=== PATIENT | male | born 1945 | race Caucasian/White ===

== ENCOUNTER 2017-05-15 06:53 | Observation (INO) ==
[2017-05-15] MEDS ORDERED: methylPREDNISolone 125 MG/2 ML VIAL IVP ONE (07:05)
[2017-05-15] MEDS ORDERED: Ipratropium/Albuterol Neb 3 ML IH ONE (07:05)
--- NOTE | 2017-05-15 07:45 | Emergency Department Note ---
Disposition Clinical Impression: Acute exacerbation of chronic obstructive airways disease Disposition: Admitted As Inpatient Condition: Fair Referrals: Ulices Mcgovern Jr, MD [Primary Care Provider] - Forms: ED Satisfaction Letter General Adult HPI - General Chief complaint: ED Shortness of Breath/Dyspnea Stated complaint: SOB Time Seen by Provider: 05/15/17 06:59 Source: patient Limitations: no limitations - History of Present Illness Pain Scale: 0 - Related Data Home Medications Medication Instructions Recorded Confirmed Albuterol Sulfate [Ventolin Hfa] 2 puff IH Q4H PRN 10/15/16 05/12/17 Amiodarone [Cordarone] 200 mg PO DAILY 10/15/16 05/12/17 Aspirin 81 mg PO DAILY 10/15/16 05/12/17 Budesonide/Formoterol 160/4.5 2 puff IH BIDR 10/15/16 05/12/17 [Symbicort 160/4.5] Furosemide [Lasix] 20 mg PO DAILY 10/15/16 05/12/17 Ipratropium/Albuterol Neb [Duoneb] 3 ml IH TID 10/15/16 05/12/17 Isosorbide MONOnitrate (24 HR) 30 mg PO DAILY 10/15/16 05/12/17 [Imdur] Levothyroxine [Synthroid] 75 mcg PO DAILY 10/15/16 05/12/17 Lisinopril [Zestril] 40 mg PO DAILY 10/15/16 05/12/17 Metoprolol [Lopressor] 100 mg PO BID 10/15/16 05/12/17 Paroxetine HCl [Paxil] 40 mg PO DAILY 10/15/16 05/12/17 Pravastatin Sodium [Pravachol] 20 mg PO DAILY 10/15/16 05/12/17 Topiramate [Topamax] 50 mg PO HS 10/15/16 05/12/17 Docusate [Colace] 100 mg PO BID 05/12/17 05/12/17 Quetiapine Fumarate [SEROquel] 25 mg PO HS 05/12/17 05/12/17 clonazePAM [Klonopin] 1 mg PO BID 05/12/17 05/12/17 Allergies Allergy/AdvReac Type Severity Reaction Status Date / Time levofloxacin [From Levaquin] AdvReac Hives Verified 08/06/15 11:02 Past Medical History - Past Medical History Medical history: Reports: aortic aneurysm, cancer, COPD, coronary artery disease , GERD, hyperlipidemia, hypertension, myocardial infarction, thyroid disease, other Surgical history: Reports: cancer surgery, coronary bypass (CABG), vasectomy Psychiatric history: Reports: depression - Social History Smoking Status: Current every day smoker Smokeless Tobacco Status: No Alcohol use: Reports: none Drug use: Reports: none Physical Exam - General Limitations: no limitations General appearance: alert, in no apparent distress Course Vital Signs Temperature 97.8 F 05/15/17 07:01 Pulse Rate 83 05/15/17 07:01 Respiratory Rate 24 05/15/17 07:01 Blood Pressure 124/83 05/15/17 07:01 O2 Sat by Pulse Oximetry 97 05/15/17 07:01 Temperature 97.8 F 05/15/17 07:01 Pulse Rate 80 05/15/17 09:03 Respiratory Rate 20 05/15/17 09:03 Blood Pressure 97/61 05/15/17 09:03 O2 Sat by Pulse Oximetry 97 05/15/17 09:03 Oxygen Delivery Oxygen Delivery Nasal Cannula Medical Decision Making - Lab Data Result diagrams: 05/15/17 07:39 05/15/17 07:39 Lab Results 05/15/17 05/15/17 05/15/17 Range/Units 07:39 07:39 07:39 WBC 13.3 H (4.3-11.1) K/mcL RBC 4.16 L (4.19-5.50) M/mcL Hgb 11.0 L (12.9-16.9) g/dL Hct 35.6 L (37.5-50.1) % MCV 85.6 (83.0-100.0) fL MCH 26.4 L (28.0-33.3) pg MCHC 30.9 L (31.6-35.5) g/dL RDW 14.3 (11.5-14.5) % Plt Count 263 (140-400) K/mcL MPV 9.2 L (9.4-12.4) fL Immature Gran % 0.6 (0-4) % Seg Neutrophils % 89.5 % Lymphocytes % 3.5 % Monocytes % 5.3 % Eosinophils % 0.8 % Basophils % 0.3 % Neutrophils # 11.9 H (1.6-8.9) K/mcL Lymphocytes # 0.5 L (0.6-4.6) K/mcL Monocytes # 0.7 (0.0-1.3) K/mcL Eosinophils # 0.1 (0.0-0.6) K/mcL Basophils # 0.0 (0.0-0.2) K/mcL Immature Plt Fraction 2.5 (1.1-6.1) % ABG pH (7.32-7.45) pH Units ABG pCO2 (35-45) mmHg ABG pO2 (85-104) mmHg ABG HCO3 (21-27) mEQ/L ABG Total CO2 (20-26) mEq/L ABG O2 Saturation (95-98) % ABG Base Excess (-2.0 to 3.0) mEq/L Sodium 137 (136-145) mEq/L Potassium 3.7 (3.5-4.5) mEq/L Chloride 95 L (98-109) mEq/L Carbon Dioxide 34 H (19-29) mEq/L BUN 12 (8-26) mg/dL Creatinine 1.21 (0.72-1.25) mg/dL Est GFR ( Amer) > 60 (> 60) Est GFR (Non-Af Amer) 59 L (> 60) BUN/Creatinine Ratio 10 (6-26) Glucose 87 (70-99) mg/dL Calculated Osmolality 283 (280-300) Lactic Acid 1.1 (0.5-2.2) mmol/L Calcium 9.4 (8.6-10.8) mg/dL Troponin I (0-0.03) ng/mL 05/15/17 05/15/17 Range/Units 07:39 08:56 WBC (4.3-11.1) K/mcL RBC (4.19-5.50) M/mcL Hgb (12.9-16.9) g/dL Hct (37.5-50.1) % MCV (83.0-100.0) fL MCH (28.0-33.3) pg MCHC (31.6-35.5) g/dL RDW (11.5-14.5) % Plt Count (140-400) K/mcL MPV (9.4-12.4) fL Immature Gran % (0-4) % Seg Neutrophils % % Lymphocytes % % Monocytes % % Eosinophils % % Basophils % % Neutrophils # (1.6-8.9) K/mcL Lymphocytes # (0.6-4.6) K/mcL Monocytes # (0.0-1.3) K/mcL Eosinophils # (0.0-0.6) K/mcL Basophils # (0.0-0.2) K/mcL Immature Plt Fraction (1.1-6.1) % ABG pH 7.37 (7.32-7.45) pH Units ABG pCO2 57 H (35-45) mmHg ABG pO2 191 H (85-104) mmHg ABG HCO3 33.0 H (21-27) mEQ/L ABG Total CO2 34.7 H (20-26) mEq/L ABG O2 Saturation 100 H (95-98) % ABG Base Excess 6.4 H (-2.0 to 3.0) mEq/L Sodium (136-145) mEq/L Potassium (3.5-4.5) mEq/L Chloride (98-109) mEq/L Carbon Dioxide (19-29) mEq/L BUN (8-26) mg/dL Creatinine (0.72-1.25) mg/dL Est GFR ( Amer) (> 60) Est GFR (Non-Af Amer) (> 60) BUN/Creatinine Ratio (6-26) Glucose (70-99) mg/dL Calculated Osmolality (280-300) Lactic Acid (0.5-2.2) mmol/L Calcium (8.6-10.8) mg/dL Troponin I 0.02 (0-0.03) ng/mL Attestation Statement - Attestation Attestation: I examined this patient and my medical decision-making was reviewed with the Resident Physician. I agree with the documented findings, disposition and treatment plan as described except to the extent set forth below. [id number] time provided in conjunction with the resident physician Dr. Nguyen Patient presents dyspneic. He recently underwent a bronchoscopy. He is tachypneic and visibly dyspneic on exam. Care of patient plan of management discussed with the resident physician Dr. Nguyen. Chest x-ray image reviewed by me. 09:14: Recent bronchoscopic cultures and sensitivities reviewed by me with resident physician. Appropriate antibiotic therapy initiated
[2017-05-15 07:48] LABS: Basophils % 0.3 %; Eosinophils # 0.1 K/mcL (0.0-0.6); Eosinophils % 0.8 %; Hematocrit 35.6 % (37.5-50.1); Immature Granulocytes % 0.6 % (0-4); Immature Platelets 2.5 % (1.1-6.1); Lymphocytes # 0.5 K/mcL (0.6-4.6); Lymphocytes % 3.5 %; Mean Corpuscular HGB Conc 30.9 g/dL (31.6-35.5); Mean Corpuscular Hemoglobin 26.4 pg (28.0-33.3); Mean Corpuscular Volume 85.6 fL (83.0-100.0); Mean Platelet Volume 9.2 fL (9.4-12.4); Monocytes # 0.7 K/mcL (0.0-1.3); Monocytes % 5.3 %; Neutrophils # 11.9 K/mcL (1.6-8.9); Platelet Count 263 K/mcL (140-400); Red Blood Count 4.16 M/mcL (4.19-5.50); Red Cell Distribution Width 14.3 % (11.5-14.5); Segmented Neutrophils % 89.5 %
--- NOTE | 2017-05-15 08:00 | Emergency Department Note ---
Disposition Clinical Impression: Acute exacerbation of chronic obstructive airways disease Community acquired pneumonia Qualifiers: Laterality: right Lung location: lower lobe of lung Qualified Code(s): J18.1 - Lobar pneumonia, unspecified organism Disposition: Admitted As Inpatient Condition: Fair Referrals: Ulices Mcgovern Jr, MD [Primary Care Provider] - Forms: ED Satisfaction Letter Time of Disposition: 09:41 General Adult HPI - General Chief complaint: ED Shortness of Breath/Dyspnea Stated complaint: SOB Time Seen by Provider: 05/15/17 06:59 Source: patient Limitations: no limitations Nursing Notes Reviewed: Yes Vital Signs Reviewed: Yes - History of Present Illness HPI Narrative: Male patient complaining of a four-day history of increasing shortness of breath. States it got significantly worse after he had a bronchoscopy. Also complaining of generalized weakness and subjective fevers. Denies any pain. Pain Scale: 0 - Related Data Home Medications Medication Instructions Recorded Confirmed Albuterol Sulfate [Ventolin Hfa] 2 puff IH Q4H PRN 10/15/16 05/12/17 Amiodarone [Cordarone] 200 mg PO DAILY 10/15/16 05/12/17 Aspirin 81 mg PO DAILY 10/15/16 05/12/17 Budesonide/Formoterol 160/4.5 2 puff IH BIDR 10/15/16 05/12/17 [Symbicort 160/4.5] Furosemide [Lasix] 20 mg PO DAILY 10/15/16 05/12/17 Ipratropium/Albuterol Neb [Duoneb] 3 ml IH TID 10/15/16 05/12/17 Isosorbide MONOnitrate (24 HR) 30 mg PO DAILY 10/15/16 05/12/17 [Imdur] Levothyroxine [Synthroid] 75 mcg PO DAILY 10/15/16 05/12/17 Lisinopril [Zestril] 40 mg PO DAILY 10/15/16 05/12/17 Metoprolol [Lopressor] 100 mg PO BID 10/15/16 05/12/17 Paroxetine HCl [Paxil] 40 mg PO DAILY 10/15/16 05/12/17 Pravastatin Sodium [Pravachol] 20 mg PO DAILY 10/15/16 05/12/17 Topiramate [Topamax] 50 mg PO HS 10/15/16 05/12/17 Docusate [Colace] 100 mg PO BID 05/12/17 05/12/17 Quetiapine Fumarate [SEROquel] 25 mg PO HS 05/12/17 05/12/17 clonazePAM [Klonopin] 1 mg PO BID 05/12/17 05/12/17 Allergies Allergy/AdvReac Type Severity Reaction Status Date / Time No Known Allergies Allergy Verified 05/15/17 09:36 All systems ED: reviewed and negative except as stated. Constitutional: Reports: fever (Subjective), weakness (Increased over the past 4 days.) ENT ED: Denies: throat pain, congestion Cardiovascular: Denies: chest pain, palpitations, syncope Respiratory: Reports: dyspnea, wheezes, sputum production. Denies: cough, hemoptysis Gastrointestinal: Denies: abdominal pain, nausea, vomiting, diarrhea, hematemesis, melena, hematochezia Genitourinary: Denies: urgency, dysuria, frequency Musculoskeletal: Denies: back pain, neck pain Integumentary: Denies: rash, abrasion, lesions Neurological: Reports: weakness. Denies: headache Past Medical History - Past Medical History Attestation: Yes The following information was validated with the patient. Source: patient Medical history: Reports: aortic aneurysm, cancer, COPD, coronary artery disease , GERD, hyperlipidemia, hypertension, myocardial infarction, thyroid disease, other Surgical history: Reports: cancer surgery, coronary bypass (CABG), vasectomy Psychiatric history: Reports: depression - Social History Smoking Status: Current every day smoker Smokeless Tobacco Status: No Alcohol use: Reports: none Drug use: Reports: none Physical Exam - General Limitations: no limitations General appearance: alert, in distress - Head Head exam: atraumatic, normocephalic, normal inspection - Eye Eye exam: Present: normal appearance, PERRL, EOMI - ENT ENT exam: normal exam, normal oropharynx, mucous membranes moist - Neck Neck exam: Present: normal inspection, full ROM, trachea midline - Chest Chest inspection: Present: normal inspection, symmetric chest wall rise. Absent : tenderness - Respiratory Respiratory exam: Present: respiratory distress, wheezes, accessory muscle use, prolonged expiratory phase, other (Rhonchi throughout) - Cardiovascular Cardiovascular exam: Present: regular rate, normal heart sounds - Abdominal Exam Abdominal exam: Present: soft, Non-Tender, normal bowel sounds - Extremities Exam Extremities exam: Present: normal inspection, full ROM, normal capillary refill. Absent: tenderness, pedal edema - Back Exam Back exam: Present: normal inspection, full ROM. Absent: tenderness - Neurological Exam Neurological exam: Present: alert, oriented X3 - Psychiatric Psychiatric exam: Present: anxious - Skin Skin exam: Present: warm, dry, intact, normal color. Absent: rash, cyanosis Course Course Narrative: Male patient presenting to the emergency department With dyspnea. He states he had a bronco on Wednesday and has been getting worse ever since. He is moderately dyspneic on my arrival to the room. He has subcostal retractions. He states that he needs some oxygen. After he was placed on oxygen his O2 saturation was in the 80s. We increased his oxygen up to 4 L was brought into the low 90s. He has rhonchorous throughout. He also has some diffuse wheezing. He has a prolonged expiratory phase. We will get a triple DuoNeb and give patient steroids at this time. He states he has had subjective fevers at home. There are no signs of edema to his extremities. His heart sounds are normal. We will get a chest x-ray and basic lab workup. We will be admitting the patient to the hospital for his respiratory distress. - Reevaluation(s) Reevaluation #1: Patient's respiratory distress has improved. However he does seem slightly dyspneic still. He is requiring oxygen while here to maintain oxygen saturation in the low 90s. He has had some bronchial scrapings from Wednesday. They did test positive for Pseudomonas as well as gram-negative rods. We will place patient on Levaquin as the Pseudomonas is sensitive to that. We will admit patient to the hospital. He is agreeable to this. - Consultations Consultation #1: Dr. Gould accepted patient's stable condition. Time: 09:39 Vital Signs Temperature 97.8 F 05/15/17 07:01 Pulse Rate 83 05/15/17 07:01 Respiratory Rate 24 05/15/17 07:01 Blood Pressure 124/83 05/15/17 07:01 O2 Sat by Pulse Oximetry 97 05/15/17 07:01 Temperature 97.8 F 05/15/17 07:01 Pulse Rate 83 05/15/17 07:01 Respiratory Rate 24 05/15/17 07:01 Blood Pressure 124/83 08/26/17 07:01 O2 Sat by Pulse Oximetry 96 05/15/17 08:07 Oxygen Delivery Oxygen Delivery Nasal Cannula Medical Decision Making - Medical Records Medical records reviewed: Yes I reviewed the patient's medical records. - Lab Data Lab results reviewed: Yes I reviewed the patient's lab results. Result diagrams: 05/15/17 07:39 05/15/17 07:39 Lab Results 05/15/17 05/15/17 05/15/17 Range/Units 07:39 07:39 07:39 WBC 13.3 H (4.3-11.1) K/mcL RBC 4.16 L (4.19-5.50) M/mcL Hgb 11.0 L (12.9-16.9) g/dL Hct 35.6 L (37.5-50.1) % MCV 85.6 (83.0-100.0) fL MCH 26.4 L (28.0-33.3) pg MCHC 30.9 L (31.6-35.5) g/dL RDW 14.3 (11.5-14.5) % Plt Count 263 (140-400) K/mcL MPV 9.2 L (9.4-12.4) fL Immature Gran % 0.6 (0-4) % Seg Neutrophils % 89.5 % Lymphocytes % 3.5 % Monocytes % 5.3 % Eosinophils % 0.8 % Basophils % 0.3 % Neutrophils # 11.9 H (1.6-8.9) K/mcL Lymphocytes # 0.5 L (0.6-4.6) K/mcL Monocytes # 0.7 (0.0-1.3) K/mcL Eosinophils # 0.1 (0.0-0.6) K/mcL Basophils # 0.0 (0.0-0.2) K/mcL Immature Plt Fraction 2.5 (1.1-6.1) % Sodium 137 (136-145) mEq/L Potassium 3.7 (3.5-4.5) mEq/L Chloride 95 L (98-109) mEq/L Carbon Dioxide 34 H (19-29) mEq/L BUN 12 (8-26) mg/dL Creatinine 1.21 (0.72-1.25) mg/dL Est GFR ( Amer) > 60 (> 60) Est GFR (Non-Af Amer) 59 L (> 60) BUN/Creatinine Ratio 10 (6-26) Glucose 87 (70-99) mg/dL Calculated Osmolality 283 (280-300) Lactic Acid 1.1 (0.5-2.2) mmol/L Calcium 9.4 (8.6-10.8) mg/dL Troponin I (0-0.03) ng/mL 05/15/17 Range/Units 07:39 WBC (4.3-11.1) K/mcL RBC (4.19-5.50) M/mcL Hgb (12.9-16.9) g/dL Hct (37.5-50.1) % MCV (83.0-100.0) fL MCH (28.0-33.3) pg MCHC (31.6-35.5) g/dL RDW (11.5-14.5) % Plt Count (140-400) K/mcL MPV (9.4-12.4) fL Immature Gran % (0-4) % Seg Neutrophils % % Lymphocytes % % Monocytes % % Eosinophils % % Basophils % % Neutrophils # (1.6-8.9) K/mcL Lymphocytes # (0.6-4.6) K/mcL Monocytes # (0.0-1.3) K/mcL Eosinophils # (0.0-0.6) K/mcL Basophils # (0.0-0.2) K/mcL Immature Plt Fraction (1.1-6.1) % Sodium (136-145) mEq/L Potassium (3.5-4.5) mEq/L Chloride (98-109) mEq/L Carbon Dioxide (19-29) mEq/L BUN (8-26) mg/dL Creatinine (0.72-1.25) mg/dL Est GFR ( Amer) (> 60) Est GFR (Non-Af Amer) (> 60) BUN/Creatinine Ratio (6-26) Glucose (70-99) mg/dL Calculated Osmolality (280-300) Lactic Acid (0.5-2.2) mmol/L Calcium (8.6-10.8) mg/dL Troponin I 0.02 (0-0.03) ng/mL - Radiology Data Radiology results reviewed: Yes I reviewed the patient's radiology results. Chest X-Ray 05/15/17 07:05 IMPRESSION: Right basilar airspace disease likely increased from 05/06/2017. D/ / 05/15/2017 08:02:57 Kevin Grace MD / valentin Interpreting Provider: Kevin Grace MD - EKG Data EKG #1 EKG attestation: Yes I reviewed and interpreted this EKG. EKG results narrative: Normal sinus rhythm at a rate 82. [place] intervals 105. QRS duration is 111. QT is 410. QTC is 448. No signs of acute ischemia. No significant change from previous EKG dated 08/24/2014.
[2017-05-15 08:02] LABS: BUN/Creatinine Ratio 10 (6-26); Blood Urea Nitrogen 12 mg/dL (8-26); Calcium 9.4 mg/dL (8.6-10.8); Carbon Dioxide 34 mEq/L (19-29); Chloride 95 mEq/L (98-109); Glucose 87 mg/dL (70-99); Osmolality,Calculated 283 (280-300); Potassium 3.7 mEq/L (3.5-4.5); Sodium 137 mEq/L (136-145); eGFR For African Americans > 60 (> 60); eGFR For Non-African Americans 59 (> 60)
[2017-05-15 08:57] LABS: ABG Base Excess 6.4 mEq/L (-2.0 to 3.0); ABG Oxygen Saturation 100 % (95-98); ABG PCO2 57 mmHg (35-45); ABG PH 7.37 pH Units (7.32-7.45); ABG PO2 191 mmHg (85-104); ABG TCO2 34.7 mEq/L (20-26)
[2017-05-15] MEDS ORDERED: Levofloxacin 500 MG/100 ML 500 MG/100 ML BAG IVPB ONE (09:13)
[2017-05-15] MEDS ORDERED: Ondansetron 4 MG/2 ML VIAL IVP PRN (10:23)
[2017-05-15] MEDS ORDERED: Naloxone 0.4 MG/ML INJ IVP PRN (10:23)
[2017-05-15] MEDS ORDERED: Nicotine 14 MG PATCH.TD24 TD PRN (10:29)
--- NOTE | 2017-05-15 10:47 | Internal Med History&Physical ---
Date of Encounter: 05/15/17 Time of Encounter: 09:50 Assessment and Plan (1) Acute exacerbation of chronic obstructive airways disease Current visit: Yes Status: Acute Likely secondary to underlying pneumonia will continue IV steroids and bronchodilator support O2 supplementation monitor O2 saturation, goal O2 sat: 88-92% consider pulmonary evaluation if patient's symptoms persist despite therapy will closely monitor respiratory status (2) Right upper lobe pneumonia Current visit: Yes Status: Acute s/p Bronchoscopy on 05/12/17 for evaluation of RUL lesion and recurrent PNA Respiratory culture positive for Psuedomonas sensitive to Levaquin Will continue Levaquin 750mg IV qdaily f/u blood cultures Qualifiers: Pneumonia type: due to unspecified organism Qualified Code(s): J18.1 - Lobar pneumonia, unspecified organism (3) HTN (hypertension) Current visit: Yes Status: Acute Noted to be hypotensive initially but repeat BP within acceptable range continue home medications will continue to closely monitor Qualifiers: Hypertension type: essential hypertension Qualified Code(s): I10 - Essential (primary) hypertension (4) HLD (hyperlipidemia) Current visit: Yes Status: Acute continue home medication Qualifiers: Hyperlipidemia type: unspecified Qualified Code(s): E78.5 - Hyperlipidemia , unspecified (5) CAD (coronary artery disease) Current visit: Yes Status: Acute No signs of angina present at this time continue home medications (ASA, BB, Statin) Qualifiers: Coronary Disease-Associated Artery/Lesion type: unspecified vessel or lesion type [place] vs. transplanted heart: unspecified whether [place] or transplanted heart Associated angina: angina presence unspecified Qualified Code(s): I25.10 - Atherosclerotic heart disease of [place] coronary artery without angina pectoris (6) Ischemic cardiomyopathy Current visit: Yes Status: Acute s/p AICD continue home dose of Amiodarone (7) DVT prophylaxis Current visit: Yes Status: Acute Heparin SQ (8) Tobacco abuse Current visit: Yes Status: Acute Smoking cessation counseling provided Patient trying to quit Nicotine replacement therapy provided Internal Medicine - H&P: HPI Chief complaint: shortness of breath Admitted From: Home Plans for Post Hospital Care: Home History of present illness: Mr. Jaimes is a 72 year old male with PMH of COPD on LTOT, CAD, Ischemic cardiomyopathy s/p AICD, HTN, HLD presents to the ER for management of worsening shortness of breath. Patient reports of recently having a bronchoscopy on 05/12/17 for evaluation of RUL lesion and recurrent RUL PNA by Dr. Bustos and states since his bronchoscopy he has been feeling weak and his respiratory status has been worsening. Reports of productive cough and persistent dyspnea. Upon arrival to the ER, he was noted to be in acute respiratory distress requiring Duoneb nebullizer treatment. He responded appropriately to therapy. His BAL cultures are positive for pseudomonas for which he was started on Levaquin as per the culture sensitivity report. He is currently saturating well on nasal cannula and reports of feeling better since his arrival to the hospital. Denies any headache, chest pain, abd pain, n/v, fever, or chills. Reports of generalized weakness for the last few days. Social History: Every day smoker (cut down to / ppd) Code status: Full code During my evaluation, patient was weak but able to communicate and provide history. His sister was present at bedside. Past Med Surg Social Fam HX - Past Medical History Medical history: aortic aneurysm, cancer, COPD, coronary artery disease, GERD, hyperlipidemia, hypertension, myocardial infarction, thyroid disease, other Psychiatric history: depression - Past Surgical History Surgical History: cancer surgery, coronary bypass (CABG), vasectomy - Social History Smoking Status: Current every day smoker Smokeless Tobacco Status: No Alcohol use: none Drug use: none Internal Medicine - H&P: Meds Albuterol Sulfate [Ventolin Hfa] 2 puff IH Q4H PRN 10/15/16 [History] Amiodarone [Cordarone] 200 mg PO DAILY 10/15/16 [History] Aspirin 81 mg PO DAILY 10/15/16 [History] Budesonide/Formoterol 160/4.5 [Symbicort 160/4.5] 2 puff IH BIDR 10/15/16 [ History] Furosemide [Lasix] 20 mg PO DAILY 10/15/16 [History] Ipratropium/Albuterol Neb [Duoneb] 3 ml IH TID 10/15/16 [History] Isosorbide MONOnitrate (24 HR) [Imdur] 30 mg PO DAILY 10/15/16 [History] Levothyroxine [Synthroid] 75 mcg PO DAILY 10/15/16 [History] Lisinopril [Zestril] 40 mg PO DAILY 10/15/16 [History] Metoprolol [Lopressor] 100 mg PO DAILY 10/15/16 [History] Paroxetine HCl [Paxil] 40 mg PO DAILY 10/15/16 [History] Pravastatin Sodium [Pravachol] 20 mg PO DAILY 10/15/16 [History] Topiramate [Topamax] 50 mg PO HS 10/15/16 [History] Docusate [Colace] 100 mg PO BID 05/12/17 [History] Quetiapine Fumarate [SEROquel] 25 mg PO HS 05/12/17 [History] clonazePAM [Klonopin] 1 mg PO BID 05/12/17 [History] 3 Allergy/AdvReac Type Severity Reaction Status Date / Time No Known Allergies Allergy Verified 05/15/17 09:36 All Systems PM: A 10-system review of systems was performed and is negative for pertinent findings except as documented above in the HPI. - Constitutional Constitutional: as per HPI - Constitutional Vitals: Temp Pulse Resp BP Pulse Ox 97.8 F 61 20 134/90 98 05/15/17 07:01 05/15/17 10:07 05/15/17 10:22 05/15/17 10:22 05/15/17 10:07 General appearance: Present: cooperative, A&O X 3 (frail), no acute distress, underweight, answers questions appropriately - Head Head exam: Present: atraumatic, normocephalic - Eye Eye exam: Present: conjuntiva pink, sclera anicteric - Respiratory Respiratory exam: Present: wheezes (diffuse wheezing bilaterally). Absent: accessory muscle use, chest wall tenderness, respiratory distress - Cardiovascular Cardiovascular exam: Present: RRR, +S1, +S2. Absent: diastolic murmur, gallop, rubs, systolic murmur - GI/Abdominal GI/Abdominal exam: Present: normal bowel sounds, soft, no peritoneal signs. Absent: distended, tenderness - Extremities Exam Extremities exam: Present: warm, radial pulses palpable and symmetrical. Absent : calf tenderness, cyanotic, pedal edema - Skin Additional comments: diffuse echymosis/scabs on bilateral upper extremities Internal Med - H&P Results - Labs CBC & Chem 7: 05/15/17 07:39 05/15/17 07:39
[2017-05-15] MEDS ORDERED: LEVOFLOXACIN 250 MG/50 ML IVPB ONE (11:00)
[2017-05-15] MEDS: Aspirin 81 MG TAB.CHEW PO SCH (11:05)
[2017-05-15] MEDS: *HR* Amiodarone 200 MG TABLET PO SCH (11:05)
[2017-05-15] MEDS: Ipratropium/Albuterol Neb 3 ML IH SCH ×4 (11:27→23:24)
[2017-05-15] MEDS: *HR* Heparin 5,000 UNIT/ML VIAL SQ SCH (17:48)
[2017-05-15] MEDS: Topiramate 25 MG TABLET PO SCH (20:43)
[2017-05-15] MEDS: clonazePAM 1 MG TABLET PO SCH (20:43)
[2017-05-15] MEDS: MethylPREDNISolone 40 MG/ML VIAL IVP SCH (23:34)
[2017-05-16 02:45] LABS: Hematocrit 28.8 % (37.5-50.1); Immature Granulocytes % 0.5 % (0-4); Lymphocytes # 0.2 K/mcL (0.6-4.6); Lymphocytes % 1.8 %; Mean Corpuscular HGB Conc 31.9 g/dL (31.6-35.5); Mean Corpuscular Hemoglobin 27.1 pg (28.0-33.3); Mean Corpuscular Volume 84.7 fL (83.0-100.0); Mean Platelet Volume 9.6 fL (9.4-12.4); Monocytes # 0.2 K/mcL (0.0-1.3); Monocytes % 1.6 %; Platelet Count 204 K/mcL (140-400); Red Cell Distribution Width 14.3 % (11.5-14.5); Segmented Neutrophils % 96.1 %
[2017-05-16 02:53] LABS: Hemoglobin 9.2 g/dL (12.9-16.9)
[2017-05-16 02:57] LABS: BUN/Creatinine Ratio 10 (6-26); Blood Urea Nitrogen 14 mg/dL (8-26); Calcium 9.1 mg/dL (8.6-10.8); Carbon Dioxide 33 mEq/L (19-29); Chloride 95 mEq/L (98-109); Glucose 215 mg/dL (70-99); Magnesium 1.6 mg/dL (1.6-2.6); Osmolality,Calculated 291 (280-300); Phosphorous 2.8 mg/dL (2.3-4.7); Potassium 3.4 mEq/L (3.5-4.5); Sodium 137 mEq/L (136-145); eGFR For African Americans > 60 (> 60); eGFR For Non-African Americans 52 (> 60)
[2017-05-16] MEDS: Ipratropium/Albuterol Neb 3 ML IH SCH ×6 (04:06→23:56)
[2017-05-16] MEDS: *HR* Heparin 5,000 UNIT/ML VIAL SQ SCH ×2 (06:09→16:51)
[2017-05-16] MEDS: *HR* Amiodarone 200 MG TABLET PO SCH (08:00)
[2017-05-16] MEDS: MethylPREDNISolone 40 MG/ML VIAL IVP SCH ×3 (08:00→23:43)
[2017-05-16] MEDS: Furosemide 20 MG TABLET PO SCH (08:00)
[2017-05-16] MEDS: clonazePAM 1 MG TABLET PO SCH ×2 (08:00→20:15)
[2017-05-16] MEDS: Lisinopril 20 MG TABLET PO SCH (08:00)
[2017-05-16] MEDS: Aspirin 81 MG TAB.CHEW PO SCH (08:00)
[2017-05-16] MEDS: Metoprolol 100 MG TABLET PO SCH (08:00)
[2017-05-16] MEDS: Isosorbide MONOnitrate (24 HR) 30 MG TAB.ER.24H PO SCH (08:00)
--- NOTE | 2017-05-16 10:46 | Internal Med Progress Note ---
Date of Encounter: 05/16/17 Time of Encounter: 08:30 - Assessment and plan (1) Pneumonia Current Visit: Yes Status: Acute Assessment and plan: Imaging consistent with right lower lobe pneumonia. No recent admissions, suspect urinary of unknown bacterial etiology. Treating with levofloxacin. Blood cultures this visit are negative 2. I have reviewed his BAL from . Per cytopathology report, Gram stain negative for fungal organisms, negative for malignant cells and indicative of acute inflammation. Prior respiratory culture positive for Pseudomonas sensitive to levofloxacin. On examination, patient is asleep but awakens easily to voice and is alert and oriented 3. He appears exhausted. He states his breathing is slightly better. Coarse rhonchi noted throughout with poor to fair aeration present. Continue submental oxygenation and BiPAP as needed. While no malignant cells were found on the BAL, patient is cachectic and appears failure to thrive. Nutrition is on board and have started nutritional supplementation. We will continue to address topic of plan of care and CODE STATUS during this admission. Will obtain chest CT. ITS Impressions Chest X-Ray 05/15/17 07:05 IMPRESSION: Right basilar airspace disease likely increased from 05/06/2017. D/ / 05/15/2017 08:02:57 Kevin Grace MD / valentin Interpreting Provider: Kevin Grace MD Qualifiers: Pneumonia type: due to unspecified organism Laterality: right Lung location: unspecified part of lung Qualified Code(s): J18.9 - Pneumonia, unspecified organism (2) Acute exacerbation of chronic obstructive airways disease Current Visit: Yes Status: Acute Assessment and plan: Patient stating he feels slightly better than yesterday. Continue bronchodilators, supplemental oxygen, levofloxacin, methylprednisolone. We will add mucolytics. On examination, patient is not in acute respiratory distress however his aeration is fair to poor. He is currently on 4 L per nasal cannula continuously. Also on oxygen at home. BiPAP as needed. (3) Acute and chronic respiratory failure Current Visit: Yes Status: Acute Assessment and plan: Currently on 4 L per nasal cannula as needed as well as BiPAP. On oxygen at home as well. Qualifiers: Respiratory failure complication: unspecified whether with hypoxia or hypercapnia Qualified Code(s): J96.20 - Acute and chronic respiratory failure , unspecified whether with hypoxia or hypercapnia (4) Anemia Current Visit: Yes Status: Acute Assessment and plan: No. Hemoglobin 9.2. Unclear etiology at this time. Patient denies hemoptysis , melena or hematochezia. We will check iron, B12, folate and trend. This could be contributing to his shortness of breath as well. Qualifiers: Anemia type: unspecified type Qualified Code(s): D64.9 - Anemia, unspecified (5) Ischemic cardiomyopathy Current Visit: Yes Status: Chronic Assessment and plan: I do not see a recent echocardiogram and the patient's file. He had a stress test back in 2014 revealed an ejection fraction of 44%. While I suspect his respiratory distress and failure to thrive are consistent with pulmonic etiology , cannot entirely rule out cardiac etiology as a contributing factor-we will obtain echocardiogram (6) HTN (hypertension) Current Visit: Yes Status: Chronic Assessment and plan: Was hypotensive earlier but currently normotensive. We will continue to monitor closely and adjust medications as indicated. Qualifiers: Hypertension type: essential hypertension Qualified Code(s): I10 - Essential (primary) hypertension (7) HLD (hyperlipidemia) Current Visit: Yes Status: Chronic Assessment and plan: Lipid panel unremarkable earlier this year. On a statin. Qualifiers: Hyperlipidemia type: unspecified Qualified Code(s): E78.5 - Hyperlipidemia , unspecified (8) CAD (coronary artery disease) Current Visit: Yes Status: Chronic Qualifiers: Coronary Disease-Associated Artery/Lesion type: bypass graft [place] vs. transplanted heart: [place] heart Associated angina: angina presence unspecified Qualified Code(s): I25.810 - Atherosclerosis of coronary artery bypass graft(s) without angina pectoris (9) Tobacco abuse Current Visit: Yes Status: Chronic Assessment and plan: He is trying to quit. He has currently weaned himself down to one half pack per day. Continue nicotine replacement therapy. Continue counseling. (10) Body mass index (BMI) of 19 or less in adult Current Visit: Yes Status: Chronic Assessment and plan: Nutrition is on board. Continue Ensure twice a day and Magic cup daily (11) DVT prophylaxis Current Visit: Yes Status: Acute Assessment and plan: Subcutaneous heparin - Subjective Interval history: Patient seen and examined. On examination, patient lying supine in bed with the head of his bed elevated. He is asleep. He awakens easily to voice and denies pain. He states his breathing is better but he states that he is really tired and would like to rest. - Constitutional Vitals: Temp Pulse Resp BP Pulse Ox 97.5 F L 78 14 159/75 98 05/16/17 07:50 05/16/17 07:50 05/16/17 07:50 05/16/17 07:50 05/16/17 07:50 General appearance: Present: cachectic, cooperative, A&O X 3 (frail), no acute distress, underweight, answers questions appropriately - Head Head exam: Present: atraumatic, normocephalic - Eye Eye exam: Present: PERRL, conjuntiva pink, sclera anicteric Pupils: Present: PERRL - Neck Neck exam general surgery: Present: supple, trachea midline. Absent: lymphadenopathy - Respiratory Respiratory exam: Present: decreased breath sounds. Absent: accessory muscle use, rales, respiratory distress, rhonchi, wheezes - Cardiovascular Cardiovascular exam: Present: RRR, +S1, +S2. Absent: diastolic murmur, gallop, rubs, systolic murmur - GI/Abdominal GI/Abdominal exam: Present: normal bowel sounds, soft, no peritoneal signs. Absent: distended, tenderness - Extremities Exam Extremities exam: Present: warm, radial pulses palpable and symmetrical. Absent : calf tenderness, cyanotic, pedal edema - Neurological Exam Neurological exam: Present: alert (sleepy but oriented x3), CN II-XII intact, oriented X3, no focal deficits, strengths equal and symetr throughout. Absent: pronater drift, facial droop, speech deficit - Skin Skin exam: Present: dry, intact, pallor, warm Internal Medicine: Result - Labs CBC & Chem 7: 05/16/17 02:26 05/16/17 02:26 Labs: Short CBC 05/16/17 Range/Units 02:26 WBC 11.4 H (4.3-11.1) K/mcL Hgb 9.2 L D (12.9-16.9) g/dL Hct 28.8 L (37.5-50.1) % Plt Count 204 (140-400) K/mcL Neutrophils # 11.0 H (1.6-8.9) K/mcL BMP 05/16/17 02:26 Sodium 137 Potassium 3.4 L Chloride 95 L Carbon Dioxide 33 H BUN 14 Creatinine 1.34 H Glucose 215 H Calcium 9.1 - ABG Interpretation ABG results: ABG ABG pH 7.37 pH Units (7.32-7.45) 05/15/17 08:56 ABG pCO2 57 mmHg (35-45) H 05/15/17 08:56 ABG pO2 191 mmHg (85-104) H 05/15/17 08:56 ABG O2 Saturation 100 % (95-98) H 05/15/17 08:56 Consult Discharge Plan - Plan Referrals: Ulices Mcgovern Jr, MD [Primary Care Provider] -
[2017-05-16] MEDS ORDERED: Acetaminophen 325 MG TABLET PO PRN (11:00)
[2017-05-16] MEDS ORDERED: *HR* HYDROcodone/Acet 5/325 mg TABLET PO PRN (11:00)
[2017-05-16] MEDS ORDERED: *HR* Morphine 2 MG/ML SYRINGE IVP PRN (11:00)
[2017-05-16] MEDS: Topiramate 25 MG TABLET PO SCH (20:15)
[2017-05-17] MEDS: Ipratropium/Albuterol Neb 3 ML IH SCH ×6 (03:55→23:53)
[2017-05-17 04:22] LABS: Basophils % 0.1 %; Hematocrit 29.3 % (37.5-50.1); Lymphocytes # 0.3 K/mcL (0.6-4.6); Lymphocytes % 1.7 %; Mean Corpuscular HGB Conc 30.7 g/dL (31.6-35.5); Mean Corpuscular Hemoglobin 26.4 pg (28.0-33.3); Mean Corpuscular Volume 85.9 fL (83.0-100.0); Mean Platelet Volume 9.3 fL (9.4-12.4); Monocytes # 0.2 K/mcL (0.0-1.3); Monocytes % 1.2 %; Neutrophils # 14.8 K/mcL (1.6-8.9); Platelet Count 252 K/mcL (140-400); Red Blood Count 3.41 M/mcL (4.19-5.50)
[2017-05-17 04:36] LABS: % Iron Saturation 7 % (20-55); BUN/Creatinine Ratio 20 (6-26); Blood Urea Nitrogen 20 mg/dL (8-26); Calcium 9.3 mg/dL (8.6-10.8); Carbon Dioxide 37 mEq/L (19-29); Chloride 97 mEq/L (98-109); Glucose 171 mg/dL (70-99); Iron 13 mcg/dL (65-175); Osmolality,Calculated 295 (280-300); Sodium 139 mEq/L (136-145); Transferrin 129 mg/dL (174-364); eGFR For African Americans > 60 (> 60); eGFR For Non-African Americans > 60 (> 60)
[2017-05-17 04:58] LABS: Ferritin 153 ng/ml (22-275)
[2017-05-17 05:33] LABS: Thyroid Stimulating Hormone 0.111 mcIU/mL (0.350-4.840)
[2017-05-17] MEDS: *HR* Heparin 5,000 UNIT/ML VIAL SQ SCH ×2 (05:45→17:06)
[2017-05-17 05:54] LABS: Folate 7.1 ng/mL (7.0-31.4)
[2017-05-17] MEDS ORDERED: Ferumoxytol 510 MG in 0.9 % Sodium Chloride 100 ML IVPB ONE (08:23)
[2017-05-17] MEDS: MethylPREDNISolone 40 MG/ML VIAL IVP SCH ×3 (09:05→23:58)
[2017-05-17] MEDS: Furosemide 20 MG TABLET PO SCH (09:06)
[2017-05-17] MEDS: Metoprolol 100 MG TABLET PO SCH (09:06)
[2017-05-17] MEDS: clonazePAM 1 MG TABLET PO SCH ×2 (09:06→21:35)
[2017-05-17] MEDS: *HR* Amiodarone 200 MG TABLET PO SCH (09:06)
[2017-05-17] MEDS: Lisinopril 20 MG TABLET PO SCH (09:06)
[2017-05-17] MEDS: Aspirin 81 MG TAB.CHEW PO SCH (09:07)
[2017-05-17] MEDS: Levofloxacin 750 MG/150 ML 750 MG/150 ML BAG IVPB SCH (09:07)
[2017-05-17] MEDS: Isosorbide MONOnitrate (24 HR) 30 MG TAB.ER.24H PO SCH (09:07)
[2017-05-17 09:43] LABS: Triiodothyronine (T3) Total 0.33 ng/mL (0.58-1.59)
[2017-05-17] MEDS ORDERED: Cosyntropin 250 MCG/2 ML VIAL IVP ONE (15:26)
--- NOTE | 2017-05-17 15:30 | Internal Med Progress Note ---
Date of Encounter: 05/17/17 Time of Encounter: 09:30 - Assessment and plan (1) Pneumonia Current Visit: Yes Status: Acute Assessment and plan: Imaging consistent with right lower lobe pneumonia. No recent admissions, suspect community acquired of unknown bacterial etiology. Treating with levofloxacin. Blood cultures this visit are negative 2. I have reviewed his BAL from 05/12/17. Per cytopathology report, Gram stain negative for fungal organisms, negative for malignant cells and indicative of acute inflammation. Prior respiratory culture positive for Pseudomonas sensitive to levofloxacin- repeat respiratory culture pending. On examination, patient is alert and oriented 3 and states he is feeling much better today but he is not quite back to his baseline. Coarse rhonchi noted throughout with fair aeration present. Continue supplemental oxygenation and BiPAP as needed. While no malignant cells were found on the BAL, patient is cachectic and appears failure to thrive. Of note, performing ACTH stim test for concern for possible central hypothyroidism Nutrition is on board and have started nutritional supplementation. We will continue to address topic of plan of care and CODE STATUS during this admission. Chest CT unremarkable for acute changes or processes. ITS Impressions Chest X-Ray 05/15/17 07:05 IMPRESSION: Right basilar airspace disease likely increased from 05/06/2017. D/ / 05/15/2017 08:02:57 Kevin Grace MD / valentin Interpreting Provider: Kevin Grace MD Chest CT 05/16/17 17:23 IMPRESSION: No substantial change in appearance of the lungs. Prominent emphysema. Partial consolidation in the right lower lobe, prominent opacification within the right upper lobe with cavitation near the apex and associated volume loss, and tree-in-bud nodules peripherally in the left lower lobe. D/ / Alta Valera MD / Alta Valera MD Interpreting Provider: Alta Valera MD (2) Acute exacerbation of chronic obstructive airways disease Current Visit: Yes Status: Acute Assessment and plan: Patient stating he continues to improve daily. Continue bronchodilators, supplemental oxygen, levofloxacin, methylprednisolone, mucolytics. On examination, patient is not in acute respiratory distress and his aeration is fair. He is currently on 4 L per nasal cannula continuously. At home, he is on 3-4 liters continuously and BiPAP at night (3) Acute and chronic respiratory failure Current Visit: Yes Status: Acute Assessment and plan: Currently on 4 L per nasal cannula as needed as well as BiPAP. On oxygen at home as well. (4) Hypothyroidism Current Visit: Yes Status: Chronic Assessment and plan: Patient appears to have primary hypothyroidism as he is on Synthroid at home. Reviewing his thyroid studies, his TSH is low, free T4 normal, total T3 low. Could be primary hypothyroidism but could also could be central hypothyroidism. We will perform ACTH stim test. Patient stating he feels jittery all the time and is losing weight despite eating a lot. (5) Anemia Current Visit: Yes Status: Acute Assessment and plan: New. Hemoglobin 9.0 but has remained stable. Unclear etiology at this time. Patient denies hemoptysis, melena or hematochezia. B12, folate normal. Iron levels are low, we will give a dose of Feraheme. TSH low T3 low-ACTH stim test in progress. (6) Ischemic cardiomyopathy Current Visit: Yes Status: Chronic Assessment and plan: Echocardiogram revealing ejection fraction of 40% with mild diastolic dysfunction and mild pulmonary hypertension. No acute changes; he had a stress test back in 2014 that revealed an ejection fraction of 44%. On dosing of furosemide was continued. Chronic combined heart failure. Echocardiogram Date of Study: 05/16/2017 Indications: Ischemic cardiomyopathy Impressions: LVEF 40%. Normal LV chamber size. Segmental left ventricular systolic dysfunction. Atypical septal motion consistent with post-operative status. Mild left ventricular diastolic dysfunction. Right ventricle was not well visualized. Grossly, it appears mildly dilated with normal function. Borderline mild pulmonary hypertension. Estimated RVSP is 35 mmHg. A device lead was visualized in the right atrium and right ventricle. (7) HTN (hypertension) Current Visit: Yes Status: Chronic Assessment and plan: Was hypotensive earlier in the admission but remains normotensive. We will continue to monitor closely and adjust medications as indicated. Qualifiers: Hypertension type: essential hypertension Qualified Code(s): I10 - Essential (primary) hypertension (8) HLD (hyperlipidemia) Current Visit: Yes Status: Chronic Assessment and plan: Lipid panel unremarkable earlier this year. On a statin. (9) CAD (coronary artery disease) Current Visit: Yes Status: Chronic Qualifiers: Coronary Disease-Associated Artery/Lesion type: bypass graft [place] vs. transplanted heart: [place] heart Associated angina: angina presence unspecified Qualified Code(s): I25.810 - Atherosclerosis of coronary artery bypass graft(s) without angina pectoris (10) Tobacco abuse Current Visit: Yes Status: Chronic Assessment and plan: He is trying to quit. He has currently weaned himself down to one half pack per day. Continue nicotine replacement therapy. Continue counseling. (11) Body mass index (BMI) of 19 or less in adult Current Visit: Yes Status: Chronic Assessment and plan: Nutrition is on board. Continue Ensure twice a day and Magic cup daily (12) Protein-calorie malnutrition, severe Current Visit: Yes Status: Acute Assessment and plan: Nutrition is on board. Continue Ensure twice a day and Magic cup daily (13) DVT prophylaxis Current Visit: Yes Status: Acute Assessment and plan: Subcutaneous heparin - Subjective Interval history: Patient seen and examined. On examination, patient sitting upright in bed and he had just finished his breakfast. Patient stating he feels better today but continues to be more short of breath than usual. He states that he feels shaky. He states his cough is now productive. He is endorsing a normal appetite. - Constitutional Vitals: Temp Pulse Resp BP Pulse Ox 97.6 F 89 15 121/71 98 05/17/17 11:48 05/17/17 11:48 05/17/17 11:48 05/17/17 11:48 05/17/17 11:48 General appearance: Present: cachectic, cooperative, A&O X 3 (frail), pleasant, no acute distress, underweight, answers questions appropriately - Head Head exam: Present: atraumatic, normocephalic - Eye Eye exam: Present: PERRL, conjuntiva pink, sclera anicteric Pupils: Present: PERRL - Neck Neck exam general surgery: Present: supple, trachea midline. Absent: lymphadenopathy - Respiratory Respiratory exam: Present: decreased breath sounds. Absent: accessory muscle use, rales, respiratory distress, rhonchi, wheezes - Cardiovascular Cardiovascular exam: Present: RRR, +S1, +S2. Absent: diastolic murmur, gallop, rubs, systolic murmur - GI/Abdominal GI/Abdominal exam: Present: normal bowel sounds, soft, no peritoneal signs. Absent: distended, tenderness - Extremities Exam Extremities exam: Present: warm, radial pulses palpable and symmetrical. Absent : calf tenderness, cyanotic, pedal edema - Neurological Exam Neurological exam: Present: alert, CN II-XII intact, oriented X3, no focal deficits, strengths equal and symetr throughout. Absent: pronater drift, facial droop, speech deficit - Skin Skin exam: Present: dry, intact, pallor, warm Internal Medicine: Result - Labs CBC & Chem 7: 05/17/17 04:14 05/17/17 04:14 Labs: Short CBC 05/17/17 Range/Units 04:14 WBC 15.4 H (4.3-11.1) K/mcL Hgb 9.0 L (12.9-16.9) g/dL Hct 29.3 L (37.5-50.1) % Plt Count 252 (140-400) K/mcL Neutrophils # 14.8 H (1.6-8.9) K/mcL BMP 05/17/17 04:14 Sodium 139 Potassium 4.0 Chloride 97 L Carbon Dioxide 37 H BUN 20 Creatinine 1.00 Glucose 171 H Calcium 9.3 - ABG Interpretation ABG results: ABG ABG pH 7.37 pH Units (7.32-7.45) 05/15/17 08:56 ABG pCO2 57 mmHg (35-45) H 05/15/17 08:56 ABG pO2 191 mmHg (85-104) H 05/15/17 08:56 ABG O2 Saturation 100 % (95-98) H 05/15/17 08:56 - Impressions Impressions Chest CT 05/16/17 17:23 IMPRESSION: No substantial change in appearance of the lungs. Prominent emphysema. Partial consolidation in the right lower lobe, prominent opacification within the right upper lobe with cavitation near the apex and associated volume loss, and tree-in-bud nodules peripherally in the left lower lobe. D/ / Alta Valera MD / Alta Valera MD Interpreting Provider: Alta Valera MD Consult Discharge Plan - Plan Referrals: Ulices Mcgovern Jr, MD [Primary Care Provider] -
--- NOTE | 2017-05-17 17:28 | Electrocardiograph Report ---
[place] [id number] Test Date: 2017-05-15 Pat Name: Justen Jaimes Department: [id number] Room: 3B23 Gender: M Sample Dye Mixer: : [id number] Requested By: Karishma Nguyen Order Number: [id number] Reading MD: Daisy Tillman Measurements Intervals [place] Rate: 82 P: 265 UT: 105 QRS: 71 QRSD: 111 T: 58 QT: 410 QTc: 448 Interpretive Statements SINUS RHYTHM INTRAVENTRICULAR CONDUCTION DELAY MINIMAL VOLTAGE CRITERIA FOR LVH, CONSIDER NORMAL VARIANT ABNORMAL RHYTHM ECG Electronically Signed On 05-17-2017 17:27:08 EDT by Daisy Tillman
[2017-05-17] MEDS: Topiramate 25 MG TABLET PO SCH (21:35)
[2017-05-18] MEDS: Ipratropium/Albuterol Neb 3 ML IH SCH ×6 (03:27→23:35)
[2017-05-18] MEDS: *HR* Heparin 5,000 UNIT/ML VIAL SQ SCH ×2 (06:14→16:42)
[2017-05-18 06:21] LABS: Basophils % 0.1 %; Hematocrit 30.3 % (37.5-50.1); Hemoglobin 9.6 g/dL (12.9-16.9); Immature Granulocytes % 1.1 % (0-4); Lymphocytes # 0.3 K/mcL (0.6-4.6); Lymphocytes % 2.4 %; Mean Corpuscular HGB Conc 31.7 g/dL (31.6-35.5); Mean Corpuscular Hemoglobin 27.5 pg (28.0-33.3); Mean Corpuscular Volume 86.8 fL (83.0-100.0); Mean Platelet Volume 9.4 fL (9.4-12.4); Monocytes # 0.1 K/mcL (0.0-1.3); Monocytes % 1.2 %; Neutrophils # 9.9 K/mcL (1.6-8.9); Platelet Count 216 K/mcL (140-400); Red Blood Count 3.49 M/mcL (4.19-5.50); Segmented Neutrophils % 95.2 %
[2017-05-18 06:40] LABS: BUN/Creatinine Ratio 25 (6-26); Blood Urea Nitrogen 26 mg/dL (8-26); Calcium 9.3 mg/dL (8.6-10.8); Carbon Dioxide 38 mEq/L (19-29); Chloride 98 mEq/L (98-109); Glucose 145 mg/dL (70-99); Osmolality,Calculated 297 (280-300); Potassium 4.2 mEq/L (3.5-4.5); Sodium 140 mEq/L (136-145); eGFR For African Americans > 60 (> 60); eGFR For Non-African Americans > 60 (> 60)
[2017-05-18] MEDS: Aspirin 81 MG TAB.CHEW PO SCH (08:37)
[2017-05-18] MEDS: Lisinopril 20 MG TABLET PO SCH (08:37)
[2017-05-18] MEDS: MethylPREDNISolone 40 MG/ML VIAL IVP SCH ×3 (08:37→23:57)
[2017-05-18] MEDS: Metoprolol 100 MG TABLET PO SCH (08:37)
[2017-05-18] MEDS: *HR* Amiodarone 200 MG TABLET PO SCH (08:37)
[2017-05-18] MEDS: clonazePAM 1 MG TABLET PO SCH ×2 (08:37→21:21)
[2017-05-18] MEDS: Isosorbide MONOnitrate (24 HR) 30 MG TAB.ER.24H PO SCH (08:37)
[2017-05-18] MEDS: Furosemide 20 MG TABLET PO SCH (08:37)
--- NOTE | 2017-05-18 12:18 | Internal Med Progress Note ---
Date of Encounter: 05/18/17 Time of Encounter: 08:40 - Assessment and plan (1) Acute exacerbation of chronic obstructive airways disease Current Visit: Yes Status: Acute Assessment and plan: Patient stating he feels better today is back to baseline. Continue bronchodilators, supplemental oxygen, levofloxacin, methylprednisolone, mucolytics. On examination, patient is not in acute respiratory distress and his aeration is fair. He is currently on 4 L per nasal cannula continuously. At home, he is on 3-4 liters continuously and BiPAP at night. Patient with coarse rhonchi and expiratory wheezing heard in all posterior lung hammonds. (2) Right upper lobe pneumonia Current Visit: Yes Status: Acute Assessment and plan: Pt was being treated for pneumonia prior to admission, will continue Levaquin. Plan as above Qualifiers: Pneumonia type: due to unspecified organism Qualified Code(s): J18.1 - Lobar pneumonia, unspecified organism (3) HTN (hypertension) Current Visit: Yes Status: Chronic Assessment and plan: Well-controlled in inpatient setting. We will continue to monitor closely and adjust medications as indicated. Qualifiers: Hypertension type: essential hypertension Qualified Code(s): I10 - Essential (primary) hypertension (4) HLD (hyperlipidemia) Current Visit: Yes Status: Chronic Assessment and plan: Lipid panel unremarkable earlier this year. Continue statin. Qualifiers: Hyperlipidemia type: unspecified Qualified Code(s): E78.5 - Hyperlipidemia , unspecified (5) CAD (coronary artery disease) Current Visit: Yes Status: Chronic Assessment and plan: Patient denies chest pain. Continue aspirin, Imdur, beta benja, statin. Continue telemetry. Qualifiers: Coronary Disease-Associated Artery/Lesion type: bypass graft [place] vs. transplanted heart: [place] heart Associated angina: angina presence unspecified Qualified Code(s): I25.810 - Atherosclerosis of coronary artery bypass graft(s) without angina pectoris (6) DVT prophylaxis Current Visit: Yes Status: Acute Assessment and plan: Subcutaneous heparin (7) Tobacco abuse Current Visit: Yes Status: Chronic Assessment and plan: We will continue to provide smoking cessation education prior to discharge. - Time Spent With Patient less than 15 minutes - Subjective Interval history: Patient was seen and assessed at 8:40 AM. Patient states that he is returned back to his baseline. He wears 3 L oxygen at home, he is on 3 L here and continue sats greater than 92%. Patient reportedly had a bronchoscopy last week he began having soreness the next day was sore for 3 days and presented to the emergency department here on day 4. He reports right back pain after the scope and states it is significantly better today. He has reported a productive cough which is getting better. - Constitutional Vitals: Temp Pulse Resp BP Pulse Ox 97.9 F 60 16 144/80 99 05/18/17 11:54 05/18/17 11:54 05/18/17 11:54 05/18/17 11:54 05/18/17 11:54 General appearance: Present: cachectic, cooperative, A&O X 3 (frail), pleasant, no acute distress, underweight, answers questions appropriately - Head Head exam: Present: normal inspection - Eye Eye exam: Present: normal appearance, conjuntiva pink - ENT ENT exam: Present: mucous membranes moist, normal exam, normal external ear exam - Neck Neck exam general surgery: Present: normal inspection. Absent: lymphadenopathy , tenderness - Respiratory Respiratory exam: Present: rhonchi, wheezes. Absent: accessory muscle use, chest wall tenderness, decreased breath sounds, CTAB, rales, respiratory distress Additional comments: Moist productive cough noted. Rhonchi clear slightly with cough. - Cardiovascular Cardiovascular exam: Present: RRR, +S1, +S2. Absent: diastolic murmur, systolic murmur - GI/Abdominal GI/Abdominal exam: Present: normal bowel sounds, soft. Absent: distended, hepatomegaly, tenderness - Extremities Exam Extremities exam: Present: normal capillary refill, warm, radial pulses palpable and symmetrical. Absent: pedal edema, tenderness - Back Exam Back exam: Present: normal inspection. Absent: rash noted, tenderness - Neurological Exam Neurological exam: Present: alert, oriented X3, no focal deficits. Absent: facial droop, speech deficit Internal Medicine: Result - Labs CBC & Chem 7: 05/18/17 05:56 05/18/17 05:56 Labs: Short CBC 05/18/17 Range/Units 05:56 WBC 10.4 (4.3-11.1) K/mcL Hgb 9.6 L (12.9-16.9) g/dL Hct 30.3 L (37.5-50.1) % Plt Count 216 (140-400) K/mcL Neutrophils # 9.9 H (1.6-8.9) K/mcL BMP 05/18/17 05:56 Sodium 140 Potassium 4.2 Chloride 98 Carbon Dioxide 38 H BUN 26 Creatinine 1.05 Glucose 145 H Calcium 9.3 - ABG Interpretation ABG results: ABG ABG pH 7.37 pH Units (7.32-7.45) 05/15/17 08:56 ABG pCO2 57 mmHg (35-45) H 05/15/17 08:56 ABG pO2 191 mmHg (85-104) H 05/15/17 08:56 ABG O2 Saturation 100 % (95-98) H 05/15/17 08:56 Consult Discharge Plan - Plan Referrals: Ulices Mcgovern Jr, MD [Primary Care Provider] -
[2017-05-18] MEDS: Topiramate 25 MG TABLET PO SCH (21:21)
[2017-05-19] MEDS: Ipratropium/Albuterol Neb 3 ML IH SCH ×3 (03:38→11:08)
[2017-05-19 05:19] LABS: Basophils % 0.1 %; Hematocrit 31.9 % (37.5-50.1); Hemoglobin 9.8 g/dL (12.9-16.9); Lymphocytes # 0.3 K/mcL (0.6-4.6); Lymphocytes % 2.5 %; Mean Corpuscular HGB Conc 30.7 g/dL (31.6-35.5); Mean Corpuscular Hemoglobin 26.7 pg (28.0-33.3); Mean Corpuscular Volume 86.9 fL (83.0-100.0); Mean Platelet Volume 9.4 fL (9.4-12.4); Monocytes # 0.2 K/mcL (0.0-1.3); Monocytes % 1.5 %; Neutrophils # 9.4 K/mcL (1.6-8.9); Platelet Count 251 K/mcL (140-400); Red Blood Count 3.67 M/mcL (4.19-5.50); Segmented Neutrophils % 94.9 %
[2017-05-19 05:34] LABS: BUN/Creatinine Ratio 30 (6-26); Blood Urea Nitrogen 29 mg/dL (8-26); Calcium 9.1 mg/dL (8.6-10.8); Carbon Dioxide 39 mEq/L (19-29); Chloride 100 mEq/L (98-109); Glucose 171 mg/dL (70-99); Osmolality,Calculated 302 (280-300); Potassium 3.9 mEq/L (3.5-4.5); Sodium 141 mEq/L (136-145); eGFR For African Americans > 60 (> 60); eGFR For Non-African Americans > 60 (> 60)
[2017-05-19] MEDS: *HR* Heparin 5,000 UNIT/ML VIAL SQ SCH (06:26)
[2017-05-19] MEDS: MethylPREDNISolone 40 MG/ML VIAL IVP SCH (07:54)
[2017-05-19] MEDS: Aspirin 81 MG TAB.CHEW PO SCH (09:12)
[2017-05-19] MEDS: Lisinopril 20 MG TABLET PO SCH (09:12)
[2017-05-19] MEDS: Isosorbide MONOnitrate (24 HR) 30 MG TAB.ER.24H PO SCH (09:12)
[2017-05-19] MEDS: *HR* Amiodarone 200 MG TABLET PO SCH (09:12)
[2017-05-19] MEDS: Furosemide 20 MG TABLET PO SCH (09:12)
[2017-05-19] MEDS: Metoprolol 100 MG TABLET PO SCH (09:12)
[2017-05-19] MEDS: clonazePAM 1 MG TABLET PO SCH (09:12)
[2017-05-19] MEDS: Levofloxacin 750 MG/150 ML 750 MG/150 ML BAG IVPB SCH (09:13)
[2017-05-19 11:26] VITALS: BP 146/78
--- NOTE | 2017-05-19 13:10 | Discharge Summary ---
Date of Encounter: 05/19/17 Time of Encounter: 09:50 - Discharge Diagnosis (1) Acute exacerbation of chronic obstructive airways disease Priority: Primary Status: Acute Comments: Pt with significant improvement today. is at baseline for 02 use. Lungs with coarse ronchi, but improved aeration since yesterday. Pt will go home with home health and will continue Levaquin and steroids. Pt already has 02 at home. (2) Right upper lobe pneumonia Priority: Secondary Status: Acute Comments: Plan as above. Continue antibiotic. Qualifiers: Pneumonia type: due to unspecified organism Qualified Code(s): J18.1 - Lobar pneumonia, unspecified organism (3) HTN (hypertension) Priority: Secondary Status: Chronic Comments: Chronic. Continue home medications. Qualifiers: Hypertension type: essential hypertension Qualified Code(s): I10 - Essential (primary) hypertension (4) HLD (hyperlipidemia) Priority: Secondary Status: Chronic Comments: Chronic. Continue home medications. Qualifiers: Hyperlipidemia type: unspecified Qualified Code(s): E78.5 - Hyperlipidemia , unspecified (5) CAD (coronary artery disease) Priority: Secondary Status: Chronic Comments: Denies chest pain. Continue ASA, Imdur, BB, and statin. Qualifiers: Coronary Disease-Associated Artery/Lesion type: bypass graft [place] vs. transplanted heart: [place] heart Associated angina: angina presence unspecified Qualified Code(s): I25.810 - Atherosclerosis of coronary artery bypass graft(s) without angina pectoris (6) DVT prophylaxis Priority: Secondary Status: Acute Comments: Heparin SQ (7) Tobacco abuse Priority: Secondary Status: Chronic Comments: Pt declines smoking cessation tools. States that he "just won't buy anymore." - Discharge Medications Prescriptions: Ferrous Sulfate 325 mg PO DAILY #30 tablet.dr MartFENesin ER [Mucinex] 600 mg PO BID #20 tab Levofloxacin [Levaquin] 750 mg PO DAILY #7 tablet predniSONE [PredniSONE] 10 mg PO DAILY #27 tablet Home Medications: Albuterol Sulfate [Ventolin Hfa] 2 puff IH Q4H PRN 10/15/16 [History] Amiodarone [Cordarone] 200 mg PO DAILY 10/15/16 [History] Aspirin 81 mg PO DAILY 10/15/16 [History] Budesonide/Formoterol 160/4.5 [Symbicort 160/4.5] 2 puff IH BIDR 10/15/16 [ History] Furosemide [Lasix] 20 mg PO DAILY 10/15/16 [History] Ipratropium/Albuterol Neb [Duoneb] 3 ml IH TID 10/15/16 [History] Isosorbide MONOnitrate (24 HR) [Imdur] 30 mg PO DAILY 10/15/16 [History] Levothyroxine [Synthroid] 75 mcg PO DAILY 10/15/16 [History] Lisinopril [Zestril] 40 mg PO DAILY 10/15/16 [History] Metoprolol [Lopressor] 100 mg PO DAILY 10/15/16 [History] Paroxetine HCl [Paxil] 40 mg PO DAILY 10/15/16 [History] Pravastatin Sodium [Pravachol] 20 mg PO DAILY 10/15/16 [History] Topiramate [Topamax] 50 mg PO HS 10/15/16 [History] Quetiapine Fumarate [Seroquel] 25 mg PO HS 05/12/17 [History] clonazePAM [Klonopin] 1 mg PO BID 05/12/17 [History] Docusate [Colace] 100 mg PO BID #30 cap 05/19/17 [Rx] Ferrous Sulfate 325 mg PO DAILY #30 tablet. 05/19/17 [Rx] GuaiFENesin ER [Mucinex] 600 mg PO BID #20 tab 05/19/17 [Rx] Levofloxacin [Levaquin] 750 mg PO DAILY #7 tablet 05/19/17 [Rx] predniSONE [PredniSONE] 10 mg PO DAILY #27 tablet 05/19/17 [Rx] Allergies/Adverse Reactions: 3 Allergy/AdvReac Type Severity Reaction Status Date / Time No Known Allergies Allergy Verified 05/15/17 09:36 Procedures/tests Complete & Pending: Procedures Performed prior 72 hours Category Date Time Status CT chest wo con [CT] Routine Cat Scan 05/16/17 17:23 Completed Date of admission: 05/15/17 09:44 Primary care physician: Ulices Mcgovern Jr, MD Consults: 05/15/17 10:59 Consult to Nutrition [CONS] Routine Comment: Consulting Provider: NUTRITION Reason for Dietary Consult: PO Supplementation 05/18/17 15:08 Consult to Occupational Therapy [CONS] Routine Comment: Evaluate, develop and implement POC Reason for Consult: Discharge recomendations Consult to Physical Therapy [CONS] Routine Comment: Evaluate, develop and implement POC Reason for Consult: Discharge recomendations. Discharging clinician: Kay Laura Anticipated date of discharge: 05/19/17 - Patient Status Disposition: Home Health Service Condition: Fair Functional capacity at discharge: independent ambulation Overall status at discharge: patient is progressing back to baseline - Discharge Instructions Follow Up With: Ulices Mcgovern Jr, MD [Primary Care Provider] - 05/25/17 11:00 am Additional Instructions: Please follow up with Dr. Mcgovern on 05/25 as scheduled. I have called in 5 prescriptions for you to [facility], take as directed. I have added Iron supplement for anemia and colace for constipation, in addition to the antibiotic, steroid, and cough medicine. Return to the ER as needed for any new or worsening symptoms, or if you have any other problems or concerns. Take your other medications as directed and resume your normal activities as tolerated. - Diet and Activity Activity: increase activity as tolerated, wear oxygen at all times Diet: advance to your usual diet Hospital course: Mr. Jaimes is a 72 year old male with a past medical history of COPD, community- acquired pneumonia, hypertension, hyperlipidemia, coronary artery disease, ischemic cardiomyopathy, tobacco abuse, cachexia, acute chronic respiratory failure, anemia, protein calorie malnutrition, and hypothyroidism. He presented to the emergency department on 05/15 with the chief complaint of difficulty breathing, soreness, and back pain since having a bronchoscopy on May 12 for evaluation of right upper lobe lesion and recurrent right upper lobe pneumonia. This process performed by Dr. Bustos here at this hospital. He states that since the testes been feeling weak and he had increasing shortness of breath, productive cough. Patient was in acute respiratory distress in the emergency department requiring duo nebs. Initial cultures were positive for Pseudomonas, he was started on Levaquin as was appropriate per the culture sensitivity report. He will continue this at home. His chest x-ray on admission showed right basilar airspace disease that was increased from prior study. Chest CT showed no substantial change in the appearance of the lungs, probably emphysema, partial consolidation right lower lobe, prominent opacification within the right upper lobe with cavitation near the apex. There are also tree in bud nodules periphery in the left lower lobe. He is significantly better today and is up in the chair stating that he feels better. She still has coarse rhonchi in posterior lung hammonds, however, there is noted improvement in aeration. Patient does wear home oxygen around the clock, 3 L. He is wearing that here in maintaining his sats above 92%. He was evaluated by physical therapy and it was recommended that he continue skilled PT services in the home. He will be sent home with [facility], he is agreeable to this. Patient's TSH was mildly decreased, he will need to be reevaluated after he is no longer ill. Patient with chronic ischemic cardiomyopathy. Patient had an echocardiogram on arrival with no acute changes. LVEF is 40% with LV systolic dysfunction, some mild LV DD, prior echocardiogram in 2014 revealed ejection fraction 44%. He will continue his dosing of Lasix at home are his chronic combined heart failure. Patient will continue other home medications, he will be sent home with Levaquin , Mucinex, steroids. Patient noted a difference and an increase in his appetite since he has been on the steroids, his sister states that she would like to speak with primary care about an appetite stimulant at the next appointment. Patient has chronic anemia, hemoglobin is 9.8 today steadily rising. Patient's iron studies show a significantly low iron level at 13 and 7 % saturation. Will start patient on ferrous sulfate with Colace for discharge. Vitals are stable and within normal limits, patient is appropriate for discharge. Time spent discussing smoking cessation with patient: 3 to 10 minutes - Time Spent with Patient Total time spent providing and/or coordinating discharge services: Less than 30 minutes - Constitutional Vitals: Temp Pulse Resp BP Pulse Ox 97.6 F 61 17 146/78 100 05/19/17 11:25 05/19/17 11:25 05/19/17 11:25 05/19/17 11:25 05/19/17 11:25 General appearance: Present: cachectic, cooperative, A&O X 3 (frail), pleasant, no acute distress, underweight, answers questions appropriately - Head Head exam: Present: atraumatic, normal inspection, normocephalic - Eye Eye exam: Present: normal appearance, conjuntiva pink, sclera anicteric - Neck Neck exam general surgery: Present: supple, trachea midline. Absent: lymphadenopathy, tenderness - Respiratory Respiratory exam: Present: decreased breath sounds, CTAB, rhonchi. Absent: accessory muscle use, chest wall tenderness, rales, respiratory distress, wheezes, tachypnea - Cardiovascular Cardiovascular exam: Present: RRR, +S1, +S2. Absent: diastolic murmur, gallop, rubs, systolic murmur - GI/Abdominal GI/Abdominal exam: Present: normal bowel sounds, soft. Absent: distended, hepatomegaly, tenderness - Extremities Exam Extremities exam: Present: warm, radial pulses palpable and symmetrical. Absent : calf tenderness, cyanotic, pedal edema - Neurological Exam Neurological exam: Present: alert, oriented X3, no focal deficits, pronater drift. Absent: facial droop, speech deficit - Skin Skin exam: Present: dry, intact, normal color, warm. Absent: rash
--- NOTE | 2017-05-19 13:37 | Physician Discharge Referral ---
<Kay Laura - Last Filed: 05/19/17 13:35> Home Health/Hosp Referral Info Transfer to: Home Health Provider in Charge Post Discharge: PCP - Diagnosis (1) Acute exacerbation of chronic obstructive airways disease Priority: Primary Status: Acute (2) Right upper lobe pneumonia Priority: Secondary Status: Acute (3) HTN (hypertension) Priority: Secondary Status: Chronic (4) HLD (hyperlipidemia) Priority: Secondary Status: Chronic (5) CAD (coronary artery disease) Priority: Secondary Status: Chronic (6) DVT prophylaxis Priority: Secondary Status: Acute (7) Tobacco abuse Priority: Secondary Status: Chronic - Respiratory Orders Oxygen / L per min (3 liters) Smoking Cessation: Smoking cessation has been advised. For more information, call the [place] Tobacco Quit Line at 4-289-VMQK-NOW. - Diet/Nutrition Diet/Nutrition Orders: Regular - Activity Activity Orders: Up ad yohannes - Services Needed Following services are medically necessary services: Nursing, Home Health Aide, Physical Therapy, Occupational Therapy - Transfer Medications Prescriptions: Ferrous Sulfate 325 mg PO DAILY #30 tablet.dr MartFENesin ER [Mucinex] 600 mg PO BID #20 tab Levofloxacin [Levaquin] 750 mg PO DAILY #7 tablet predniSONE [PredniSONE] 10 mg PO DAILY #27 tablet Home Medications: Albuterol Sulfate [Ventolin Hfa] 2 puff IH Q4H PRN 10/15/16 [History] Amiodarone [Cordarone] 200 mg PO DAILY 10/15/16 [History] Aspirin 81 mg PO DAILY 10/15/16 [History] Budesonide/Formoterol 160/4.5 [Symbicort 160/4.5] 2 puff IH BIDR 10/15/16 [ History] Furosemide [Lasix] 20 mg PO DAILY 10/15/16 [History] Ipratropium/Albuterol Neb [Duoneb] 3 ml IH TID 10/15/16 [History] Isosorbide MONOnitrate (24 HR) [Imdur] 30 mg PO DAILY 10/15/16 [History] Levothyroxine [Synthroid] 75 mcg PO DAILY 10/15/16 [History] Lisinopril [Zestril] 40 mg PO DAILY 10/15/16 [History] Metoprolol [Lopressor] 100 mg PO DAILY 10/15/16 [History] Paroxetine HCl [Paxil] 40 mg PO DAILY 10/15/16 [History] Pravastatin Sodium [Pravachol] 20 mg PO DAILY 10/15/16 [History] Topiramate [Topamax] 50 mg PO HS 10/15/16 [History] Quetiapine Fumarate [Seroquel] 25 mg PO HS 05/12/17 [History] clonazePAM [Klonopin] 1 mg PO BID 05/12/17 [History] Docusate [Colace] 100 mg PO BID #30 cap 05/19/17 [Rx] Ferrous Sulfate 325 mg PO DAILY #30 tablet. 05/19/17 [Rx] GuaiFENesin ER [Mucinex] 600 mg PO BID #20 tab 05/19/17 [Rx] Levofloxacin [Levaquin] 750 mg PO DAILY #7 tablet 05/19/17 [Rx] predniSONE [PredniSONE] 10 mg PO DAILY #27 tablet 05/19/17 [Rx] Allergies/Adverse Reactions: 3 Allergy/AdvReac Type Severity Reaction Status Date / Time No Known Allergies Allergy Verified 05/15/17 09:36 Certification: Further, I certify that my clinical findings support that this patient is homebound (i.e. absences from home require considerable and taxing effort and are for medical reasons or buddhist services or infrequently or short duration when for other reasons) because: Homebound Reason: Patient requires assistance of a person or device to safely leave home, Leaving home requires considerable and taxing effort due to condition, Severity of cardiac or pulmonary status limits activity tolerance Attestation: My signature below is to certify that this patient is under my care and that I, or nurse practitioner, or a physician's promotions assistant sales marketing working with me, has a face-to -face encounter with this patient. <El Lawton - Last Filed: 05/20/17 12:23> - Respiratory Orders Smoking Cessation: Smoking cessation has been advised. For more information, call the [place] Tobacco Quit Line at 5-945-ZLUN-NOW. Certification: Further, I certify that my clinical findings support that this patient is homebound (i.e. absences from home require considerable and taxing effort and are for medical reasons or buddhist services or infrequently or short duration when for other reasons) because: Attestation: My signature below is to certify that this patient is under my care and that I, or nurse practitioner, or a physician's promotions assistant sales marketing working with me, has a face-to -face encounter with this patient.
--- NOTE | 2017-05-20 08:24 | Event Note ---
Date of Encounter: 05/20/17 Time of Encounter: 08:21 Received sputum culture results from admitting hospitalist today. Positive for Achromacter Xylosoxidans. Pt was sent home on Levaquin, to which it is not suseptible. I spoke with pt's medical transcription radiology, Dr. Bustos, by phone, who suggested that I speak with [facility] since pt was to see them after bronchoscopy. I spoke with ID, Ilda Brandt CNP who will investigate and consult with Dr. Bustos regarding treatment.
== END 2017-05-19 15:38 | disposition home health service (06) ==
LOC: 3BNU 06:53 → EMEROO 06:53 → 3BNU 10:22
PROVIDERS: ADMIT Internal Medicine; ATTEND Nurse Practitioner Family

== ENCOUNTER 2017-06-02 15:55 | Inpatient (IN) ==
[2017-06-02] MEDS ORDERED: 0.9 % Sodium Chloride 1,000 ML IVC ONE (16:26)
[2017-06-02 17:06] LABS: Bilirubin,Urine Negative (Negative); Blood,Urine Negative (Negative); Clarity,Urine Clear (Clear); Color,Urine Yellow (Yellow); Glucose,Urine (UA) Normal (Normal); Ketones,Urine Negative (Negative); Leukocyte Esterase,Urine Negative (Negative); Nitrite,Urine Negative (Negative); PH,Urine 6.5 pH Units (5.0-8.0); Protein,Urine Negative (Neg-Trace); Urobilinogen,Urine Normal (Normal)
[2017-06-02 17:35] LABS: Basophils % 0.1 %; Eosinophils # 0.1 K/mcL (0.0-0.6); Eosinophils % 0.7 %; Hematocrit 32.3 % (37.5-50.1); Hemoglobin 10.1 g/dL (12.9-16.9); Immature Granulocytes % 1.2 % (0-4); Immature Platelets 3.2 % (1.1-6.1); Lymphocytes # 0.5 K/mcL (0.6-4.6); Lymphocytes % 4.3 %; Mean Corpuscular HGB Conc 31.3 g/dL (31.6-35.5); Mean Corpuscular Hemoglobin 26.8 pg (28.0-33.3); Mean Corpuscular Volume 85.7 fL (83.0-100.0); Mean Platelet Volume 10.1 fL (9.4-12.4); Monocytes # 0.5 K/mcL (0.0-1.3); Monocytes % 4.1 %; Neutrophils # 10.9 K/mcL (1.6-8.9); Platelet Count 124 K/mcL (140-400); Red Blood Count 3.77 M/mcL (4.19-5.50); Red Cell Distribution Width 17.8 % (11.5-14.5); Segmented Neutrophils % 89.6 %
--- NOTE | 2017-06-02 17:46 | Emergency Department Note ---
Disposition Clinical Impression: Acute exacerbation of chronic obstructive airways disease, Pneumonia, Weakness , Hypokalemia, Hypomagnesemia, Thrombocytopenia Disposition: Admitted As Inpatient Condition: Fair Time of Disposition: 19:49 General Adult HPI - General Chief complaint: ED Weakness Stated complaint: weak Time Seen by Provider: 06/02/17 16:20 Source: patient Mode of arrival: wheelchair Limitations: physical limitation Nursing Notes Reviewed: Yes Vital Signs Reviewed: Yes - History of Present Illness HPI Narrative: Patient presents to the ED via wheelchair with the chief complaint of weakness. 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 States that over the last week since his discharge from the hospital, he has become increasingly weak to the point today where he was unable to get out of bed on his own, which is unusual for him. There are no focal weaknesses, but he does feel very tired. Patient is denying any pain currently denying any chest pain or shortness of breath. Denies any headache or changes in his vision. He states he feels very rundown and tired. No known fever. Pain Scale: 2 - Related Data Home Medications Medication Instructions Recorded Confirmed Albuterol Sulfate [Ventolin Hfa] 2 puff IH Q4H PRN 10/15/16 06/02/17 Amiodarone [Cordarone] 200 mg PO DAILY 10/15/16 06/02/17 Aspirin 81 mg PO DAILY 10/15/16 06/02/17 Furosemide [Lasix] 20 mg PO DAILY 10/15/16 06/02/17 Ipratropium/Albuterol Neb [Duoneb] 3 ml IH TID 10/15/16 06/02/17 Isosorbide MONOnitrate (24 HR) 30 mg PO DAILY 10/15/16 06/02/17 [Imdur] Levothyroxine [Synthroid] 75 mcg PO DAILY 10/15/16 06/02/17 Lisinopril [Zestril] 40 mg PO DAILY 10/15/16 06/02/17 Metoprolol [Lopressor] 100 mg PO DAILY 10/15/16 06/02/17 Paroxetine HCl [Paxil] 40 mg PO DAILY 10/15/16 06/02/17 Pravastatin Sodium [Pravachol] 20 mg PO DAILY 10/15/16 06/02/17 Topiramate [Topamax] 50 mg PO HS 10/15/16 06/02/17 Quetiapine Fumarate [Seroquel] 25 mg PO HS 05/12/17 06/02/17 clonazePAM [Klonopin] 1 mg PO BID 05/12/17 06/02/17 Oxybutynin [Ditropan] 5 mg PO BID 06/02/17 06/02/17 Umeclidinium Brm/Vilanterol Tr 1 each IH DAILY 06/02/17 06/02/17 [Anoro Ellipta 62.5-25 Mcg INH] Previous Rx's Medication Instructions Recorded Docusate [Colace] 100 mg PO BID #30 cap 05/19/17 Ferrous Sulfate 325 mg PO DAILY #30 tablet. 05/19/17 Levofloxacin [Levaquin] 750 mg PO DAILY #7 tablet 05/19/17 Allergies Allergy/AdvReac Type Severity Reaction Status Date / Time No Known Allergies Allergy Verified 05/15/17 09:36 All systems ED: reviewed and negative except as stated. Constitutional: Reports: weakness. Denies: fever Cardiovascular: Denies: chest pain Gastrointestinal: Denies: abdominal pain Musculoskeletal: Denies: back pain Neurological: Reports: as per HPI, weakness Past Medical History - Past Medical History Attestation: Yes The following information was validated with the patient. Source: patient Medical history: Reports: aortic aneurysm, cancer, COPD, coronary artery disease , GERD, hyperlipidemia, hypertension, myocardial infarction, thyroid disease, other Surgical history: Reports: cancer surgery, coronary bypass (CABG), vasectomy Psychiatric history: Reports: depression - Social History Smoking Status: Current every day smoker Smokeless Tobacco Status: No Alcohol use: Reports: none Drug use: Reports: none Physical Exam - General Limitations: physical limitation General appearance: alert, in no apparent distress, other (Appears ill, chronically) - Head Head exam: atraumatic, normocephalic, normal inspection - Eye Eye exam: Present: normal appearance, PERRL, EOMI - ENT ENT exam: mucous membranes dry - Respiratory Respiratory exam: Present: other (Course rhonchi bilaterally, otherwise fairly normal with good aeration). Absent: normal lung sounds bilaterally, respiratory distress - Cardiovascular Cardiovascular exam: Present: regular rate, normal rhythm, normal heart sounds - Abdominal Exam Abdominal exam: Present: soft, Non-Tender. Absent: tenderness, distention, guarding, rebound, rigidity - Extremities Exam Extremities exam: Present: normal inspection, full ROM, normal capillary refill. Absent: tenderness, pedal edema - Neurological Exam Neurological exam: Present: alert, oriented X3 - Psychiatric Psychiatric exam: Present: normal affect, normal mood - Skin Skin exam: Present: warm, dry, intact, normal color, other (Peripheral pulses are normal and symmetric) Course Course Narrative: Patient presenting with generalized weakness. Has a history of pneumonia and is on Levaquin. Patient appears ill but is in no acute distress. Has a history of thoracic aortic aneurysm, but is denying any pain. Bilateral blood pressures were equal. Likely pulmonary in etiology. Went to see primary care physician Luisito recommended admission for IV antibiotics. Sepsis work up initiated. Vital Signs Temperature 98.2 F 06/02/17 16:02 Pulse Rate 65 06/02/17 16:02 Respiratory Rate 22 06/02/17 16:02 Blood Pressure 81/44 06/02/17 16:02 O2 Sat by Pulse Oximetry 0 06/02/17 16:02 Temperature 97.5 F L 06/02/17 20:54 Pulse Rate 60 06/02/17 21:17 Respiratory Rate 20 06/02/17 20:54 Blood Pressure 95/56 06/02/17 21:17 O2 Sat by Pulse Oximetry 100 06/02/17 20:54 Oxygen Delivery Oxygen Delivery Nasal Cannula Medical Decision Making - Medical Records Medical records reviewed: Yes I reviewed the patient's medical records. - Lab Data Lab results reviewed: Yes I reviewed the patient's lab results. Result diagrams: 06/02/17 17:25 06/02/17 17:25 Lab Results 06/02/17 06/02/17 06/02/17 Range/Units 16:56 17:25 17:25 WBC 12.2 H (4.3-11.1) K/mcL RBC 3.77 L (4.19-5.50) M/mcL Hgb 10.1 L (12.9-16.9) g/dL Hct 32.3 L (37.5-50.1) % MCV 85.7 (83.0-100.0) fL MCH 26.8 L (28.0-33.3) pg MCHC 31.3 L (31.6-35.5) g/dL RDW 17.8 H (11.5-14.5) % Plt Count 124 L (140-400) K/mcL MPV 10.1 (9.4-12.4) fL Immature Gran % 1.2 (0-4) % Seg Neutrophils % 89.6 % Lymphocytes % 4.3 % Monocytes % 4.1 % Eosinophils % 0.7 % Basophils % 0.1 % Neutrophils # 10.9 H (1.6-8.9) K/mcL Lymphocytes # 0.5 L (0.6-4.6) K/mcL Monocytes # 0.5 (0.0-1.3) K/mcL Eosinophils # 0.1 (0.0-0.6) K/mcL Basophils # 0.0 (0.0-0.2) K/mcL Immature Plt Fraction 3.2 (1.1-6.1) % PT 13.9 H (9.4-12.1) Seconds INR 1.3 APTT 35.6 (26.0-36.0) Seconds Sodium (136-145) mEq/L Potassium (3.5-4.5) mEq/L Chloride (98-109) mEq/L Carbon Dioxide (19-29) mEq/L BUN (8-26) mg/dL Creatinine (0.72-1.25) mg/dL Est GFR ( Amer) (> 60) Est GFR (Non-Af Amer) (> 60) BUN/Creatinine Ratio (6-26) Glucose (70-99) mg/dL Calculated Osmolality (280-300) Lactic Acid (0.5-2.2) mmol/L Calcium (8.6-10.8) mg/dL Phosphorus (2.3-4.7) mg/dL Magnesium (1.6-2.6) mg/dL Total Bilirubin (0.2-1.2) mg/dL Direct Bilirubin (0.0-0.5) mg/dL Indirect Bilirubin (0.0-1.2) mg/dL AST (5-34) Units/L ALT (0-55) Units/L Alkaline Phosphatase (38-126) Units/L Troponin I (0-0.03) ng/mL B-Natriuretic Peptide (0-100) pg/mL Serum Total Protein (6.0-8.3) g/dL Albumin (3.5-5.0) g/dL Globulin (2.4-3.5) g/dL Albumin/Globulin Ratio (1.1-2.2) Urine Color Yellow (Yellow) Urine Clarity Clear (Clear) Urine pH 6.5 (5.0-8.0) pH Units Ur Specific [place] 1.020 (1.010-1.025) Urine Protein Negative (Neg-Trace) mg/dL Urine Glucose (UA) Normal (Normal) mg/dL Urine Ketones Negative (Negative) mg/dL Urine Blood Negative (Negative) Urine Nitrite Negative (Negative) Urine Bilirubin Negative (Negative) Urine Urobilinogen Normal (Normal) mg/dL Ur Leukocyte Esterase Negative (Negative) Ur Culture Indicated? NO (NO) 06/02/17 06/02/17 06/02/17 Range/Units 17:25 17:25 17:25 WBC (4.3-11.1) K/mcL RBC (4.19-5.50) M/mcL Hgb (12.9-16.9) g/dL Hct (37.5-50.1) % MCV (83.0-100.0) fL MCH (28.0-33.3) pg MCHC (31.6-35.5) g/dL RDW (11.5-14.5) % Plt Count (140-400) K/mcL MPV (9.4-12.4) fL Immature Gran % (0-4) % Seg Neutrophils % % Lymphocytes % % Monocytes % % Eosinophils % % Basophils % % Neutrophils # (1.6-8.9) K/mcL Lymphocytes # (0.6-4.6) K/mcL Monocytes # (0.0-1.3) K/mcL Eosinophils # (0.0-0.6) K/mcL Basophils # (0.0-0.2) K/mcL Immature Plt Fraction (1.1-6.1) % PT (9.4-12.1) Seconds INR APTT (26.0-36.0) Seconds Sodium 133 L (136-145) mEq/L Potassium 3.1 L (3.5-4.5) mEq/L Chloride 95 L (98-109) mEq/L Carbon Dioxide 30 H (19-29) mEq/L BUN 24 (8-26) mg/dL Creatinine 1.44 H (0.72-1.25) mg/dL Est GFR ( Amer) 58 L (> 60) Est GFR (Non-Af Amer) 48 L (> 60) BUN/Creatinine Ratio 17 (6-26) Glucose 96 (70-99) mg/dL Calculated Osmolality 280 (280-300) Lactic Acid 1.2 (0.5-2.2) mmol/L Calcium 9.0 (8.6-10.8) mg/dL Phosphorus 3.2 (2.3-4.7) mg/dL Magnesium 1.5 L (1.6-2.6) mg/dL Total Bilirubin 0.5 (0.2-1.2) mg/dL Direct Bilirubin 0.3 (0.0-0.5) mg/dL Indirect Bilirubin 0.2 (0.0-1.2) mg/dL AST 14 (5-34) Units/L ALT 14 (0-55) Units/L Alkaline Phosphatase 85 (38-126) Units/L Troponin I 0.03 (0-0.03) ng/mL B-Natriuretic Peptide (0-100) pg/mL Serum Total Protein 5.8 L (6.0-8.3) g/dL Albumin 2.0 L (3.5-5.0) g/dL Globulin 3.8 H (2.4-3.5) g/dL Albumin/Globulin Ratio 0.5 L (1.1-2.2) Urine Color (Yellow) Urine Clarity (Clear) Urine pH (5.0-8.0) pH Units Ur Specific [place] (1.010-1.025) Urine Protein (Neg-Trace) mg/dL Urine Glucose (UA) (Normal) mg/dL Urine Ketones (Negative) mg/dL Urine Blood (Negative) Urine Nitrite (Negative) Urine Bilirubin (Negative) Urine Urobilinogen (Normal) mg/dL Ur Leukocyte Esterase (Negative) Ur Culture Indicated? (NO) 06/02/17 Range/Units 17:25 WBC (4.3-11.1) K/mcL RBC (4.19-5.50) M/mcL Hgb (12.9-16.9) g/dL Hct (37.5-50.1) % MCV (83.0-100.0) fL MCH (28.0-33.3) pg MCHC (31.6-35.5) g/dL RDW (11.5-14.5) % Plt Count (140-400) K/mcL MPV (9.4-12.4) fL Immature Gran % (0-4) % Seg Neutrophils % % Lymphocytes % % Monocytes % % Eosinophils % % Basophils % % Neutrophils # (1.6-8.9) K/mcL Lymphocytes # (0.6-4.6) K/mcL Monocytes # (0.0-1.3) K/mcL Eosinophils # (0.0-0.6) K/mcL Basophils # (0.0-0.2) K/mcL Immature Plt Fraction (1.1-6.1) % PT (9.4-12.1) Seconds INR APTT (26.0-36.0) Seconds Sodium (136-145) mEq/L Potassium (3.5-4.5) mEq/L Chloride (98-109) mEq/L Carbon Dioxide (19-29) mEq/L BUN (8-26) mg/dL Creatinine (0.72-1.25) mg/dL Est GFR ( Amer) (> 60) Est GFR (Non-Af Amer) (> 60) BUN/Creatinine Ratio (6-26) Glucose (70-99) mg/dL Calculated Osmolality (280-300) Lactic Acid (0.5-2.2) mmol/L Calcium (8.6-10.8) mg/dL Phosphorus (2.3-4.7) mg/dL Magnesium (1.6-2.6) mg/dL Total Bilirubin (0.2-1.2) mg/dL Direct Bilirubin (0.0-0.5) mg/dL Indirect Bilirubin (0.0-1.2) mg/dL AST (5-34) Units/L ALT (0-55) Units/L Alkaline Phosphatase (38-126) Units/L Troponin I (0-0.03) ng/mL B-Natriuretic Peptide 284 H (0-100) pg/mL Serum Total Protein (6.0-8.3) g/dL Albumin (3.5-5.0) g/dL Globulin (2.4-3.5) g/dL Albumin/Globulin Ratio (1.1-2.2) Urine Color (Yellow) Urine Clarity (Clear) Urine pH (5.0-8.0) pH Units Ur Specific [place] (1.010-1.025) Urine Protein (Neg-Trace) mg/dL Urine Glucose (UA) (Normal) mg/dL Urine Ketones (Negative) mg/dL Urine Blood (Negative) Urine Nitrite (Negative) Urine Bilirubin (Negative) Urine Urobilinogen (Normal) mg/dL Ur Leukocyte Esterase (Negative) Ur Culture Indicated? (NO) - Radiology Data Radiology results reviewed: Yes I reviewed the patient's radiology results. Chest X-Ray 06/02/17 16:27 IMPRESSION: Stable exam from CT chest 05/16/2017 with stable opacity with internal lucencies to right upper lung zone and to a lesser extent the medial aspects of the right mid to lower lung zones along with some reticulonodular opacities to the left mid to lower lung lung zones. Findings may be on the basis of chronic scarring and traction bronchiectasis although it would be difficult to exclude superimposed acute infectious or inflammatory process. Other etiologies not excluded. Reference to the prior chest CT can be made for additional information. No new acute cardiopulmonary process noted. D/ / 06/02/2017 17:06:09 Mynor Carrasco MD / jessica Interpreting Provider: Mynor Carrasco MD - EKG Data EKG #1 EKG attestation: Yes I reviewed and interpreted this EKG. EKG results narrative: Sinus rhythm, rate 64, MO interval 171, QRS 110, QTC 447, normal axis, LVH, no acute ischemic changes Attestation Statement - Attestation Attestation: I, Justen Reddy, examined this patient and my medical decision-making was reviewed with the PHOTO[employer]KER/PA/Advanced Practice Nurse/Resident Physician. I agree with the documented findings, disposition and treatment plan as described except to the extent set forth below. 72-year-old male presents to emergency Department with concerns of increasing weakness. Patient states he was recently admitted to the hospital and treated for pneumonia. Patient is currently taking Levaquin as outpatient. He states that he has dyspnea with exertion. He has increasing weakness and fatigue. Denies recent trauma. Denies hematemesis, hematochezia, melena. Patient's laboratory findings showed mildly elevated leukocytosis. His anemia is largely unchanged from his previous labs. He is however thrombocytopenic on laboratory testing today. Chest x-ray shows likely chronic scarring but is difficult to exclude acute infiltrate. Patient started on antibiotics emergency Department he will be admitted to hospital for further care and evaluation of his weakness and possible recurrent pneumonia.
[2017-06-02 17:48] LABS: INR 1.3; Prothrombin Time 13.9 Seconds (9.4-12.1)
[2017-06-02 17:51] LABS: Activated Partial Thrombo Time 35.6 Seconds (26.0-36.0)
[2017-06-02 17:54] LABS: Albumin/Globulin Ratio 0.5 (1.1-2.2); Bilirubin,Direct 0.3 mg/dL (0.0-0.5); Bilirubin,Indirect 0.2 mg/dL (0.0-1.2); Bilirubin,Total 0.5 mg/dL (0.2-1.2); Globulin 3.8 g/dL (2.4-3.5); Magnesium 1.5 mg/dL (1.6-2.6); Phosphorous 3.2 mg/dL (2.3-4.7); Potassium 3.1 mEq/L (3.5-4.5); Total Protein 5.8 g/dL (6.0-8.3)
[2017-06-02] MEDS: 0.9 % Sodium Chloride 1,000 ML IVC SCH (18:26)
[2017-06-02] MEDS ORDERED: Piperacillin/Tazobactam 4.5 GM in D5% in Water (Mini-Bag+) 100 ML IVPB ONE (19:19)
[2017-06-02] MEDS ORDERED: Vancomycin 1,000 MG in D5% in Water 250 ML IVPB ONE (19:19)
[2017-06-02] MEDS ORDERED: Vancomycin (wt based) 1,000 MG VIAL IVPB SCH (23:45)
[2017-06-02] MEDS ORDERED: Naloxone 0.4 MG/ML INJ IVP PRN (23:50)
[2017-06-02] MEDS ORDERED: Ondansetron 4 MG/2 ML VIAL IVP PRN (23:50)
[2017-06-02] MEDS ORDERED: Acetaminophen 325 MG TABLET PO PRN (23:50)
--- NOTE | 2017-06-02 23:50 | Internal Med History&Physical ---
<Rizwan Emery - Last Filed: 06/03/17 04:38> Date of Encounter: 06/03/17 Time of Encounter: 23:15 Assessment and Plan (1) Severe sepsis Current visit: Yes Status: Acute Patient found to be septic with elevated white blood cell count and tachypnea. Previous diagnosis of pneumonia that was not adequately treated as Achromobacter was resistant to antibiotic patient was on. Acid-fast bacilli stain positive from bronchoscopy performed on 05/12/17. Patient has known history of Mycobacterium avium that was previously treated with clarithromycin, rifampin, ethambutol for 1 year. With cavitary lesion seen on chest CT during last admission, concern for tuberculosis but could represent prior MAC complex. Previous bronchoscopy also isolated pansensitive Pseudomonas. So far blood pressures been stable with 1 L bolus saline. Likely organ dysfunction seen with acute kidney injury. Will obtain additional respiratory cultures and acid-fast bacilli stain and sputum We will obtain blood cultures Patient received 1 L bolus saline and will continue patient on 75 mL an hour normal saline Airborne precautions due to concern of tuberculosis Will start vancomycin due to concern of recent hospitalization We will start Zosyn as both Pseudomonas and the resistant Achromobacter are sensitive to this Continue home breathing treatments Will consult pulmonology due to concerns of possible tuberculosis vs MAC and continued/worsening pneumonia Or obtain lactic acid Hold patient potentially nephrotoxic medications including lisinopril. We will continue to monitor renal function with daily CBC Avoid further nephrotoxic agents (2) Acid-fast bacteria present Current visit: Yes Status: Acute Plan as above (3) Pneumonia Current visit: Yes Status: Acute Plan as above Qualifiers: Pneumonia type: due to Pseudomonas Laterality: unspecified laterality Lung location: unspecified part of lung Qualified Code(s): J15.1 - Pneumonia due to Pseudomonas (4) Acute kidney injury Current visit: Yes Status: Acute Plan as above (5) Anemia Current visit: No Status: Acute atient has chronic anemia with hemoglobin of 10.1 representing a high point for him. He is on iron supplementation currently he is not obviously bleeding. Continue iron supplementation Continue to trend CBC with daily labs Qualifiers: Anemia type: unspecified type Qualified Code(s): D64.9 - Anemia, unspecified (6) Weakness Current visit: Yes Status: Acute ikely due to current, continued infections Plan as above (7) DVT prophylaxis Current visit: No Status: Acute Mechanical prophylaxis with intermittent compression devices (8) Tobacco abuse Current visit: No Status: Chronic (9) Body mass index (BMI) of 19 or less in adult Current visit: No Status: Chronic Internal Medicine - H&P: HPI Chief complaint: Progressive weakness and cough Admitted From: Home Plans for Post Hospital Care: Home History of present illness: Mr. Jaimes is a 72 year old male with prior medical history of COPD, CAD, colorectal cancer (successfully treated), hyperlipidemia, hypertension, hypothyroidism, and Mycobacterium avium (previously treated with clarithromycin , rifampin, and ethambutol for 1 year). presented to [facility] because of continued worsening of his cough and continued worsening weakness. He had been seen [facility] about 3 weeks ago history for pneumonia at that time. 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 In the intervening time, culture and sensitivity resulted from bronchoscopy performed on 05/02/17 showed pansensitive Pseudomonas, resistant strain of Achromobacter, and positive AFB stain x2. Since being discharged from hospital, patient reports she has had no improvement in his cough is had continued, progressive weakness. The weakness is not new, but has certainly progressed in the last couple weeks. He states that he has had a chronic cough for several years but acutely worsened in the past 5-6 months and states that the productive of yellowish/green mucus. He reports years he has been having night sweats and an unintentional 50 pound weight loss in 5-6 years. When asked about potential exposures to tuberculosis , patient reports that he had a couple cousins with tuberculosis 50 years ago, but cannot think of any recent exposures, denies travel, denies spending time in a correctional facility by [facility]. Reports that he has chronic shortness of breath because of his COPD. He denies having any chest pain or pain exacerbated by breathing, but does report having alternating diarrhea and constipation. Past Med Surg Social Fam HX - Past Medical History Medical history: aortic aneurysm, cancer, COPD, coronary artery disease, GERD, hyperlipidemia, hypertension, myocardial infarction, thyroid disease, other Psychiatric history: depression - Past Surgical History Surgical History: cancer surgery, coronary bypass (CABG), vasectomy - Social History Smoking Status: Current every day smoker Smokeless Tobacco Status: No Alcohol use: none Drug use: none Internal Medicine - H&P: Meds Albuterol Sulfate [Ventolin Hfa] 2 puff IH Q4H PRN 10/15/16 [History] Amiodarone [Cordarone] 200 mg PO DAILY 10/15/16 [History] Aspirin 81 mg PO DAILY 10/15/16 [History] Furosemide [Lasix] 20 mg PO DAILY 10/15/16 [History] Ipratropium/Albuterol Neb [Duoneb] 3 ml IH TID 10/15/16 [History] Isosorbide MONOnitrate (24 HR) [Imdur] 30 mg PO DAILY 10/15/16 [History] Levothyroxine [Synthroid] 75 mcg PO DAILY 10/15/16 [History] Lisinopril [Zestril] 40 mg PO DAILY 10/15/16 [History] Metoprolol [Lopressor] 100 mg PO DAILY 10/15/16 [History] Paroxetine HCl [Paxil] 40 mg PO DAILY 10/15/16 [History] Pravastatin Sodium [Pravachol] 20 mg PO DAILY 10/15/16 [History] Topiramate [Topamax] 50 mg PO HS 10/15/16 [History] Quetiapine Fumarate [Seroquel] 25 mg PO HS 05/12/17 [History] clonazePAM [Klonopin] 1 mg PO BID 05/12/17 [History] Docusate [Colace] 100 mg PO BID #30 cap 05/19/17 [Rx] Ferrous Sulfate 325 mg PO DAILY #30 tablet. 05/19/17 [Rx] Levofloxacin [Levaquin] 750 mg PO DAILY #7 tablet 05/19/17 [Rx] Oxybutynin [Ditropan] 5 mg PO BID 06/02/17 [History] Umeclidinium Brm/Vilanterol Tr [Anoro Ellipta 62.5-25 Mcg INH] 1 each IH DAILY 06/02/17 [History] 3 Allergy/AdvReac Type Severity Reaction Status Date / Time No Known Allergies Allergy Verified 05/15/17 09:36 Review of systems: Gen: Denies fever, reports chills, reports weight loss, reports weakness and fatigue CV: Denies chest pain, denies exertional chest pain or dyspnea, denies palpitations Resp: Reports shortness of breath, denies pleuritic pain, reports coughing productive of greenish sputum, reports wheeze, denies hemoptysis GI: Denies nausea, denies vomiting, denies abdominal pain, reports alternating constipation and diarrhea, denies hematochezia, denies melena MSK: denies arthralgia, denies muscle weakness Neuro: Denies headache, denies confusion, denies focal weakness, denies numbness , denies tingling, denies vision changes Skin: Denies bruising, denies rash : Denies flank pain, denies dysuria, denies hematuria - Constitutional Vitals: Temp Pulse Resp BP Pulse Ox 97.5 F L 60 20 95/56 100 06/02/17 20:54 06/02/17 21:17 06/02/17 20:54 06/02/17 21:17 06/02/17 20:54 Exam: General: Cooperative, pleasant, minor distress, frequent coughing, alert and oriented 3, answers questions appropriately, cachectic, pale HEENT: Normocephalic, atraumatic, neck supple, trachea midline, Conjunctiva pink , sclera anicteric, EOMI, PERRL, oral mucosa moist, no orophargeal erythema or exudates Respiratory: No accessory muscle usage, rhonchi and coarse rales auscultated R>L Cardiovascular: Regular rate and rhythm, S1 and S2 present, no murmurs/rubs/ gallops/clicks appreciated GI/abdominal: Nondistended, nontender, soft, normal bowel sounds, no peritoneal signs Extremities: No calf tenderness, noncyanotic, no pedal edema appreciated, warm, lower extremity pulses palpable and symmetrical Neurological: Alert and oriented 3, no facial droop, no focal deficits Skin: Dry, intact, normal color Internal Med - H&P Results - Labs CBC & Chem 7: 06/03/17 00:34 06/03/17 00:34 <Tone Walker - Last Filed: 06/03/17 05:00> Date of Encounter: 06/03/17 Time of Encounter: 03:15 Past Med Surg Social Fam HX - Past Medical History Source: patient, old records reviewed - Constitutional Constitutional: night sweats, weight loss, no chills, no fever(s) - EENT Nose, mouth and throat: no nasal congestion, no sinus pressure - Cardiovascular Cardiovascular ROS IM: dyspnea, no chest pain - Respiratory Respiratory: cough, dyspnea, excessive phlegm production, no hemoptysis - Constitutional Vitals: Temp Pulse Resp BP Pulse Ox 97.7 F 68 20 118/65 100 06/03/17 00:33 06/03/17 00:33 06/03/17 00:33 06/03/17 00:33 06/03/17 00:33 General appearance: Present: cachectic, mild distress, A&O X 3, loss of weight - Head Head exam: Present: atraumatic - Eye Eye exam: Present: EOMI, PERRL. Absent: scleral icterus Pupils: Present: normal accommodation - Neck Neck exam general surgery: Present: full ROM, supple. Absent: tenderness - Respiratory Respiratory exam: Present: accessory muscle use, respiratory distress (mild), rhonchi, wheezes. Absent: chest wall tenderness - Cardiovascular Cardiovascular exam: Present: RRR, +S1, +S2. Absent: systolic murmur - GI/Abdominal GI/Abdominal exam: Present: normal bowel sounds, soft. Absent: hepatomegaly, splenomegaly, tenderness - Extremities Exam Extremities exam: Present: full ROM. Absent: calf tenderness, pedal edema Additional comments: atrophy - Back Exam Back exam: Present: normal inspection. Absent: CVA tenderness (L), CVA tenderness (R) - Psychiatric Psychiatric exam: Present: flat affect - Skin Skin exam: Present: dry, warm. Absent: petechiae Additional comments: ecchymoses Internal Med - H&P Results - Labs CBC & Chem 7: 06/03/17 00:34 06/03/17 00:34 Labs: Short CBC 06/03/17 Range/Units 00:34 WBC 10.4 (4.3-11.1) K/mcL Hgb 9.2 L (12.9-16.9) g/dL Hct 29.4 L (37.5-50.1) % Plt Count 104 L (140-400) K/mcL Neutrophils # 9.3 H (1.6-8.9) K/mcL BMP 06/03/17 00:34 Sodium 134 L Potassium 3.5 Chloride 97 L Carbon Dioxide 31 H BUN 19 Creatinine 1.28 H Glucose 136 H Calcium 8.4 L - Diagnostic Studies Chest x-ray Status: image reviewed by me (RUL cavitary type lesion) - Attending Attestation I discussed the patient [place], PMH, ROS, lab data, and exam findings with Dr. Emery. I then saw and examined patient independently as well. Pt confirms to me an unintentional weight loss of 40-50#, appetite loss, night sweats, and worsening productive sputum. He denies and fevers or chills. He has a history of MAC treated for about one year. He had bronchoscopy a few weeks ago. AFB smear was negative, but he has had two + cultures for acid fast bacilli. Given his symptoms and the above findings, I am quite concerned that he has TB. He is in a negative airflow room and in droplet precautions. We will consult pulmonary and ID for guidance. Regarding his bacterial pathogens in his sputum , we will keep him on Zosyn (Pseudomonas) and Vancomycin (HCAP) coverage. Additionally, I added JOSEE aerosols for his Pseudonmonas and GNR coverage. Other than my comments above and noted exam findings, I agree with Dr. Emery's assessment and plan.
[2017-06-03 00:45] LABS: Basophils % 0.1 %; Eosinophils # 0.1 K/mcL (0.0-0.6); Eosinophils % 0.8 %; Hematocrit 29.4 % (37.5-50.1); Hemoglobin 9.2 g/dL (12.9-16.9); Immature Granulocytes % 0.5 % (0-4); Lymphocytes # 0.5 K/mcL (0.6-4.6); Lymphocytes % 4.6 %; Mean Corpuscular HGB Conc 31.3 g/dL (31.6-35.5); Mean Corpuscular Hemoglobin 27.5 pg (28.0-33.3); Mean Corpuscular Volume 87.8 fL (83.0-100.0); Mean Platelet Volume 10.4 fL (9.4-12.4); Monocytes # 0.5 K/mcL (0.0-1.3); Monocytes % 4.4 %; Neutrophils # 9.3 K/mcL (1.6-8.9); Platelet Count 104 K/mcL (140-400); Red Blood Count 3.35 M/mcL (4.19-5.50); Red Cell Distribution Width 17.8 % (11.5-14.5); Segmented Neutrophils % 89.6 %
[2017-06-03 03:32] LABS: BUN/Creatinine Ratio 15 (6-26); Blood Urea Nitrogen 19 mg/dL (8-26); Calcium 8.4 mg/dL (8.6-10.8); Carbon Dioxide 31 mEq/L (19-29); Chloride 97 mEq/L (98-109); Glucose 136 mg/dL (70-99); Magnesium 1.8 mg/dL (1.6-2.6); Osmolality,Calculated 282 (280-300); Phosphorous 3.1 mg/dL (2.3-4.7); Potassium 3.5 mEq/L (3.5-4.5); Sodium 134 mEq/L (136-145); eGFR For African Americans > 60 (> 60); eGFR For Non-African Americans 55 (> 60)
[2017-06-03] MEDS: Ipratropium/Albuterol Neb 3 ML IH SCH ×5 (04:01→23:20)
[2017-06-03] MEDS: Piperacillin/Tazobactam 3.375 GM in D5% in Water (Mini-Bag+) 100 ML IVPB SCH ×3 (04:25→20:35)
[2017-06-03] MEDS: 0.9 % Sodium Chloride 1,000 ML IVC SCH (05:01)
[2017-06-03] MEDS: *HR* Heparin 5,000 UNIT/ML VIAL SQ SCH ×2 (06:41→18:32)
[2017-06-03] MEDS ORDERED: Pantoprazole 40 MG VIAL IVP SCH (09:00)
[2017-06-03] MEDS: Nicotine 21 MG PATCH.TD24 TD SCH (09:39)
[2017-06-03] MEDS: Furosemide 20 MG TABLET PO SCH (09:39)
[2017-06-03] MEDS: clonazePAM 1 MG TABLET PO SCH ×2 (09:39→20:35)
[2017-06-03] MEDS: Aspirin 81 MG TAB.CHEW PO SCH (09:39)
[2017-06-03] MEDS: Isosorbide MONOnitrate (24 HR) 30 MG TAB.ER.24H PO SCH (09:39)
[2017-06-03] MEDS: *HR* Amiodarone 200 MG TABLET PO SCH (09:39)
[2017-06-03] MEDS: (Anoro Ellipta 62.5-2) IH SCH (10:06)
[2017-06-03] MEDS: Tobramycin for INHALATION 300 MG/5 ML AMPUL IH SCH ×2 (10:06→23:21)
[2017-06-03] MEDS ORDERED: Oxymetazoline Nasal SPRAY BOTTLE NS PRN (13:20)
[2017-06-03] MEDS: Fluticasone Propionate Nasal 50 MCG/SPRAY BOTTLE NS SCH (14:21)
[2017-06-03] MEDS: Vancomycin 1,250 MG in D5% in Water 250 ML IVPB SCH (14:21)
--- NOTE | 2017-06-03 16:55 | Pulmonology Consult Note ---
Date of Encounter: 06/03/17 Time of Encounter: 07:40 History of Present Illness Consult date: 06/03/17 Requesting physician: Tone Walker Reason for consult: COPD, pneumonia Chief complaint: Cough and progressive weakness History of present illness: This is a pleasant 72-year-old male with multiple medical problems who is known to me from outpatient clinic and was recently seen in the clinic with some improvement on antibiotics, and he had bronchoscopy which showed AFB smear positive and final is still pending. Patient was treated for Mycobacterium avium in the past which I suspect is having that again. Patient has productive cough, denies hemoptysis, generalized weakness, patient also has night sweats but denies any fever or chills. He has no history of TB in the past. Patient has weight loss and to continue to smoke tobacco. Patient stated he is using his inhalers. Patient denies any sick contact or recent travel. He was recently hospitalized and he was discharged home. Past Med Surg Social Fam HX - Past Medical History Medical history: aortic aneurysm, cancer, COPD, coronary artery disease, GERD, hyperlipidemia, hypertension, myocardial infarction, thyroid disease, other Psychiatric history: depression - Past Surgical History Surgical History: cancer surgery, coronary bypass (CABG), vasectomy - Social History Smoking Status: Current every day smoker Smokeless Tobacco Status: No Alcohol use: none Drug use: none Medications and Allergies Albuterol Sulfate [Ventolin Hfa] 2 puff IH Q4H PRN 10/15/16 [History] Amiodarone [Cordarone] 200 mg PO DAILY 10/15/16 [History] Aspirin 81 mg PO DAILY 10/15/16 [History] Furosemide [Lasix] 20 mg PO DAILY 10/15/16 [History] Ipratropium/Albuterol Neb [Duoneb] 3 ml IH TID 10/15/16 [History] Isosorbide MONOnitrate (24 HR) [Imdur] 30 mg PO DAILY 10/15/16 [History] Levothyroxine [Synthroid] 75 mcg PO DAILY 10/15/16 [History] Lisinopril [Zestril] 40 mg PO DAILY 10/15/16 [History] Metoprolol [Lopressor] 100 mg PO DAILY 10/15/16 [History] Paroxetine HCl [Paxil] 40 mg PO DAILY 10/15/16 [History] Pravastatin Sodium [Pravachol] 20 mg PO DAILY 10/15/16 [History] Topiramate [Topamax] 50 mg PO HS 10/15/16 [History] Quetiapine Fumarate [Seroquel] 25 mg PO HS 05/12/17 [History] clonazePAM [Klonopin] 1 mg PO BID 05/12/17 [History] Docusate [Colace] 100 mg PO BID #30 cap 05/19/17 [Rx] Ferrous Sulfate 325 mg PO DAILY #30 tablet.dr 05/19/17 [Rx] Levofloxacin [Levaquin] 750 mg PO DAILY #7 tablet 05/19/17 [Rx] Oxybutynin [Ditropan] 5 mg PO BID 06/02/17 [History] Umeclidinium Brm/Vilanterol Tr [Anoro Ellipta 62.5-25 Mcg INH] 1 each IH DAILY 06/02/17 [History] 3 Allergy/AdvReac Type Severity Reaction Status Date / Time No Known Allergies Allergy Verified 05/15/17 09:36 All Systems: A 10-system review of systems was performed and is negative for pertinent findings except as documented above in the HPI. Physical Examination Vital Signs: Vital Signs, Last 4 Hours Pulse Resp BP Pulse Ox 06/03/17 16:17 19 100 06/03/17 16:08 19 100 06/03/17 16:00 65 19 122/75 100 General appearance: lethargic, appears uncomfortable Eyes: nonicteric ENT: oropharynx dry Mallampati (class): 1 Neck: supple, no lymphadenopathy Effort: normal Inspection: hyperextended Auscultation: bilateral: diminished breath sounds, rhonchi Percussion: bilateral: not dull Cardiovascular: regular rate and rhythm Gastrointestinal: normoactive bowel sounds, non-distended Extremities: no cyanosis, no edema normal mental status, non-focal exam depressed Results - Laboratory Findings CBC and BMP: 06/03/17 00:34 06/03/17 00:34 PT/INR, D-dimer PT 13.9 Seconds (9.4-12.1) H 06/02/17 17:25 Abnormal lab findings: Abnormal lab results RBC 3.35 M/mcL (4.19-5.50) L 06/03/17 00:34 Hgb 9.2 g/dL (12.9-16.9) L 06/03/17 00:34 Hct 29.4 % (37.5-50.1) L 06/03/17 00:34 MCH 27.5 pg (28.0-33.3) L 06/03/17 00:34 MCHC 31.3 g/dL (31.6-35.5) L 06/03/17 00:34 RDW 17.8 % (11.5-14.5) H 06/03/17 00:34 Plt Count 104 K/mcL (140-400) L 06/03/17 00:34 Neutrophils # 9.3 K/mcL (1.6-8.9) H 06/03/17 00:34 Lymphocytes # 0.5 K/mcL (0.6-4.6) L 06/03/17 00:34 PT 13.9 Seconds (9.4-12.1) H 06/02/17 17:25 Sodium 134 mEq/L (136-145) L 06/03/17 00:34 Chloride 97 mEq/L (98-109) L 06/03/17 00:34 Carbon Dioxide 31 mEq/L (19-29) H 06/03/17 00:34 Creatinine 1.28 mg/dL (0.72-1.25) H 06/03/17 00:34 Est GFR (Non-Af Amer) 55 (> 60) L 06/03/17 00:34 Glucose 136 mg/dL (70-99) H 06/03/17 00:34 Calcium 8.4 mg/dL (8.6-10.8) L 06/03/17 00:34 B-Natriuretic Peptide 284 pg/mL (0-100) H 06/02/17 17:25 Serum Total Protein 5.8 g/dL (6.0-8.3) L 06/02/17 17:25 Albumin 2.0 g/dL (3.5-5.0) L 06/02/17 17:25 Globulin 3.8 g/dL (2.4-3.5) H 06/02/17 17:25 Albumin/Globulin Ratio 0.5 (1.1-2.2) L 06/02/17 17:25 - Microbiology Findings Microbiology Findings: Microbiology, Last 48 Hours 06/03/17 06:03 Influenza Types A,B Antigen (DK) - Final Nasopharyngeal - Diagnostic Findings CT scan - chest: report reviewed, image reviewed - Clinical Findings Intake & Output: Intake & Output 06/03/17 06/03/17 06/03/17 07:59 15:59 23:59 Intake Total 0 / 1240 340 / 340 Balance 0 / 1240 340 / 340 Consult Discharge Plan - Plan Referrals: Ulices Mcgovern Jr, MD [Primary Care Provider] - - Attending Attestation Assessment and plan: Mr. Jaimes is very pleasant gentleman who is being sick for a long time and he has a large cavitary lesion which is getting course and he was treated with broad-spectrum antibiotics. Patient was recently bronchoscopy which showed positive AFB smear which I suspect it is Mycobacterium avium and he will need to be treated again. Patient continued to smoke tobacco and he was counseled multiple times to quit smoking. He is requesting nicotine patch. He will need infectious disease consultation and treatment and follow-up as outpatient. He has severe protein calorie malnutrition and he will need patient support. He has generalized weakness for which physical therapy was recommended. Thank you very much for consultation and continue bronchodilators for his COPD.
--- NOTE | 2017-06-03 16:57 | Internal Med Progress Note ---
Date of Encounter: 06/03/17 Time of Encounter: 10:00 - Assessment and plan (1) Right upper lobe pneumonia Current Visit: No Status: Acute Assessment and plan: Patient has a hx of previous MAC infection. Recent sputum culture shows Achromobacter positive, sensitive to zosyn. AFB positive but final result pending. - We will continue empirically treat patient with Vanco and Zosyn. - Nebulizer scheduled and when necessary for wheezing. - Oxygen supportive treatment. - Consult pulmonology and ID - Patient is not meet criteria of sepsis at this point. Sepsis resolved. Patient is at high risk because he is on vancomycin need close monitoring Qualifiers: Pneumonia type: due to Pseudomonas Qualified Code(s): J15.1 - Pneumonia due to Pseudomonas (2) HTN (hypertension) Current Visit: No Status: Chronic Assessment and plan: Continue home medications Qualifiers: Hypertension type: essential hypertension Qualified Code(s): I10 - Essential (primary) hypertension (3) CAD (coronary artery disease) Current Visit: No Status: Chronic Assessment and plan: Stable. No chest pain. Continue home medications Qualifiers: Coronary Disease-Associated Artery/Lesion type: bypass graft [place] vs. transplanted heart: [place] heart Associated angina: angina presence unspecified Qualified Code(s): I25.810 - Atherosclerosis of coronary artery bypass graft(s) without angina pectoris (4) DVT prophylaxis Current Visit: No Status: Acute Assessment and plan: Heparin subcutaneously (5) Tobacco abuse Current Visit: No Status: Chronic Assessment and plan: Smoking cessation education. Continue nicotine patch (6) Acute and chronic respiratory failure Current Visit: No Status: Acute Assessment and plan: Continue supportive treatment. Closely monitor patient Qualifiers: Respiratory failure complication: hypoxia Qualified Code(s): J96.21 - Acute and chronic respiratory failure with hypoxia (7) Hypothyroidism Current Visit: No Status: Chronic Assessment and plan: Continue home medications Qualifiers: Hypothyroidism type: acquired Qualified Code(s): E03.9 - Hypothyroidism, unspecified (8) Acid-fast bacteria present Current Visit: Yes Status: Acute Assessment and plan: Waiting for final result. Probably recurrent MAC infection. Pulmonology and ID consult. - Subjective Interval history: Patient is a 72-year-old male with a history of COPD, CAD, colorectal cancer, history of Mycobacterium avium lung infection present to ER for cough and weakness since 3 weeks ago and the worsening recently. Patient was seen and examined. Still has a cough and wheezing. In mild respiratory distress. Need oxygen. Vitals are stable. Will continue antibiotic treatment and oxygen supportive treatment. Pulmonology and ID consult. - Constitutional Vitals: Temp Pulse Resp BP Pulse Ox 98.1 F 65 19 122/75 100 06/03/17 07:00 06/03/17 16:00 06/03/17 16:17 06/03/17 16:00 06/03/17 16:17 General appearance: Present: cachectic, mild distress, A&O X 3, loss of weight - Head Head exam: Present: atraumatic, normocephalic - Eye Eye exam: Present: PERRL, conjuntiva pink, sclera anicteric Pupils: Present: PERRL - Neck Neck exam general surgery: Present: supple, trachea midline. Absent: lymphadenopathy - Respiratory Respiratory exam: Present: CTAB, wheezes (Diffuse wheezes bilaterally). Absent : accessory muscle use, rales, rhonchi - Cardiovascular Cardiovascular exam: Present: RRR, +S1, +S2. Absent: diastolic murmur, gallop, rubs, systolic murmur - GI/Abdominal GI/Abdominal exam: Present: normal bowel sounds, soft, no peritoneal signs. Absent: distended, tenderness - Extremities Exam Extremities exam: Present: warm, radial pulses palpable and symmetrical. Absent : calf tenderness, cyanotic, pedal edema - Neurological Exam Neurological exam: Present: CN II-XII intact, oriented X3, no focal deficits. Absent: pronater drift, facial droop, speech deficit - Skin Skin exam: Present: dry, intact Internal Medicine: Result - Labs CBC & Chem 7: 06/03/17 00:34 06/03/17 00:34 - ABG Interpretation ABG results: PT/INR, D-dimer PT 13.9 Seconds (9.4-12.1) H 06/02/17 17:25 Consult Discharge Plan - Plan Referrals: Ulices Mcgovern Jr, MD [Primary Care Provider] -
[2017-06-03] MEDS ORDERED: Topiramate 25 MG TABLET PO SCH (21:00)
[2017-06-04] MEDS: Ipratropium/Albuterol Neb 3 ML IH SCH ×3 (04:12→16:08)
[2017-06-04] MEDS: Piperacillin/Tazobactam 3.375 GM in D5% in Water (Mini-Bag+) 100 ML IVPB SCH ×2 (05:26→13:21)
[2017-06-04] MEDS: *HR* Heparin 5,000 UNIT/ML VIAL SQ SCH ×2 (05:28→19:18)
[2017-06-04 06:08] LABS: Lymphocytes % 8.5 %; Mean Corpuscular Volume 87.6 fL (83.0-100.0); Red Cell Distribution Width 17.7 % (11.5-14.5); Segmented Neutrophils % 83.7 %
[2017-06-04 06:10] LABS: Basophils % 0.2 %; Eosinophils # 0.1 K/mcL (0.0-0.6); Eosinophils % 1.6 %; Hematocrit 30.4 % (37.5-50.1); Hemoglobin 9.5 g/dL (12.9-16.9); Immature Granulocytes % 0.2 % (0-4); Immature Platelets 2.7 % (1.1-6.1); Lymphocytes # 0.4 K/mcL (0.6-4.6); Mean Corpuscular HGB Conc 31.3 g/dL (31.6-35.5); Mean Corpuscular Hemoglobin 27.4 pg (28.0-33.3); Mean Platelet Volume 10.7 fL (9.4-12.4); Monocytes # 0.3 K/mcL (0.0-1.3); Monocytes % 5.8 %; Red Blood Count 3.47 M/mcL (4.19-5.50)
[2017-06-04 06:14] LABS: Neutrophils # 3.8 K/mcL (1.6-8.9); Platelet Count 87 K/mcL (140-400)
[2017-06-04 06:28] LABS: BUN/Creatinine Ratio 11 (6-26); Blood Urea Nitrogen 11 mg/dL (8-26); Calcium 8.3 mg/dL (8.6-10.8); Carbon Dioxide 30 mEq/L (19-29); Chloride 101 mEq/L (98-109); Glucose 105 mg/dL (70-99); Osmolality,Calculated 284 (280-300); Potassium 3.6 mEq/L (3.5-4.5); Sodium 137 mEq/L (136-145); eGFR For African Americans > 60 (> 60); eGFR For Non-African Americans > 60 (> 60)
[2017-06-04 07:24] LABS: Platelet Estimate Slight Decrease (Normal)
[2017-06-04] MEDS ORDERED: Tuberculin Skin Test (PPD) 5 TUB/0.1 ML VIAL ID ONE (08:52)
--- NOTE | 2017-06-04 09:02 | Infectious Disease Consult ---
Date of Encounter: 06/03/17 Time of Encounter: 14:00 Assessment and Plan (1) Severe sepsis Status: Acute Assessment and plan: The patient had two SIRS criteria plus WASHINGTON on admission. Lactic acid was normal. Likely secondary to PNA. Improved. WBC has normalized and W[place] has resolved. He continues to have some intermittent tachypnea. Blood cultures drawn 06/02/17 are NGTD x 2 sets. (2) Right upper lobe pneumonia Status: Acute Assessment and plan: Causative organism PSEA and Achromobacter xylosoxidans. Status post bronchoscopy 05/12/17 that showed copious mucopurulent, thick secretions throughout the tracheobronchial tree that were partially obstructing the airway. Mucous plus were also noted throughout. Treated previously with Levaquin. Repeat CXR in the ER shows persistent opacity with persistent lucencies to the right upper lung. AFB noted on BAL cultures. Final ID is pending. Sputum culture pending. AFB x 1 have been collected and are pending. Pulmonology consulted and following. Await their recommendations. Continue Zosyn 3.375 grams IV Q8H. Continue Vancomycin IV. Pharmacy to dose. Goal trough approximately 15. Continue supportive care with O2, nebulizers, etc. Duration of treatment depends on the clinical picture. Monitor renal function and for drug toxicity and dose-adjust antibiotics. Qualifiers: Pneumonia type: due to Pseudomonas Qualified Code(s): J15.1 - Pneumonia due to Pseudomonas (3) Acid-fast bacteria present Status: Acute Assessment and plan: Status post bronchoscopy 05/12/17. AFB culture is positive. Final ID is pending. 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 Carrasco. The patient has had negative AFB smear/cultures 08/2015 and 02/2017. Etiology unclear: recurrence of MAC vs. TB vs. other. Patient reports night sweats, weight loss, and severe weakness. He denies hemoptysis and states his breathing seems to be at baseline. He does report he had some cousins that were treated for TB when he was younger, but denies any other known TB exposure. He had a negative Quantiferon in 2012. Likelihood that this is TB is low, but will need to rule out given the cavitary lesion noted on his last CT scan. Pulmonology consulted and following. Place PPD. Can read at 48 hours. Check Quantiferon. Continue Airborne Isolation per policy. If PPD negative at 48 hours, okay to discontinue. If this is a recurrence of MAC, I am not sure that the patient will be able to tolerate the medication regimen given his current state as the patient had a very difficult time tolerating it before. (4) Acute kidney injury Status: Acute Assessment and plan: Likely multifactorial: sepsis + poor PO intake Resolved. Continue to trend. Dose-adjust antibiotics. Avoid nephrotoxins as able. (5) Thrombocytopenia Status: Acute Assessment and plan: Etiology unclear. Continues to worsen. No acute bleeding noted on exam. Further workup and management per the primary team. (6) Ischemic cardiomyopathy Status: Chronic (7) Body mass index (BMI) of 19 or less in adult Status: Chronic Assessment and plan: Likely secondary to protein-calorie malnutrition. Recommend gum cook consult. Infectious Disease HPI - Data of Consult Patient: known to practice within the last 3 years Consult date: 06/03/17 Requesting Physician: Tegan Mathis MD Primary Care Provider: Ulices Mcgovern Jr, MD - Consult Narrative Reason for consult: AFB in the Sputum History of present illness: Mr. Jaimes is a 72 year old male CC: Tegan Mathis MD Past Med Surg Social Fam HX - Past Medical History Attestation: Yes The following information was validated with the patient. Source: patient, old records reviewed, nursing notes reviewed Medical history: aortic aneurysm, cancer, COPD, coronary artery disease, GERD, hyperlipidemia, hypertension, myocardial infarction, thyroid disease, other (MAC ) Psychiatric history: depression - Past Surgical History Surgical History: cancer surgery, coronary bypass (CABG), vasectomy - Social History Smoking Status: Current every day smoker Packs per day: 0.5 Smokeless Tobacco Status: No Alcohol use: none Drug use: none Occupational status: retired Current living situation: Home, With Family Activity Level: Independent ambulation Recent Out of Country Travel Within the Last 8 Weeks: No Exposure or Possible Exposure to Illness During Travel: No Infectious Disease-CN:Meds Albuterol Sulfate [Ventolin Hfa] 2 puff IH Q4H PRN 10/15/16 [History] Amiodarone [Cordarone] 200 mg PO DAILY 10/15/16 [History] Aspirin 81 mg PO DAILY 10/15/16 [History] Furosemide [Lasix] 20 mg PO DAILY 10/15/16 [History] Ipratropium/Albuterol Neb [Duoneb] 3 ml IH TID 10/15/16 [History] Isosorbide MONOnitrate (24 HR) [Imdur] 30 mg PO DAILY 10/15/16 [History] Levothyroxine [Synthroid] 75 mcg PO DAILY 10/15/16 [History] Lisinopril [Zestril] 40 mg PO DAILY 10/15/16 [History] Metoprolol [Lopressor] 100 mg PO DAILY 10/15/16 [History] Paroxetine HCl [Paxil] 40 mg PO DAILY 10/15/16 [History] Pravastatin Sodium [Pravachol] 20 mg PO DAILY 10/15/16 [History] Topiramate [Topamax] 50 mg PO HS 10/15/16 [History] Quetiapine Fumarate [Seroquel] 25 mg PO HS 05/12/17 [History] clonazePAM [Klonopin] 1 mg PO BID 05/12/17 [History] Docusate [Colace] 100 mg PO BID #30 cap 05/19/17 [Rx] Ferrous Sulfate 325 mg PO DAILY #30 tablet. 05/19/17 [Rx] Levofloxacin [Levaquin] 750 mg PO DAILY #7 tablet 05/19/17 [Rx] Oxybutynin [Ditropan] 5 mg PO BID 06/02/17 [History] Umeclidinium Brm/Vilanterol Tr [Anoro Ellipta 62.5-25 Mcg INH] 1 each IH DAILY 06/02/17 [History] 3 Allergy/AdvReac Type Severity Reaction Status Date / Time No Known Allergies Allergy Verified 05/15/17 09:36 All systems: reviewed and no additional remarkable complaints except as stated Exam - Constitutional Vitals: Temp Pulse Resp BP Pulse Ox 98.2 F 69 18 147/86 100 06/03/17 19:32 06/03/17 19:32 06/04/17 04:12 06/03/17 19:32 06/04/17 04:12 General appearance: cooperative, no acute distress, thin - Head Head exam: Present: atraumatic, normal inspection, normocephalic - Eye Eye exam: Present: EOMI, normal appearance, PERRL Pupils: Present: normal accommodation - ENT ENT exam: Present: mucous membranes moist - Neck Neck exam: Present: normal inspection - Respiratory Respiratory exam: Present: respiratory distress (mild), rhonchi (throughout), wheezes (coarse, throughout), tachypnea. Absent: rales - Cardiovascular Cardiovascular exam: Present: RRR, +S1, +S2 - GI/Abdominal GI/Abdominal exam: Present: normal bowel sounds, soft. Absent: distended, tenderness - Extremities Exam Extremities exam: Present: normal inspection. Absent: joint swelling, pedal edema, tenderness - Neurological Exam Neurological exam: Present: alert, oriented X3, no focal deficits - Psychiatric Psychiatric exam: Present: normal affect, normal mood - Skin Skin exam: Present: dry, intact, normal color, warm Infectious Disease CN: Results - Labs CBC & Chem 7: 06/04/17 05:29 06/04/17 05:29 Cultures: Cultures 06/03/17 06:03 Influenza Types A,B Antigen (DK) - Final Nasopharyngeal Consult Discharge Plan - Plan Referrals: Ulices Mcgovern Jr, MD [Primary Care Provider] -
[2017-06-04] MEDS: clonazePAM 1 MG TABLET PO SCH (09:07)
[2017-06-04] MEDS: *HR* Amiodarone 200 MG TABLET PO SCH (09:07)
[2017-06-04] MEDS: Isosorbide MONOnitrate (24 HR) 30 MG TAB.ER.24H PO SCH (09:07)
[2017-06-04] MEDS: Nicotine 21 MG PATCH.TD24 TD SCH (09:07)
[2017-06-04] MEDS: Furosemide 20 MG TABLET PO SCH (09:08)
[2017-06-04] MEDS: Aspirin 81 MG TAB.CHEW PO SCH (09:08)
--- NOTE | 2017-06-04 11:15 | Pulmonology Progress Note ---
<Marina Aden - Last Filed: 06/04/17 11:13> Date of Encounter: 06/04/17 Time of Encounter: 10:30 Assessment and Plan (1) Right upper lobe pneumonia Current Visit: No Status: Acute -Patient has a history of being treated for Mycobacterium avium in the past. This is most likely what he has again. -Repeat CXR showed persistent opacity with persistent lucencies to the right upper lung -s/p bronchoscopy 05/12/17 that showed copious mucopurulent, thick secretions throughout the tracheobronchial tree that were partially obstructing the airway -AFB noted on BAL cultures, final ID is pending -Sputum culture pending -AFB x 1 have been collected and are pending -influenza negative -continue vancomycin, Zosyn -supplemental oxygen and nebulizers Qualifiers: Pneumonia type: due to Pseudomonas Qualified Code(s): J15.1 - Pneumonia due to Pseudomonas (2) Acid-fast bacteria present Current Visit: Yes Status: Acute -most likely Mycobacterium Avium Complex- the patient was treated for the past for about 3 years -he admits to dyspnea, weight loss, night sweats, coughing with production -s/p bronchoscopy 05/12/17 that showed copious mucopurulent, thick secretions throughout the tracheobronchial tree that were partially obstructing the airway -AFB noted on BAL cultures, final ID is pending -Sputum culture pending -AFB x 1 have been collected and are pending -continue vancomycin, Zosyn (3) Severe sepsis Current Visit: Yes Status: Acute Upon admission the patient had two SIRS criteria with normal lactic acid. most likely secondary to pneumonia Today he has improved, the white blood cell count is WNL. lactic acid will be rechecked blood cultures are pending Subjective Principal diagnosis: right upper lobe pneumonia Interval history: Patient was laying in bed comfortably. He stated he feels a little better but not much. He is still coughing up mucus and on 3 L of oxygen. He has no complaints today. Objective PUL Vital signs: Last Vital Signs Temp 98.2 F 06/03/17 19:32 Pulse 69 06/03/17 19:32 Resp 18 06/04/17 04:12 BP 147/86 06/03/17 19:32 Pulse Ox 100 06/04/17 04:12 General appearance: no acute distress, alert, other (cachectic) Eyes: nonicteric ENT: oropharynx moist Mallampati (class): 3 Neck: supple Effort: normal Auscultation: bilateral: wheezes, rhonchi Cardiovascular: regular rate and rhythm Gastrointestinal: normoactive bowel sounds, soft, tender Integumentary: normal, other (bruising) Extremities: no edema, no clubbing Musculoskeletal: no deformities normal mental status mood appropriate Results - Laboratory Findings CBC and BMP: 06/04/17 05:29 06/04/17 05:29 PT/INR, D-dimer PT 13.9 Seconds (9.4-12.1) H 06/02/17 17:25 Abnormal lab findings: Abnormal lab results RBC 3.47 M/mcL (4.19-5.50) L 06/04/17 05:29 Hgb 9.5 g/dL (12.9-16.9) L 06/04/17 05:29 Hct 30.4 % (37.5-50.1) L 06/04/17 05:29 MCH 27.4 pg (28.0-33.3) L 06/04/17 05:29 MCHC 31.3 g/dL (31.6-35.5) L 06/04/17 05:29 RDW 17.7 % (11.5-14.5) H 06/04/17 05:29 Plt Count 87 K/mcL (140-400) L 06/04/17 05:29 Lymphocytes # 0.4 K/mcL (0.6-4.6) L 06/04/17 05:29 Platelet Estimate Slight Decrease (Normal) L 06/04/17 05:29 PT 13.9 Seconds (9.4-12.1) H 06/02/17 17:25 Carbon Dioxide 30 mEq/L (19-29) H 06/04/17 05:29 Glucose 105 mg/dL (70-99) H 06/04/17 05:29 Calcium 8.3 mg/dL (8.6-10.8) L 06/04/17 05:29 B-Natriuretic Peptide 284 pg/mL (0-100) H 06/02/17 17:25 Serum Total Protein 5.8 g/dL (6.0-8.3) L 06/02/17 17:25 Albumin 2.0 g/dL (3.5-5.0) L 06/02/17 17:25 Globulin 3.8 g/dL (2.4-3.5) H 06/02/17 17:25 Albumin/Globulin Ratio 0.5 (1.1-2.2) L 06/02/17 17:25 - Microbiology Findings Microbiology Findings: Microbiology, Last 48 Hours 06/03/17 06:03 Influenza Types A,B Antigen (DK) - Final Nasopharyngeal - Clinical Findings Intake & Output: Intake & Output 06/03/17 06/04/17 06/04/17 23:59 07:59 15:59 Intake Total 350 / 350 100 / 100 100 / 100 Output Total 500 / 500 700 / 700 Balance -150 / -150 -600 / -600 100 / 100 Consult Discharge Plan - Plan Referrals: Ulices Mcgovern Jr, MD [Primary Care Provider] - <Radha Saavedra - Last Filed: 06/04/17 12:33> Date of Encounter: 06/04/17 Objective PUL Vital signs: Last Vital Signs Temp 98.2 F 06/03/17 19:32 Pulse 69 06/03/17 19:32 Resp 22 06/04/17 11:35 BP 147/86 06/03/17 19:32 Pulse Ox 100 06/04/17 11:35 Results - Laboratory Findings CBC and BMP: 06/04/17 05:29 06/04/17 05:29 PT/INR, D-dimer PT 13.9 Seconds (9.4-12.1) H 06/02/17 17:25 Abnormal lab findings: Abnormal lab results RBC 3.47 M/mcL (4.19-5.50) L 06/04/17 05:29 Hgb 9.5 g/dL (12.9-16.9) L 06/04/17 05:29 Hct 30.4 % (37.5-50.1) L 06/04/17 05:29 MCH 27.4 pg (28.0-33.3) L 06/04/17 05:29 MCHC 31.3 g/dL (31.6-35.5) L 06/04/17 05:29 RDW 17.7 % (11.5-14.5) H 06/04/17 05:29 Plt Count 87 K/mcL (140-400) L 06/04/17 05:29 Lymphocytes # 0.4 K/mcL (0.6-4.6) L 06/04/17 05:29 Platelet Estimate Slight Decrease (Normal) L 06/04/17 05:29 PT 13.9 Seconds (9.4-12.1) H 06/02/17 17:25 Carbon Dioxide 30 mEq/L (19-29) H 06/04/17 05:29 Glucose 105 mg/dL (70-99) H 06/04/17 05:29 Calcium 8.3 mg/dL (8.6-10.8) L 06/04/17 05:29 B-Natriuretic Peptide 284 pg/mL (0-100) H 06/02/17 17:25 Serum Total Protein 5.8 g/dL (6.0-8.3) L 06/02/17 17:25 Albumin 2.0 g/dL (3.5-5.0) L 06/02/17 17:25 Globulin 3.8 g/dL (2.4-3.5) H 06/02/17 17:25 Albumin/Globulin Ratio 0.5 (1.1-2.2) L 06/02/17 17:25 - Microbiology Findings Microbiology Findings: Microbiology, Last 48 Hours 06/03/17 06:03 Influenza Types A,B Antigen (DK) - Final Nasopharyngeal - Clinical Findings Intake & Output: Intake & Output 06/03/17 06/04/17 06/04/17 23:59 07:59 15:59 Intake Total 350 / 350 100 / 100 100 / 100 Output Total 500 / 500 700 / 700 Balance -150 / -150 -600 / -600 100 / 100 - Attending Attestation I examined this patient and my medical decision-making was reviewed with the Resident Physician. I agree with the documented findings, disposition and treatment plan as described except to the extent set forth below. Patient seen and examined. Labs, radiology, chart personally reviewed. Agree with resident's history and physical, assessment, plan with following comments: CROWD CONTROLLER: Patient follows commands, Pulmonary: Acceptable oxygenation and ventilation. Patient still is not feeling good and discussed with the infectious disease team and recommended to start treat the patient for MAC and monitor while he is in the hospital since he did not tolerate her treatment before. The patient is on appropriate treatment for COPD. avoid inhaled corticosteroids for now due to his pneumonia. Cardiovascular: stable GI: Nutrition per dietary and GI prophylaxis per routine. Severe protein calorie malnutrition
[2017-06-04] MEDS: Fluticasone Propionate Nasal 50 MCG/SPRAY BOTTLE NS SCH (11:22)
[2017-06-04] MEDS: (Anoro Ellipta 62.5-2) IH SCH (11:33)
[2017-06-04] MEDS: Tobramycin for INHALATION 300 MG/5 ML AMPUL IH SCH (11:33)
--- NOTE | 2017-06-04 13:14 | Infectious Disease Progress No ---
Date of Encounter: 06/04/17 Time of Encounter: 13:12 - Assessment and Plan (1) Severe sepsis Current Visit: Yes Status: Acute The patient had two SIRS criteria plus [place] on admission. Lactic acid was normal. Likely secondary to PNA. Improved. WBC has normalized and tachypnea and [place] have resolved. Blood cultures drawn 06/02/17 are NGTD x 2 sets. (2) Right upper lobe pneumonia Current Visit: No Status: Acute Causative organism PSEA and Achromobacter xylosoxidans. Status post bronchoscopy 05/12/17 that showed copious mucopurulent, thick secretions throughout the tracheobronchial tree that were partially obstructing the airway. Mucous plus were also noted throughout. Treated previously with Levaquin. Repeat CXR in the ER shows persistent opacity with persistent lucencies to the right upper lung. AFB noted on BAL cultures. Final ID is pending. Sputum culture pending. AFB x 1 have been collected and are pending. Get two additional sputums for AFB. Pulmonology consulted and following. Await their recommendations. Continue Zosyn 3.375 grams IV Q8H. Continue Vancomycin IV. Pharmacy to dose. Goal trough approximately 15. Continue supportive care with O2, nebulizers, etc. Duration of treatment depends on the clinical picture. Monitor renal function and for drug toxicity and dose-adjust antibiotics. Qualifiers: Pneumonia type: due to Pseudomonas Qualified Code(s): J15.1 - Pneumonia due to Pseudomonas (3) Acid-fast bacteria present Current Visit: Yes Status: Acute Status post bronchoscopy 05/12/17. AFB culture is positive. Final ID is pending. 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 Carrasco. The patient has had negative AFB smear/cultures 08/2015 and 02/2017. Etiology unclear, but recurrence of MAC is most likely. Patient reports night sweats, weight loss, and severe weakness. He denies hemoptysis and states his breathing seems to be at baseline. He does report he had some cousins that were treated for TB when he was younger, but denies any other known TB exposure. He had a negative Quantiferon in 2012. Likelihood that this is TB is low, but will need to rule out given the cavitary lesion noted on his last CT scan. Pulmonology consulted and following. PPD placed this morning. Can read at 48 hours. Check Quantiferon. --> pending. Continue Airborne Isolation per policy. If PPD negative at 48 hours, okay to discontinue. If this is a recurrence of MAC, I am not sure that the patient will be able to tolerate the medication regimen given his current state as the patient had a very difficult time tolerating it before. Recommend the patient be transferred to [facility] for further evaluation and treatment. Discussed with Dr. Mathis. (4) Acute kidney injury Current Visit: Yes Status: Resolved Likely multifactorial: sepsis + poor PO intake Resolved. Continue to trend. Dose-adjust antibiotics. Avoid nephrotoxins as able. (5) Thrombocytopenia Current Visit: Yes Status: Acute Etiology unclear. Continues to worsen. No acute bleeding noted on exam. If worsens, consider Hem/Onc consult. Further workup and management per the primary team. (6) Ischemic cardiomyopathy Current Visit: No Status: Chronic (7) Body mass index (BMI) of 19 or less in adult Current Visit: No Status: Chronic Likely secondary to protein-calorie malnutrition. Recommend sales attendant building materials consult. - Subjective Interval history: Seen and examined. No acute events noted overnight. Patient resting quietly in bed. Seen with Dr. Saavedra who recommends re-starting treatment for MAC. States overall he doesn't feel any better. He denies any fevers or chills or rigors, but reports severe weakness. He denies any chest pain and states his cough and shortness of breath may be a little bit better today. He denies any nausea, vomiting, diarrhea, or constipation he does report a very poor appetite. He denies any urinary complaints. He denies any neck, back, or extremity pain. He denies any oral thrush or skin lesions. Infect Dis PN-Objective Data - Labs CBC & Chem 7: 06/04/17 05:29 06/04/17 05:29 Labs: Laboratory Results - last 24 hr 06/04/17 06/04/17 05:29 05:29 WBC 4.5 D RBC 3.47 L Hgb 9.5 L Hct 30.4 L MCV 87.6 MCH 27.4 L MCHC 31.3 L RDW 17.7 H Plt Count 87 L MPV 10.7 Immature Gran % 0.2 Seg Neutrophils % 83.7 Lymphocytes % 8.5 Monocytes % 5.8 Eosinophils % 1.6 Basophils % 0.2 Neutrophils # 3.8 Lymphocytes # 0.4 L Monocytes # 0.3 Eosinophils # 0.1 Basophils # 0.0 Platelet Estimate Slight Decrease L Immature Plt Fraction 2.7 Sodium 137 Potassium 3.6 Chloride 101 Carbon Dioxide 30 H BUN 11 Creatinine 1.00 Est GFR ( Amer) > 60 Est GFR (Non-Af Amer) > 60 BUN/Creatinine Ratio 11 Glucose 105 H Calculated Osmolality 284 Calcium 8.3 L Cultures: Cultures 06/03/17 06:03 Influenza Types A,B Antigen (DK) - Final Nasopharyngeal Exam - Constitutional Vitals: Temp Pulse Resp BP Pulse Ox 98.2 F 69 22 147/86 100 06/03/17 19:32 06/03/17 19:32 06/04/17 11:35 06/03/17 19:32 06/04/17 11:35 General appearance: cooperative, no acute distress, thin - Head Head exam: Present: atraumatic, normal inspection, normocephalic - Eye Eye exam: Present: EOMI, normal appearance, PERRL Pupils: Present: normal accommodation - ENT ENT exam: Present: mucous membranes dry - Neck Neck exam: Present: normal inspection - Respiratory Respiratory exam: Present: rhonchi (Throughout), wheezes (Coarse expiratory, throughout). Absent: respiratory distress - Cardiovascular Cardiovascular exam: Present: RRR, +S1, +S2 - GI/Abdominal GI/Abdominal exam: Present: normal bowel sounds, soft. Absent: distended, tenderness - Extremities Exam Extremities exam: Present: normal inspection. Absent: joint swelling, pedal edema, tenderness - Neurological Exam Neurological exam: Present: alert, oriented X3, no focal deficits - Psychiatric Psychiatric exam: Present: normal affect, normal mood - Skin Skin exam: Present: dry, intact, normal color, warm Consult Discharge Plan - Plan Referrals: Ulices Mcgovern Jr, MD [Primary Care Provider] -
[2017-06-04] MEDS: Vancomycin 1,250 MG in D5% in Water 250 ML IVPB SCH (13:21)
--- NOTE | 2017-06-04 16:23 | Discharge Summary ---
Date of Encounter: 06/04/17 Time of Encounter: 15:00 - Discharge Diagnosis (1) Right upper lobe pneumonia Priority: Primary Status: Acute Qualifiers: Pneumonia type: due to Pseudomonas Qualified Code(s): J15.1 - Pneumonia due to Pseudomonas (2) HTN (hypertension) Priority: Secondary Status: Chronic Qualifiers: Hypertension type: essential hypertension Qualified Code(s): I10 - Essential (primary) hypertension (3) CAD (coronary artery disease) Priority: Secondary Status: Chronic Qualifiers: Coronary Disease-Associated Artery/Lesion type: bypass graft [place] vs. transplanted heart: [place] heart Associated angina: angina presence unspecified Qualified Code(s): I25.810 - Atherosclerosis of coronary artery bypass graft(s) without angina pectoris (4) DVT prophylaxis Priority: Secondary Status: Acute (5) Tobacco abuse Priority: Secondary Status: Chronic (6) Acute and chronic respiratory failure Priority: Primary Status: Acute Qualifiers: Respiratory failure complication: hypoxia Qualified Code(s): J96.21 - Acute and chronic respiratory failure with hypoxia (7) Hypothyroidism Priority: Secondary Status: Chronic Qualifiers: Hypothyroidism type: acquired Qualified Code(s): E03.9 - Hypothyroidism, unspecified (8) Acid-fast bacteria present Priority: Primary Status: Acute - Discharge Medications Home Medications: Albuterol Sulfate [Ventolin Hfa] 2 puff IH Q4H PRN 10/15/16 [History] Amiodarone [Cordarone] 200 mg PO DAILY 10/15/16 [History] Aspirin 81 mg PO DAILY 10/15/16 [History] Furosemide [Lasix] 20 mg PO DAILY 10/15/16 [History] Ipratropium/Albuterol Neb [Duoneb] 3 ml IH TID 10/15/16 [History] Isosorbide MONOnitrate (24 HR) [Imdur] 30 mg PO DAILY 10/15/16 [History] Levothyroxine [Synthroid] 75 mcg PO DAILY 10/15/16 [History] Lisinopril [Zestril] 40 mg PO DAILY 10/15/16 [History] Metoprolol [Lopressor] 100 mg PO DAILY 10/15/16 [History] Paroxetine HCl [Paxil] 40 mg PO DAILY 10/15/16 [History] Pravastatin Sodium [Pravachol] 20 mg PO DAILY 10/15/16 [History] Topiramate [Topamax] 50 mg PO HS 10/15/16 [History] Quetiapine Fumarate [Seroquel] 25 mg PO HS 05/12/17 [History] clonazePAM [Klonopin] 1 mg PO BID 05/12/17 [History] Docusate [Colace] 100 mg PO BID #30 cap 05/19/17 [Rx] Ferrous Sulfate 325 mg PO DAILY #30 tablet. 05/19/17 [Rx] Oxybutynin [Ditropan] 5 mg PO BID 06/02/17 [History] Umeclidinium Brm/Vilanterol Tr [Anoro Ellipta 62.5-25 Mcg INH] 1 each IH DAILY 06/02/17 [History] Fluticasone Propionate Nasal [Flonase] 100 mcg NS DAILY bottle 06/04/17 [Rx] Nicotine Patch [Nicoderm] 21 mg TD DAILY 06/04/17 [Rx] Okdvbdfwivuw-Pfgk-Bgwjaqir,Iso [Zosyn 3.375 gm/50 ml Galaxy] 3.375 gm IV Q8H #3 froz.piggy 06/04/17 [Rx] Tobramycin for INHALATION [Philippe 300 mg/5 ml Solution] 300 mg IH [id number] inh [Rx] Vancomycin [Vancocin] 0 each IVPB RPHPROT PRN vial 06/04/17 [Rx] Allergies/Adverse Reactions: 3 Allergy/AdvReac Type Severity Reaction Status Date / Time No Known Allergies Allergy Verified 05/15/17 09:36 Date of admission: 06/03/17 05:01 Primary care physician: Ulices Mcgovern Jr, MD Consults: 06/03/17 09:36 Consult to Occupational Therapy [CONS] Routine Comment: Evaluate, develop and implement POC Reason for Consult: [place] requires for rehab placement Consult to Physical Therapy [CONS] Routine Comment: Evaluate, develop and implement POC Reason for Consult: Insurance requirement for rehab Discharging clinician: Tegan Mathis Anticipated date of discharge: 06/04/17 - Patient Status Disposition: Transfer Critical Access Hosp Condition: Fair Functional capacity at discharge: bed bound Overall status at discharge: patient is not back to baseline - Discharge Instructions Follow Up With: Ulices Mcgovern Jr, MD [Primary Care Provider] - - Diet and Activity Activity: as per physical therapy, wear oxygen at all times Diet: low fat, low cholesterol, low salt diet Interval History: HPI: Mr. Jaimes is a 72 year old male with prior medical history of COPD, CAD, colorectal cancer (successfully treated), hyperlipidemia, hypertension, hypothyroidism, and Mycobacterium avium (previously treated with clarithromycin , rifampin, and ethambutol for 1 year). presented to [facility] because of continued worsening of his cough and continued worsening weakness. He had been seen [facility] about 3 weeks ago history for pneumonia at that time. 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 Jhaveri on 05/26/17. In the intervening time, culture and sensitivity resulted from bronchoscopy performed on 05/02/17 showed pansensitive Pseudomonas, resistant strain of Achromobacter, and positive AFB stain x2. Since being discharged from hospital, patient reports she has had no improvement in his cough is had continued, progressive weakness. The weakness is not new, but has certainly progressed in the last couple weeks. He states that he has had a chronic cough for several years but acutely worsened in the past 5-6 months and states that the productive of yellowish/green mucus. He reports years he has been having night sweats and an unintentional 50 pound weight loss in 5-6 years. When asked about potential exposures to tuberculosis , patient reports that he had a couple cousins with tuberculosis 50 years ago, but cannot think of any recent exposures, denies travel, denies spending time in a correctional facility by [facility]. Reports that he has chronic shortness of breath because of his COPD. He denies having any chest pain or pain exacerbated by breathing, but does report having alternating diarrhea and constipation. Hospital course: Mr. Jaimes is a 72 year old male presented to ER for cough and shortness of breath. Chest x-ray shows RUL pneumonia. Patient has chronic cough since Apr and was admitted to 3 weeks ago. Patient also has a history of Mycobacterium avium infection (previously treated with clarithromycin, rifampin, and ethambutol for 1 year). Patient had bronchoscope on last admission. Final culture result shows Pseudomonas, resistant strain of Achromobacter, and positive AFB stain x2. Patient was treated with Vanco and Zosyn for RUL pneumonia. Pulmonology and ID consult was called. After treatment, patient's symptoms slightly improved. Since we do not have ID physician consult right now in Hospital and the patient has complicated course of last MAC treatment. Patient is recommended to transfer to regional referral Center for further management. Patient agrees to be transferred to [facility]. [facility] transfer center was called, and Dr. Vivas accept the patient for transferred to [facility] for further management. I saw and examined the patient today. He is awake alert, oriented 3. Still cough with mild shortness of breath. Vitals are stable. Patient is stable to transfer to [facility]. Time spent discussing smoking cessation with patient: 3 to 10 minutes - Time Spent with Patient Total time spent providing and/or coordinating discharge services: 40 min Greater than 30 minutes - Constitutional Vitals: Temp Pulse Resp BP Pulse Ox 98.2 F 69 16 147/86 100 06/03/17 19:32 06/03/17 19:32 06/04/17 16:09 06/03/17 19:32 06/04/17 16:09 General appearance: Present: cachectic, mild distress, A&O X 3, loss of weight - Head Head exam: Present: atraumatic, normocephalic - Eye Eye exam: Present: PERRL, conjuntiva pink, sclera anicteric Pupils: Present: PERRL - Neck Neck exam general surgery: Present: supple, trachea midline. Absent: lymphadenopathy - Respiratory Respiratory exam: Present: CTAB, rhonchi (Bilaterally). Absent: accessory muscle use, rales, wheezes - Cardiovascular Cardiovascular exam: Present: RRR, +S1, +S2. Absent: diastolic murmur, gallop, rubs, systolic murmur - GI/Abdominal GI/Abdominal exam: Present: normal bowel sounds, soft, no peritoneal signs. Absent: distended, tenderness - Extremities Exam Extremities exam: Present: warm, radial pulses palpable and symmetrical. Absent : calf tenderness, cyanotic, pedal edema - Neurological Exam Neurological exam: Present: CN II-XII intact, oriented X3, no focal deficits. Absent: pronater drift, facial droop, speech deficit - Skin Skin exam: Present: dry, intact
--- NOTE | 2017-06-04 16:35 | Physician Discharge Referral ---
ExtendedCare Referral Info Transfer To: [facility] Provider in Charge after Transfer: Other - Diagnosis (1) Right upper lobe pneumonia Status: Acute (2) HTN (hypertension) Status: Chronic (3) CAD (coronary artery disease) Status: Chronic (4) DVT prophylaxis Status: Acute (5) Tobacco abuse Status: Chronic (6) Acute and chronic respiratory failure Status: Acute (7) Hypothyroidism Status: Chronic (8) Acid-fast bacteria present Status: Acute - Transfer Medications Prescriptions: Osdwujahkxdy-Zcbl-Xeldcfsp,Iso [Zosyn 3.375 gm/50 ml Galaxy] 3.375 gm IV Q8H #3 froz.piggy Home Medications: Albuterol Sulfate [Ventolin Hfa] 2 puff IH Q4H PRN 10/15/16 [History] Amiodarone [Cordarone] 200 mg PO DAILY 10/15/16 [History] Aspirin 81 mg PO DAILY 10/15/16 [History] Furosemide [Lasix] 20 mg PO DAILY 10/15/16 [History] Ipratropium/Albuterol Neb [Duoneb] 3 ml IH TID 10/15/16 [History] Isosorbide MONOnitrate (24 HR) [Imdur] 30 mg PO DAILY 10/15/16 [History] Levothyroxine [Synthroid] 75 mcg PO DAILY 10/15/16 [History] Lisinopril [Zestril] 40 mg PO DAILY 10/15/16 [History] Metoprolol [Lopressor] 100 mg PO DAILY 10/15/16 [History] Paroxetine HCl [Paxil] 40 mg PO DAILY 10/15/16 [History] Pravastatin Sodium [Pravachol] 20 mg PO DAILY 10/15/16 [History] Topiramate [Topamax] 50 mg PO HS 10/15/16 [History] Quetiapine Fumarate [Seroquel] 25 mg PO HS 05/12/17 [History] clonazePAM [Klonopin] 1 mg PO BID 05/12/17 [History] Docusate [Colace] 100 mg PO BID #30 cap 05/19/17 [Rx] Ferrous Sulfate 325 mg PO DAILY #30 tablet. 05/19/17 [Rx] Oxybutynin [Ditropan] 5 mg PO BID 06/02/17 [History] Umeclidinium Brm/Vilanterol Tr [Anoro Ellipta 62.5-25 Mcg INH] 1 each IH DAILY 06/02/17 [History] Fluticasone Propionate Nasal [Flonase] 100 mcg NS DAILY bottle 06/04/17 [Rx] Nicotine Patch [Nicoderm] 21 mg TD DAILY 06/04/17 [Rx] Nyiupmvztoeh-Vyrd-Zksjgkoy,Iso [Zosyn 3.375 gm/50 ml Galaxy] 3.375 gm IV Q8H #3 froz.piggy 06/04/17 [Rx] Tobramycin for INHALATION [Philippe 300 mg/5 ml Solution] 300 mg IH [id number] inh [Rx] Vancomycin [Vancocin] 0 each IVPB RPHPROT PRN vial 06/04/17 [Rx] Allergies/Adverse Reactions: 3 Allergy/AdvReac Type Severity Reaction Status Date / Time No Known Allergies Allergy Verified 05/15/17 09:36 - Respiratory Orders Oxygen / L per min (2-3) Smoking Cessation: Smoking cessation has been advised. For more information, call the [place] Tobacco Quit Line at 3-202-YILG-NOW. - Advance Directives Code Status: Full Code - Diet Orders Cardiac CERTIFICATION: I certify that the transfer of the above named patient to an Extended Care Facility is necessary for the continuing treatment of the diagnosis listed. The above information is true and accurate reflection of patient's current condition. Confidential - Redisclosure prohibited without a patient's written consent.
[2017-06-04 18:46] VITALS: BP 129/75
[2017-06-04] MEDS ORDERED: Aminoglycoside Consult 1 EACH MC ONE (20:42)
--- NOTE | 2017-06-07 17:31 | Electrocardiograph Report ---
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
[2017-06-09 14:09] LABS: QuantiFERON Mitogen minus NIL 2.32 IU/mL
[2017-06-09 15:11] LABS: QuantiFERON-TB Gold In-Tube NEGATIVE (Negative)
== END 2017-06-04 20:43 | disposition critical access hospital (66) | DRG 871 ==
LOC: 2NENU 15:55 → EMEROO 15:55 → 2NENU 20:33
PROVIDERS: ADMIT Pediatrics; ATTEND Internal Medicine

== ENCOUNTER 2017-09-08 12:46 | Inpatient (IN) ==
[2017-09-08] MEDS ORDERED: Ipratropium/Albuterol Neb 3 ML IH ONE (13:56)
[2017-09-08] MEDS ORDERED: methylPREDNISolone 125 MG/2 ML VIAL IVP ONE (13:56)
[2017-09-08] MEDS ORDERED: 0.9 % Sodium Chloride 500 ML IVC ONE (13:57)
--- NOTE | 2017-09-08 14:00 | Emergency Department Note ---
Disposition Clinical Impression: Respiratory distress, Elevated troponin, [place] (acute kidney injury), COPD exacerbation Disposition: Admitted As Inpatient Condition: Fair SOB HPI - General Chief Complaint: ED Shortness of Breath/Dyspnea Stated Complaint: PLACIDO Time Seen by Provider: 09/08/17 13:04 Source: patient, family Mode of arrival: ambulatory Limitations: no limitations Nursing Notes Reviewed: Yes Vital Signs Reviewed: Yes - History of Present Illness 72-year-old male with a history of advanced COPD, recurrent pneumonia with documented Mycobacterium avium complex pneumonia as well as MRSA pneumonia in the past presents for evaluation of respiratory distress. Of note the patient had a recent heart catheter 2 weeks ago and had 2 stents placed. At that time the patient was hospitalized in intensive care unit given his respiratory distress. The patient was not intubated at that time. Patient complains of gradually worsening dyspnea. Dyspnea is worse with exertion. Patient is on 4 L nasal cannula at baseline. Patient notes worsening dyspnea as well as worsening sputum production. Patient also has a history of congestive heart failure. Patient denies any chest pain. Patient primary complaint is dyspnea. Patient denies fever. No nausea or vomiting. Patient had decreased appetite with by mouth intake. Patient follows with pulmonology here at [facility]. - Related Data Home Medications Medication Instructions Recorded Confirmed Albuterol Sulfate [Ventolin Hfa] 2 puff IH Q4H PRN 10/15/16 09/08/17 Amiodarone [Cordarone] 200 mg PO DAILY 10/15/16 09/08/17 Aspirin 81 mg PO DAILY 10/15/16 09/08/17 Furosemide [Lasix] 20 mg PO DAILY 10/15/16 09/08/17 Ipratropium/Albuterol Neb [Duoneb] 3 ml IH TID PRN 10/15/16 09/08/17 Isosorbide MONOnitrate (24 HR) 30 mg PO DAILY 10/15/16 09/08/17 [Imdur] Levothyroxine [Synthroid] 75 mcg PO DAILY 10/15/16 09/08/17 Topiramate [Topamax] 50 mg PO HS 10/15/16 09/08/17 Quetiapine Fumarate [Seroquel] 25 mg PO HS 05/12/17 09/08/17 clonazePAM [Klonopin] 1 mg PO BID 05/12/17 09/08/17 Oxybutynin [Ditropan] 5 mg PO BID 06/02/17 09/08/17 Umeclidinium Brm/Vilanterol Tr 1 each IH DAILY 06/02/17 09/08/17 [Anoro Ellipta 62.5-25 Mcg INH] Bisacodyl [Dulcolax] 5 mg PO DAILY PRN 08/23/17 09/08/17 Megestrol Acetate [Megace] 200 mg PO BID 08/23/17 09/08/17 Metoprolol XL (24 HR) Succ [Toprol 25 mg PO DAILY 08/23/17 09/08/17 Xl] Multivitamin [One Daily 1 each PO DAILY 08/23/17 09/08/17 Multivitamin] Nitroglycerin [Nitrostat] 0.4 mg SL Q5M PRN 08/23/17 09/08/17 Tamsulosin [Flomax] 0.4 mg PO DAILY 08/23/17 09/08/17 Previous Rx's Medication Instructions Recorded Docusate [Colace] 100 mg PO BID #30 cap 05/19/17 Ferrous Sulfate 325 mg PO DAILY #30 tablet. 05/19/17 Fluticasone Propionate Nasal 100 mcg NS DAILY bottle 06/04/17 [Flonase] Atorvastatin [Lipitor] 40 mg PO HS #30 tablet 08/27/17 Lisinopril [Zestril] 2.5 mg PO DAILY #30 tablet 08/27/17 Sertraline [Zoloft] 100 mg PO DAILY #30 tablet 08/27/17 Ticagrelor [Brilinta] 90 mg PO BID #60 tablet 08/27/17 Allergies Allergy/AdvReac Type Severity Reaction Status Date / Time No Known Allergies Allergy Verified 05/15/17 09:36 All systems ED: reviewed and negative except as stated. Constitutional: Reports: as per HPI. Denies: fever Eyes: Reports: as per HPI ENT ED: Reports: as per HPI Cardiovascular: Reports: as per HPI. Denies: chest pain, palpitations Respiratory: Reports: as per HPI, cough, dyspnea, sputum production Gastrointestinal: Reports: as per HPI. Denies: abdominal pain, nausea, vomiting Genitourinary: Reports: as per HPI Musculoskeletal: Reports: as per HPI Integumentary: Reports: as per HPI Neurological: Reports: as per HPI Psychiatric: Reports: as per HPI Endocrine: Reports: as per HPI Hematological/Lymphatic: Reports: as per HPI Past Medical History - Past Medical History Medical history: Reports: aortic aneurysm, cancer, COPD, coronary artery disease , GERD, hyperlipidemia, hypertension, myocardial infarction, thyroid disease, other Surgical history: Reports: cancer surgery, coronary bypass (CABG), vasectomy Psychiatric history: Reports: anxiety, depression - Social History Smoking Status: Current every day smoker Smokeless Tobacco Status: No Alcohol use: Reports: none Drug use: Reports: none Physical Exam - General Limitations: no limitations General appearance: alert, in distress - Head Head exam: atraumatic, normocephalic, normal inspection - Eye Eye exam: Present: normal appearance - ENT ENT exam: normal exam, mucous membranes moist - Neck Neck exam: Present: normal inspection - Chest Chest inspection: Present: normal inspection, symmetric chest wall rise - Respiratory Respiratory exam: Present: respiratory distress, accessory muscle use, other ( Diffuse coarse rhonchi) - Cardiovascular Cardiovascular exam: Present: regular rate, normal rhythm - Abdominal Exam Abdominal exam: Present: soft, Non-Tender - Extremities Exam Extremities exam: Present: normal inspection. Absent: pedal edema - Back Exam Back exam: Present: normal inspection - Neurological Exam Neurological exam: Present: alert, oriented X3 - Skin Skin exam: Present: warm, dry, intact, normal color Course Course Narrative: Patient seen and examined. Patient appears to be in acute distress. Patient will get positive pressure ventilation. With increased work of breathing. Patient also did an extensive cardiopulmonary evaluation including EKG, troponins, BNP chest x-ray and labs. Patient does state that he would like to be intubated if indicated. - Reevaluation(s) Reevaluation #1: Patient appears to be resting comfortably. No acute distress. Patient's improved after being on BiPAP. Time: 14:53 Reevaluation #2: Patient seen and examined. Patient will be admitted to hospital service. Time: 14:54 Vital Signs Temperature 97.3 F L 09/08/17 12:49 Pulse Rate 100 09/08/17 12:49 Respiratory Rate 22 09/08/17 12:49 Blood Pressure 91/59 09/08/17 12:49 O2 Sat by Pulse Oximetry 97 09/08/17 12:49 Temperature 97.5 F L 09/08/17 17:16 Pulse Rate 102 09/08/17 17:38 Respiratory Rate 22 09/08/17 17:16 Blood Pressure 109/76 09/08/17 17:16 O2 Sat by Pulse Oximetry 97 09/08/17 17:16 Oxygen Delivery Oxygen Delivery Bipap Shortness of Breath/Dyspnea - [facility] Narrative Medical decision making narrative: Patient seen and examined upon arrival. Patient appear to be in moderate mild respiratory distress. Patient was requiring BiPAP to help with work of breathing. Patient labs reveal an elevated troponin which is less than prior troponin elevations. Patient is chest pain. Patient was given aspirin. Patient at this point is not really heparinized. Agents respiratory distress likely secondary to his advanced COPD and possible secondary infection. Patient 's had chronic pneumonia. Given the patient's increasing dyspnea as well as sputum and cough patient was started on Levaquin in the emergency department. Patient will require further therapy monitoring and will be admitted to the hospitalist service for further management. - Lab Data Lab results reviewed: Yes I reviewed the patient's lab results. Result diagrams: 09/08/17 13:30 09/08/17 13:30 Lab Results 09/08/17 09/08/17 09/08/17 Range/Units 13:30 13:30 13:30 WBC 14.9 H (4.3-11.1) K/mcL RBC 3.30 L (4.19-5.50) M/mcL Hgb 9.5 L (12.9-16.9) g/dL Hct 30.1 L (37.5-50.1) % MCV 91.2 (83.0-100.0) fL MCH 28.8 (28.0-33.3) pg MCHC 31.6 (31.6-35.5) g/dL RDW 15.1 H (11.5-14.5) % Plt Count 267 (140-400) K/mcL MPV 9.5 (9.4-12.4) fL Immature Gran % 0.5 (0-4) % Seg Neutrophils % 90.0 % Lymphocytes % 3.1 % Monocytes % 5.5 % Eosinophils % 0.7 % Basophils % 0.2 % Neutrophils # 13.4 H (1.6-8.9) K/mcL Lymphocytes # 0.5 L (0.6-4.6) K/mcL Monocytes # 0.8 (0.0-1.3) K/mcL Eosinophils # 0.1 (0.0-0.6) K/mcL Basophils # 0.0 (0.0-0.2) K/mcL PT (9.4-12.1) Seconds INR VBG pH (7.32-7.42) pH Units VBG pCO2 (41-51) mmHg VBG pO2 (25-50) mmHg VBG HCO3 (21-27) mEq/L Sodium 133 L (136-145) mEq/L Potassium 3.3 L (3.5-5.1) mEq/L Chloride 101 (98-107) mEq/L Carbon Dioxide 24 (23-29) mEq/L BUN 22 (8-23) mg/dL Creatinine 1.37 H (0.70-1.30) mg/dL Est GFR ( Amer) > 60 (> 60) Est GFR (Non-Af Amer) 51 L (> 60) BUN/Creatinine Ratio 16 (6-26) Glucose 128 H (70-105) mg/dL Calculated Osmolality 281 (280-300) Calcium 8.9 (8.6-10.3) mg/dL Magnesium 1.9 (1.6-2.6) mg/dL Troponin I 0.63 H* (< 0.04) ng/mL B-Natriuretic Peptide (Less than 100) pg/mL 09/08/17 09/08/17 09/08/17 Range/Units 13:30 13:30 15:04 WBC (4.3-11.1) K/mcL RBC (4.19-5.50) M/mcL Hgb (12.9-16.9) g/dL Hct (37.5-50.1) % MCV (83.0-100.0) fL MCH (28.0-33.3) pg MCHC (31.6-35.5) g/dL RDW (11.5-14.5) % Plt Count (140-400) K/mcL MPV (9.4-12.4) fL Immature Gran % (0-4) % Seg Neutrophils % % Lymphocytes % % Monocytes % % Eosinophils % % Basophils % % Neutrophils # (1.6-8.9) K/mcL Lymphocytes # (0.6-4.6) K/mcL Monocytes # (0.0-1.3) K/mcL Eosinophils # (0.0-0.6) K/mcL Basophils # (0.0-0.2) K/mcL PT 15.6 H (9.4-12.1) Seconds INR 1.4 VBG pH 7.23 L (7.32-7.42) pH Units VBG pCO2 61 H (41-51) mmHg VBG pO2 43 (25-50) mmHg VBG HCO3 25 (21-27) mEq/L Sodium (136-145) mEq/L Potassium (3.5-5.1) mEq/L Chloride (98-107) mEq/L Carbon Dioxide (23-29) mEq/L BUN (8-23) mg/dL Creatinine (0.70-1.30) mg/dL Est GFR ( Amer) (> 60) Est GFR (Non-Af Amer) (> 60) BUN/Creatinine Ratio (6-26) Glucose (70-105) mg/dL Calculated Osmolality (280-300) Calcium (8.6-10.3) mg/dL Magnesium (1.6-2.6) mg/dL Troponin I (< 0.04) ng/mL B-Natriuretic Peptide 1239 H (Less than 100) pg/mL - Radiology Data Radiology results reviewed: Yes I reviewed the patient's radiology results. Chest X-Ray 09/08/17 13:56 IMPRESSION: Stable chest with no new acute process. D/ / 09/08/2017 14:50:22 Rolly Vargas MD / [facility] Interpreting Provider: Rolly Vargas MD - EKG Data EKG attestation: Yes I reviewed and interpreted this EKG. EKG shows normal: Reports: sinus rhythm Rate: Reports: normal Rhythm: Reports: NSR [place]/QRS: Reports: right axis deviation Heart block present: Reports: 1st Degree Q waves: Reports: v1 Interpretation: Reports: no acute changes Attestation Statement - Attestation Attestation: I examined this patient and my medical decision-making was reviewed with the Resident Physician. I agree with the documented findings, disposition and treatment plan as described. Troponin elevated, about half of what it was on previous measurement a little over a week ago. Spoke with hospitalist, accepted for admission. Some improvement after treatment in ED.
[2017-09-08 14:26] LABS: Basophils % 0.2 %; Eosinophils # 0.1 K/mcL (0.0-0.6); Eosinophils % 0.7 %; Hematocrit 30.1 % (37.5-50.1); Hemoglobin 9.5 g/dL (12.9-16.9); Immature Granulocytes % 0.5 % (0-4); Lymphocytes # 0.5 K/mcL (0.6-4.6); Lymphocytes % 3.1 %; Mean Corpuscular HGB Conc 31.6 g/dL (31.6-35.5); Mean Corpuscular Hemoglobin 28.8 pg (28.0-33.3); Mean Corpuscular Volume 91.2 fL (83.0-100.0); Mean Platelet Volume 9.5 fL (9.4-12.4); Monocytes # 0.8 K/mcL (0.0-1.3); Monocytes % 5.5 %; Neutrophils # 13.4 K/mcL (1.6-8.9); Platelet Count 267 K/mcL (140-400); Red Cell Distribution Width 15.1 % (11.5-14.5)
[2017-09-08 14:37] LABS: BUN/Creatinine Ratio 16 (6-26); Blood Urea Nitrogen 22 mg/dL (8-23); Calcium 8.9 mg/dL (8.6-10.3); Carbon Dioxide 24 mEq/L (23-29); Chloride 101 mEq/L (98-107); Glucose 128 mg/dL (70-105); Osmolality,Calculated 281 (280-300); Potassium 3.3 mEq/L (3.5-5.1); Sodium 133 mEq/L (136-145); eGFR For African Americans > 60 (> 60); eGFR For Non-African Americans 51 (> 60)
[2017-09-08] MEDS ORDERED: Aspirin 81 MG TAB.CHEW PO STA (14:43)
[2017-09-08] MEDS ORDERED: Albuterol 2.5 MG/3 ML NEBULIZER IH STA (14:45)
[2017-09-08] MEDS ORDERED: Levofloxacin 750 MG/150 ML 750 MG/150 ML BAG IVPB ONE (14:55)
[2017-09-08 15:07] LABS: VBG HCO3 25 mEq/L (21-27); VBG PCO2 61 mmHg (41-51); VBG PH 7.23 pH Units (7.32-7.42); VBG PO2 43 mmHg (25-50)
[2017-09-08] MEDS ORDERED: Acetaminophen 325 MG TABLET PO PRN (15:44)
[2017-09-08] MEDS ORDERED: Naloxone 0.4 MG/ML INJ IVP PRN (15:44)
[2017-09-08] MEDS ORDERED: Ondansetron 4 MG/2 ML VIAL IVP PRN (15:44)
[2017-09-08] MEDS ORDERED: Nitroglycerin 0.4 MG TAB.SUBL SL PRN (15:52)
[2017-09-08] MEDS: Ipratropium/Albuterol Neb 3 ML IH SCH ×2 (15:58→20:28)
[2017-09-08 16:09] LABS: INR 1.4; Prothrombin Time 15.6 Seconds (9.4-12.1)
[2017-09-08 16:16] LABS: Magnesium 1.9 mg/dL (1.6-2.6)
--- NOTE | 2017-09-08 17:11 | Internal Med History&Physical ---
Date of Encounter: 09/08/17 Time of Encounter: 17:08 Assessment and Plan (1) CAD (coronary artery disease) Current visit: No Status: Chronic She had a recent stent placement. We will continue with aspirin, PERRLA intact metoprolol and Lipitor. We will trend troponins to rule out ACS. Qualifiers: Coronary Disease-Associated Artery/Lesion type: bypass graft [place] vs. transplanted heart: [place] heart Associated angina: angina presence unspecified Qualified Code(s): I25.810 - Atherosclerosis of coronary artery bypass graft(s) without angina pectoris (2) DVT prophylaxis Current visit: No Status: Acute Subcutaneous heparin. (3) Tobacco abuse Current visit: No Status: Chronic I have provided smoking cessation counseling and emphasized the benefits of smoking cessation. (4) Acute and chronic respiratory failure Current visit: No Status: Acute Oxygen by nasal cannula. Titrate to maintain saturation above 88. BiPAP as needed for work of breathing. Qualifiers: Respiratory failure complication: hypoxia Qualified Code(s): J96.21 - Acute and chronic respiratory failure with hypoxia (5) Protein-calorie malnutrition, severe Current visit: No Status: Acute Nutrition consult. (6) Elevated troponin Current visit: Yes Status: Acute Trend troponin. Per chart review his troponin was elevated on previous admission when he had an acute IA, currently still trending down from previous admission. (7) COPD exacerbation Current visit: Yes Status: Acute Based on wheezing, hypoxemia and cough productive of sputum. We will treat him with IV Solu-Medrol, inhaled albuterol and ipratropium, IV antibiotics. (8) Respiratory distress Current visit: Yes Status: Acute Supplemental oxygen and BiPAP for work of breathing. (9) SIRS (systemic inflammatory response syndrome) Current visit: Yes Status: Acute Patient meets SIRS criteria based on elevated white blood cell count and tachypnea. I doubt sepsis is present, no clear source of infection. Chest x- ray shows chronic findings could be early stage pneumonia. Therefore I will obtain a CT of the chest to evaluate for pneumonia. We will treat with antibiotics for COPD exacerbation. We will obtain blood cultures and lactic acid level. Obtain sputum culture. (10) Acute on chronic systolic CHF (congestive heart failure) Current visit: Yes Status: Acute LVEF by echocardiogram 2 weeks ago was reported 40% with global systolic dysfunction. BNP is elevated at 1239. We will treat him with Lasix 20 mg IV daily, daily weights, strict I's and O's. Monitor kidney function closely. Internal Medicine - H&P: HPI Chief complaint: Shortness of breath Admitted From: Emergency Dept Plans for Post Hospital Care: Transfer [facility] History of present illness: Mr. Jaimes is a 72 year old male with past medical history significant for advanced COPD, coronary artery disease, recurrent pneumonia and chronic hypoxic respiratory failure who presented to the hospital for evaluation of shortness of breath. Compared to his baseline he had been more short of breath for the last 3 days, today symptom intensity has become severe. He can only walk 10 feet before he becomes out of breath. He reports associated cough productive of sputum, no fevers chills chest pain, no nausea vomiting or diarrhea. Denies dysuria and hematuria. Reports chronic back pain. Chronic depression and anxiety. Age-related vision impairment. A 10 point review of systems was negative except as above. Family history: Positive for head and neck cancer in the patient's father Social history: The patient smokes 1-1/2 packs of cigarettes a day and has done so for most of his life, he states that he quit smoking about 5 days ago with on account of his shortness of breath. Denies alcohol and drug abuse. Past Med Surg Social Fam HX - Past Medical History Medical history: aortic aneurysm, cancer, COPD, coronary artery disease, GERD, hyperlipidemia, hypertension, myocardial infarction, thyroid disease, other Psychiatric history: anxiety, depression - Past Surgical History Surgical History: cancer surgery, coronary bypass (CABG), vasectomy - Social History Smoking Status: Current every day smoker Smokeless Tobacco Status: No Alcohol use: none Drug use: none Internal Medicine - H&P: Meds Albuterol Sulfate [Ventolin Hfa] 2 puff IH Q4H PRN 10/15/16 [History] Amiodarone [Cordarone] 200 mg PO DAILY 10/15/16 [History] Aspirin 81 mg PO DAILY 10/15/16 [History] Furosemide [Lasix] 20 mg PO DAILY 10/15/16 [History] Ipratropium/Albuterol Neb [Duoneb] 3 ml IH TID PRN 10/15/16 [History] Isosorbide MONOnitrate (24 HR) [Imdur] 30 mg PO DAILY 10/15/16 [History] Levothyroxine [Synthroid] 75 mcg PO DAILY 10/15/16 [History] Topiramate [Topamax] 50 mg PO HS 10/15/16 [History] Quetiapine Fumarate [Seroquel] 25 mg PO HS 05/12/17 [History] clonazePAM [Klonopin] 1 mg PO BID 05/12/17 [History] Docusate [Colace] 100 mg PO BID #30 cap 05/19/17 [Rx] Ferrous Sulfate 325 mg PO DAILY #30 tablet. 05/19/17 [Rx] Oxybutynin [Ditropan] 5 mg PO BID 06/02/17 [History] Umeclidinium Brm/Vilanterol Tr [Anoro Ellipta 62.5-25 Mcg INH] 1 each IH DAILY 06/02/17 [History] Fluticasone Propionate Nasal [Flonase] 100 mcg NS DAILY bottle 06/04/17 [Rx] Bisacodyl [Dulcolax] 5 mg PO DAILY PRN 08/23/17 [History] Megestrol Acetate [Megace] 200 mg PO BID 08/23/17 [History] Metoprolol XL (24 HR) Succ [Toprol Xl] 25 mg PO DAILY 08/23/17 [History] Multivitamin [One Daily Multivitamin] 1 each PO DAILY 08/23/17 [History] Nitroglycerin [Nitrostat] 0.4 mg SL Q5M PRN 08/23/17 [History] Tamsulosin [Flomax] 0.4 mg PO DAILY 08/23/17 [History] Atorvastatin [Lipitor] 40 mg PO HS #30 tablet 08/27/17 [Rx] Lisinopril [Zestril] 2.5 mg PO DAILY #30 tablet 08/27/17 [Rx] Sertraline [Zoloft] 100 mg PO DAILY #30 tablet 08/27/17 [Rx] Ticagrelor [Brilinta] 90 mg PO BID #60 tablet 08/27/17 [Rx] 3 Allergy/AdvReac Type Severity Reaction Status Date / Time No Known Allergies Allergy Verified 05/15/17 09:36 All Systems PM: A 10-system review of systems was performed and is negative for pertinent findings except as documented above in the HPI. - Constitutional Vitals: Temp Pulse Resp BP Pulse Ox 97.3 F L 97 20 121/74 100 09/08/17 12:49 09/08/17 15:34 09/08/17 15:34 09/08/17 15:34 09/08/17 15:34 General appearance: Present: A&O X 3, severe distress - Eye Eye exam: Present: PERRL, conjuntiva pink, sclera anicteric Pupils: Present: PERRL - Neck Neck exam general surgery: Present: supple, trachea midline. Absent: lymphadenopathy - Respiratory Respiratory exam: Present: rales, respiratory distress, wheezes, tachypnea. Absent: accessory muscle use - Cardiovascular Cardiovascular exam: Present: RRR, +S1, +S2. Absent: diastolic murmur, gallop, rubs, systolic murmur - GI/Abdominal GI/Abdominal exam: Present: normal bowel sounds, soft, no peritoneal signs. Absent: distended, tenderness - Extremities Exam Extremities exam: Present: pedal edema (1+ lower extremity pitting edema), warm , radial pulses palpable and symmetrical. Absent: calf tenderness, cyanotic - Neurological Exam Neurological exam: Present: CN II-XII intact, oriented X3, no focal deficits. Absent: facial droop, speech deficit - Skin Skin exam: Present: dry, intact Internal Med - H&P Results - Labs CBC & Chem 7: 09/08/17 13:30 09/08/17 13:30 - Impressions Chest x-ray was personally reviewed reveals right upper lobe and right middle lobe opacities comparable to previous EKG done 2 weeks ago. There are no new infiltrates or pleural effusions.
[2017-09-08] MEDS: Aspirin 81 MG TAB.CHEW PO SCH (18:06)
[2017-09-08] MEDS: MethylPREDNISolone 40 MG/ML VIAL IVP SCH ×2 (18:07→23:31)
[2017-09-08] MEDS: *HR* Heparin 5,000 UNIT/ML VIAL SQ SCH (18:10)
[2017-09-08] MEDS: cefTRIAXone 1,000 MG in Water for inj. (sterile) 10 ML IVP SCH (18:10)
[2017-09-08 18:26] LABS: Albumin 2.8 g/dL (3.5-5.7); Albumin/Globulin Ratio 0.9 (1.1-2.2); Bilirubin,Direct 0.2 mg/dL (0.0-0.2); Bilirubin,Indirect 0.3 mg/dL (0.0-1.2); Bilirubin,Total 0.5 mg/dL (0.3-1.0); Total Protein 5.8 g/dL (6.4-8.9)
[2017-09-08 18:34] LABS: Bilirubin,Urine Negative (Negative); Blood,Urine Negative (Negative); Clarity,Urine Clear (Clear); Color,Urine Yellow (Yellow); Glucose,Urine (UA) Normal (Normal); Ketones,Urine Negative (Negative); Leukocyte Esterase,Urine Negative (Negative); Nitrite,Urine Negative (Negative); Protein,Urine Negative (Neg-Trace); Specific Gravity,Urine 1.013 (1.010-1.025); Urobilinogen,Urine Normal (Normal)
[2017-09-08] MEDS: Topiramate 25 MG TABLET PO SCH (20:28)
[2017-09-08] MEDS: *HR* Ticagrelor 90 MG TABLET PO SCH (20:28)
[2017-09-08] MEDS: Megestrol Acetate 400 MG/10 ML UDC PO SCH (20:28)
[2017-09-08] MEDS: Furosemide 20 MG/2 ML VIAL IVP SCH (20:29)
[2017-09-09] MEDS: Ipratropium/Albuterol Neb 3 ML IH SCH ×7 (00:44→23:24)
[2017-09-09 01:53] LABS: Basophils % 0.1 %; Hematocrit 27.5 % (37.5-50.1); Hemoglobin 8.8 g/dL (12.9-16.9); Immature Granulocytes % 0.4 % (0-4); Lymphocytes # 0.2 K/mcL (0.6-4.6); Lymphocytes % 2.3 %; Mean Corpuscular Hemoglobin 28.9 pg (28.0-33.3); Mean Corpuscular Volume 90.5 fL (83.0-100.0); Mean Platelet Volume 9.7 fL (9.4-12.4); Monocytes # 0.1 K/mcL (0.0-1.3); Monocytes % 0.7 %; Neutrophils # 9.9 K/mcL (1.6-8.9); Platelet Count 244 K/mcL (140-400); Red Blood Count 3.04 M/mcL (4.19-5.50); Segmented Neutrophils % 96.5 %
[2017-09-09 02:13] LABS: BUN/Creatinine Ratio 17 (6-26); Blood Urea Nitrogen 21 mg/dL (8-23); Calcium 8.7 mg/dL (8.6-10.3); Carbon Dioxide 24 mEq/L (23-29); Chloride 103 mEq/L (98-107); Glucose 171 mg/dL (70-105); Osmolality,Calculated 297 (280-300); Potassium 3.4 mEq/L (3.5-5.1); Sodium 140 mEq/L (136-145); eGFR For African Americans > 60 (> 60); eGFR For Non-African Americans 56 (> 60)
[2017-09-09 04:29] LABS: Anisocytosis 1+ (Not Present); Platelet Estimate Normal (Normal)
[2017-09-09] MEDS: *HR* Heparin 5,000 UNIT/ML VIAL SQ SCH ×2 (06:00→16:57)
--- NOTE | 2017-09-09 08:13 | Electrocardiograph Report ---
[place] [id number] Test Date: 2017-09-08 Pat Name: Justen Jaimes Department: [id number] Room: 2N08 Gender: Nurse: : 1945 Requested By: Stone Israel Order Number: [id number] Reading MD: Xavi Oscar DO Measurements Intervals [place] Rate: 95 P: 38 WV: 191 QRS: 68 QRSD: 117 T: -46 QT: 304 QTc: 357 Interpretive Statements SINUS RHYTHM MODERATE INTRAVENTRICULAR CONDUCTION DELAY NONSPECIFIC ST & T-WAVE ABNORMALITY Electronically Signed On 09-09-2017 8:11:28 EST by Xavi Oscar DO
[2017-09-09] MEDS: *HR* Amiodarone 200 MG TABLET PO SCH (08:17)
[2017-09-09] MEDS: Megestrol Acetate 400 MG/10 ML UDC PO SCH ×2 (08:17→21:09)
[2017-09-09] MEDS: Multivit/Ca/Min/Fe/FA 1 TAB TABLET PO SCH (08:18)
[2017-09-09] MEDS: Aspirin 81 MG TAB.CHEW PO SCH (08:18)
[2017-09-09] MEDS: *HR* Ticagrelor 90 MG TABLET PO SCH ×2 (08:18→21:10)
[2017-09-09] MEDS: Metoprolol XL (24 HR) Succ 25 MG TAB.ER.24H PO SCH (08:18)
[2017-09-09] MEDS: Isosorbide MONOnitrate (24 HR) 30 MG TAB.ER.24H PO SCH (08:19)
[2017-09-09] MEDS: Furosemide 20 MG/2 ML VIAL IVP SCH ×2 (08:19→16:56)
[2017-09-09] MEDS: Fluticasone Propionate Nasal 50 MCG/SPRAY BOTTLE NS SCH (08:19)
[2017-09-09] MEDS: MethylPREDNISolone 40 MG/ML VIAL IVP SCH ×2 (08:19→15:34)
[2017-09-09] MEDS ORDERED: (Umeclidinium Brm/Vilanterol Tr [Anoro Ellipta 62.5-2 IH SCH (09:00)
--- NOTE | 2017-09-09 09:36 | Pulmonology Consult Note ---
Date of Encounter: 09/09/17 Time of Encounter: 09:30 Assessment and Plan (1) COPD (chronic obstructive pulmonary disease) with emphysema Current Visit: Yes Status: Acute Patient has severe bullous emphysematous disease with chronic scarring , i compared the current CT and Previous CT looks like bilateral stable chronic scarring , no new infiltrates concerning for new pneumonia or infected bullae doesnt look like COPD exacerbation will descalate antibiotics will stop IV steroids , will change to oral steroids can give for another 4 days . To continue bronchodilators , patient V/Q mismatch is stable , O2 supplementation to keep SPO2 88-90% . All these current symptoms fits in the picture of acute on chronic systolic heart failure. Qualifiers: Emphysema type: panlobular Qualified Code(s): J43.1 - Panlobular emphysema (2) History of MAC infection Current Visit: No Status: Chronic Patient needs to follow up with infectious disease specialist in [place] will arrange the follow up through the office . (3) Acute on chronic systolic CHF (congestive heart failure) Current Visit: Yes Status: Acute Patient current symptoms are explained by acute on chronic systolic heart failure agree with continued diuresis, cardiology following . History of Present Illness Consult date: 09/09/17 Requesting physician: Yvon Hunt Reason for consult: dyspnea, cough, abnormal CXR/CT Chief complaint: Shortness of breadth History of present illness: 72 year old male with past medical history significant for CAD s/p stents , Ischemic cardiomyopathy with EF of 35%- 40% , had MRSA pneumonia in the Past has MAC infection in his lungs for which he was seeing infectious disease doctor in [facility] have severe bilateral emphysematous bullous with bullous cavity in the apical regions has chronic scarring of the lungs , according to patient history was having slowly increasing shortness of breadth , with some orthopnea , denies that his cough and sputum production has increased , his sputum production more of whitish in nature , during his pneumonia episodes he gets dark brown yellowish or greenish sputum during this episode the sputum is not like that , denies any fever or chills or any other constitutional symptoms , denies any GI symptoms or neuro symptoms. Pulmonary was consulted for possible evaluation for pneumonia . Past Med Surg Social Fam HX - Past Medical History Medical history: aortic aneurysm, cancer, COPD, coronary artery disease, GERD, hyperlipidemia, hypertension, myocardial infarction, thyroid disease, other Psychiatric history: anxiety, depression - Past Surgical History Surgical History: cancer surgery, coronary bypass (CABG), vasectomy - Social History Smoking Status: Current every day smoker Smokeless Tobacco Status: No Alcohol use: none Drug use: none Medications and Allergies Albuterol Sulfate [Ventolin Hfa] 2 puff IH Q4H PRN 10/15/16 [History] Amiodarone [Cordarone] 200 mg PO DAILY 10/15/16 [History] Aspirin 81 mg PO DAILY 10/15/16 [History] Furosemide [Lasix] 20 mg PO DAILY 10/15/16 [History] Ipratropium/Albuterol Neb [Duoneb] 3 ml IH TID PRN 10/15/16 [History] Isosorbide MONOnitrate (24 HR) [Imdur] 30 mg PO DAILY 10/15/16 [History] Levothyroxine [Synthroid] 75 mcg PO DAILY 10/15/16 [History] Topiramate [Topamax] 50 mg PO HS 10/15/16 [History] Quetiapine Fumarate [Seroquel] 25 mg PO HS 05/12/17 [History] clonazePAM [Klonopin] 1 mg PO BID 05/12/17 [History] Docusate [Colace] 100 mg PO BID #30 cap 05/19/17 [Rx] Ferrous Sulfate 325 mg PO DAILY #30 tablet. 05/19/17 [Rx] Oxybutynin [Ditropan] 5 mg PO BID 06/02/17 [History] Umeclidinium Brm/Vilanterol Tr [Anoro Ellipta 62.5-25 Mcg INH] 1 each IH DAILY 06/02/17 [History] Fluticasone Propionate Nasal [Flonase] 100 mcg NS DAILY bottle 06/04/17 [Rx] Bisacodyl [Dulcolax] 5 mg PO DAILY PRN 08/23/17 [History] Megestrol Acetate [Megace] 200 mg PO BID 08/23/17 [History] Metoprolol XL (24 HR) Succ [Toprol Xl] 25 mg PO DAILY 08/23/17 [History] Multivitamin [One Daily Multivitamin] 1 each PO DAILY 08/23/17 [History] Nitroglycerin [Nitrostat] 0.4 mg SL Q5M PRN 08/23/17 [History] Tamsulosin [Flomax] 0.4 mg PO DAILY 08/23/17 [History] Atorvastatin [Lipitor] 40 mg PO HS #30 tablet 08/27/17 [Rx] Lisinopril [Zestril] 2.5 mg PO DAILY #30 tablet 08/27/17 [Rx] Sertraline [Zoloft] 100 mg PO DAILY #30 tablet 08/27/17 [Rx] Ticagrelor [Brilinta] 90 mg PO BID #60 tablet 08/27/17 [Rx] 3 Allergy/AdvReac Type Severity Reaction Status Date / Time No Known Allergies Allergy Verified 05/15/17 09:36 All Systems: A 10-system review of systems was performed and is negative for pertinent findings except as documented above in the HPI. Physical Examination Vital Signs: Vital Signs, Last 4 Hours Temp Pulse Resp BP Pulse Ox 09/09/17 08:31 97 09/09/17 08:00 98.8 F 102 20 123/78 100 09/09/17 07:55 20 99 Effort: mildly labored Auscultation: bilateral: other (bilateral scattered crackles ) Results - Laboratory Findings CBC and BMP: 09/09/17 01:22 09/09/17 01:22 PT/INR, D-dimer PT 15.6 Seconds (9.4-12.1) H 09/08/17 13:30 Abnormal lab findings: Abnormal lab results RBC 3.04 M/mcL (4.19-5.50) L 09/09/17 01:22 Hgb 8.8 g/dL (12.9-16.9) L 09/09/17 01:22 Hct 27.5 % (37.5-50.1) L 09/09/17 01:22 RDW 15.0 % (11.5-14.5) H 09/09/17 01:22 Neutrophils # 9.9 K/mcL (1.6-8.9) H 09/09/17 01:22 Lymphocytes # 0.2 K/mcL (0.6-4.6) L 09/09/17 01:22 Anisocytosis 1+ (Not Present) A 09/09/17 01:22 PT 15.6 Seconds (9.4-12.1) H 09/08/17 13:30 VBG pH 7.23 pH Units (7.32-7.42) L 09/08/17 15:04 VBG pCO2 61 mmHg (41-51) H 09/08/17 15:04 Potassium 3.4 mEq/L (3.5-5.1) L 09/09/17 01:22 Est GFR (Non-Af Amer) 56 (> 60) L 09/09/17 01:22 Glucose 171 mg/dL (70-105) H 09/09/17 01:22 Troponin I 0.89 ng/mL (< 0.04) H* 09/09/17 07:59 B-Natriuretic Peptide 1239 pg/mL (Less than 100) H 09/08/17 13:30 Serum Total Protein 5.8 g/dL (6.4-8.9) L 09/08/17 17:55 Albumin 2.8 g/dL (3.5-5.7) L 09/08/17 17:55 Albumin/Globulin Ratio 0.9 (1.1-2.2) L 09/08/17 17:55 - Clinical Findings Intake & Output: Intake & Output 09/08/17 09/09/17 09/09/17 23:59 07:59 15:59 Intake Total Output Total 470 / 470 320 / 320 Balance -460 / -460 -320 / -320 Weight 57.266 kg 56.608 kg Consult Discharge Plan - Plan Referrals: Ulices Mcgovern Jr, MD [Primary Care Provider] -
--- NOTE | 2017-09-09 10:22 | Internal Med Progress Note ---
<Delmy Jimenez - Last Filed: 09/09/17 10:20> Date of Encounter: 09/09/17 Time of Encounter: 10:20 - Assessment and plan (1) Acute and chronic respiratory failure Current Visit: No Status: Acute Assessment and plan: O2 via NC, titrate to maintain sat > 88% biPAP as needed for work of breathing solumedrol chong obrien Qualifiers: Respiratory failure complication: hypoxia Qualified Code(s): J96.21 - Acute and chronic respiratory failure with hypoxia (2) Respiratory distress Current Visit: Yes Status: Acute (3) COPD exacerbation Current Visit: Yes Status: Acute Assessment and plan: Based on wheezing, hypoxemia, and productive cough (4) Acute on chronic systolic CHF (congestive heart failure) Current Visit: Yes Status: Acute Assessment and plan: Echocardiogram 2 weeks prior showed EF 40% with global systolic dysfunction. BNP elevated 1239 Lasix 20 mg IVP BID Daily weights Strict I's and O's Monitor kidney function (5) Elevated troponin Current Visit: Yes Status: Acute Assessment and plan: Troponins have been trended and continue to rise Cardiology consultation; appreciate recommendations (6) SIRS (systemic inflammatory response syndrome) Current Visit: Yes Status: Acute Assessment and plan: Patient met service criteria on admission with white blood cell count and tachypnea No clear source for sepsis CT of the chest negative for pneumonia Lactic acid normal Blood cultures pending (7) Protein-calorie malnutrition, severe Current Visit: No Status: Acute Assessment and plan: Nutrition consult, appreciate recommendations (8) Body mass index (BMI) of 19 or less in adult Current Visit: No Status: Chronic (9) CAD (coronary artery disease) Current Visit: No Status: Chronic Assessment and plan: Recent stent placement August 25. Continue aspirin, Brilinta, metoprolol, and Lipitor Qualifiers: Coronary Disease-Associated Artery/Lesion type: bypass graft [place] vs. transplanted heart: [place] heart Associated angina: angina presence unspecified Qualified Code(s): I25.810 - Atherosclerosis of coronary artery bypass graft(s) without angina pectoris (10) Tobacco abuse Current Visit: No Status: Chronic - Subjective Interval history: Patient with new onset of conversational dyspnea in the last week. States it has not improved since admission. - Constitutional Vitals: Temp Pulse Resp BP Pulse Ox 98.8 F 97 20 123/78 100 09/09/17 08:00 09/09/17 08:31 09/09/17 08:00 09/09/17 08:00 09/09/17 08:00 General appearance: Present: mild distress, A&O X 3, answers questions appropriately - Head Head exam: Present: atraumatic, normocephalic - Eye Eye exam: Present: PERRL, conjuntiva pink, sclera anicteric Pupils: Present: PERRL - Neck Neck exam general surgery: Present: trachea midline - Respiratory Respiratory exam: Present: decreased breath sounds (left lung), rhonchi (right lung base) Additional comments: Conversational dyspnea; coarse lung sounds throughout right lung, rhonchi in the right lung base; decreased breath sounds in the left lung - Cardiovascular Cardiovascular exam: Present: RRR, +S1, +S2. Absent: diastolic murmur, gallop, rubs, systolic murmur - GI/Abdominal GI/Abdominal exam: Present: normal bowel sounds, soft, no peritoneal signs. Absent: distended, tenderness - Extremities Exam Extremities exam: Present: warm. Absent: pedal edema, tenderness Additional comments: Posterior tibial pulses palpable and symmetric - Neurological Exam Neurological exam: Present: CN II-XII intact, oriented X3, no focal deficits. Absent: pronater drift, facial droop, speech deficit - Skin Skin exam: Present: dry, intact Internal Medicine: Result - Labs CBC & Chem 7: 09/09/17 01:22 09/09/17 01:22 Labs: Short CBC 09/09/17 Range/Units 01:22 WBC 10.3 (4.3-11.1) K/mcL Hgb 8.8 L (12.9-16.9) g/dL Hct 27.5 L (37.5-50.1) % Plt Count 244 (140-400) K/mcL Neutrophils # 9.9 H (1.6-8.9) K/mcL BMP 09/09/17 01:22 Sodium 140 Potassium 3.4 L Chloride 103 Carbon Dioxide 24 BUN 21 Creatinine 1.25 Glucose 171 H Calcium 8.7 Cardiac Enzymes 09/08/17 09/09/17 09/09/17 Range/Units 17:55 01:22 03:38 Troponin I 0.68 H* 0.79 H* 0.84 H* (< 0.04) ng/mL 09/09/17 Range/Units 07:59 Troponin I 0.89 H* (< 0.04) ng/mL Liver Function 09/08/17 Range/Units 17:55 Total Bilirubin 0.5 (0.3-1.0) mg/dL Direct Bilirubin 0.2 (0.0-0.2) mg/dL AST 20 (13-39) Units/L ALT 18 (7-52) Units/L Alkaline Phosphatase 65 (34-104) Units/L Albumin 2.8 L (3.5-5.7) g/dL Urine 09/08/17 Range/Units 18:25 Urine Color Yellow (Yellow) Urine Clarity Clear (Clear) Urine pH 6.0 (5.0-8.0) pH Units Ur Specific [place] 1.013 (1.010-1.025) Urine Protein Negative (Neg-Trace) mg/dL Urine Glucose (UA) Normal (Normal) mg/dL - ABG Interpretation ABG results: PT/INR, D-dimer PT 15.6 Seconds (9.4-12.1) H 09/08/17 13:30 - Impressions Impressions Chest CT 09/08/17 17:06 IMPRESSION: 1. COPD with bilateral stable scarring which is severe on the right with irregular chronic apical cavitation and a possible stable loculated pneumothorax. Likely representing sequela of prior infectious/inflammatory process. 2. There is a new trace left pleural effusion. No acute pulmonary findings to suggest superimposed pneumonia. D/ / 09/08/2017 19:29:16 Tima Hugo MD / Queenie Sears Interpreting Provider: Tima Hugo MD Consult Discharge Plan - Plan Referrals: Ulices Mcgovern Jr, MD [Primary Care Provider] - <Yvon Hunt - Last Filed: 09/09/17 18:49> Date of Encounter: 09/09/17 - Assessment and plan (1) CAD (coronary artery disease) Current Visit: No Status: Chronic Qualifiers: Coronary Disease-Associated Artery/Lesion type: bypass graft [place] vs. transplanted heart: [place] heart Associated angina: angina presence unspecified Qualified Code(s): I25.810 - Atherosclerosis of coronary artery bypass graft(s) without angina pectoris (2) DVT prophylaxis Current Visit: No Status: Acute (3) Tobacco abuse Current Visit: No Status: Chronic (4) Acute and chronic respiratory failure Current Visit: No Status: Acute Qualifiers: Respiratory failure complication: hypoxia Qualified Code(s): J96.21 - Acute and chronic respiratory failure with hypoxia (5) Protein-calorie malnutrition, severe Current Visit: No Status: Acute (6) Elevated troponin Current Visit: Yes Status: Acute (7) COPD exacerbation Current Visit: Yes Status: Acute (8) Respiratory distress Current Visit: Yes Status: Acute (9) SIRS (systemic inflammatory response syndrome) Current Visit: Yes Status: Acute (10) Acute on chronic systolic CHF (congestive heart failure) Current Visit: Yes Status: Acute - Constitutional Vitals: Temp Pulse Resp BP Pulse Ox 99.9 F H 95 16 105/71 96 09/09/17 16:07 09/09/17 16:07 09/09/17 16:13 09/09/17 16:07 09/09/17 16:13 Internal Medicine: Result - Labs CBC & Chem 7: 09/09/17 01:22 09/09/17 01:22 Labs: Short CBC 09/09/17 Range/Units 01:22 WBC 10.3 (4.3-11.1) K/mcL Hgb 8.8 L (12.9-16.9) g/dL Hct 27.5 L (37.5-50.1) % Plt Count 244 (140-400) K/mcL Neutrophils # 9.9 H (1.6-8.9) K/mcL BMP 09/09/17 01:22 Sodium 140 Potassium 3.4 L Chloride 103 Carbon Dioxide 24 BUN 21 Creatinine 1.25 Glucose 171 H Calcium 8.7 Cardiac Enzymes 09/08/17 09/09/17 09/09/17 Range/Units 17:55 01:22 03:38 Troponin I 0.68 H* 0.79 H* 0.84 H* (< 0.04) ng/mL 09/09/17 09/09/17 Range/Units 07:59 16:23 Troponin I 0.89 H* 0.71 H* (< 0.04) ng/mL - ABG Interpretation ABG results: PT/INR, D-dimer PT 15.6 Seconds (9.4-12.1) H 09/08/17 13:30 - Impressions Impressions Chest CT 09/08/17 17:06 IMPRESSION: 1. COPD with bilateral stable scarring which is severe on the right with irregular chronic apical cavitation and a possible stable loculated pneumothorax. Likely representing sequela of prior infectious/inflammatory process. 2. There is a new trace left pleural effusion. No acute pulmonary findings to suggest superimposed pneumonia. D/ / 09/08/2017 19:29:16 Tima Hugo MD / Queenie Sears Interpreting Provider: Tima Hguo MD - Attending Attestation I conducted a face to face diagnostic evaluation of this patient and my medical decision-making was reviewed with the Resident Physician. I agree with the documented findings, disposition and treatment plan as described except to the extent set forth below: Patient reports mild to moderate shortness of breath, worse with exertion. On exam he has expiratory wheezes and rails. I review the CAT scan personally shows lung scarring, no evidence of pneumonia. Findings consistent with COPD. Plan: Continue with inhaled bronchodilators, steroids and ceftriaxone. Appreciate pulmonary recommendations. Yvon Hunt MD
--- NOTE | 2017-09-09 10:39 | Cardiology Consult Note ---
<Christina Roth Joanna - Last Filed: 09/09/17 12:03> Date of Encounter: 09/09/17 Time of Encounter: 10:40 Assessment and Plan (1) Ischemic cardiomyopathy Current Visit: Yes Status: Chronic Long standing history of ischemic cardiomyopathy s/p ICD implant. Most recent LVEF assessment shows stable LV function, EF 40%. Recent [facility] s/p MAIRA to LMCA-pLCx and was started on DAPT. Has existing 90% mRCA lesion. Patient denies chest pain/discomfort or angina equivalent. Continue CV medications including DAPT, statin, and betablocker. Consider changing DAPT to plavix as brilinta may be contributing to respiratory distress--will first discuss with Dr. Tillman. (2) Elevated troponin Current Visit: Yes Status: Acute Troponin 0.63, 0.68, 0.79, 0.84, 0.89; suspect downtrend/demand ischemia in the setting of COPD exacerbation; however ACS cannot be ruled out. Non-specific ST changes. Patient denies chest pain or discomfort. H/H noted to be downtrending. Patient denies melena or abnormal bleeding. Continue to monitor H/H closely. Needs staged RCA in future. Continue asa, statin, betablocker, ACEi, and brilinta. (3) Systolic heart failure Current Visit: Yes Status: Acute Mild CHF exacerbation. Suspect dyspnea is multifactorial. Clinically appears euvolemic upon exam; weight is down 3 kg from previous admission. BNP elevated at 1239, trace pleural effusion per CT scan. Trial increase dose of Lasix, 40 mg IV. Replace potassium today. Monitor kidney function closely. Strict I&Os, daily weights, and Na/fluid restriction diet. Continue betablocker, ACEi, and diuresis. Qualifiers: Heart failure chronicity: acute on chronic Qualified Code(s): I50.23 - Acute on chronic systolic (congestive) heart failure Discussion w patient/family: The assessment and plan as outlined above was discussed with the patient and/or family members who expressed understanding and agreement. All questions were answered. Thank you for involving us in the care of your patient. Please call with any questions. The patient will be discussed and reviewed with Dr. Tillman; changes to be made accordingly. History of Present Illness Consult date: 09/09/17 Requesting physician: Delym Marycarmen Overmiller Consult reason: Elevated troponin Chief complaint: Shortness of breath History of present illness: Mr. Jaimes is a 72 year old male with PMH of CAD s/p CABG in , ICMP EF 30% previously, most recently 40%--ICD in place, COPD, tobacco abuse, PAD, s/p AAA repair, PAT, VT on amiodarone that presented to ED with worsening shortness of breath over the past several weeks. Associated symptoms include chest pain which is different than angina and also productive cough. Nothing improves dyspnea. He quit smoking cigarettes due to severe shortness of breath. He reports compliance with medications and dietary restrictions. Denies ICD shock or fire. Prior CV testing: C 08/25/17: EF 40%, s/p successful dLMCA to pLCx; s/p CABG 1 of 1 patent bypass grafts; existing 90% mRCA stenosis TTE 08/24/17: EF 40% Echo 05/16/17: LVEF 40%, Segmental LV systolic dysfunction, mild LVDD, Right ventricle was not well visualized. Grossly, it appears mildly dilated with normal function, Borderline PH, est. RVSP is 35 mmHg. A device lead was visualized in the RA and RV. Stress test 08/06/15: Perfusion imaging negative for ischemia. Moderate sized defect involving anterolateral and inferolateral wall consistent with infarct. Gated EF 44%. No evidence of TID. Past Med Surg Social Fam HX - Past Medical History Attestation: Yes The following information was validated with the patient. Source: patient, old records reviewed Medical history: aortic aneurysm, cancer, cardiomyopathy, CHF, COPD, coronary artery disease, GERD, hyperlipidemia, hypertension, myocardial infarction, thyroid disease Psychiatric history: anxiety, depression - Past Surgical History Surgical History: angioplasty/stent, cancer surgery, coronary bypass (CABG), vasectomy, AICD - Social History Smoking Status: Current every day smoker Smokeless Tobacco Status: No Alcohol use: none Drug use: none Medications and Allergies Albuterol Sulfate [Ventolin Hfa] 2 puff IH Q4H PRN 10/15/16 [History] Amiodarone [Cordarone] 200 mg PO DAILY 10/15/16 [History] Aspirin 81 mg PO DAILY 10/15/16 [History] Furosemide [Lasix] 20 mg PO DAILY 10/15/16 [History] Ipratropium/Albuterol Neb [Duoneb] 3 ml IH TID PRN 10/15/16 [History] Isosorbide MONOnitrate (24 HR) [Imdur] 30 mg PO DAILY 10/15/16 [History] Levothyroxine [Synthroid] 75 mcg PO DAILY 10/15/16 [History] Topiramate [Topamax] 50 mg PO HS 10/15/16 [History] Quetiapine Fumarate [Seroquel] 25 mg PO HS 05/12/17 [History] clonazePAM [Klonopin] 1 mg PO BID 05/12/17 [History] Docusate [Colace] 100 mg PO BID #30 cap 05/19/17 [Rx] Ferrous Sulfate 325 mg PO DAILY #30 tablet. 05/19/17 [Rx] Oxybutynin [Ditropan] 5 mg PO BID 06/02/17 [History] Umeclidinium Brm/Vilanterol Tr [Anoro Ellipta 62.5-25 Mcg INH] 1 each IH DAILY 06/02/17 [History] Fluticasone Propionate Nasal [Flonase] 100 mcg NS DAILY bottle 06/04/17 [Rx] Bisacodyl [Dulcolax] 5 mg PO DAILY PRN 08/23/17 [History] Megestrol Acetate [Megace] 200 mg PO BID 08/23/17 [History] Metoprolol XL (24 HR) Succ [Toprol Xl] 25 mg PO DAILY 08/23/17 [History] Multivitamin [One Daily Multivitamin] 1 each PO DAILY 08/23/17 [History] Nitroglycerin [Nitrostat] 0.4 mg SL Q5M PRN 08/23/17 [History] Tamsulosin [Flomax] 0.4 mg PO DAILY 08/23/17 [History] Atorvastatin [Lipitor] 40 mg PO HS #30 tablet 08/27/17 [Rx] Lisinopril [Zestril] 2.5 mg PO DAILY #30 tablet 08/27/17 [Rx] Sertraline [Zoloft] 100 mg PO DAILY #30 tablet 08/27/17 [Rx] Ticagrelor [Brilinta] 90 mg PO BID #60 tablet 08/27/17 [Rx] 3 Allergy/AdvReac Type Severity Reaction Status Date / Time No Known Allergies Allergy Verified 05/15/17 09:36 All Systems Review: A 10-system review of systems was performed and is negative for pertinent findings except as documented above in the HPI. - Cardiovascular Cardiovascular: as per HPI Physical Examination Vital Signs, Last 4 Hours Temp Pulse Resp BP Pulse Ox 09/09/17 08:31 97 09/09/17 08:00 98.8 F 102 20 123/78 100 09/09/17 07:55 20 99 General: Conversant, Other (appears chronically ill ) HEENT: Atraumatic, Normocephaly Cardiac: Reg Rate and Rhythm, Normal S1 and S2 Lungs: Normal Breath Sounds, Other (coarse breath sounds throughout) Neuro: Alert and responsive Abdomen: Soft Skin: No rashes noted on visualized skin Musculoskeletal: No Chest Wall Tenderness Extremities: No Edema, Normal Pulses Results 09/09/17 01:22 09/09/17 01:22 Lab Results 09/08/17 09/08/17 09/09/17 17:55 17:55 01:22 WBC Hgb Hct Plt Count Sodium Potassium Chloride Carbon Dioxide BUN Creatinine Glucose Calcium Total Bilirubin 0.5 AST 20 ALT 18 Alkaline Phosphatase 65 Troponin I 0.68 H* 0.79 H* 09/09/17 09/09/17 09/09/17 01:22 01:22 03:38 WBC 10.3 Hgb 8.8 L Hct 27.5 L Plt Count 244 Sodium 140 Potassium 3.4 L Chloride 103 Carbon Dioxide 24 BUN 21 Creatinine 1.25 Glucose 171 H Calcium 8.7 Total Bilirubin AST ALT Alkaline Phosphatase Troponin I 0.84 H* 09/09/17 07:59 WBC Hgb Hct Plt Count Sodium Potassium Chloride Carbon Dioxide BUN Creatinine Glucose Calcium Total Bilirubin AST ALT Alkaline Phosphatase Troponin I 0.89 H* Active Medications Acetaminophen (Tylenol) 650 mg PO Q6HR PRN PRN Reason: Mild Pain (1-3) Stop: 03/10/18 15:45 Albuterol/Ipratropium (Duoneb) 3 ml IH [id number] [facility] Stop: 03/10/18 16:01 Last Admin: 09/09/17 07:55 Dose: 3 ml Amiodarone HCl (Cordarone) 200 mg PO DAILY [facility] Stop: 03/11/18 09:01 Last Admin: 09/09/17 08:17 Dose: 200 mg Aspirin (Aspirin) 81 mg PO DAILY [facility] Stop: 03/10/18 16:01 Last Admin: 09/09/17 08:18 Dose: 81 mg Atorvastatin Calcium (Lipitor) 40 mg PO HS [facility] Stop: 03/10/18 21:01 Last Admin: 09/08/17 20:28 Dose: 40 mg Bisacodyl (Dulcolax) 5 mg PO DAILY PRN PRN Reason: Constipation Stop: 03/10/18 15:53 Docusate Sodium (Colace) 100 mg PO BID [facility] PRN Reason: Protocol Stop: 03/10/18 21:01 Last Admin: 09/09/17 08:18 Dose: 100 mg Ferrous Sulfate (Ferrous Sulfate) 325 mg PO DAILY [facility] Stop: 03/11/18 09:01 Last Admin: 09/09/17 08:18 Dose: 325 mg Fluticasone Propionate (Flonase) 100 mcg NS DAILY [facility] PRN Reason: Protocol Stop: 03/11/18 09:01 Last Admin: 09/09/17 08:19 Dose: 100 mcg Furosemide (Lasix) 40 mg IVP BIDDIURETIC [facility] Stop: 03/11/18 17:01 Heparin Sodium (Porcine) (Heparin) 5,000 unit SQ Q12HR [facility] Stop: 03/10/18 18:01 Last Admin: 09/09/17 06:00 Dose: 5,000 unit Ceftriaxone Sodium 1,000 mg/ (Sterile Water) 10 mls @ 300 mls/hr IVP Q24H [facility] Stop: 03/10/18 16:09 Last Infusion: 09/08/17 18:27 Dose: Infused Isosorbide Mononitrate (Imdur) 30 mg PO DAILY [facility] Stop: 03/11/18 09:01 Last Admin: 09/09/17 08:19 Dose: 30 mg Levothyroxine Sodium (Synthroid) 75 mcg PO 0630 [facility] Stop: 03/11/18 06:31 Last Admin: 09/09/17 06:00 Dose: 75 mcg Lisinopril (Zestril) 2.5 mg PO DAILY [facility] PRN Reason: Protocol Stop: 03/11/18 09:01 Last Admin: 09/09/17 08:18 Dose: 2.5 mg Megestrol Acetate (Megace) 200 mg PO BID [facility] PRN Reason: Protocol Stop: 03/10/18 21:01 Last Admin: 09/09/17 08:17 Dose: 200 mg Methylprednisolone (Solu-Medrol) 40 mg IVP Q8HR [facility] Stop: 03/10/18 16:01 Last Admin: 09/09/17 08:19 Dose: 40 mg Metoprolol Succinate (Toprol Xl) 25 mg PO DAILY [facility] Stop: 03/11/18 09:01 Last Admin: 09/09/17 08:18 Dose: 25 mg Morphine Sulfate (Morphine Sulfate) 2 mg IVP Q4HR PRN PRN Reason: Severe Pain (7-10) Stop: 03/10/18 15:45 Multivitamins/Calcium (Thera M Plus) 1 tab PO DAILY [facility] Stop: 03/11/18 09:01 Last Admin: 09/09/17 08:18 Dose: 1 tab Naloxone HCl (Narcan) 0.4 mg IVP Q2MIN PRN PRN Reason: Opioid Reversal Stop: 03/10/18 15:45 Nitroglycerin (Nitroglycerin) 0.4 mg SL Q5MIN PRN PRN Reason: CHEST PAIN Stop: 03/10/18 15:53 Ondansetron HCl (Zofran) 4 mg IVP Q8HR PRN PRN Reason: Nausea And Vomiting Stop: 03/10/18 15:45 Pharmacy Profile Note (Patient Taking Own Medication) 0 each IH DAILY [facility] Stop: 03/11/18 09:01 Last Admin: 09/09/17 08:19 Dose: Not Given Potassium Chloride (Potassium Chloride) 40 meq PO BID [facility] Stop: 09/10/17 21:01 Quetiapine Fumarate (Seroquel) 25 mg PO [facility] PRN Reason: Protocol Stop: 03/10/18 21:01 Last Admin: 09/08/17 20:28 Dose: 25 mg Sertraline HCl (Zoloft) 100 mg PO DAILY [facility] Stop: 03/11/18 09:01 Last Admin: 09/09/17 08:18 Dose: 100 mg Tamsulosin HCl (Flomax) 0.4 mg PO DAILY [facility] PRN Reason: Protocol Stop: 03/11/18 09:01 Last Admin: 09/09/17 08:19 Dose: 0.4 mg Ticagrelor (Brilinta) 90 mg PO BID [facility] Stop: 03/10/18 21:01 Last Admin: 09/09/17 08:18 Dose: 90 mg Topiramate (Topamax) 50 mg PO HS [facility] Stop: 03/10/18 21:01 Last Admin: 09/08/17 20:28 Dose: 50 mg - Imaging and Cardiology Echo: report reviewed Cardiac cath: report reviewed Other Results: 12 hour tele: avg HR=94 SR. - EKG Interpretation EKG results cardiology: personally reviewed Consult Discharge Plan - Plan Referrals: Ulices Mcgovern Jr, MD [Primary Care Provider] - <Daisy Tillman - Last Filed: 09/09/17 12:48> Date of Encounter: 09/09/17 - Attending Attestation I examined this patient and my medical decision-making was reviewed with the PROPERTY CONTROLLER. I agree with the documented findings, disposition and treatment plan as described. Mr. Jaimes has known ICM EF s/p AICD with recent EF 40%. He recently underwent PCI with MAIRA to LMCA-pLCx. He presents with worsening SOB over the last few weeks associated with productive cough and chest discomfort typically associated with cough. He denies chest pain similar to angina pain. His ECG demonstrates improvements from prior ECG. Lung exam demonstrates rhonchorous breath sounds. Suspect this is in part due to COPD. He does not appear very volume overload although I agree with a trial of IV diuresis. Also must consider potential adverse effect of SOB may be from the addition of Brilinta. Recommend treating COPD, considering nebulized treatments, trial of IV diuresis and re-evaluation tomorrow. Pulmonary evaluating patient as well. Assessment and Plan Discussion w patient/family: The assessment and plan as outlined above was discussed with the patient and/or family members who expressed understanding and agreement. All questions were answered. Thank you for involving us in the care of your patient. Please call with any questions. History of Present Illness History of present illness: Mr. Jaimes is a 72 year old male All Systems Review: A 10-system review of systems was performed and is negative for pertinent findings except as documented above in the HPI. Physical Examination Vital Signs, Last 4 Hours Temp Pulse Resp BP Pulse Ox 09/09/17 11:44 98.8 F 90 20 113/66 96 09/09/17 11:16 20 96 Results 09/09/17 01:22 09/09/17 01:22 Lab Results 09/08/17 09/08/17 09/09/17 17:55 17:55 01:22 WBC Hgb Hct Plt Count Sodium Potassium Chloride Carbon Dioxide BUN Creatinine Glucose Calcium Total Bilirubin 0.5 AST 20 ALT 18 Alkaline Phosphatase 65 Troponin I 0.68 H* 0.79 H* 09/09/17 09/09/17 09/09/17 01:22 01:22 03:38 WBC 10.3 Hgb 8.8 L Hct 27.5 L Plt Count 244 Sodium 140 Potassium 3.4 L Chloride 103 Carbon Dioxide 24 BUN 21 Creatinine 1.25 Glucose 171 H Calcium 8.7 Total Bilirubin AST ALT Alkaline Phosphatase Troponin I 0.84 H* 09/09/17 07:59 WBC Hgb Hct Plt Count Sodium Potassium Chloride Carbon Dioxide BUN Creatinine Glucose Calcium Total Bilirubin AST ALT Alkaline Phosphatase Troponin I 0.89 H*
[2017-09-09] MEDS ORDERED: Furosemide 20 MG/2 ML VIAL IVP ONE (10:55)
[2017-09-09] MEDS: cefTRIAXone 1,000 MG in Water for inj. (sterile) 10 ML IVP SCH (15:33)
--- NOTE | 2017-09-09 16:40 | Electrocardiograph Report ---
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
--- NOTE | 2017-09-09 16:40 | Electrocardiograph Report ---
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
--- NOTE | 2017-09-09 18:26 | Electrocardiograph Report ---
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
[2017-09-09] MEDS: Topiramate 25 MG TABLET PO SCH (21:10)
[2017-09-09] MEDS ORDERED: Saline Nasal Spray 44 ML BOTTLE NS PRN (21:30)
[2017-09-09] MEDS: Melatonin 3 MG TABLET PO PRN (22:48)
[2017-09-10] MEDS: Ipratropium/Albuterol Neb 3 ML IH SCH ×5 (04:10→20:14)
[2017-09-10 05:06] LABS: Basophils % 0.1 %; Hematocrit 28.2 % (37.5-50.1); Hemoglobin 8.9 g/dL (12.9-16.9); Immature Granulocytes % 0.8 % (0-4); Lymphocytes # 0.7 K/mcL (0.6-4.6); Lymphocytes % 5.2 %; Mean Corpuscular HGB Conc 31.6 g/dL (31.6-35.5); Mean Corpuscular Hemoglobin 28.7 pg (28.0-33.3); Mean Platelet Volume 9.5 fL (9.4-12.4); Monocytes # 0.5 K/mcL (0.0-1.3); Monocytes % 3.9 %; Platelet Count 256 K/mcL (140-400)
[2017-09-10 05:07] LABS: Calcium 8.9 mg/dL (8.6-10.3); Potassium 4.1 mEq/L (3.5-5.1)
[2017-09-10 05:09] LABS: Neutrophils # 11.5 K/mcL (1.6-8.9)
[2017-09-10] MEDS: *HR* Heparin 5,000 UNIT/ML VIAL SQ SCH ×2 (05:36→17:16)
[2017-09-10 05:49] LABS: Platelet Estimate Normal (Normal)
[2017-09-10] MEDS: Megestrol Acetate 400 MG/10 ML UDC PO SCH ×2 (07:52→21:20)
[2017-09-10] MEDS: Aspirin 81 MG TAB.CHEW PO SCH (07:53)
[2017-09-10] MEDS: Isosorbide MONOnitrate (24 HR) 30 MG TAB.ER.24H PO SCH (07:53)
[2017-09-10] MEDS: *HR* Amiodarone 200 MG TABLET PO SCH (07:53)
[2017-09-10] MEDS: *HR* Ticagrelor 90 MG TABLET PO SCH (07:53)
[2017-09-10] MEDS: Furosemide 20 MG/2 ML VIAL IVP SCH (07:54)
[2017-09-10] MEDS: Metoprolol XL (24 HR) Succ 25 MG TAB.ER.24H PO SCH (07:54)
[2017-09-10] MEDS: predniSONE 20 MG TABLET PO SCH (07:54)
[2017-09-10] MEDS: Fluticasone Propionate Nasal 50 MCG/SPRAY BOTTLE NS SCH (07:54)
[2017-09-10] MEDS: Multivit/Ca/Min/Fe/FA 1 TAB TABLET PO SCH (07:54)
--- NOTE | 2017-09-10 09:01 | Internal Med Progress Note ---
<Delmy Jimenez - Last Filed: 09/10/17 09:47> Date of Encounter: 09/10/17 Time of Encounter: 08:59 - Assessment and plan (1) Acute and chronic respiratory failure Current Visit: No Status: Acute Assessment and plan: Most likely due to acute on chronic CHF O2 via NC, titrate to maintain sat > 88% biPAP as needed for work of breathing prednisone 40 mg daily rocephin 1g daily duonebs q4hr [facility] Qualifiers: Respiratory failure complication: hypoxia Qualified Code(s): J96.21 - Acute and chronic respiratory failure with hypoxia (2) Acute on chronic systolic CHF (congestive heart failure) Current Visit: Yes Status: Acute Assessment and plan: Echocardiogram 2 weeks prior showed EF 40% with global systolic dysfunction. BNP elevated 1239 Lasix 20 mg po daily Daily weights Strict I's and O's Monitor kidney function (3) CAD (coronary artery disease) Current Visit: No Status: Chronic Assessment and plan: Recent stent placement August 25. Brilinta switched to plavix Continue aspirin, metoprolol, Lipitor, plavix Qualifiers: Coronary Disease-Associated Artery/Lesion type: bypass graft [place] vs. transplanted heart: [place] heart Associated angina: angina presence unspecified Qualified Code(s): I25.810 - Atherosclerosis of coronary artery bypass graft(s) without angina pectoris (4) SIRS (systemic inflammatory response syndrome) Current Visit: Yes Status: Acute Assessment and plan: Patient met SIRS criteria on admission with white blood cell count and tachypnea No clear source for sepsis CT of the chest negative for pneumonia Lactic acid normal Blood cultures preliminary no growth (5) Elevated troponin Current Visit: Yes Status: Acute Assessment and plan: Troponins peaked at 0.89, then trended down Cardiology consultation; appreciate recommendations (6) Protein-calorie malnutrition, severe Current Visit: No Status: Acute Assessment and plan: Nutrition consult, appreciate recommendations (7) Body mass index (BMI) of 19 or less in adult Current Visit: No Status: Chronic (8) Tobacco abuse Current Visit: No Status: Chronic (9) Respiratory distress Current Visit: Yes Status: Resolved Assessment and plan: Resolved (10) COPD exacerbation Current Visit: Yes Status: Ruled-out Assessment and plan: Less likely, more likely acute on chronic CHF - Subjective Interval history: Patient shortness of breath is slightly improved. He states that he walks around his house at home without assistance. - Constitutional Vitals: Temp Pulse Resp BP Pulse Ox 98.5 F 75 16 111/69 92 09/10/17 07:53 09/10/17 08:04 09/10/17 08:18 09/10/17 07:53 09/10/17 08:18 General appearance: Present: mild distress, A&O X 3, answers questions appropriately - Head Head exam: Present: atraumatic, normocephalic - Eye Eye exam: Present: PERRL, conjuntiva pink, sclera anicteric Pupils: Present: PERRL - Neck Neck exam general surgery: Present: trachea midline - Respiratory Respiratory exam: Present: decreased breath sounds, rhonchi - Cardiovascular Cardiovascular exam: Present: RRR, +S1, +S2. Absent: diastolic murmur, gallop, rubs, systolic murmur - GI/Abdominal GI/Abdominal exam: Present: normal bowel sounds, soft, no peritoneal signs. Absent: distended, tenderness - Extremities Exam Extremities exam: Present: warm. Absent: pedal edema, tenderness Additional comments: Posterior tibial pulses palpable and symmetric - Neurological Exam Neurological exam: Present: CN II-XII intact, oriented X3, no focal deficits. Absent: pronater drift, facial droop, speech deficit - Skin Skin exam: Present: dry, intact Internal Medicine: Result - Labs CBC & Chem 7: 09/10/17 04:26 09/10/17 04:26 Labs: Short CBC 09/10/17 Range/Units 04:26 WBC 12.8 H (4.3-11.1) K/mcL Hgb 8.9 L (12.9-16.9) g/dL Hct 28.2 L (37.5-50.1) % Plt Count 256 (140-400) K/mcL Neutrophils # 11.5 H (1.6-8.9) K/mcL BMP 09/10/17 04:26 Sodium 143 Potassium 4.1 Chloride 108 H Carbon Dioxide 30 H BUN 35 H Creatinine 1.41 H Glucose 118 H Calcium 8.9 Cardiac Enzymes 09/09/17 09/09/17 Range/Units 07:59 16:23 Troponin I 0.89 H* 0.71 H* (< 0.04) ng/mL - ABG Interpretation ABG results: PT/INR, D-dimer PT 15.6 Seconds (9.4-12.1) H 09/08/17 13:30 Consult Discharge Plan - Plan Referrals: Ulices Mcgovern Jr, MD [Primary Care Provider] - 09/22/17 11:00 am () <Yvon Hunt - Last Filed: 09/10/17 18:04> Date of Encounter: 09/10/17 - Assessment and plan (1) CAD (coronary artery disease) Current Visit: No Status: Chronic Qualifiers: Coronary Disease-Associated Artery/Lesion type: bypass graft [place] vs. transplanted heart: [place] heart Associated angina: angina presence unspecified Qualified Code(s): I25.810 - Atherosclerosis of coronary artery bypass graft(s) without angina pectoris (2) DVT prophylaxis Current Visit: No Status: Acute (3) Tobacco abuse Current Visit: No Status: Chronic (4) Acute and chronic respiratory failure Current Visit: No Status: Acute Qualifiers: Respiratory failure complication: hypoxia Qualified Code(s): J96.21 - Acute and chronic respiratory failure with hypoxia (5) Protein-calorie malnutrition, severe Current Visit: No Status: Acute (6) Elevated troponin Current Visit: Yes Status: Acute (7) COPD exacerbation Current Visit: Yes Status: Ruled-out (8) Respiratory distress Current Visit: Yes Status: Resolved (9) SIRS (systemic inflammatory response syndrome) Current Visit: Yes Status: Acute (10) Acute on chronic systolic CHF (congestive heart failure) Current Visit: Yes Status: Acute - Constitutional Vitals: Temp Pulse Resp BP Pulse Ox 98.5 F 80 16 80/51 99 09/10/17 15:55 09/10/17 15:55 09/10/17 16:12 09/10/17 16:12 09/10/17 16:12 Internal Medicine: Result - Labs CBC & Chem 7: 09/10/17 04:26 09/10/17 04:26 Labs: Short CBC 09/10/17 Range/Units 04:26 WBC 12.8 H (4.3-11.1) K/mcL Hgb 8.9 L (12.9-16.9) g/dL Hct 28.2 L (37.5-50.1) % Plt Count 256 (140-400) K/mcL Neutrophils # 11.5 H (1.6-8.9) K/mcL BMP 09/10/17 04:26 Sodium 143 Potassium 4.1 Chloride 108 H Carbon Dioxide 30 H BUN 35 H Creatinine 1.41 H Glucose 118 H Calcium 8.9 - ABG Interpretation ABG results: PT/INR, D-dimer PT 15.6 Seconds (9.4-12.1) H 09/08/17 13:30 - Attending Attestation I conducted a face to face diagnostic evaluation of this patient and my medical decision-making was reviewed with the Resident Physician. I agree with the documented findings, disposition and treatment plan as described except to the extent set forth below: PT is in no acute distress. Heart is regular. Lungs are clear. Extremities no edema. Plan: Continue with diuresis. Kidney function worsening today therefore will decrease Lasix to 20 mg daily. Monitor kidney function closely. Additional diagnoses severe protein calorie malnutrition: We will address this with nutrition supplements per dietary. Yvon Hunt MD
[2017-09-10] MEDS ORDERED: *HR* Ticagrelor 90 MG TABLET PO SCH (09:13)
--- NOTE | 2017-09-10 12:16 | Cardiology Progress Note ---
Date of Encounter: 09/10/17 Time of Encounter: 12:30 Assessment and Plan (1) Ischemic cardiomyopathy Current Visit: Yes Status: Chronic Long standing history of ischemic cardiomyopathy s/p ICD implant. Most recent LVEF assessment shows stable LV function, EF 40%. Recent [facility] s/p MAIRA to LMCA-pLCx and was started on DAPT. Has existing 90% mRCA lesion. Patient denies chest pain/discomfort or angina equivalent. Continue CV medications including DAPT, statin, and betablocker. Suspect brilinta may be contributing to dyspnea, will change to Plavix. Last dose of Brilinta 09/10/17 after 2100 dose, then 600mg plavix x1 dose on 09/11/17 , then 75 mg daily thereafter. Close outpatient follow-up with [facility]. (2) Elevated troponin Current Visit: Yes Status: Acute Troponin 0.63, 0.68, 0.79, 0.84, 0.89; suspect downtrend/demand ischemia in the setting of COPD exacerbation; however ACS cannot be ruled out. Non-specific ST changes. Patient denies chest pain or discomfort. H/H noted to be downtrending. Patient denies melena or abnormal bleeding. Continue to monitor H/H closely. Needs staged RCA in future. Continue asa, statin, betablocker, ACEi, and brilinta. (3) Systolic heart failure Current Visit: Yes Status: Acute Mild CHF exacerbation. Suspect dyspnea is multifactorial, likely due to COPD exacerbation. Clinically appears euvolemic upon exam; weight is down 3 kg from previous admission. BNP elevated at 1239, trace pleural effusion per CT scan. Cumulative I&O -300 mL; bump in SCr with increase in Lasix. Will stop IV lasix and change to 20 mg daily. Strict I&Os, daily weights, and Na/fluid restriction diet. Continue betablocker, ACEi, and diuresis. Qualifiers: Heart failure chronicity: acute on chronic Qualified Code(s): I50.23 - Acute on chronic systolic (congestive) heart failure Discussion w patient/family: The assessment and plan as outlined above was discussed with the patient and/or family members who expressed understanding and agreement. All questions were answered. Thank you for involving us in the care of your patient. Please call with any questions. The patient was discussed and reviewed with Dr. Tillman; Cardiology will sign-off , please call with questions. Subjective Principal diagnosis: Shortness of breath; COPD exacerbation, elevated troponin Interval history: Seen and examined. Reports dyspnea remains worse than baseline. Otherwise, no other complaints today upon exam. Objective Vital Signs, Last 4 Hours Resp Pulse Ox 09/10/17 08:18 16 92 General: Conversant, Other (thin, frail) HEENT: Atraumatic, Normocephaly Cardiac: Reg Rate and Rhythm, Normal S1 and S2 Lungs: Other (Coarse breath sounds throughout) Neuro: Alert and responsive Abdomen: Soft Skin: No rashes noted on visualized skin Musculoskeletal: No Chest Wall Tenderness Extremities: No Edema, Normal Pulses Results 09/10/17 04:26 09/10/17 04:26 Lab Results 09/09/17 09/10/17 09/10/17 16:23 04:26 04:26 WBC 12.8 H Hgb 8.9 L Hct 28.2 L Plt Count 256 Sodium 143 Potassium 4.1 Chloride 108 H Carbon Dioxide 30 H BUN 35 H Creatinine 1.41 H Glucose 118 H Calcium 8.9 Magnesium 2.0 Troponin I 0.71 H* Active Medications Acetaminophen (Tylenol) 650 mg PO Q6HR PRN PRN Reason: Mild Pain (1-3) Stop: 03/10/18 15:45 Albuterol/Ipratropium (Duoneb) 3 ml IH [id number] [facility] Stop: 03/10/18 16:01 Last Admin: 09/10/17 11:38 Dose: 3 ml Amiodarone HCl (Cordarone) 200 mg PO DAILY [facility] Stop: 03/11/18 09:01 Last Admin: 09/10/17 07:53 Dose: 200 mg Aspirin (Aspirin) 81 mg PO DAILY [facility] Stop: 03/10/18 16:01 Last Admin: 09/10/17 07:53 Dose: 81 mg Atorvastatin Calcium (Lipitor) 40 mg PO HS [facility] Stop: 03/10/18 21:01 Last Admin: 09/09/17 21:10 Dose: 40 mg Bisacodyl (Dulcolax) 5 mg PO DAILY PRN PRN Reason: Constipation Stop: 03/10/18 15:53 Clopidogrel Bisulfate (Plavix) 600 mg PO ONCE ONE Stop: 09/11/17 09:01 Clopidogrel Bisulfate (Plavix) 75 mg PO DAILY [facility] Stop: 03/14/18 09:01 Docusate Sodium (Colace) 100 mg PO BID [facility] PRN Reason: Protocol Stop: 03/10/18 21:01 Last Admin: 09/10/17 07:54 Dose: 100 mg Ferrous Sulfate (Ferrous Sulfate) 325 mg PO DAILY [facility] Stop: 03/11/18 09:01 Last Admin: 09/10/17 07:54 Dose: 325 mg Fluticasone Propionate (Flonase) 100 mcg NS DAILY [facility] PRN Reason: Protocol Stop: 03/11/18 09:01 Last Admin: 09/10/17 07:54 Dose: 100 mcg Furosemide (Lasix) 20 mg PO DAILY [facility] Stop: 03/13/18 09:01 Heparin Sodium (Porcine) (Heparin) 5,000 unit SQ Q12HR [facility] Stop: 03/10/18 18:01 Last Admin: 09/10/17 05:36 Dose: 5,000 unit Ceftriaxone Sodium 1,000 mg/ (Sterile Water) 10 mls @ 300 mls/hr IVP Q24H [facility] Stop: 03/10/18 16:09 Last Infusion: 09/10/17 07:45 Dose: Infused Isosorbide Mononitrate (Imdur) 30 mg PO DAILY [facility] Stop: 03/11/18 09:01 Last Admin: 09/10/17 07:53 Dose: 30 mg Levothyroxine Sodium (Synthroid) 75 mcg PO 0630 [facility] Stop: 03/11/18 06:31 Last Admin: 09/10/17 05:36 Dose: 75 mcg Lisinopril (Zestril) 2.5 mg PO DAILY [facility] PRN Reason: Protocol Stop: 03/11/18 09:01 Last Admin: 09/10/17 07:54 Dose: 2.5 mg Megestrol Acetate (Megace) 200 mg PO BID [facility] PRN Reason: Protocol Stop: 03/10/18 21:01 Last Admin: 09/10/17 07:52 Dose: 200 mg Melatonin (Melatonin) 3 mg PO PRN PRN Reason: Insomnia Stop: 03/11/18 21:30 Last Admin: 09/09/17 22:48 Dose: 3 mg Metoprolol Succinate (Toprol Xl) 25 mg PO DAILY [facility] Stop: 03/11/18 09:01 Last Admin: 09/10/17 07:54 Dose: 25 mg Morphine Sulfate (Morphine Sulfate) 2 mg IVP Q4HR PRN PRN Reason: Severe Pain (7-10) Stop: 03/10/18 15:45 Multivitamins/Calcium (Thera M Plus) 1 tab PO DAILY [facility] Stop: 03/11/18 09:01 Last Admin: 09/10/17 07:54 Dose: 1 tab Naloxone HCl (Narcan) 0.4 mg IVP Q2MIN PRN PRN Reason: Opioid Reversal Stop: 03/10/18 15:45 Nitroglycerin (Nitroglycerin) 0.4 mg SL Q5MIN PRN PRN Reason: CHEST PAIN Stop: 03/10/18 15:53 Ondansetron HCl (Zofran) 4 mg IVP Q8HR PRN PRN Reason: Nausea And Vomiting Stop: 03/10/18 15:45 Potassium Chloride (Potassium Chloride) 40 meq PO BID [facility] Stop: 09/10/17 21:01 Last Admin: 09/10/17 07:53 Dose: 40 meq Prednisone (Prednisone) 40 mg PO DAILY [facility] Stop: 03/12/18 09:01 Last Admin: 09/10/17 07:54 Dose: 40 mg Quetiapine Fumarate (Seroquel) 25 mg PO HS [facility] PRN Reason: Protocol Stop: 03/10/18 21:01 Last Admin: 09/09/17 21:10 Dose: 25 mg Sertraline HCl (Zoloft) 100 mg PO DAILY [facility] Stop: 03/11/18 09:01 Last Admin: 09/10/17 07:53 Dose: 100 mg Sodium Chloride ([place]) 2 spray NS Q2H PRN PRN Reason: Congestion Stop: 03/11/18 21:31 Tamsulosin HCl (Flomax) 0.4 mg PO DAILY [facility] PRN Reason: Protocol Stop: 03/11/18 09:01 Last Admin: 09/10/17 07:53 Dose: 0.4 mg Ticagrelor (Brilinta) 90 mg PO BID [facility] Stop: 09/10/17 22:00 Topiramate (Topamax) 50 mg PO HS [facility] Stop: 03/10/18 21:01 Last Admin: 09/09/17 21:10 Dose: 50 mg - Imaging and Cardiology Echo: report reviewed Cardiac cath: report reviewed Other Results: 12 hour tele: avg HR=80 SR. - EKG Interpretation EKG results cardiology: personally reviewed Consult Discharge Plan - Plan Referrals: Ulices Mcgovern Jr, MD [Primary Care Provider] - 09/22/17 11:00 am ()
--- NOTE | 2017-09-10 13:01 | Pulmonology Progress Note ---
Date of Encounter: 09/10/17 Time of Encounter: 12:25 Assessment and Plan (1) COPD (chronic obstructive pulmonary disease) with emphysema Current Visit: Yes Status: Acute Patient has severe emphysematous bullous disease to continue current regimen . Qualifiers: Emphysema type: panlobular Qualified Code(s): J43.1 - Panlobular emphysema (2) History of MAC infection Current Visit: No Status: Chronic Needs to get established with ID physciain in [place] (3) Acute on chronic systolic CHF (congestive heart failure) Current Visit: Yes Status: Acute To continue diuresis as tolerated Subjective Principal diagnosis: Shortness of breath; COPD exacerbation, elevated troponin Interval history: Patient is lying in bed says he is feeling lot better now . Objective PUL Vital signs: Last Vital Signs Temp 98.5 F 09/10/17 07:53 Pulse 75 09/10/17 08:04 Resp 16 09/10/17 08:18 BP 111/69 09/10/17 07:53 Pulse Ox 92 09/10/17 08:18 Auscultation: bilateral: rhonchi Results - Laboratory Findings CBC and BMP: 09/10/17 04:26 09/10/17 04:26 PT/INR, D-dimer PT 15.6 Seconds (9.4-12.1) H 09/08/17 13:30 Abnormal lab findings: Abnormal lab results WBC 12.8 K/mcL (4.3-11.1) H 09/10/17 04:26 RBC 3.10 M/mcL (4.19-5.50) L 09/10/17 04:26 Hgb 8.9 g/dL (12.9-16.9) L 09/10/17 04:26 Hct 28.2 % (37.5-50.1) L 09/10/17 04:26 RDW 15.0 % (11.5-14.5) H 09/10/17 04:26 Neutrophils # 11.5 K/mcL (1.6-8.9) H 09/10/17 04:26 Anisocytosis 1+ (Not Present) A 09/09/17 01:22 PT 15.6 Seconds (9.4-12.1) H 09/08/17 13:30 VBG pH 7.23 pH Units (7.32-7.42) L 09/08/17 15:04 VBG pCO2 61 mmHg (41-51) H 09/08/17 15:04 Chloride 108 mEq/L (98-107) H 09/10/17 04:26 Carbon Dioxide 30 mEq/L (23-29) H 09/10/17 04:26 BUN 35 mg/dL (8-23) H 09/10/17 04:26 Creatinine 1.41 mg/dL (0.70-1.30) H 09/10/17 04:26 Est GFR (Non-Af Amer) 49 (> 60) L 09/10/17 04:26 Glucose 118 mg/dL (70-105) H 09/10/17 04:26 Calculated Osmolality 305 (280-300) H 09/10/17 04:26 Troponin I 0.71 ng/mL (< 0.04) H* 09/09/17 16:23 B-Natriuretic Peptide 1239 pg/mL (Less than 100) H 09/08/17 13:30 Serum Total Protein 5.8 g/dL (6.4-8.9) L 09/08/17 17:55 Albumin 2.8 g/dL (3.5-5.7) L 09/08/17 17:55 Albumin/Globulin Ratio 0.9 (1.1-2.2) L 09/08/17 17:55 - Microbiology Findings Microbiology Findings: Microbiology, Last 48 Hours 09/08/17 17:55 Blood Culture - Preliminary Peripheral Venipuncture No growth. 09/08/17 17:54 Blood Culture - Preliminary Peripheral Venipuncture No growth. - Clinical Findings Intake & Output: Intake & Output 09/09/17 09/10/17 09/10/17 23:59 07:59 15:59 Intake Total 820 / 820 110 / 110 240 / 240 Output Total 850 / 850 220 / 220 300 / 300 Balance -30 / -30 -110 / -110 -60 / -60 Weight 55.423 kg Consult Discharge Plan - Plan Referrals: Ulices Mcgovern Jr, MD [Primary Care Provider] - 09/22/17 11:00 am ()
[2017-09-10] MEDS: cefTRIAXone 1,000 MG in Water for inj. (sterile) 10 ML IVP SCH (17:16)
[2017-09-10] MEDS: Topiramate 25 MG TABLET PO SCH (21:19)
[2017-09-10] MEDS: Melatonin 3 MG TABLET PO PRN (21:21)
[2017-09-11] MEDS: Ipratropium/Albuterol Neb 3 ML IH SCH ×6 (00:58→19:42)
[2017-09-11 04:07] LABS: Basophils % 0.1 %; Eosinophils % 0.2 %; Hematocrit 29.8 % (37.5-50.1); Hemoglobin 9.3 g/dL (12.9-16.9); Immature Granulocytes % 0.6 % (0-4); Lymphocytes # 0.6 K/mcL (0.6-4.6); Lymphocytes % 5.7 %; Mean Corpuscular HGB Conc 31.2 g/dL (31.6-35.5); Mean Corpuscular Hemoglobin 29.1 pg (28.0-33.3); Mean Corpuscular Volume 93.1 fL (83.0-100.0); Mean Platelet Volume 9.4 fL (9.4-12.4); Monocytes # 0.4 K/mcL (0.0-1.3); Monocytes % 4.1 %; Neutrophils # 8.7 K/mcL (1.6-8.9); Platelet Count 228 K/mcL (140-400); Red Cell Distribution Width 15.1 % (11.5-14.5); Segmented Neutrophils % 89.3 %
[2017-09-11 04:25] LABS: BUN/Creatinine Ratio 30 (6-26); Blood Urea Nitrogen 37 mg/dL (8-23); Carbon Dioxide 28 mEq/L (23-29); Chloride 107 mEq/L (98-107); Glucose 111 mg/dL (70-105); Osmolality,Calculated 301 (280-300); Sodium 141 mEq/L (136-145); eGFR For African Americans > 60 (> 60); eGFR For Non-African Americans 58 (> 60)
[2017-09-11 05:01] LABS: Platelet Estimate Normal (Normal)
[2017-09-11] MEDS: *HR* Heparin 5,000 UNIT/ML VIAL SQ SCH ×2 (05:46→17:45)
--- NOTE | 2017-09-11 07:47 | Pulmonology Progress Note ---
Date of Encounter: 09/11/17 Time of Encounter: 07:45 Assessment and Plan (1) COPD (chronic obstructive pulmonary disease) with emphysema Current Visit: Yes Status: Acute Patient has severe emphysematous bullous disease to continue current regimen .there is no infected bullae , the imaging looks stable no evidence of pneumonia , the culture sputum 7 DEC is growing VRE but currently he is not having cough and sputum production if the symptoms worsen he will need Zyvox will hold off the treatment as the imaging is stable and he is clinically improving from current management of diuresis . Qualifiers: Emphysema type: panlobular Qualified Code(s): J43.1 - Panlobular emphysema (2) History of MAC infection Current Visit: No Status: Chronic Needs to get established with ID german in [place] , has worsening pulmonary symptoms over few months worth discussing about benefit and risk for treating MAC with ID specialist as needs medical terminologist ant-tuberculous therapy. (3) Acute on chronic systolic CHF (congestive heart failure) Current Visit: Yes Status: Acute To continue diuresis as tolerated , patient is symptomatically improved with diuresis according to daughter he is falling a lot will need fdc facility. Subjective Principal diagnosis: Shortness of breath; COPD exacerbation, elevated troponin Interval history: Patient is sitting on the side of the bed eating his breakfast says he feels much better . Objective PUL Vital signs: Last Vital Signs Temp 99.3 F 09/11/17 07:45 Pulse 87 09/11/17 07:45 Resp 20 09/11/17 07:45 BP 111/71 09/11/17 07:45 Pulse Ox 96 09/11/17 07:45 Auscultation: bilateral: diminished breath sounds, wheezes Results - Laboratory Findings CBC and BMP: 09/11/17 02:22 09/11/17 02:22 PT/INR, D-dimer PT 15.6 Seconds (9.4-12.1) H 09/08/17 13:30 Abnormal lab findings: Abnormal lab results RBC 3.20 M/mcL (4.19-5.50) L 09/11/17 02:22 Hgb 9.3 g/dL (12.9-16.9) L 09/11/17 02:22 Hct 29.8 % (37.5-50.1) L 09/11/17 02:22 MCHC 31.2 g/dL (31.6-35.5) L 09/11/17 02:22 RDW 15.1 % (11.5-14.5) H 09/11/17 02:22 Anisocytosis 1+ (Not Present) A 09/09/17 01:22 PT 15.6 Seconds (9.4-12.1) H 09/08/17 13:30 VBG pH 7.23 pH Units (7.32-7.42) L 09/08/17 15:04 VBG pCO2 61 mmHg (41-51) H 09/08/17 15:04 BUN 37 mg/dL (8-23) H 09/11/17 02:22 Est GFR (Non-Af Amer) 58 (> 60) L 09/11/17 02:22 BUN/Creatinine Ratio 30 (6-26) H 09/11/17 02:22 Glucose 111 mg/dL (70-105) H 09/11/17 02:22 POC Glucose 127 (58-89) H 09/10/17 12:19 Calculated Osmolality 301 (280-300) H 09/11/17 02:22 Troponin I 0.71 ng/mL (< 0.04) H* 09/09/17 16:23 B-Natriuretic Peptide 1239 pg/mL (Less than 100) H 09/08/17 13:30 Serum Total Protein 5.8 g/dL (6.4-8.9) L 09/08/17 17:55 Albumin 2.8 g/dL (3.5-5.7) L 09/08/17 17:55 Albumin/Globulin Ratio 0.9 (1.1-2.2) L 09/08/17 17:55 - Microbiology Findings Microbiology Findings: Microbiology, Last 48 Hours 09/08/17 17:55 Blood Culture - Preliminary Peripheral Venipuncture No growth. 09/08/17 17:54 Blood Culture - Preliminary Peripheral Venipuncture No growth. - Clinical Findings Intake & Output: Intake & Output 09/10/17 09/10/17 09/11/17 15:59 23:59 07:59 Intake Total 480 / 480 410 / 410 Output Total 300 / 300 400 / 400 Balance 180 / 180 10 / 10 Weight 53.3 kg Consult Discharge Plan - Plan Referrals: Ulices Mcgovern Jr, MD [Primary Care Provider] - 09/22/17 11:00 am ()
[2017-09-11] MEDS: Megestrol Acetate 400 MG/10 ML UDC PO SCH ×2 (08:02→20:22)
[2017-09-11] MEDS: Isosorbide MONOnitrate (24 HR) 30 MG TAB.ER.24H PO SCH (08:03)
[2017-09-11] MEDS: *HR* Amiodarone 200 MG TABLET PO SCH (08:04)
[2017-09-11] MEDS: Metoprolol XL (24 HR) Succ 25 MG TAB.ER.24H PO SCH (08:04)
[2017-09-11] MEDS: Multivit/Ca/Min/Fe/FA 1 TAB TABLET PO SCH (08:04)
[2017-09-11] MEDS: Furosemide 20 MG TABLET PO SCH (08:06)
[2017-09-11] MEDS: Aspirin 81 MG TAB.CHEW PO SCH (08:06)
[2017-09-11] MEDS: predniSONE 20 MG TABLET PO SCH (08:07)
[2017-09-11] MEDS: Fluticasone Propionate Nasal 50 MCG/SPRAY BOTTLE NS SCH (08:10)
--- NOTE | 2017-09-11 09:01 | Internal Med Progress Note ---
<Miguel Bah - Last Filed: 09/11/17 12:29> Date of Encounter: 09/11/17 Time of Encounter: 08:30 - Assessment and plan (1) Acute and chronic respiratory failure Current Visit: No Status: Acute Assessment and plan: - Initially presented with 3-day history of dyspnea and cough. - Most likely due to acute on chronic CHF in the setting of COPD and chronic anemia. - Continue diuresis for CHF. - Continue steroid, Flonase, bronchodilators and supplemental oxygen for COPD. - Patient can use BiPAP as needed for work of breathing. - Low suspicion of pneumonia and will discontinue ceftriaxone as recommended per pulmonology. Qualifiers: Respiratory failure complication: hypoxia Qualified Code(s): J96.21 - Acute and chronic respiratory failure with hypoxia (2) Acute on chronic systolic CHF (congestive heart failure) Current Visit: Yes Status: Acute Assessment and plan: - Echocardiogram on 08/24/17 showed EF 40% with global systolic dysfunction. - Elevated BNP at 1239 on admission. - Continue Lasix 20 mg po daily - Strict I/O and Daily weight. (3) Iron deficiency anemia Current Visit: Yes Status: Chronic Assessment and plan: - Hgb 9.5 on admission. - Known chronic iron deficiency anemia given low iron and low % saturation in April 2017. - Relative stable today at 9.3 - Will recheck iron panel and ferritin. - Continue iron supplement. Qualifiers: Iron deficiency anemia type: other iron deficiency Qualified Code(s): D50.8 - Other iron deficiency anemias (4) COPD (chronic obstructive pulmonary disease) with emphysema Current Visit: Yes Status: Acute Assessment and plan: - Continue steroid, Flonase, bronchodilators and supplemental oxygen. Qualifiers: Emphysema type: panlobular Qualified Code(s): J43.1 - Panlobular emphysema (5) Elevated troponin Current Visit: Yes Status: Acute Assessment and plan: - Troponins peaked at 0.89 then trended down to 0.71. - Per cardiology, suspect demand ischemia in the setting of COPD exacerbation and chronic anemia but cannot rule out ACS. - Continue medical management for CAD. (6) CAD (coronary artery disease) Current Visit: No Status: Chronic Assessment and plan: - Status post MAIRA placement to LMCA-pLCx on 08/25/17. - Brilinta was replaced with Plavix for the concern of Brilinta's possible contribution to patient's dyspnea - Patient gets loading dose of Plavix (600 mg PO x1) today and will start on Plavix at 75 mg PO daily tomorrow. - Continue aspirin, metoprolol, Lipitor. Qualifiers: Coronary Disease-Associated Artery/Lesion type: bypass graft [place] vs. transplanted heart: [place] heart Associated angina: angina presence unspecified Qualified Code(s): I25.810 - Atherosclerosis of coronary artery bypass graft(s) without angina pectoris (7) SIRS (systemic inflammatory response syndrome) Current Visit: Yes Status: Resolved Assessment and plan: - 2 SIRS criteria (tachypnea and leukocytosis) on admission but normal lactic acid and no known source of infection. - CT chest negative for pneumonia - Blood cultures from 09/08/17: NGTD. - Resolved as patient is no longer tachypneic and WBC normalized. (8) Protein-calorie malnutrition, severe Current Visit: No Status: Acute Assessment and plan: - Nutrition consulted and appreciate recommendations (9) Physical deconditioning Current Visit: No Status: Acute Assessment and plan: - Reported difficulty to get off bed to use restroom. - PT/OT consult. (10) Goals of care, counseling/discussion Current Visit: Yes Status: Acute Assessment and plan: - Patient's daughter (who is also patient's POA) likes to have palliative care talk to patient regarding his code status and goal of care. - Will consult palliative care. - Subjective Interval history: Patient was seen and examined this morning. Patient reports breathing well and denies chest pain, fever, chills. Per nurse, patient appears to have difficulty to get to restroom and will likely need PT/OT evaluation. The bar captain Dr. Philippe, patient's daughter (who is also patient's POA) and I had lengthy discussion about patient's current status. Patient's daughter wound like to have palliative care to talk to patient regarding his code status. - Constitutional Vitals: Temp Pulse Resp BP Pulse Ox 99.3 F 90 16 111/71 99 09/11/17 07:45 09/11/17 08:00 09/11/17 07:51 09/11/17 07:45 09/11/17 07:51 General appearance: Present: A&O X 3, no acute distress - Head Head exam: Present: atraumatic, normocephalic - Eye Eye exam: Present: EOMI, sclera anicteric - Neck Neck exam general surgery: Present: normal inspection, supple, trachea midline - Respiratory Respiratory exam: Present: rhonchi. Absent: accessory muscle use - Cardiovascular Cardiovascular exam: Present: RRR, +S1, +S2 - GI/Abdominal GI/Abdominal exam: Present: soft. Absent: distended, tenderness - Extremities Exam Extremities exam: Present: warm. Absent: cyanotic, pedal edema - Neurological Exam Neurological exam: Present: alert, no focal deficits. Absent: facial droop, speech deficit - Skin Skin exam: Present: dry, warm Internal Medicine: Result - Labs CBC & Chem 7: 09/11/17 02:22 09/11/17 02:22 Labs: Short CBC 09/11/17 Range/Units 02:22 WBC 9.7 (4.3-11.1) K/mcL Hgb 9.3 L (12.9-16.9) g/dL Hct 29.8 L (37.5-50.1) % Plt Count 228 (140-400) K/mcL Neutrophils # 8.7 (1.6-8.9) K/mcL BMP 09/11/17 02:22 Sodium 141 Potassium 5.0 Chloride 107 Carbon Dioxide 28 BUN 37 H Creatinine 1.22 Glucose 111 H Calcium 9.0 - ABG Interpretation ABG results: PT/INR, D-dimer PT 15.6 Seconds (9.4-12.1) H 09/08/17 13:30 Consult Discharge Plan - Plan Referrals: Ulices Mcgovern Jr, MD [Primary Care Provider] - 09/22/17 11:00 am () <Yvon Hunt - Last Filed: 09/11/17 15:03> Date of Encounter: 09/11/17 - Assessment and plan (1) CAD (coronary artery disease) Current Visit: No Status: Chronic Qualifiers: Coronary Disease-Associated Artery/Lesion type: bypass graft [place] vs. transplanted heart: [place] heart Associated angina: angina presence unspecified Qualified Code(s): I25.810 - Atherosclerosis of coronary artery bypass graft(s) without angina pectoris (2) DVT prophylaxis Current Visit: No Status: Acute (3) Tobacco abuse Current Visit: No Status: Chronic (4) Acute and chronic respiratory failure Current Visit: No Status: Acute Qualifiers: Respiratory failure complication: hypoxia Qualified Code(s): J96.21 - Acute and chronic respiratory failure with hypoxia (5) Protein-calorie malnutrition, severe Current Visit: No Status: Acute (6) Elevated troponin Current Visit: Yes Status: Acute (7) COPD exacerbation Current Visit: Yes Status: Ruled-out (8) Respiratory distress Current Visit: Yes Status: Resolved (9) SIRS (systemic inflammatory response syndrome) Current Visit: Yes Status: Resolved (10) Acute on chronic systolic CHF (congestive heart failure) Current Visit: Yes Status: Acute - Constitutional Vitals: Temp Pulse Resp BP Pulse Ox 98.5 F 94 20 94/63 99 09/11/17 12:53 09/11/17 14:21 09/11/17 14:11 09/11/17 12:53 09/11/17 14:11 Internal Medicine: Result - Labs CBC & Chem 7: 09/11/17 02:22 09/11/17 02:22 Labs: Short CBC 09/11/17 Range/Units 02:22 WBC 9.7 (4.3-11.1) K/mcL Hgb 9.3 L (12.9-16.9) g/dL Hct 29.8 L (37.5-50.1) % Plt Count 228 (140-400) K/mcL Neutrophils # 8.7 (1.6-8.9) K/mcL BMP 09/11/17 02:22 Sodium 141 Potassium 5.0 Chloride 107 Carbon Dioxide 28 BUN 37 H Creatinine 1.22 Glucose 111 H Calcium 9.0 - ABG Interpretation ABG results: PT/INR, D-dimer PT 15.6 Seconds (9.4-12.1) H 09/08/17 13:30 - Attending Attestation I conducted a face to face diagnostic evaluation of this patient and my medical decision-making was reviewed with the Resident Physician, Dr Miguel Bah. I agree with the documented findings, disposition and treatment plan as described except to the extent set forth below: On exam the patient is frail appearing in no acute distress. Heart is regular. Lung exam reveals bilateral expiratory wheezes. Extremities have no edema. Plan: Continue with Lasix and inhaled bronchodilators. He has lost 2 kg during this admission and he is back to baseline weight. Currently at 53.3 kg. Yvon Hunt MD
[2017-09-11] MEDS: *HR* Morphine 2 MG/ML SYRINGE IVP PRN ×2 (15:51→20:18)
[2017-09-11] MEDS: Topiramate 25 MG TABLET PO SCH (20:22)
[2017-09-11] MEDS: Melatonin 3 MG TABLET PO PRN (21:55)
[2017-09-12] MEDS: *HR* Morphine 2 MG/ML SYRINGE IVP PRN ×4 (00:17→18:02)
[2017-09-12] MEDS: Ipratropium/Albuterol Neb 3 ML IH SCH ×7 (00:19→23:57)
[2017-09-12 03:03] LABS: Basophils % 0.1 %; Hematocrit 28.9 % (37.5-50.1); Immature Granulocytes % 0.5 % (0-4); Lymphocytes # 0.5 K/mcL (0.6-4.6); Lymphocytes % 5.5 %; Mean Corpuscular HGB Conc 31.1 g/dL (31.6-35.5); Mean Corpuscular Hemoglobin 28.9 pg (28.0-33.3); Mean Corpuscular Volume 92.9 fL (83.0-100.0); Mean Platelet Volume 9.5 fL (9.4-12.4); Monocytes # 0.4 K/mcL (0.0-1.3); Monocytes % 4.2 %; Neutrophils # 8.7 K/mcL (1.6-8.9); Platelet Count 227 K/mcL (140-400); Red Blood Count 3.11 M/mcL (4.19-5.50); Segmented Neutrophils % 89.7 %
[2017-09-12 03:30] LABS: % Iron Saturation 22 % (20-55); Ferritin 174 ng/ml (20-250); Iron 42 mcg/dL (65-175); Transferrin 139 mg/dL (203-362)
[2017-09-12 03:31] LABS: Calcium 9.1 mg/dL (8.6-10.3); Potassium 4.7 mEq/L (3.5-5.1)
--- NOTE | 2017-09-12 10:02 | Internal Med Progress Note ---
<Miguel Bah - Last Filed: 09/12/17 09:59> Date of Encounter: 09/12/17 Time of Encounter: 08:45 - Assessment and plan (1) Acute and chronic respiratory failure Current Visit: No Status: Acute Assessment and plan: - Initially presented with 3-day history of dyspnea and cough. - Most likely due to acute on chronic CHF in the setting of COPD and chronic anemia. - Continue diuresis for CHF. - Continue steroid, Flonase, bronchodilators and supplemental oxygen for COPD. - Patient can use BiPAP as needed. - Low suspicion of pneumonia and ceftriaxone was discontinued as recommended per pulmonology. - Continue to monitor. Qualifiers: Respiratory failure complication: hypoxia Qualified Code(s): J96.21 - Acute and chronic respiratory failure with hypoxia (2) Acute on chronic systolic CHF (congestive heart failure) Current Visit: Yes Status: Acute Assessment and plan: - Echocardiogram on 08/24/17 showed EF 40% with global systolic dysfunction. - Elevated BNP at 1239 on admission. - Continue Lasix 20 mg po daily - Strict I/O and Daily weight. (3) Iron deficiency anemia Current Visit: Yes Status: Chronic Assessment and plan: - Hgb 9.5 on admission. - Known chronic iron deficiency anemia given low iron and low % saturation in April 2017. - Relative stable today at 9.0 - Continue iron supplement. Qualifiers: Iron deficiency anemia type: other iron deficiency Qualified Code(s): D50.8 - Other iron deficiency anemias (4) COPD (chronic obstructive pulmonary disease) with emphysema Current Visit: Yes Status: Acute Assessment and plan: - Continue steroid, Flonase, bronchodilators and supplemental oxygen. Qualifiers: Emphysema type: panlobular Qualified Code(s): J43.1 - Panlobular emphysema (5) Elevated troponin Current Visit: Yes Status: Acute Assessment and plan: - Troponins peaked at 0.89 then trended down to 0.71. - Per cardiology, suspect demand ischemia in the setting of COPD exacerbation and chronic anemia but cannot rule out ACS. - Continue medical management for CAD. (6) CAD (coronary artery disease) Current Visit: No Status: Chronic Assessment and plan: - Status post MAIRA placement to LMCA-pLCx on 08/25/17. - Brilinta was replaced with Plavix for the concern of Brilinta's possible contribution to patient's dyspnea - Continue aspirin, Plavix, metoprolol, Lipitor. Qualifiers: Coronary Disease-Associated Artery/Lesion type: bypass graft [place] vs. transplanted heart: [place] heart Associated angina: angina presence unspecified Qualified Code(s): I25.810 - Atherosclerosis of coronary artery bypass graft(s) without angina pectoris (7) SIRS (systemic inflammatory response syndrome) Current Visit: Yes Status: Resolved Assessment and plan: - 2 SIRS criteria (tachypnea and leukocytosis) on admission but normal lactic acid and no known source of infection. - CT chest negative for pneumonia - Blood cultures from 09/08/17: NGTD. - Resolved as patient is no longer tachypneic and WBC normalized. (8) Protein-calorie malnutrition, severe Current Visit: No Status: Acute Assessment and plan: - Nutrition consulted and appreciate recommendations (9) Physical deconditioning Current Visit: No Status: Acute Assessment and plan: - Reported difficulty to get off bed to use restroom. - PT/OT consult to evaluate and treat. (10) Goals of care, counseling/discussion Current Visit: Yes Status: Acute Assessment and plan: - Patient's daughter (who is also patient's POA) likes to have palliative care talk to patient regarding his code status and goal of care. - Will consult palliative care. - Subjective Interval history: Patient was seen and examined this morning. Patient reports breathing okay and denies chest pain, fever, chills, abdominal pain. - Constitutional Vitals: Temp Pulse Resp BP Pulse Ox 98.5 F 88 18 125/82 94 09/12/17 04:42 09/12/17 09:15 09/12/17 09:15 09/12/17 04:42 09/12/17 09:15 General appearance: Present: A&O X 3, no acute distress, answers questions appropriately - Head Head exam: Present: normocephalic - Eye Eye exam: Present: EOMI, conjuntiva pink, sclera anicteric - Neck Neck exam general surgery: Present: supple, trachea midline - Respiratory Respiratory exam: Present: decreased breath sounds. Absent: accessory muscle use - Cardiovascular Cardiovascular exam: Present: RRR, +S1, +S2 - GI/Abdominal GI/Abdominal exam: Present: normal bowel sounds, soft. Absent: tenderness, no peritoneal signs - Extremities Exam Extremities exam: Present: warm. Absent: cyanotic, pedal edema - Neurological Exam Neurological exam: Present: alert. Absent: facial droop, speech deficit - Skin Skin exam: Present: dry, warm Internal Medicine: Result - Labs CBC & Chem 7: 09/12/17 02:39 09/12/17 02:39 Labs: Short CBC 09/12/17 Range/Units 02:39 WBC 9.7 (4.3-11.1) K/mcL Hgb 9.0 L (12.9-16.9) g/dL Hct 28.9 L (37.5-50.1) % Plt Count 227 (140-400) K/mcL Neutrophils # 8.7 (1.6-8.9) K/mcL BMP 09/12/17 02:39 Sodium 140 Potassium 4.7 Chloride 105 Carbon Dioxide 31 H BUN 39 H Creatinine 1.43 H Glucose 124 H Calcium 9.1 - ABG Interpretation ABG results: PT/INR, D-dimer PT 15.6 Seconds (9.4-12.1) H 09/08/17 13:30 Consult Discharge Plan - Plan Referrals: Ulices Mcgovern Jr, MD [Primary Care Provider] - 09/22/17 11:00 am () <Yvon Hunt - Last Filed: 09/12/17 16:03> Date of Encounter: 09/12/17 - Assessment and plan (1) CAD (coronary artery disease) Current Visit: No Status: Chronic Qualifiers: Coronary Disease-Associated Artery/Lesion type: bypass graft [place] vs. transplanted heart: [place] heart Associated angina: angina presence unspecified Qualified Code(s): I25.810 - Atherosclerosis of coronary artery bypass graft(s) without angina pectoris (2) DVT prophylaxis Current Visit: No Status: Acute (3) Tobacco abuse Current Visit: No Status: Chronic (4) Acute and chronic respiratory failure Current Visit: No Status: Acute Qualifiers: Respiratory failure complication: hypoxia Qualified Code(s): J96.21 - Acute and chronic respiratory failure with hypoxia (5) Protein-calorie malnutrition, severe Current Visit: No Status: Acute (6) Elevated troponin Current Visit: Yes Status: Acute (7) COPD exacerbation Current Visit: Yes Status: Ruled-out (8) Respiratory distress Current Visit: Yes Status: Resolved (9) SIRS (systemic inflammatory response syndrome) Current Visit: Yes Status: Resolved (10) Acute on chronic systolic CHF (congestive heart failure) Current Visit: Yes Status: Acute - Constitutional Vitals: Temp Pulse Resp BP Pulse Ox 98.4 F 93 16 120/72 95 09/12/17 15:55 09/12/17 15:55 09/12/17 15:55 09/12/17 15:55 09/12/17 15:55 Internal Medicine: Result - Labs CBC & Chem 7: 09/12/17 02:39 09/12/17 02:39 Labs: Short CBC 09/12/17 Range/Units 02:39 WBC 9.7 (4.3-11.1) K/mcL Hgb 9.0 L (12.9-16.9) g/dL Hct 28.9 L (37.5-50.1) % Plt Count 227 (140-400) K/mcL Neutrophils # 8.7 (1.6-8.9) K/mcL BMP 09/12/17 02:39 Sodium 140 Potassium 4.7 Chloride 105 Carbon Dioxide 31 H BUN 39 H Creatinine 1.43 H Glucose 124 H Calcium 9.1 - ABG Interpretation ABG results: PT/INR, D-dimer PT 15.6 Seconds (9.4-12.1) H 09/08/17 13:30 - Attending Attestation I conducted a face to face diagnostic evaluation of this patient and my medical decision-making was reviewed with the Resident Physician, Dr Miguel Bah. I agree with the documented findings, disposition and treatment plan as described except to the extent set forth below: Lung exam reveals expiratory wheezes and chronic colds. Oxygen saturation is 95 % on nasal cannula 2 L/m. Lower extremities are free of edema. Plan: Continue diuresis with Lasix once daily. Strict I's and O's. Social work consult for placement. Smoking cessation counseling provided. Yvon Hunt MD
[2017-09-12] MEDS: *HR* Heparin 5,000 UNIT/ML VIAL SQ SCH ×2 (10:07→18:02)
[2017-09-12] MEDS: *HR* Amiodarone 200 MG TABLET PO SCH (10:08)
[2017-09-12] MEDS: Aspirin 81 MG TAB.CHEW PO SCH (10:08)
[2017-09-12] MEDS: Furosemide 20 MG TABLET PO SCH (10:09)
[2017-09-12] MEDS: Fluticasone Propionate Nasal 50 MCG/SPRAY BOTTLE NS SCH (10:09)
[2017-09-12] MEDS: Isosorbide MONOnitrate (24 HR) 30 MG TAB.ER.24H PO SCH (10:09)
[2017-09-12] MEDS: Megestrol Acetate 400 MG/10 ML UDC PO SCH ×2 (10:09→20:29)
[2017-09-12] MEDS: Multivit/Ca/Min/Fe/FA 1 TAB TABLET PO SCH (10:10)
[2017-09-12] MEDS: Metoprolol XL (24 HR) Succ 25 MG TAB.ER.24H PO SCH (10:10)
[2017-09-12] MEDS: predniSONE 20 MG TABLET PO SCH (10:10)
[2017-09-12] MEDS: Topiramate 25 MG TABLET PO SCH (20:28)
[2017-09-13] MEDS: *HR* Morphine 2 MG/ML SYRINGE IVP PRN ×5 (01:31→19:58)
[2017-09-13 03:32] LABS: Basophils % 0.1 %; Hematocrit 30.9 % (37.5-50.1); Hemoglobin 9.7 g/dL (12.9-16.9); Immature Granulocytes % 0.7 % (0-4); Lymphocytes # 0.5 K/mcL (0.6-4.6); Mean Corpuscular HGB Conc 31.4 g/dL (31.6-35.5); Mean Corpuscular Volume 92.2 fL (83.0-100.0); Mean Platelet Volume 9.4 fL (9.4-12.4); Monocytes # 0.4 K/mcL (0.0-1.3); Monocytes % 3.8 %; Neutrophils # 10.4 K/mcL (1.6-8.9); Platelet Count 220 K/mcL (140-400); Red Blood Count 3.35 M/mcL (4.19-5.50); Segmented Neutrophils % 91.4 %
[2017-09-13 03:56] LABS: BUN/Creatinine Ratio 30 (6-26); Blood Urea Nitrogen 37 mg/dL (8-23); Calcium 9.3 mg/dL (8.6-10.3); Carbon Dioxide 29 mEq/L (23-29); Chloride 104 mEq/L (98-107); Glucose 130 mg/dL (70-105); Osmolality,Calculated 298 (280-300); Potassium 4.2 mEq/L (3.5-5.1); Sodium 139 mEq/L (136-145); eGFR For African Americans > 60 (> 60); eGFR For Non-African Americans 58 (> 60)
[2017-09-13] MEDS: Ipratropium/Albuterol Neb 3 ML IH SCH ×5 (04:01→20:33)
[2017-09-13] MEDS: *HR* Heparin 5,000 UNIT/ML VIAL SQ SCH ×2 (06:08→18:13)
[2017-09-13] MEDS: predniSONE 20 MG TABLET PO SCH (08:42)
[2017-09-13] MEDS: Furosemide 20 MG TABLET PO SCH (08:44)
[2017-09-13] MEDS: Multivit/Ca/Min/Fe/FA 1 TAB TABLET PO SCH (08:44)
[2017-09-13] MEDS: *HR* Amiodarone 200 MG TABLET PO SCH (08:44)
[2017-09-13] MEDS: Isosorbide MONOnitrate (24 HR) 30 MG TAB.ER.24H PO SCH (08:44)
[2017-09-13] MEDS: Metoprolol XL (24 HR) Succ 25 MG TAB.ER.24H PO SCH (08:44)
[2017-09-13] MEDS: Aspirin 81 MG TAB.CHEW PO SCH (08:45)
[2017-09-13] MEDS: Megestrol Acetate 400 MG/10 ML UDC PO SCH ×2 (08:45→19:56)
[2017-09-13] MEDS: Fluticasone Propionate Nasal 50 MCG/SPRAY BOTTLE NS SCH (08:52)
--- NOTE | 2017-09-13 09:08 | Internal Med Progress Note ---
<Delmy Jimenez - Last Filed: 09/13/17 09:51> Date of Encounter: 09/13/17 Time of Encounter: 09:05 - Assessment and plan (1) Acute and chronic respiratory failure Current Visit: No Status: Acute Assessment and plan: - Initially presented with 3-day history of dyspnea and cough. - Most likely due to acute on chronic CHF in the setting of COPD and chronic anemia. - Continue diuresis for CHF. - Continue steroid, Flonase, bronchodilators and supplemental oxygen for COPD. - Patient can use BiPAP as needed. - Low suspicion of pneumonia and ceftriaxone was discontinued as recommended per pulmonology. - Continue to monitor. Qualifiers: Respiratory failure complication: hypoxia Qualified Code(s): J96.21 - Acute and chronic respiratory failure with hypoxia (2) Acute on chronic systolic CHF (congestive heart failure) Current Visit: Yes Status: Acute Assessment and plan: - Echocardiogram on 08/24/17 showed EF 40% with global systolic dysfunction. - Elevated BNP at 1239 on admission. - Continue Lasix 20 mg po daily - Strict I/O and Daily weight. (3) Iron deficiency anemia Current Visit: Yes Status: Chronic Assessment and plan: - Hgb 9.5 on admission. - Known chronic iron deficiency anemia given low iron and low % saturation in April 2017. - Relative stable today at 9.7 - Continue iron supplement. Qualifiers: Iron deficiency anemia type: other iron deficiency Qualified Code(s): D50.8 - Other iron deficiency anemias (4) COPD (chronic obstructive pulmonary disease) with emphysema Current Visit: Yes Status: Acute Assessment and plan: - Continue steroid, Flonase, bronchodilators and supplemental oxygen. Qualifiers: Emphysema type: panlobular Qualified Code(s): J43.1 - Panlobular emphysema (5) CAD (coronary artery disease) Current Visit: No Status: Chronic Assessment and plan: - Status post MAIRA placement to LMCA-pLCx on 08/25/17. - Brilinta was replaced with Plavix for the concern of Brilinta's possible contribution to patient's dyspnea - Continue aspirin, Plavix, metoprolol, Lipitor. Qualifiers: Coronary Disease-Associated Artery/Lesion type: bypass graft [place] vs. transplanted heart: [place] heart Associated angina: angina presence unspecified Qualified Code(s): I25.810 - Atherosclerosis of coronary artery bypass graft(s) without angina pectoris (6) Elevated troponin Current Visit: Yes Status: Acute Assessment and plan: 09/13 - Patient had new episode of chest pain at 0405 that was relieved by nitroglycerin. He had a normal EKG at that time. Troponin x3 ordered. First troponin elevated at 0.48; possibly still trending down from 0.71 09/10 - Troponins peaked at 0.89 then trended down to 0.71. - Per cardiology, suspect demand ischemia in the setting of COPD exacerbation and chronic anemia but cannot rule out ACS. - Continue medical management for CAD. (7) SIRS (systemic inflammatory response syndrome) Current Visit: Yes Status: Resolved Assessment and plan: - 2 SIRS criteria (tachypnea and leukocytosis) on admission but normal lactic acid and no known source of infection. - CT chest negative for pneumonia - Blood cultures from 09/08/17: NGTD. - Resolved as patient is no longer tachypneic and WBC normalized. (8) Protein-calorie malnutrition, severe Current Visit: No Status: Acute Assessment and plan: - Nutrition consulted and appreciate recommendations (9) Physical deconditioning Current Visit: No Status: Acute Assessment and plan: - Reported difficulty getting off bed to use restroom. - PT/OT consulted; appreciate recommendations (10) Goals of care, counseling/discussion Current Visit: Yes Status: Acute Assessment and plan: Interval history: Sep 11 "The land planner Dr. Philippe, patient's daughter ( who is also patient's POA), and I (Dr. Bah) had lengthy discussion about patient's current status. Patient's daughter wound like to have palliative care to talk to patient regarding his code status. " - Will consult palliative care Sep 14 (11) Body mass index (BMI) of 19 or less in adult Current Visit: No Status: Chronic (12) Tobacco abuse Current Visit: No Status: Chronic Assessment and plan: smoking cessation counseling provided (13) Respiratory distress Current Visit: Yes Status: Resolved Assessment and plan: Resolved (14) COPD exacerbation Current Visit: Yes Status: Ruled-out Assessment and plan: Less likely, more likely acute on chronic CHF - Subjective Interval history: Patient's breathing continues to improve daily. He states he is doing well today. - Constitutional Vitals: Temp Pulse Resp BP Pulse Ox 98.0 F 87 17 115/85 94 09/13/17 08:32 09/13/17 08:32 09/13/17 08:32 09/13/17 08:32 09/13/17 08:32 General appearance: Present: A&O X 3, no acute distress, answers questions appropriately - Head Head exam: Present: atraumatic, normocephalic - Eye Eye exam: Present: PERRL, conjuntiva pink, sclera anicteric Pupils: Present: PERRL - Neck Neck exam general surgery: Present: trachea midline - Respiratory Respiratory exam: Present: rhonchi (Right base), wheezes (End-expiratory, Throughout) - Cardiovascular Cardiovascular exam: Present: RRR, +S1, +S2. Absent: diastolic murmur, gallop, rubs, systolic murmur - GI/Abdominal GI/Abdominal exam: Present: normal bowel sounds, soft, no peritoneal signs. Absent: distended, tenderness - Extremities Exam Extremities exam: Present: warm. Absent: pedal edema, tenderness Additional comments: Posterior tibial pulses palpable and symmetric - Neurological Exam Neurological exam: Present: CN II-XII intact, oriented X3, no focal deficits. Absent: pronater drift, facial droop, speech deficit - Skin Skin exam: Present: dry, intact Internal Medicine: Result - Labs CBC & Chem 7: 09/13/17 02:57 09/13/17 02:57 Labs: Short CBC 09/13/17 Range/Units 02:57 WBC 11.4 H (4.3-11.1) K/mcL Hgb 9.7 L (12.9-16.9) g/dL Hct 30.9 L (37.5-50.1) % Plt Count 220 (140-400) K/mcL Neutrophils # 10.4 H (1.6-8.9) K/mcL BMP 09/13/17 02:57 Sodium 139 Potassium 4.2 Chloride 104 Carbon Dioxide 29 BUN 37 H Creatinine 1.22 Glucose 130 H Calcium 9.3 Cardiac Enzymes 09/13/17 Range/Units 06:23 Troponin I 0.48 H* (< 0.04) ng/mL - ABG Interpretation ABG results: PT/INR, D-dimer PT 15.6 Seconds (9.4-12.1) H 09/08/17 13:30 Consult Discharge Plan - Plan Referrals: Ulices Mcgovern Jr, MD [Primary Care Provider] - 09/22/17 11:00 am () <Yvon Hunt - Last Filed: 09/13/17 13:22> Date of Encounter: 09/13/17 - Assessment and plan (1) CAD (coronary artery disease) Current Visit: No Status: Chronic Qualifiers: Coronary Disease-Associated Artery/Lesion type: bypass graft [place] vs. transplanted heart: [place] heart Associated angina: angina presence unspecified Qualified Code(s): I25.810 - Atherosclerosis of coronary artery bypass graft(s) without angina pectoris (2) DVT prophylaxis Current Visit: No Status: Acute (3) Tobacco abuse Current Visit: No Status: Chronic (4) Acute and chronic respiratory failure Current Visit: No Status: Acute Qualifiers: Respiratory failure complication: hypoxia Qualified Code(s): J96.21 - Acute and chronic respiratory failure with hypoxia (5) Protein-calorie malnutrition, severe Current Visit: No Status: Acute (6) Elevated troponin Current Visit: Yes Status: Acute (7) COPD exacerbation Current Visit: Yes Status: Ruled-out (8) Respiratory distress Current Visit: Yes Status: Resolved (9) SIRS (systemic inflammatory response syndrome) Current Visit: Yes Status: Resolved (10) Acute on chronic systolic CHF (congestive heart failure) Current Visit: Yes Status: Acute - Constitutional Vitals: Temp Pulse Resp BP Pulse Ox 98.0 F 87 18 115/85 96 09/13/17 08:32 09/13/17 08:32 09/13/17 11:15 09/13/17 08:32 09/13/17 11:38 Internal Medicine: Result - Labs CBC & Chem 7: 09/13/17 02:57 09/13/17 02:57 Labs: Short CBC 09/13/17 Range/Units 02:57 WBC 11.4 H (4.3-11.1) K/mcL Hgb 9.7 L (12.9-16.9) g/dL Hct 30.9 L (37.5-50.1) % Plt Count 220 (140-400) K/mcL Neutrophils # 10.4 H (1.6-8.9) K/mcL BMP 09/13/17 02:57 Sodium 139 Potassium 4.2 Chloride 104 Carbon Dioxide 29 BUN 37 H Creatinine 1.22 Glucose 130 H Calcium 9.3 Cardiac Enzymes 09/13/17 09/13/17 Range/Units 06:23 10:11 Troponin I 0.48 H* 0.49 H* (< 0.04) ng/mL - ABG Interpretation ABG results: PT/INR, D-dimer PT 15.6 Seconds (9.4-12.1) H 09/08/17 13:30 - Attending Attestation I conducted a face to face diagnostic evaluation of this patient and my medical decision-making was reviewed with the Resident Physician, Dr Miguel Bah. I agree with the documented findings, disposition and treatment plan as described except to the extent set forth below: Patient is in no acute distress. Heart is regular. Lung exam with clear breath sounds. Lower extremities free of edema Plan: Continue diuresis. Bronchodilators. PT OT. Social work consult for placement. Yvon Hunt MD
[2017-09-13] MEDS: Topiramate 25 MG TABLET PO SCH (19:57)
[2017-09-14] MEDS: Ipratropium/Albuterol Neb 3 ML IH SCH ×5 (00:01→16:32)
[2017-09-14] MEDS ORDERED: *HR* OxyCODONE/APAP 5/325 TABLET PO ONE (00:18)
[2017-09-14 04:45] LABS: BUN/Creatinine Ratio 32 (6-26); Basophils % 0.1 %; Blood Urea Nitrogen 38 mg/dL (8-23); Calcium 9.2 mg/dL (8.6-10.3); Carbon Dioxide 25 mEq/L (23-29); Chloride 108 mEq/L (98-107); Glucose 119 mg/dL (70-105); Hematocrit 33.4 % (37.5-50.1); Hemoglobin 10.6 g/dL (12.9-16.9); Lymphocytes # 0.7 K/mcL (0.6-4.6); Mean Corpuscular HGB Conc 31.7 g/dL (31.6-35.5); Mean Corpuscular Hemoglobin 29.1 pg (28.0-33.3); Mean Corpuscular Volume 91.8 fL (83.0-100.0); Mean Platelet Volume 10.3 fL (9.4-12.4); Monocytes # 0.6 K/mcL (0.0-1.3); Monocytes % 4.4 %; Osmolality,Calculated 300 (280-300); Platelet Count 200 K/mcL (140-400); Potassium 4.6 mEq/L (3.5-5.1); Red Blood Count 3.64 M/mcL (4.19-5.50); Segmented Neutrophils % 88.5 %; Sodium 140 mEq/L (136-145); eGFR For African Americans > 60 (> 60); eGFR For Non-African Americans 59 (> 60)
[2017-09-14] MEDS: *HR* Heparin 5,000 UNIT/ML VIAL SQ SCH (06:08)
[2017-09-14] MEDS: *HR* HYDROcodone/Acet 5/325 mg TABLET PO PRN ×2 (08:24→14:21)
[2017-09-14] MEDS: Metoprolol XL (24 HR) Succ 25 MG TAB.ER.24H PO SCH (08:25)
[2017-09-14] MEDS: Multivit/Ca/Min/Fe/FA 1 TAB TABLET PO SCH (08:25)
[2017-09-14] MEDS: predniSONE 20 MG TABLET PO SCH (08:25)
[2017-09-14] MEDS: Megestrol Acetate 400 MG/10 ML UDC PO SCH (08:25)
[2017-09-14] MEDS: Aspirin 81 MG TAB.CHEW PO SCH (08:25)
[2017-09-14] MEDS: *HR* Amiodarone 200 MG TABLET PO SCH (08:26)
[2017-09-14] MEDS: Furosemide 20 MG TABLET PO SCH (08:26)
[2017-09-14] MEDS: Fluticasone Propionate Nasal 50 MCG/SPRAY BOTTLE NS SCH (08:26)
[2017-09-14] MEDS: Isosorbide MONOnitrate (24 HR) 30 MG TAB.ER.24H PO SCH (08:26)
--- NOTE | 2017-09-14 10:50 | Discharge Summary ---
<Delmy Jimenez - Last Filed: 09/14/17 11:12> Date of Encounter: 09/14/17 Time of Encounter: 10:48 - Discharge Diagnosis (1) Acute and chronic respiratory failure Priority: Primary Status: Acute Qualifiers: Respiratory failure complication: hypoxia Qualified Code(s): J96.21 - Acute and chronic respiratory failure with hypoxia (2) Acute on chronic systolic CHF (congestive heart failure) Priority: Primary Status: Acute (3) Iron deficiency anemia Priority: Secondary Status: Chronic Qualifiers: Iron deficiency anemia type: other iron deficiency Qualified Code(s): D50.8 - Other iron deficiency anemias (4) COPD (chronic obstructive pulmonary disease) with emphysema Priority: Secondary Status: Acute Qualifiers: Emphysema type: panlobular Qualified Code(s): J43.1 - Panlobular emphysema (5) CAD (coronary artery disease) Priority: Secondary Status: Chronic Qualifiers: Coronary Disease-Associated Artery/Lesion type: bypass graft [place] vs. transplanted heart: [place] heart Associated angina: angina presence unspecified Qualified Code(s): I25.810 - Atherosclerosis of coronary artery bypass graft(s) without angina pectoris (6) Elevated troponin Priority: Secondary Status: Acute (7) SIRS (systemic inflammatory response syndrome) Priority: Secondary Status: Resolved (8) Protein-calorie malnutrition, severe Priority: Secondary Status: Acute (9) Physical deconditioning Priority: Secondary Status: Acute (10) Goals of care, counseling/discussion Priority: Secondary Status: Acute (11) Body mass index (BMI) of 19 or less in adult Priority: Secondary Status: Chronic (12) Tobacco abuse Priority: Secondary Status: Chronic (13) Respiratory distress Priority: Secondary Status: Resolved (14) COPD exacerbation Priority: Secondary Status: Ruled-out - Discharge Medications Prescriptions: GuaiFENesin/Dextromethorphan [Robitussin/Dm] 10 ml PO Q6HR PRN #1 bottle PRN Reason: Cough HYDROcodone/Acet 5/325 mg [[place] 5-325 mg] 1 tab PO Q6HR PRN #24 tablet PRN Reason: Moderate Pain Clopidogrel [Plavix] 75 mg PO DAILY #30 tablet Melatonin 3 mg PO HS PRN #30 tablet PRN Reason: Insomnia PredniSONE [Deltasone] 20 mg PO DAILY #7 tablet Home Medications: Albuterol Sulfate [Ventolin Hfa] 2 puff IH Q4H PRN 10/15/16 [History] Amiodarone [Cordarone] 200 mg PO DAILY 10/15/16 [History] Aspirin 81 mg PO DAILY 10/15/16 [History] Furosemide [Lasix] 20 mg PO DAILY 10/15/16 [History] Ipratropium/Albuterol Neb [Duoneb] 3 ml IH TID PRN 10/15/16 [History] Isosorbide MONOnitrate (24 HR) [Imdur] 30 mg PO DAILY 10/15/16 [History] Levothyroxine [Synthroid] 75 mcg PO DAILY 10/15/16 [History] Topiramate [Topamax] 50 mg PO HS 10/15/16 [History] Quetiapine Fumarate [Seroquel] 25 mg PO HS 05/12/17 [History] clonazePAM [Klonopin] 1 mg PO BID 05/12/17 [History] Docusate [Colace] 100 mg PO BID #30 cap 05/19/17 [Rx] Ferrous Sulfate 325 mg PO DAILY #30 tablet. 05/19/17 [Rx] Oxybutynin [Ditropan] 5 mg PO BID 06/02/17 [History] Umeclidinium Brm/Vilanterol Tr [Anoro Ellipta 62.5-25 Mcg INH] 1 each IH DAILY 06/02/17 [History] Fluticasone Propionate Nasal [Flonase] 100 mcg NS DAILY bottle 06/04/17 [Rx] Bisacodyl [Dulcolax] 5 mg PO DAILY PRN 08/23/17 [History] Megestrol Acetate [Megace] 200 mg PO BID 08/23/17 [History] Metoprolol XL (24 HR) Succ [Toprol Xl] 25 mg PO DAILY 08/23/17 [History] Multivitamin [One Daily Multivitamin] 1 each PO DAILY 08/23/17 [History] Nitroglycerin [Nitrostat] 0.4 mg SL Q5M PRN 08/23/17 [History] Tamsulosin [Flomax] 0.4 mg PO DAILY 08/23/17 [History] Atorvastatin [Lipitor] 40 mg PO HS #30 tablet 08/27/17 [Rx] Lisinopril [Zestril] 2.5 mg PO DAILY #30 tablet 08/27/17 [Rx] Sertraline [Zoloft] 100 mg PO DAILY #30 tablet 08/27/17 [Rx] Ticagrelor [Brilinta] 90 mg PO BID #60 tablet 08/27/17 [Rx] Clopidogrel [Plavix] 75 mg PO DAILY #30 tablet 09/14/17 [Rx] GuaiFENesin/Dextromethorphan [Robitussin/Dm] 10 ml PO Q6HR PRN #1 bottle [Rx] HYDROcodone/Acet 5/325 mg [[place] 5-325 mg] 1 tab PO Q6HR PRN #24 tablet [Rx] Melatonin 3 mg PO HS PRN #30 tablet 09/14/17 [Rx] PredniSONE [Deltasone] 20 mg PO DAILY #7 tablet 09/14/17 [Rx] Allergies/Adverse Reactions: 3 Allergy/AdvReac Type Severity Reaction Status Date / Time No Known Allergies Allergy Verified 05/15/17 09:36 Procedures/tests Complete & Pending: Procedures Performed prior 72 hours Category Date Time Status EKG [ECG 12 lead ECG] [ECG] Stat Y 09/13/17 04:17 Ordered Date of admission: 09/08/17 15:36 Primary care physician: Ulices Mcgovern Jr, MD Consults: 09/08/17 17:01 Consult to [facility]kin Band Wrapper [CONS] Routine Reason for SW Consult: discharge planning. Will need ECF per Dr. Hunt 09/08/17 17:32 Consult to Physician [CONS] Routine Consulting Provider: Thom Philippe Reason for Consult: Respiratory failure, COPD Call Completed: No 09/08/17 17:40 Consult to Nutrition [CONS] Routine Comment: Consulting Provider: NUTRITION Reason for Dietary Consult: PO Supplementation 09/09/17 10:01 Consult to Cardiology [CONS] Routine Comment: Consulting Provider: Cardiology Thao Reason for Consult: increasing troponin, ?NSTEMI Time Notified: 10:01 Call Completed: Yes 09/11/17 09:01 Consult to Physical Therapy [CONS] Routine Comment: Evaluate, develop and implement POC Reason for Consult: Decondition. Discharge planning OT [Consult to Occupational Therapy] [CONS] Routine Comment: Evaluate, develop and implement POC Reason for Consult: Decondition. Discharge planning 09/14/17 06:45 Consult to Palliative Care [CONS] Routine Comment: Consulting Provider: Palliative Care Thao Reason for Consult: goals of care; code status - requested by patient's daughter Time Notified: 06:45 Call Completed: No Discharging clinician: Delmy Jimenez Anticipated date of discharge: 09/14/17 - Patient Status Disposition: Transfer SNF Condition: Fair Functional capacity at discharge: independent ambulation Overall status at discharge: patient is progressing back to baseline - Discharge Instructions Follow Up With: Ulices Mcgovern Jr, MD [Primary Care Provider] - 09/22/17 11:00 am () - Diet and Activity Diet: low fat, low cholesterol, other (1.5 L fluid restriction) Interval History: Patient seen this morning. He states that he feels like he is getting back to his normal breathing. He states that he would like to talk to palliative care with his daughter about his current condition and his code status. Hospital course: Mr. Jaimes is a 72 year old male admitted with a three-day history of increasing shortness of breath. He had respiratory distress on admission and was using BiPAP for work of breathing. He has COPD exacerbation based on wheezing, hypoxemia and productive cough. He also had acute on chronic systolic CHF with elevated BNP of 1239. He was treated with IV Lasix, strict I's and O's, IV Solu -Medrol, inhaled duonebs, and IV antibiotics. He improved slowly and his Lasix and steroids were switched to by mouth. He is being discharged to [facility] for rehabilitation due to having some increased difficulty with walking to the bathroom and getting out of bed. He will continue to have PT and OT at rehabilitation. - Time Spent with Patient Total time spent providing and/or coordinating discharge services: - Constitutional Vitals: Temp Pulse Resp BP Pulse Ox 98.8 F 72 15 123/69 98 09/14/17 07:06 09/14/17 07:06 09/14/17 07:43 09/14/17 07:06 09/14/17 07:43 General appearance: Present: A&O X 3, no acute distress, answers questions appropriately - Head Head exam: Present: atraumatic, normocephalic - Eye Eye exam: Present: PERRL, conjuntiva pink, sclera anicteric Pupils: Present: PERRL - Neck Neck exam general surgery: Present: trachea midline - Respiratory Respiratory exam: Present: rhonchi, wheezes. Absent: respiratory distress - Cardiovascular Cardiovascular exam: Present: RRR, +S1, +S2. Absent: diastolic murmur, gallop, rubs, systolic murmur - GI/Abdominal GI/Abdominal exam: Present: normal bowel sounds, soft, no peritoneal signs. Absent: distended, tenderness - Extremities Exam Extremities exam: Present: warm. Absent: pedal edema, tenderness Additional comments: Posterior tibial pulses palpable and symmetric - Neurological Exam Neurological exam: Present: CN II-XII intact, oriented X3, no focal deficits. Absent: pronater drift, facial droop, speech deficit - Skin Skin exam: Present: dry, intact <Yvon Hunt - Last Filed: 09/14/17 19:21> Date of Encounter: 09/14/17 - Discharge Diagnosis (1) CAD (coronary artery disease) Status: Chronic Qualifiers: Coronary Disease-Associated Artery/Lesion type: bypass graft [place] vs. transplanted heart: [place] heart Associated angina: angina presence unspecified Qualified Code(s): I25.810 - Atherosclerosis of coronary artery bypass graft(s) without angina pectoris (2) DVT prophylaxis Status: Acute (3) Tobacco abuse Status: Chronic (4) Acute and chronic respiratory failure Status: Acute Qualifiers: Respiratory failure complication: hypoxia Qualified Code(s): J96.21 - Acute and chronic respiratory failure with hypoxia (5) Protein-calorie malnutrition, severe Status: Acute (6) Elevated troponin Status: Acute (7) COPD exacerbation Status: Ruled-out (8) Respiratory distress Status: Resolved (9) SIRS (systemic inflammatory response syndrome) Status: Resolved (10) Acute on chronic systolic CHF (congestive heart failure) Status: Acute Procedures/tests Complete & Pending: Procedures Performed prior 72 hours Category Date Time Status EKG [ECG 12 lead ECG] [ECG] Stat Y 09/13/17 04:17 Completed Date of admission: 09/08/17 15:36 Primary care physician: Ulices Mcgovern Jr, MD Consults: 09/08/17 17:01 Consult to [facility] Wrapper [CONS] Routine Reason for SW Consult: discharge planning. Will need ECF per Dr. Hunt 09/08/17 17:32 Consult to Physician [CONS] Routine Consulting Provider: Thom Philippe Reason for Consult: Respiratory failure, COPD Call Completed: No 09/08/17 17:40 Consult to Nutrition [CONS] Routine Comment: Consulting Provider: NUTRITION Reason for Dietary Consult: PO Supplementation 09/09/17 10:01 Consult to Cardiology [CONS] Routine Comment: Consulting Provider: Cardiology Thao Reason for Consult: increasing troponin, ?NSTEMI Time Notified: 10:01 Call Completed: Yes 09/11/17 09:01 Consult to Physical Therapy [CONS] Routine Comment: Evaluate, develop and implement POC Reason for Consult: Decondition. Discharge planning OT [Consult to Occupational Therapy] [CONS] Routine Comment: Evaluate, develop and implement POC Reason for Consult: Decondition. Discharge planning 09/14/17 06:45 Consult to Palliative Care [CONS] Routine Comment: Consulting Provider: Palliative Care Thao Reason for Consult: goals of care; code status - requested by patient's daughter Time Notified: 06:45 Call Completed: No Hospital course: Mr. Jaimes is a 72 year old male - Time Spent with Patient Total time spent providing and/or coordinating discharge services: - Constitutional Vitals: Temp Pulse Resp BP Pulse Ox 98.8 F 82 14 100/69 97 09/14/17 11:32 09/14/17 11:32 09/14/17 11:32 09/14/17 11:32 09/14/17 11:32 - Attending Attestation I conducted a face to face diagnostic evaluation of this patient and my medical decision-making was reviewed with the Resident Physician, Dr Delmy Jimenez. I agree with the documented findings, disposition and treatment plan as described except to the extent set forth below: Patient is in no acute distress awake alert oriented. Heart is regular. Lungs are generally clear with some scattered crackles. Plan: We will discharge to the long-term. The CODE STATUS was confirmed with family and patient as DNR CCA. Yvon Hunt MD
--- NOTE | 2017-09-14 10:59 | Physician Discharge Referral ---
ExtendedCare Referral Info Transfer To: [facility] Provider in Charge after Transfer: PCP Institutional Level of Care: Skilled - Diagnosis (1) Acute and chronic respiratory failure Priority: Primary Status: Acute (2) Acute on chronic systolic CHF (congestive heart failure) Priority: Primary Status: Acute (3) Iron deficiency anemia Priority: Secondary Status: Chronic (4) COPD (chronic obstructive pulmonary disease) with emphysema Priority: Secondary Status: Acute (5) CAD (coronary artery disease) Priority: Secondary Status: Chronic (6) Elevated troponin Priority: Secondary Status: Acute (7) SIRS (systemic inflammatory response syndrome) Priority: Secondary Status: Resolved (8) Protein-calorie malnutrition, severe Priority: Secondary Status: Acute (9) Physical deconditioning Priority: Secondary Status: Acute (10) Goals of care, counseling/discussion Priority: Secondary Status: Acute (11) Body mass index (BMI) of 19 or less in adult Priority: Secondary Status: Chronic (12) Tobacco abuse Priority: Secondary Status: Chronic (13) Respiratory distress Priority: Secondary Status: Resolved (14) COPD exacerbation Priority: Secondary Status: Ruled-out Prognosis: Fair Aware of Diagnosis: Patient, Family Aware of Prognosis: Patient, Family - Transfer Medications Prescriptions: GuaiFENesin/Dextromethorphan [Robitussin/Dm] 10 ml PO Q6HR PRN #1 bottle PRN Reason: Cough HYDROcodone/Acet 5/325 mg [[place] 5-325 mg] 1 tab PO Q6HR PRN #24 tablet PRN Reason: Moderate Pain Clopidogrel [Plavix] 75 mg PO DAILY #30 tablet Melatonin 3 mg PO HS PRN #30 tablet PRN Reason: Insomnia PredniSONE [Deltasone] 20 mg PO DAILY #7 tablet Home Medications: Albuterol Sulfate [Ventolin Hfa] 2 puff IH Q4H PRN 10/15/16 [History] Amiodarone [Cordarone] 200 mg PO DAILY 10/15/16 [History] Aspirin 81 mg PO DAILY 10/15/16 [History] Furosemide [Lasix] 20 mg PO DAILY 10/15/16 [History] Ipratropium/Albuterol Neb [Duoneb] 3 ml IH TID PRN 10/15/16 [History] Isosorbide MONOnitrate (24 HR) [Imdur] 30 mg PO DAILY 10/15/16 [History] Levothyroxine [Synthroid] 75 mcg PO DAILY 10/15/16 [History] Topiramate [Topamax] 50 mg PO HS 10/15/16 [History] Quetiapine Fumarate [Seroquel] 25 mg PO HS 05/12/17 [History] clonazePAM [Klonopin] 1 mg PO BID 05/12/17 [History] Docusate [Colace] 100 mg PO BID #30 cap 05/19/17 [Rx] Ferrous Sulfate 325 mg PO DAILY #30 tablet. 05/19/17 [Rx] Oxybutynin [Ditropan] 5 mg PO BID 06/02/17 [History] Umeclidinium Brm/Vilanterol Tr [Anoro Ellipta 62.5-25 Mcg INH] 1 each IH DAILY 06/02/17 [History] Fluticasone Propionate Nasal [Flonase] 100 mcg NS DAILY bottle 06/04/17 [Rx] Bisacodyl [Dulcolax] 5 mg PO DAILY PRN 08/23/17 [History] Megestrol Acetate [Megace] 200 mg PO BID 08/23/17 [History] Metoprolol XL (24 HR) Succ [Toprol Xl] 25 mg PO DAILY 08/23/17 [History] Multivitamin [One Daily Multivitamin] 1 each PO DAILY 08/23/17 [History] Nitroglycerin [Nitrostat] 0.4 mg SL Q5M PRN 08/23/17 [History] Tamsulosin [Flomax] 0.4 mg PO DAILY 08/23/17 [History] Atorvastatin [Lipitor] 40 mg PO HS #30 tablet 08/27/17 [Rx] Lisinopril [Zestril] 2.5 mg PO DAILY #30 tablet 08/27/17 [Rx] Sertraline [Zoloft] 100 mg PO DAILY #30 tablet 08/27/17 [Rx] Ticagrelor [Brilinta] 90 mg PO BID #60 tablet 08/27/17 [Rx] Clopidogrel [Plavix] 75 mg PO DAILY #30 tablet 09/14/17 [Rx] GuaiFENesin/Dextromethorphan [Robitussin/Dm] 10 ml PO Q6HR PRN #1 bottle [Rx] HYDROcodone/Acet 5/325 mg [[place] 5-325 mg] 1 tab PO Q6HR PRN #24 tablet [Rx] Melatonin 3 mg PO HS PRN #30 tablet 09/14/17 [Rx] PredniSONE [Deltasone] 20 mg PO DAILY #7 tablet 09/14/17 [Rx] Allergies/Adverse Reactions: 3 Allergy/AdvReac Type Severity Reaction Status Date / Time No Known Allergies Allergy Verified 05/15/17 09:36 - Respiratory Orders Oxygen / L per min (3) Smoking Cessation: Smoking cessation has been advised. For more information, call the [place] [employer] Quit Line at 2-955-YNGK-NOW. - Advance Directives Code Status: DNR-Arrest - Mobility Orders Ambulate - Rehabiliation Orders Rehab Potential: Good - Diet Orders No Concentrated Sweets (1.5 L fluid restriction) CERTIFICATION: I certify that the transfer of the above named patient to an Extended Care Facility is necessary for the continuing treatment of the diagnosis listed. The above information is true and accurate reflection of patient's current condition. Confidential - Redisclosure prohibited without a patient's written consent.
[2017-09-14 11:36] VITALS: BP 100/69
--- NOTE | 2017-09-14 12:28 | Palliative - Consult Note ---
Date of Encounter: 09/14/17 Time of Encounter: 11:35 - Assessment and Plan (1) Dyspnea Current Visit: Yes Status: Acute Assessment and plan: Has improved greatly since admission with treatment for CHF/resp failure. Continue with steroids, O2/bipap PRN. Bronchodilators. Antibiotics have been stopped. Qualifiers: Dyspnea type: unspecified Qualified Code(s): R06.00 - Dyspnea, unspecified (2) Counseling regarding advanced care planning and goals of care Current Visit: Yes Status: Acute Assessment and plan: Long discussion with pt and his daughter, Kay (POA) regarding goals of care. They desired to discussed code status after speaking with wax molder last week regarding his lung disease. After discussion, pt desires DNR/Arrest status , with no CPR for a cardiac arrest. 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 DNR -Arrest order written and pt signed state form. Patient is aware that if he would continue to decline, or condition deteriorate, he could transition to comfort care, and explained what care would then be provided. Discussed de-activation of AICD with pt/daughter, and they are aware that if his is immanent, they can request the defib be turned off. Both patient and daughter verbalized understanding. He desires to go to rehabiliation with the goal of improving breathing and strength. Daughter is working on getting him assisted living arranged after rehab. D/W social worked who is referring to [facility] per pt request. He may be discharged later today. Palliative-CN HPI - Data of Consult Consult date: 09/14/17 Requesting Physician: Yvon Hunt MD Primary Care Provider: Ulices Mcgovern Jr, MD - Consult Narrative History of present illness: Mr. Jaimes is a 72 year old male with PMH of CAD s/p CABG in 1990s, ICMP EF 30%, most recently 40%--ICD in place, COPD, tobacco abuse, PAD, s/p AAA repair, PAT, VT on amiodarone that presented to ED with worsening shortness of breath over the past several weeks. He stopped smoking r/t his severe shortness of breath. Has previous history of noncompliance, however, does state he has been compliant with medications and diet. He has AICD, but states this has not discharged. He has bullous emphysema, and pulmonology has been following pt as well. Upon my visit, he is up in chair. Daughter, Kay (NAZARIO) is at the bedside. He denies complaints except for hip pain, cough, and shortness of breath with any exertion, but states overall, he is feeling much better. CC: Yvon Hunt MD Past Med Surg Social Fam HX - Past Medical History Medical history: aortic aneurysm, cancer, COPD, coronary artery disease, GERD, hyperlipidemia, hypertension, myocardial infarction, thyroid disease, other Psychiatric history: anxiety, depression - Past Surgical History Surgical History: cancer surgery, coronary bypass (CABG), vasectomy - Social History Smoking Status: Current every day smoker Smokeless Tobacco Status: No Alcohol use: none Drug use: none Medications and Allergies Albuterol Sulfate [Ventolin Hfa] 2 puff IH Q4H PRN 10/15/16 [History] Amiodarone [Cordarone] 200 mg PO DAILY 10/15/16 [History] Aspirin 81 mg PO DAILY 10/15/16 [History] Furosemide [Lasix] 20 mg PO DAILY 10/15/16 [History] Ipratropium/Albuterol Neb [Duoneb] 3 ml IH TID PRN 10/15/16 [History] Isosorbide MONOnitrate (24 HR) [Imdur] 30 mg PO DAILY 10/15/16 [History] Levothyroxine [Synthroid] 75 mcg PO DAILY 10/15/16 [History] Topiramate [Topamax] 50 mg PO HS 10/15/16 [History] Quetiapine Fumarate [Seroquel] 25 mg PO HS 05/12/17 [History] clonazePAM [Klonopin] 1 mg PO BID 05/12/17 [History] Docusate [Colace] 100 mg PO BID #30 cap 05/19/17 [Rx] Ferrous Sulfate 325 mg PO DAILY #30 tablet. 05/19/17 [Rx] Oxybutynin [Ditropan] 5 mg PO BID 06/02/17 [History] Umeclidinium Brm/Vilanterol Tr [Anoro Ellipta 62.5-25 Mcg INH] 1 each IH DAILY 06/02/17 [History] Fluticasone Propionate Nasal [Flonase] 100 mcg NS DAILY bottle 06/04/17 [Rx] Bisacodyl [Dulcolax] 5 mg PO DAILY PRN 08/23/17 [History] Megestrol Acetate [Megace] 200 mg PO BID 08/23/17 [History] Metoprolol XL (24 HR) Succ [Toprol Xl] 25 mg PO DAILY 08/23/17 [History] Multivitamin [One Daily Multivitamin] 1 each PO DAILY 08/23/17 [History] Nitroglycerin [Nitrostat] 0.4 mg SL Q5M PRN 08/23/17 [History] Tamsulosin [Flomax] 0.4 mg PO DAILY 08/23/17 [History] Atorvastatin [Lipitor] 40 mg PO HS #30 tablet 08/27/17 [Rx] Lisinopril [Zestril] 2.5 mg PO DAILY #30 tablet 08/27/17 [Rx] Sertraline [Zoloft] 100 mg PO DAILY #30 tablet 08/27/17 [Rx] Ticagrelor [Brilinta] 90 mg PO BID #60 tablet 08/27/17 [Rx] Clopidogrel [Plavix] 75 mg PO DAILY #30 tablet 09/14/17 [Rx] GuaiFENesin/Dextromethorphan [Robitussin/Dm] 10 ml PO Q6HR PRN #1 bottle [Rx] HYDROcodone/Acet 5/325 mg [[place] 5-325 mg] 1 tab PO Q6HR PRN #24 tablet [Rx] Melatonin 3 mg PO HS PRN #30 tablet 09/14/17 [Rx] PredniSONE [Deltasone] 20 mg PO DAILY #7 tablet 09/14/17 [Rx] 3 Allergy/AdvReac Type Severity Reaction Status Date / Time No Known Allergies Allergy Verified 05/15/17 09:36 All systems: reviewed and no additional remarkable complaints except as stated ( moist cough, shortness of breath with exertion, decreased appetite, right hip pain.) Palliative Care-Exam - Constitutional Vitals: Temp Pulse Resp BP Pulse Ox 98.8 F 82 14 100/69 97 09/14/17 11:32 09/14/17 11:32 09/14/17 11:32 09/14/17 11:32 09/14/17 11:32 General appearance: Present: no acute distress - Head Head Exam: Present: normal inspection, normocephalic - Eye Eye exam: Present: normal appearance, PERRL - Respiratory Respiratory exam: Present: decreased breath sounds, CTAB Additional comments: Occasional rhonchi. - Cardiovascular Cardiovascular exam: Present: +S1, +S2 - GI/Abdominal Exam GI/Abdominal exam: Present: normal bowel sounds, soft - Extremities Exam Extremities exam: Present: normal capillary refill, normal inspection - Neurological Exam Neurological exam: Present: alert, oriented X3, strengths equal and symetr throughout - Psychiatric Psychiatric exam: Present: normal affect, normal mood - Skin Skin exam: Present: dry, pallor, warm Internal Medicine - CN: Reslt - Labs CBC & Chem 7: 09/14/17 04:12 09/14/17 04:12 Labs: Short CBC 09/14/17 Range/Units 04:12 WBC 12.4 H (4.3-11.1) K/mcL Hgb 10.6 L (12.9-16.9) g/dL Hct 33.4 L (37.5-50.1) % Plt Count 200 (140-400) K/mcL Neutrophils # 11.0 H (1.6-8.9) K/mcL BMP 09/14/17 04:12 Sodium 140 Potassium 4.6 Chloride 108 H Carbon Dioxide 25 BUN 38 H Creatinine 1.20 Glucose 119 H Calcium 9.2 Cardiac Enzymes 09/13/17 Range/Units 16:02 Troponin I 0.43 H* (< 0.04) ng/mL - ABG Interpretation ABG results: PT/INR, D-dimer PT 15.6 Seconds (9.4-12.1) H 09/08/17 13:30 Consult Discharge Plan - Plan Referrals: Ulices Mcgovern Jr, MD [Primary Care Provider] - 09/22/17 11:00 am () Prescriptions: GuaiFENesin/Dextromethorphan [Robitussin/Dm] 10 ml PO Q6HR PRN #1 bottle PRN Reason: Cough HYDROcodone/Acet 5/325 mg [[place] 5-325 mg] 1 tab PO Q6HR PRN #24 tablet PRN Reason: Moderate Pain Clopidogrel [Plavix] 75 mg PO DAILY #30 tablet Melatonin 3 mg PO HS PRN #30 tablet PRN Reason: Insomnia PredniSONE [Deltasone] 20 mg PO DAILY #7 tablet Palliative Quality Palliative Quality: Screen for Code Status: Yes, Screen for Goals of Care: Yes, Screen for Pain: Yes, If Pain Regimen Started, Initiate Bowel Regimen: NA, Screen for Nausea/Vomitting: Yes Code Status: 09/08/17 15:44 Resuscitation Status: Active [RES] Routine Comment: Resuscitation Status: Full Code 09/14/17 11:15 DNR [Resuscitation Status: Active] [RES] Routine Comment: Resuscitation Status: DNR-Comfort Care-Arrest
--- NOTE | 2017-09-14 16:47 | Electrocardiograph Report ---
[place] [address] Test Date: 2017-09-13 Pat Name: Justen Jamies Department: 110 Room: 2N08 Gender: M Ocular Care Aide: LINDA : 1945 Requested By: Tegan Mathis Order Number: [id number] Reading MD: Mina Armijo MD Measurements Intervals [place] Rate: 91 P: 59 [place]: 162 QRS: 63 QRSD: 107 T: 1 QT: 361 QTc: 410 Interpretive Statements SINUS RHYTHM Electronically Signed On 09-14-2017 16:46:00 EST by Mina Armijo MD
[2017-09-15] MEDS ORDERED: *HR* OxyCODONE/APAP 5/325 TABLET PO ONE
== END 2017-09-14 17:35 | DRG 291 ==
LOC: EMEROO 12:46 → SUATTDRO 15:36 → 2NNU 15:36
PROVIDERS: ADMIT Internal Medicine; ATTEND Internal Medicine

== ENCOUNTER 2017-10-06 14:16 | Inpatient (IN) ==
--- NOTE | 2017-10-06 15:30 | Emergency Department Note ---
Disposition Clinical Impression: History of pressure ulcer Hypotension Qualifiers: Hypotension type: other hypotension type Qualified Code(s): I95.89 - Other hypotension Diarrhea Qualifiers: Diarrhea type: presumed infectious Qualified Code(s): R19.7 - Diarrhea, unspecified Disposition: Admitted As Inpatient Condition: Fair Time of Disposition: 20:00 General Adult HPI - General Chief complaint: ED Nausea/Vomiting/Diarrhea Stated complaint: Hypotension; diarrhea Time Seen by Provider: 10/06/17 14:20 Source: patient Limitations: no limitations Nursing Notes Reviewed: Yes Vital Signs Reviewed: Yes - History of Present Illness HPI Narrative: 72-year-old male brought in from [facility] for hypotension and diarrhea ( past 2 weeks). Patient has abdominal discomfort that he rates 3/10 after he eats and has bowel movements up to 5 day, but pain 1/10 currently. Diarrhea he reports is loose, yellow in color, strong odor and copious. Patient finds it difficult to describe the character of his discomfort. Patient has a history of aortic aneurysm status post surgery and has been stable and follow-ups. 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 Patient has no recent fevers but had recorded fevers one week ago of 101 degrees Fahrenheit. Pain Scale: 4 - Related Data Home Medications Medication Instructions Recorded Confirmed Albuterol Sulfate [Ventolin Hfa] 2 puff IH Q4H PRN 10/15/16 10/06/17 Amiodarone [Cordarone] 200 mg PO DAILY 10/15/16 10/06/17 Aspirin 81 mg PO DAILY 10/15/16 10/06/17 Furosemide [Lasix] 20 mg PO DAILY 10/15/16 10/06/17 Ipratropium/Albuterol Neb [Duoneb] 3 ml IH TID PRN 10/15/16 10/06/17 Isosorbide MONOnitrate (24 HR) 30 mg PO DAILY 10/15/16 10/06/17 [Imdur] Levothyroxine [Synthroid] 75 mcg PO DAILY 10/15/16 10/06/17 Topiramate [Topamax] 50 mg PO HS 10/15/16 10/06/17 Quetiapine Fumarate [Seroquel] 25 mg PO HS 05/12/17 10/06/17 clonazePAM [Klonopin] 1 mg PO BID 05/12/17 10/06/17 Oxybutynin [Ditropan] 5 mg PO BID 06/02/17 10/06/17 Umeclidinium Brm/Vilanterol Tr 1 each IH DAILY 06/02/17 10/06/17 [Anoro Ellipta 62.5-25 Mcg INH] Bisacodyl [Dulcolax] 5 mg PO DAILY PRN 08/23/17 10/06/17 Megestrol Acetate [Megace] 200 mg PO BID 08/23/17 10/06/17 Multivitamin [One Daily 1 each PO DAILY 08/23/17 10/06/17 Multivitamin] Nitroglycerin [Nitrostat] 0.4 mg SL Q5M PRN 08/23/17 10/06/17 Tamsulosin [Flomax] 0.4 mg PO DAILY 08/23/17 10/06/17 Diphenoxylate/Atropine [Lomotil 1 each PO QID PRN 10/06/17 10/06/17 2.5 mg/0.025 mg] Hydroguard Cream 1 appl TP DAILY 10/06/17 10/06/17 Loperamide HCl [Imodium A-D] 2 mg PO QID PRN 10/06/17 10/06/17 Na Phos,M-B/Na Phos,Di-Ba [Fleet 230 ml RC DAILY PRN 10/06/17 10/06/17 Enema Extra] Ondansetron HCl [Zofran] 4 mg PO Q8H PRN 10/06/17 10/06/17 Previous Rx's Medication Instructions Recorded Docusate [Colace] 100 mg PO BID #30 cap 05/19/17 Ferrous Sulfate 325 mg PO DAILY #30 tablet. 05/19/17 Fluticasone Propionate Nasal 100 mcg NS DAILY bottle 06/04/17 [Flonase] Atorvastatin [Lipitor] 40 mg PO HS #30 tablet 08/27/17 Sertraline [Zoloft] 100 mg PO DAILY #30 tablet 08/27/17 Ticagrelor [Brilinta] 90 mg PO BID #60 tablet 08/27/17 GuaiFENesin/Dextromethorphan 10 ml PO Q6HR PRN #1 bottle 09/14/17 [Robitussin/Dm] HYDROcodone/Acet 5/325 mg [[place] 1 tab PO Q6HR PRN #24 tablet 09/14/17 5-325 mg] Melatonin 3 mg PO HS PRN #30 tablet 09/14/17 PredniSONE [Deltasone] 20 mg PO DAILY #7 tablet 09/14/17 Allergies Allergy/AdvReac Type Severity Reaction Status Date / Time No Known Allergies Allergy Verified 05/15/17 09:36 All systems ED: reviewed and negative except as stated. Review of Systems: As Per HPI Constitutional: Reports: weakness ENT ED: Denies: congestion Cardiovascular: Denies: chest pain, palpitations Respiratory: Denies: cough, dyspnea, wheezes Gastrointestinal: Reports: abdominal pain, diarrhea. Denies: nausea, vomiting Genitourinary: Denies: urgency, dysuria Musculoskeletal: Denies: back pain Past Medical History - Past Medical History Attestation: Yes The following information was validated with the patient. Source: patient, nursing notes reviewed Medical history: Reports: aortic aneurysm, cancer, COPD, coronary artery disease , GERD, hyperlipidemia, hypertension, myocardial infarction, thyroid disease, other Surgical history: Reports: cancer surgery, coronary bypass (CABG), vasectomy Psychiatric history: Reports: anxiety, depression - Social History Smoking Status: Former smoker Smokeless Tobacco Status: No Alcohol use: Reports: none Drug use: Reports: none Physical Exam Vital Signs Temperature 97.5 F L 10/06/17 14:19 Pulse Rate 106 10/06/17 14:19 Respiratory Rate 16 10/06/17 14:19 Blood Pressure 85/58 10/06/17 14:19 O2 Sat by Pulse Oximetry 97 10/06/17 14:19 Temperature 97.5 F L 10/06/17 14:19 Pulse Rate 101 10/06/17 15:37 Respiratory Rate 22 10/06/17 15:37 Blood Pressure 84/63 10/06/17 15:37 O2 Sat by Pulse Oximetry 100 10/06/17 15:37 Oxygen Delivery Oxygen Delivery Room Air 72-year-old male who is alert and oriented 3 and appears to be in some distress secondary to appearing very fatigued and anxious. Patient has mild pallor with a hx of chronic anemia. Patient is afebrile but tachycardic at 106 beats minute, hypotensive 85/58. O2 sat 97 - General Limitations: no limitations General appearance: alert, in no apparent distress - Head Head exam: other (Patient has lesion removal on top of head secondary to basal cell carcinoma) - Eye Eye exam: Present: normal appearance, PERRL, EOMI - ENT ENT exam: normal exam, normal oropharynx, mucous membranes dry - Neck Neck exam: Present: normal inspection, full ROM, trachea midline - Cardiovascular Cardiovascular exam: Present: tachycardia - Abdominal Exam Abdominal exam: Present: soft, Non-Tender. Absent: tenderness, distention, guarding, rebound, rigidity - Extremities Exam Extremities exam: Present: normal inspection, full ROM. Absent: tenderness, pedal edema - Back Exam Back exam: Present: normal inspection, full ROM, tenderness (right posterior pelvis small area of erythema (pressure ulcer stage 1)). Absent: CVA tenderness (R), CVA tenderness (L) - Neurological Exam Neurological exam: Present: alert, oriented X3 - Skin Skin exam: Present: warm, dry, intact, pallor Course Vital Signs Temperature 97.5 F L 10/06/17 14:19 Pulse Rate 106 10/06/17 14:19 Respiratory Rate 16 10/06/17 14:19 Blood Pressure 85/58 10/06/17 14:19 O2 Sat by Pulse Oximetry 97 10/06/17 14:19 Temperature 97.7 F 10/07/17 07:13 Pulse Rate 86 10/07/17 07:13 Respiratory Rate 18 10/07/17 10:45 Blood Pressure 119/80 10/07/17 07:13 O2 Sat by Pulse Oximetry 98 10/07/17 10:45 Oxygen Delivery Oxygen Delivery Room Air Medical Decision Making - [facility] Narrative Medical decision making narrative: Diarrhea concerning for C. difficile infection, need to r/o out systemic infection for sepsis. Patient also has a history of end-stage COPD and chronic lung infections the lung sounds are clear to auscultation today. 1641: Reevaluation after 400 mL of IV fluid blood pressure 96/63. Patient states he is starting to feel better. We will continue to reassess. Patient has a positive troponin of 0.11 but this is lower than previous occurrence which was 0.43 and has no chest pain. EKG is nonischemic sinus tach Patient's hemoglobin is low but around patient's baseline of anemia CXR MPRESSION: Per radiology. New patchy left basilar airspace disease. This could represent pneumonia and is superimposed upon severe emphysema, parenchymal scarring and bronchiectasis particularly in the right upper lung. Looking [id number] comparison with patient's previous chest x-ray today's chest x-ray actually looks better than previous. Patient currently has lung sounds clear to auscultation bilaterally without wheezing rhonchi upper and lower lung hammonds. 1720 hrs. patient states he is feeling increasingly better. Patient's blood pressure 96/53 still receiving IV fluid hydration. Check patient's posterior pelvis secondary to complaints of soreness. Patient has a flesh-colored bandage covering a stage I pressure sore. No ulceration just mild erythema over bony prominence. 1727 hrs.: Awaiting chemistry panel of labs for patient disposition. Just spoke to lab who states they have to redraw. They notified the guest service host but did not notify the care team. 1755 hrs.: Patient's chemistry panel has resulted and patient has no abnormal Kidney function and has been taken for CT abdomen. Ct abdomen and pelvis was unremarkable for acute abdominal pathology. Reexamination the patient: Patient's blood pressure is 112/69 after 1.5 L IV normal saline. Patient currently comfortable. Patient accepts decision for admission. Dr. Walker the hospitalist has accepted the patient for admission. He asked the patient be started on maintenance fluids of 100 mL per hour. Orders has been placed. - Lab Data Lab results reviewed: Yes I reviewed the patient's lab results. Lab results narrative: Short CBC 10/06/17 Range/Units 15:36 WBC 11.0 (4.3-11.1) K/mcL Hgb 9.9 L (12.9-16.9) g/dL Hct 30.3 L (37.5-50.1) % Plt Count 216 (140-400) K/mcL Neutrophils # 10.4 H (1.6-8.9) K/mcL BMP 10/06/17 Range/Units 17:10 Sodium 132 L (136-145) mEq/L Potassium 3.8 (3.5-5.1) mEq/L Chloride 102 (98-107) mEq/L Carbon Dioxide 25 (23-29) mEq/L BUN 20 (8-23) mg/dL Creatinine 1.15 (0.70-1.30) mg/dL Glucose 126 H (70-105) mg/dL Calcium 8.1 L (8.6-10.3) mg/dL Cardiac Enzymes 10/06/17 Range/Units 15:36 Troponin I 0.11 H* (< 0.04) ng/mL Liver Function 10/06/17 Range/Units 17:10 Total Bilirubin 0.5 (0.3-1.0) mg/dL Direct Bilirubin 0.2 (0.0-0.2) mg/dL AST 13 (13-39) Units/L ALT 18 (7-52) Units/L Alkaline Phosphatase 49 (34-104) Units/L Albumin 2.3 L (3.5-5.7) g/dL Urine 10/06/17 Range/Units 16:44 Urine Color Yellow (Yellow) Urine Clarity Clear (Clear) Urine pH 7.0 (5.0-8.0) pH Units Ur Specific [place] 1.015 (1.010-1.025) Urine Protein Negative (Neg-Trace) mg/dL Urine Glucose (UA) Normal (Normal) mg/dL Result diagrams: 10/07/17 05:01 10/07/17 05:01 Lab Results 10/06/17 10/06/17 10/06/17 Range/Units 15:36 15:36 15:36 WBC 11.0 (4.3-11.1) K/mcL RBC 3.42 L (4.19-5.50) M/mcL Hgb 9.9 L (12.9-16.9) g/dL Hct 30.3 L (37.5-50.1) % MCV 88.6 (83.0-100.0) fL MCH 28.9 (28.0-33.3) pg MCHC 32.7 (31.6-35.5) g/dL RDW 17.0 H (11.5-14.5) % Plt Count 216 (140-400) K/mcL MPV 9.8 (9.4-12.4) fL Immature Gran % 0.5 (0-4) % Seg Neutrophils % 94.3 % Lymphocytes % 2.6 % Monocytes % 2.4 % Eosinophils % 0.1 % Basophils % 0.1 % Neutrophils # 10.4 H (1.6-8.9) K/mcL Lymphocytes # 0.3 L (0.6-4.6) K/mcL Monocytes # 0.3 (0.0-1.3) K/mcL Eosinophils # 0.0 (0.0-0.6) K/mcL Basophils # 0.0 (0.0-0.2) K/mcL Immature Plt Fraction (1.1-6.1) % PT 14.1 H (9.4-12.1) Seconds INR 1.3 APTT 28.7 (26.0-36.0) Seconds D-Dimer (0-500) ng/mLFEU Sodium (136-145) mEq/L Potassium (3.5-5.1) mEq/L Chloride (98-107) mEq/L Carbon Dioxide (23-29) mEq/L BUN (8-23) mg/dL Creatinine (0.70-1.30) mg/dL Est GFR ( Amer) (> 60) Est GFR (Non-Af Amer) (> 60) BUN/Creatinine Ratio (6-26) Glucose (70-105) mg/dL Calculated Osmolality (280-300) Lactic Acid (0.5-2.2) mmol/L Calcium (8.6-10.3) mg/dL Phosphorus (2.7-4.5) mg/dL Magnesium (1.6-2.6) mg/dL Total Bilirubin (0.3-1.0) mg/dL Direct Bilirubin (0.0-0.2) mg/dL Indirect Bilirubin (0.0-1.2) mg/dL AST (13-39) Units/L ALT (7-52) Units/L Alkaline Phosphatase (34-104) Units/L Troponin I 0.11 H* (< 0.04) ng/mL Serum Total Protein (6.4-8.9) g/dL Albumin (3.5-5.7) g/dL Globulin (2.4-3.5) g/dL Albumin/Globulin Ratio (1.1-2.2) Lipase (11-82) Units/L Urine Color (Yellow) Urine Clarity (Clear) Urine pH (5.0-8.0) pH Units Ur Specific [place] (1.010-1.025) Urine Protein (Neg-Trace) mg/dL Urine Glucose (UA) (Normal) mg/dL Urine Ketones (Negative) mg/dL Urine Blood (Negative) Urine Nitrite (Negative) Urine Bilirubin (Negative) Urine Urobilinogen (Normal) mg/dL Ur Leukocyte Esterase (Negative) Ur Culture Indicated? (NO) Specimen Rejected 10/06/17 10/06/17 10/06/17 Range/Units 16:08 16:14 16:44 WBC (4.3-11.1) K/mcL RBC (4.19-5.50) M/mcL Hgb (12.9-16.9) g/dL Hct (37.5-50.1) % MCV (83.0-100.0) fL MCH (28.0-33.3) pg MCHC (31.6-35.5) g/dL RDW (11.5-14.5) % Plt Count (140-400) K/mcL MPV (9.4-12.4) fL Immature Gran % (0-4) % Seg Neutrophils % % Lymphocytes % % Monocytes % % Eosinophils % % Basophils % % Neutrophils # (1.6-8.9) K/mcL Lymphocytes # (0.6-4.6) K/mcL Monocytes # (0.0-1.3) K/mcL Eosinophils # (0.0-0.6) K/mcL Basophils # (0.0-0.2) K/mcL Immature Plt Fraction (1.1-6.1) % PT (9.4-12.1) Seconds INR APTT (26.0-36.0) Seconds D-Dimer (0-500) ng/mLFEU Sodium (136-145) mEq/L Potassium (3.5-5.1) mEq/L Chloride (98-107) mEq/L Carbon Dioxide (23-29) mEq/L BUN (8-23) mg/dL Creatinine (0.70-1.30) mg/dL Est GFR ( Amer) (> 60) Est GFR (Non-Af Amer) (> 60) BUN/Creatinine Ratio (6-26) Glucose (70-105) mg/dL Calculated Osmolality (280-300) Lactic Acid 1.8 (0.5-2.2) mmol/L Calcium (8.6-10.3) mg/dL Phosphorus (2.7-4.5) mg/dL Magnesium (1.6-2.6) mg/dL Total Bilirubin (0.3-1.0) mg/dL Direct Bilirubin (0.0-0.2) mg/dL Indirect Bilirubin (0.0-1.2) mg/dL AST (13-39) Units/L ALT (7-52) Units/L Alkaline Phosphatase (34-104) Units/L Troponin I (< 0.04) ng/mL Serum Total Protein (6.4-8.9) g/dL Albumin (3.5-5.7) g/dL Globulin (2.4-3.5) g/dL Albumin/Globulin Ratio (1.1-2.2) Lipase (11-82) Units/L Urine Color Yellow (Yellow) Urine Clarity Clear (Clear) Urine pH 7.0 (5.0-8.0) pH Units Ur Specific [place] 1.015 (1.010-1.025) Urine Protein Negative (Neg-Trace) mg/dL Urine Glucose (UA) Normal (Normal) mg/dL Urine Ketones Negative (Negative) mg/dL Urine Blood Negative (Negative) Urine Nitrite Negative (Negative) Urine Bilirubin Negative (Negative) Urine Urobilinogen Normal (Normal) mg/dL Ur Leukocyte Esterase Negative (Negative) Ur Culture Indicated? NO (NO) Specimen Rejected Hemolyzed 10/06/17 10/06/17 10/06/17 Range/Units 17:10 20:41 20:41 WBC 7.0 (4.3-11.1) K/mcL RBC 2.90 L (4.19-5.50) M/mcL Hgb 8.2 L D (12.9-16.9) g/dL Hct 25.8 L (37.5-50.1) % MCV 89.0 (83.0-100.0) fL MCH 28.3 (28.0-33.3) pg MCHC 31.8 (31.6-35.5) g/dL RDW 16.8 H (11.5-14.5) % Plt Count 210 (140-400) K/mcL MPV 9.5 (9.4-12.4) fL Immature Gran % (0-4) % Seg Neutrophils % % Lymphocytes % % Monocytes % % Eosinophils % % Basophils % % Neutrophils # (1.6-8.9) K/mcL Lymphocytes # (0.6-4.6) K/mcL Monocytes # (0.0-1.3) K/mcL Eosinophils # (0.0-0.6) K/mcL Basophils # (0.0-0.2) K/mcL Immature Plt Fraction 1.3 (1.1-6.1) % PT 14.7 H (9.4-12.1) Seconds INR 1.4 APTT 30.5 (26.0-36.0) Seconds D-Dimer 2413 H (0-500) ng/mLFEU Sodium 132 L (136-145) mEq/L Potassium 3.8 (3.5-5.1) mEq/L Chloride 102 (98-107) mEq/L Carbon Dioxide 25 (23-29) mEq/L BUN 20 (8-23) mg/dL Creatinine 1.15 (0.70-1.30) mg/dL Est GFR ( Amer) > 60 (> 60) Est GFR (Non-Af Amer) > 60 (> 60) BUN/Creatinine Ratio 17 (6-26) Glucose 126 H (70-105) mg/dL Calculated Osmolality 278 L (280-300) Lactic Acid (0.5-2.2) mmol/L Calcium 8.1 L (8.6-10.3) mg/dL Phosphorus 2.9 (2.7-4.5) mg/dL Magnesium 1.5 L (1.6-2.6) mg/dL Total Bilirubin 0.5 (0.3-1.0) mg/dL Direct Bilirubin 0.2 (0.0-0.2) mg/dL Indirect Bilirubin 0.3 (0.0-1.2) mg/dL AST 13 (13-39) Units/L ALT 18 (7-52) Units/L Alkaline Phosphatase 49 (34-104) Units/L Troponin I (< 0.04) ng/mL Serum Total Protein 4.9 L (6.4-8.9) g/dL Albumin 2.3 L (3.5-5.7) g/dL Globulin 2.6 (2.4-3.5) g/dL Albumin/Globulin Ratio 0.9 L (1.1-2.2) Lipase 13 (11-82) Units/L Urine Color (Yellow) Urine Clarity (Clear) Urine pH (5.0-8.0) pH Units Ur Specific [place] (1.010-1.025) Urine Protein (Neg-Trace) mg/dL Urine Glucose (UA) (Normal) mg/dL Urine Ketones (Negative) mg/dL Urine Blood (Negative) Urine Nitrite (Negative) Urine Bilirubin (Negative) Urine Urobilinogen (Normal) mg/dL Ur Leukocyte Esterase (Negative) Ur Culture Indicated? (NO) Specimen Rejected - Radiology Data Radiology results reviewed: Yes I reviewed the patient's radiology results. Chest X-Ray 10/06/17 15:49 IMPRESSION: New patchy left basilar airspace disease. This could represent pneumonia and is superimposed upon severe emphysema, parenchymal scarring and bronchiectasis particularly in the right upper lung. D/ / Carter Kent MD / Carter Kent MD Interpreting Provider: Carter Kent MD Abdomen/Pelvis CT 10/06/17 15:49 IMPRESSION: Patchy opacities at the lung bases bilaterally, left greater than right, with secretions in the airways, likely due to postinflammatory -infectious change. Nonobstructing renal calculi on the left Mild biliary ductal dilatation, likely due to post cholecystectomy state. Recommend correlation with liver function test Postsurgical change in aorta and iliacs with decreased size of aortic aortic aneurysm Moderate nonspecific distention of the stomach D/ / Sang Sultana MD / Sang Sultana MD Interpreting Provider: Sang Sultana MD Chest X-Ray 10/06/17 15:49 IMPRESSION: New patchy left basilar airspace disease. This could represent pneumonia and is superimposed upon severe emphysema, parenchymal scarring and bronchiectasis particularly in the right upper lung. D/ / Carter Kent MD / Carter Kent MD Interpreting Provider: Carter Kent MD - EKG Data EKG #1 EKG attestation: Yes I reviewed and interpreted this EKG. EKG results narrative: EKG taken 10/06/2017 and 1446 hours shows sinus tachycardia at a rate of 101 bpm with no acute ST elevations or depressions any leads, no QRS widening or QT prolongation. No signs of ischemia. Increase EKG looks comparable in morphology to previous EKG taken 09/13/2017. Attestation Statement - Attestation Attestation: I examined this patient and my medical decision-making was reviewed with the Resident Physician. I agree with the documented findings, disposition and treatment plan as described except to the extent set forth below. Diarrhea, likely C. difficile, and meets Sirs criteria. It is likely that his blood pressure medications contributing to his hypotension. His primary doctor stop blood pressure medication about a month ago because his pressure running low, but he has been getting his blood pressure medication since he was [place] a [place] ago. He also is clinically dehydrated, which I am sure is also contributing to his hypotension. Blood pressure is responding to IV fluid administration. He has not symptomatically hypotensive. However, given his constellation of symptoms which likely represents C. difficile, and due to the fact that he meets the criteria for sepsis, both IV and oral antibiotics have been given to cover C. difficile.
[2017-10-06] MEDS: 0.9 % Sodium Chloride 1,000 ML IVC ONE ×2 (15:41→19:30)
[2017-10-06 15:44] LABS: Basophils % 0.1 %; Eosinophils % 0.1 %; Hematocrit 30.3 % (37.5-50.1); Hemoglobin 9.9 g/dL (12.9-16.9); Immature Granulocytes % 0.5 % (0-4); Lymphocytes # 0.3 K/mcL (0.6-4.6); Lymphocytes % 2.6 %; Mean Corpuscular HGB Conc 32.7 g/dL (31.6-35.5); Mean Corpuscular Hemoglobin 28.9 pg (28.0-33.3); Mean Corpuscular Volume 88.6 fL (83.0-100.0); Mean Platelet Volume 9.8 fL (9.4-12.4); Monocytes # 0.3 K/mcL (0.0-1.3); Monocytes % 2.4 %; Neutrophils # 10.4 K/mcL (1.6-8.9); Platelet Count 216 K/mcL (140-400); Red Blood Count 3.42 M/mcL (4.19-5.50); Segmented Neutrophils % 94.3 %
[2017-10-06 16:11] LABS: INR 1.3; Prothrombin Time 14.1 Seconds (9.4-12.1)
[2017-10-06 16:14] LABS: Activated Partial Thrombo Time 28.7 Seconds (26.0-36.0)
[2017-10-06] MEDS ORDERED: Vancomycin Oral Soln 250 MG/5 ML UDC PO ONE (16:30)
[2017-10-06] MEDS ORDERED: MetroNIDAZOLE 500 MG/100 ML 500 MG/100 ML BAG IVPB STA (16:30)
[2017-10-06 16:54] LABS: Bilirubin,Urine Negative (Negative); Blood,Urine Negative (Negative); Clarity,Urine Clear (Clear); Color,Urine Yellow (Yellow); Glucose,Urine (UA) Normal (Normal); Ketones,Urine Negative (Negative); Leukocyte Esterase,Urine Negative (Negative); Nitrite,Urine Negative (Negative); Protein,Urine Negative (Neg-Trace); Specific Gravity,Urine 1.015 (1.010-1.025); Urobilinogen,Urine Normal (Normal)
[2017-10-06 17:35] LABS: Alanine Aminotransferase 18 Units/L (7-52); Albumin 2.3 g/dL (3.5-5.7); Albumin/Globulin Ratio 0.9 (1.1-2.2); Alkaline Phosphatase 49 Units/L (34-104); Aspartate Amino Transferase 13 Units/L (13-39); BUN/Creatinine Ratio 17 (6-26); Bilirubin,Direct 0.2 mg/dL (0.0-0.2); Bilirubin,Indirect 0.3 mg/dL (0.0-1.2); Bilirubin,Total 0.5 mg/dL (0.3-1.0); Blood Urea Nitrogen 20 mg/dL (8-23); Calcium 8.1 mg/dL (8.6-10.3); Carbon Dioxide 25 mEq/L (23-29); Chloride 102 mEq/L (98-107); Globulin 2.6 g/dL (2.4-3.5); Glucose 126 mg/dL (70-105); Lipase 13 Units/L (11-82); Magnesium 1.5 mg/dL (1.6-2.6); Osmolality,Calculated 278 (280-300); Phosphorous 2.9 mg/dL (2.7-4.5); Potassium 3.8 mEq/L (3.5-5.1); Sodium 132 mEq/L (136-145); Total Protein 4.9 g/dL (6.4-8.9); eGFR For African Americans > 60 (> 60); eGFR For Non-African Americans > 60 (> 60)
[2017-10-06] MEDS ORDERED: 0.9 % Sodium Chloride 1,000 ML ONE (19:26)
[2017-10-06] MEDS ORDERED: 0.9 % Sodium Chloride 1,000 ML IVC ONE (20:01)
[2017-10-06] MEDS ORDERED: *HR* Morphine 2 MG/ML SYRINGE IVP ONE (20:13)
[2017-10-06] MEDS ORDERED: Ondansetron 4 MG/2 ML VIAL IVP PRN ×2 (20:14→23:00)
[2017-10-06] MEDS ORDERED: *HR* Heparin 5,000 UNIT/ML VIAL IVP PRN ×2 (20:15)
[2017-10-06] MEDS ORDERED: *HR* Heparin 5,000 UNIT/ML VIAL IVP ONE (20:15)
[2017-10-06] MEDS ORDERED: 0.9 % Sodium Chloride 1,000 ML IVC SCH (20:15)
[2017-10-06] MEDS ORDERED: Heparin 25,000 UNIT/500 ML D5W 25,000 UNIT/500 ML BAG IVC SCH (20:15)
[2017-10-06 20:49] LABS: Hematocrit 25.8 % (37.5-50.1); Immature Platelets 1.3 % (1.1-6.1); Mean Corpuscular HGB Conc 31.8 g/dL (31.6-35.5); Mean Corpuscular Hemoglobin 28.3 pg (28.0-33.3); Mean Platelet Volume 9.5 fL (9.4-12.4); Red Blood Count 2.9 M/mcL (4.19-5.50); Red Cell Distribution Width 16.8 % (11.5-14.5)
[2017-10-06 20:50] LABS: Hemoglobin 8.2 g/dL (12.9-16.9)
[2017-10-06 20:53] LABS: INR 1.4; Prothrombin Time 14.7 Seconds (9.4-12.1)
[2017-10-06 20:56] LABS: Activated Partial Thrombo Time 30.5 Seconds (26.0-36.0)
[2017-10-06] MEDS ORDERED: Naloxone 0.4 MG/ML INJ IVP PRN (23:00)
[2017-10-06] MEDS ORDERED: Acetaminophen 325 MG TABLET PO PRN (23:00)
[2017-10-06] MEDS ORDERED: Ipratropium/Albuterol Neb 3 ML IH PRN (23:12)
[2017-10-06] MEDS ORDERED: Nitroglycerin 0.4 MG TAB.SUBL SL PRN (23:12)
[2017-10-06] MEDS ORDERED: Melatonin 3 MG TABLET PO PRN (23:12)
--- NOTE | 2017-10-07 00:11 | Internal Med History&Physical ---
Date of Encounter: 10/06/17 Time of Encounter: 20:00 Assessment and Plan (1) Systolic CHF Current visit: Yes Status: Acute No signs of exacerbation. Pt has dehydration due to diarrhea, need to be given IVF. Will closely monitor fluid status. Qualifiers: Congestive heart failure chronicity: chronic Qualified Code(s): I50.22 - Chronic systolic (congestive) heart failure (2) Elevated d-dimer Current visit: Yes Status: Acute Etiology is undetermined. Pt has no chest pain or increased SOB. His SpO2 is at about his baseline. He present with mild tachycardia which is because of dehydration, has improved after hydration. Low suspect of PE. Pt denies leg pain /swelling and there is no calf tenderness. However, considering pt is not well ambulating recently, will order Doppler B/L legs to r/o DVT. (3) Diarrhea Current visit: Yes Status: Acute Etology is undetermined. Pt has recent hospitalization, C Diff is suspected. - Cont IVF (careful as pt has CHF). - ER started po vanco and iv flagyl, will cont until C Diff result shows negative. - [place] GI panel. - Correct electrolytes abnormalities. - If diarrhea persist, may consider GI consult. Qualifiers: Diarrhea type: presumed infectious Qualified Code(s): R19.7 - Diarrhea, unspecified (4) Hypotension Current visit: Yes Status: Acute Due to dehydration, improved after hydration. Hold home med lasix now. Closely monitor BP. Qualifiers: Hypotension type: other hypotension type Qualified Code(s): I95.89 - Other hypotension (5) COPD (chronic obstructive pulmonary disease) with emphysema Current visit: No Status: Acute Stable, no signs of exacerbation. Cont home meds. Qualifiers: Emphysema type: panlobular Qualified Code(s): J43.1 - Panlobular emphysema (6) DVT prophylaxis Current visit: No Status: Acute heparin SC (7) Elevated troponin Current visit: No Status: Acute Pt has chronic high troponin. He denies chest pain, EKG unremarkable. - Will trend 3 sets of troponin - Cont place pt in Tele. (8) Hypomagnesemia Current visit: No Status: Acute Will give supplement (9) CAD (coronary artery disease) Current visit: No Status: Chronic Stable, cont home meds Qualifiers: Coronary Disease-Associated Artery/Lesion type: bypass graft [place] vs. transplanted heart: [place] heart Associated angina: angina presence unspecified Qualified Code(s): I25.810 - Atherosclerosis of coronary artery bypass graft(s) without angina pectoris (10) Hypothyroidism Current visit: No Status: Chronic Cont home meds. Qualifiers: Hypothyroidism type: acquired Qualified Code(s): E03.9 - Hypothyroidism, unspecified (11) Iron deficiency anemia Current visit: No Status: Chronic Cont home iron pills. Qualifiers: Iron deficiency anemia type: other iron deficiency Qualified Code(s): D50.8 - Other iron deficiency anemias (12) Dehydration Current visit: Yes Status: Acute Management as above. Internal Medicine - H&P: HPI Chief complaint: Diarrhea Admitted From: Long-term Nursing Facility Plans for Post Hospital Care: [facility] History of present illness: Mr. Jaimes is a 72 year old male with Hx of COPD on home med, CHF s/p PPM/AICD, HTN, CAD s/p CABG, AAA s/p repairment surgery present to ER for diarrhea for 2- 3 weeks. Pt has 5-6 watery BM with a lot of gas. He has nausea but no vomiting. Pt reported fever one week ago. Pt denies abd pain. Pt has COPD and he said he has SOB but the level is same with his baseline. No chest pain. Pt has chronic cough. Pt was hospitalized recently for COPD exacerbation in Aug 2017. In ER, he was suspected C Diff and empirically started po vanco and iv flagyl. C Diff test ordered. Pt shows dehydration and hypotension and IVF was given in ER. His BP has improved. Pt was admitted for further management. Past Med Surg Social Fam HX - Past Medical History Medical history: aortic aneurysm, cancer, COPD, coronary artery disease, GERD, hyperlipidemia, hypertension, myocardial infarction, thyroid disease, other Psychiatric history: anxiety, depression - Past Surgical History Surgical History: cancer surgery, coronary bypass (CABG), vasectomy - Social History Smoking Status: Former smoker Smokeless Tobacco Status: No Alcohol use: none Drug use: none - Family History Mother History Unknown: Yes Internal Medicine - H&P: Meds Albuterol Sulfate [Ventolin Hfa] 2 puff IH Q4H PRN 10/15/16 [History] Amiodarone [Cordarone] 200 mg PO DAILY 10/15/16 [History] Aspirin 81 mg PO DAILY 10/15/16 [History] Furosemide [Lasix] 20 mg PO DAILY 10/15/16 [History] Ipratropium/Albuterol Neb [Duoneb] 3 ml IH TID PRN 10/15/16 [History] Isosorbide MONOnitrate (24 HR) [Imdur] 30 mg PO DAILY 10/15/16 [History] Levothyroxine [Synthroid] 75 mcg PO DAILY 10/15/16 [History] Topiramate [Topamax] 50 mg PO HS 10/15/16 [History] Quetiapine Fumarate [Seroquel] 25 mg PO HS 05/12/17 [History] clonazePAM [Klonopin] 1 mg PO BID 05/12/17 [History] Docusate [Colace] 100 mg PO BID #30 cap 05/19/17 [Rx] Ferrous Sulfate 325 mg PO DAILY #30 tablet. 05/19/17 [Rx] Oxybutynin [Ditropan] 5 mg PO BID 06/02/17 [History] Umeclidinium Brm/Vilanterol Tr [Anoro Ellipta 62.5-25 Mcg INH] 1 each IH DAILY 06/02/17 [History] Fluticasone Propionate Nasal [Flonase] 100 mcg NS DAILY bottle 06/04/17 [Rx] Bisacodyl [Dulcolax] 5 mg PO DAILY PRN 08/23/17 [History] Megestrol Acetate [Megace] 200 mg PO BID 08/23/17 [History] Multivitamin [One Daily Multivitamin] 1 each PO DAILY 08/23/17 [History] Nitroglycerin [Nitrostat] 0.4 mg SL Q5M PRN 08/23/17 [History] Tamsulosin [Flomax] 0.4 mg PO DAILY 08/23/17 [History] Atorvastatin [Lipitor] 40 mg PO HS #30 tablet 08/27/17 [Rx] Lisinopril [Zestril] 2.5 mg PO DAILY #30 tablet 08/27/17 [Rx] Sertraline [Zoloft] 100 mg PO DAILY #30 tablet 08/27/17 [Rx] Ticagrelor [Brilinta] 90 mg PO BID #60 tablet 08/27/17 [Rx] GuaiFENesin/Dextromethorphan [Robitussin/Dm] 10 ml PO Q6HR PRN #1 bottle [Rx] HYDROcodone/Acet 5/325 mg [[place] 5-325 mg] 1 tab PO Q6HR PRN #24 tablet [Rx] Melatonin 3 mg PO HS PRN #30 tablet 09/14/17 [Rx] PredniSONE [Deltasone] 20 mg PO DAILY #7 tablet 09/14/17 [Rx] Diphenoxylate/Atropine [Lomotil 2.5 mg/0.025 mg] 1 each PO QID PRN 10/06/17 [ History] Hydroguard Cream 1 appl TP DAILY 10/06/17 [History] Loperamide HCl [Imodium A-D] 2 mg PO QID PRN 10/06/17 [History] Na Phos,M-B/Na Phos,Di-Ba [Fleet Enema Extra] 230 ml RC DAILY PRN 10/06/17 [ History] Ondansetron HCl [Zofran] 4 mg PO Q8H PRN 10/06/17 [History] 3 Allergy/AdvReac Type Severity Reaction Status Date / Time No Known Allergies Allergy Verified 05/15/17 09:36 All Systems PM: A 10-system review of systems was performed and is negative for pertinent findings except as documented above in the HPI. - Constitutional Vitals: Temp Pulse Resp BP Pulse Ox 98.1 F 70 15 112/69 98 10/06/17 23:27 10/06/17 23:27 10/06/17 23:27 10/06/17 23:27 10/06/17 23:27 General appearance: Present: A&O X 3, no acute distress, answers questions appropriately - Head Head exam: Present: atraumatic, normocephalic - Eye Eye exam: Present: PERRL, conjuntiva pink, sclera anicteric Pupils: Present: PERRL - Neck Neck exam general surgery: Present: supple, trachea midline. Absent: lymphadenopathy - Respiratory Respiratory exam: Present: CTAB. Absent: accessory muscle use, rales, rhonchi, wheezes - Cardiovascular Cardiovascular exam: Present: RRR, +S1, +S2. Absent: diastolic murmur, gallop, rubs, systolic murmur - GI/Abdominal GI/Abdominal exam: Present: normal bowel sounds, soft, no peritoneal signs. Absent: distended, tenderness - Extremities Exam Extremities exam: Present: warm, radial pulses palpable and symmetrical. Absent : calf tenderness, cyanotic, pedal edema - Neurological Exam Neurological exam: Present: CN II-XII intact, oriented X3, no focal deficits. Absent: pronater drift, facial droop, speech deficit - Skin Skin exam: Present: dry, intact Internal Med - H&P Results - Labs CBC & Chem 7: 10/06/17 20:41 10/06/17 17:10 Labs: Cardiac Enzymes 10/06/17 Range/Units 23:21 Troponin I 0.11 H* (< 0.04) ng/mL - EKG Data -: EKG Interpreted by Myself EKG shows normal: sinus rhythm Rate: tachycardia
[2017-10-07] MEDS: 0.9 % Sodium Chloride 1,000 ML IVC SCH ×2 (00:59→10:00)
[2017-10-07] MEDS: MetroNIDAZOLE 500 MG/100 ML 500 MG/100 ML BAG IVPB SCH ×2 (01:00→09:59)
[2017-10-07] MEDS: *HR* HYDROcodone/Acet 5/325 mg TABLET PO PRN (01:00)
[2017-10-07 05:48] LABS: Eosinophils # 0.1 K/mcL (0.0-0.6); Eosinophils % 0.6 %; Hematocrit 25.8 % (37.5-50.1); Hemoglobin 8.2 g/dL (12.9-16.9); Immature Granulocytes % 0.4 % (0-4); Lymphocytes # 0.4 K/mcL (0.6-4.6); Lymphocytes % 4.4 %; Mean Corpuscular HGB Conc 31.8 g/dL (31.6-35.5); Mean Corpuscular Hemoglobin 28.3 pg (28.0-33.3); Mean Platelet Volume 9.9 fL (9.4-12.4); Monocytes # 0.5 K/mcL (0.0-1.3); Monocytes % 5.3 %; Neutrophils # 7.7 K/mcL (1.6-8.9); Platelet Count 186 K/mcL (140-400); Red Cell Distribution Width 16.6 % (11.5-14.5); Segmented Neutrophils % 89.3 %
[2017-10-07] MEDS: *HR* Heparin 5,000 UNIT/ML VIAL SQ SCH ×2 (05:59→18:03)
[2017-10-07 06:13] LABS: BUN/Creatinine Ratio 19 (6-26); Blood Urea Nitrogen 19 mg/dL (8-23); Carbon Dioxide 23 mEq/L (23-29); Chloride 107 mEq/L (98-107); Glucose 112 mg/dL (70-105); Magnesium 2.1 mg/dL (1.6-2.6); Osmolality,Calculated 283 (280-300); Potassium 3.5 mEq/L (3.5-5.1); Sodium 135 mEq/L (136-145); eGFR For African Americans > 60 (> 60); eGFR For Non-African Americans > 60 (> 60)
[2017-10-07 06:16] LABS: % Iron Saturation 13 % (20-55); Ferritin 222 ng/ml (20-250); Iron 18 mcg/dL (65-175); Transferrin 97 mg/dL (203-362)
[2017-10-07 06:25] LABS: Folate 7.7 ng/mL (3.0-16.0)
[2017-10-07] MEDS ORDERED: Vancomycin Oral Soln 250 MG/5 ML UDC PO SCH (09:00)
[2017-10-07] MEDS ORDERED: (Anoro Ellipta 62.5-2) IH SCH (09:00)
[2017-10-07] MEDS: *HR* Amiodarone 200 MG TABLET PO SCH (10:03)
[2017-10-07] MEDS: clonazePAM 1 MG TABLET PO SCH ×2 (10:03→21:13)
[2017-10-07] MEDS: *HR* Ticagrelor 90 MG TABLET PO SCH ×2 (10:03→21:13)
[2017-10-07] MEDS: Isosorbide MONOnitrate (24 HR) 30 MG TAB.ER.24H PO SCH (10:03)
[2017-10-07] MEDS: Aspirin 81 MG TAB.CHEW PO SCH (10:03)
[2017-10-07] MEDS: Multivit/Ca/Min/Fe/FA 1 TAB TABLET PO SCH (10:03)
[2017-10-07] MEDS: Fluticasone Propionate Nasal 50 MCG/SPRAY BOTTLE NS SCH (10:20)
[2017-10-07] MEDS: Megestrol Acetate 400 MG/10 ML UDC PO SCH ×2 (10:26→21:14)
[2017-10-07] MEDS: Ipratropium/Albuterol Neb 3 ML IH SCH ×2 (10:42→18:53)
--- NOTE | 2017-10-07 11:22 | Internal Med Progress Note ---
Date of Encounter: 10/07/17 Time of Encounter: 11:19 - Assessment and plan (1) Diarrhea Current Visit: Yes Status: Acute Assessment and plan: Seems to have resolved. Unlikely C. diff if not having loose stools at all. We will stop antibiotics if not able to give a sample Qualifiers: Diarrhea type: presumed infectious Qualified Code(s): R19.7 - Diarrhea, unspecified (2) Systolic CHF Current Visit: Yes Status: Acute Assessment and plan: Check BNP. Check echocardiogram. Pressure stable now. Stop IV fluids. Qualifiers: Congestive heart failure chronicity: chronic Qualified Code(s): I50.22 - Chronic systolic (congestive) heart failure (3) CAD (coronary artery disease) Current Visit: No Status: Chronic Assessment and plan: Continue home meds. Patient is status post 1 vessel CABG as well as drug- eluting stent placed last month. Patient is on aspirin brilinta statin Imdur Qualifiers: Coronary Disease-Associated Artery/Lesion type: bypass graft [place] vs. transplanted heart: [place] heart Associated angina: angina presence unspecified Qualified Code(s): I25.810 - Atherosclerosis of coronary artery bypass graft(s) without angina pectoris (4) Hypothyroidism Current Visit: No Status: Chronic Assessment and plan: Continue levothyroxine Qualifiers: Hypothyroidism type: acquired Qualified Code(s): E03.9 - Hypothyroidism, unspecified (5) Elevated troponin Current Visit: No Status: Acute Assessment and plan: Chronically elevated. No chest pain. No EKG changes. (6) COPD (chronic obstructive pulmonary disease) with emphysema Current Visit: No Status: Acute Assessment and plan: Does not seem to be in exacerbation. Continue with inhalers. Continue with O2 support. On chronic prednisone. Qualifiers: Emphysema type: panlobular Qualified Code(s): J43.1 - Panlobular emphysema (7) Elevated d-dimer Current Visit: Yes Status: Acute Assessment and plan: Check lower extremity Dopplers. Will suspicion for PE. (8) DVT prophylaxis Current Visit: No Status: Acute Assessment and plan: Heparin subcutaneous - Subjective Interval history: Was seen and examined. Admitted last night with diarrhea. This seems to have resolved this morning. Has not had any more loose stools. Recently was hospitalized the last month multiple times once for an exacerbation of COPD and the other for a cardiac drug-eluting stent. Been afebrile. He is chronically O2 dependent.. - Constitutional Vitals: Temp Pulse Resp BP Pulse Ox 97.7 F 86 18 119/80 98 10/07/17 07:13 10/07/17 07:13 10/07/17 10:45 10/07/17 07:13 10/07/17 10:45 General appearance: Present: A&O X 3, no acute distress, answers questions appropriately Exam: GEN: NAD CVS: RRR. S1, S2, No m/r/g RESP: CTAB ABD: Soft, NT, ND, +BS EXT: No edema. 2+ DP. No rashes NEURO: Nonfocal Internal Medicine: Result - Labs CBC & Chem 7: 10/07/17 05:01 10/07/17 05:01 Labs: Short CBC 10/07/17 Range/Units 05:01 WBC 8.6 (4.3-11.1) K/mcL Hgb 8.2 L (12.9-16.9) g/dL Hct 25.8 L (37.5-50.1) % Plt Count 186 (140-400) K/mcL Neutrophils # 7.7 (1.6-8.9) K/mcL BMP 10/07/17 05:01 Sodium 135 L Potassium 3.5 Chloride 107 Carbon Dioxide 23 BUN 19 Creatinine 1.01 Glucose 112 H Calcium 8.0 L Cardiac Enzymes 10/06/17 10/07/17 Range/Units 23:21 05:01 Troponin I 0.11 H* 0.13 H* (< 0.04) ng/mL - ABG Interpretation ABG results: PT/INR, D-dimer PT 14.7 Seconds (9.4-12.1) H 10/06/17 20:41 D-Dimer 2413 ng/mLFEU (0-500) H 10/06/17 20:41 Consult Discharge Plan - Plan Referrals: Ulices Mcgovern Jr, MD [Primary Care Provider] -
[2017-10-07 15:01] LABS: 2009 H1N1 PCR NOT DETECTED (Not Detect); Influenza A PCR Negative (Negative); Influenza B PCR Negative (Negative)
[2017-10-07] MEDS ORDERED: Furosemide 40 MG/4 ML VIAL IVP ONE (15:54)
[2017-10-07] MEDS ORDERED: *HR* LORazepam 0.5 MG TABLET PO ONE (19:02)
[2017-10-07] MEDS ORDERED: Ipratropium/Albuterol Neb 3 ML IH STA ×2 (21:09→21:11)
[2017-10-07] MEDS: Topiramate 25 MG TABLET PO SCH (21:13)
[2017-10-07] MEDS ORDERED: Ipratropium/Albuterol Neb 3 ML ONE (21:18)
[2017-10-07] MEDS ORDERED: 0.9 % Sodium Chloride 1,000 ML IVC ONE (21:39)
[2017-10-07] MEDS ORDERED: *HR* Heparin 5,000 UNIT/ML VIAL IVP ONE (21:47)
[2017-10-07] MEDS ORDERED: *HR* Heparin 5,000 UNIT/ML VIAL IVP PRN ×2 (21:47)
--- NOTE | 2017-10-07 21:59 | Event Note ---
Date of Encounter: 10/07/17 Time of Encounter: 21:53 Called to see patient by RN and Dr. Barrera for concerns of respiratory distress and hypotension. On my exam, patient has increased work of breathing, is in moderate respiratory distress, has BP 86/60, and has pneumonia on my exam. I ordered IVF bolus, antibiotics, and heparin drip (for possible PE given sudden respiratory decompensation and elevated D-Dimer yesterday). We will try him on BiPap and monitor closely. If he decompensates, he will need intubation and mechanical ventilation. Will follow closely and intervene as necessary.
[2017-10-07] MEDS ORDERED: Heparin 25,000 UNIT/500 ML D5W 25,000 UNIT/500 ML BAG IVC SCH (22:00)
[2017-10-07] MEDS ORDERED: Vancomycin 1,000 MG in D5% in Water 250 ML IVPB SCH (22:00)
[2017-10-07] MEDS ORDERED: 0.9 % Sodium Chloride 1,000 ML IVC SCH (22:00)
[2017-10-07 22:03] LABS: ABG Base Excess -3 mEq/L (-2 to 3); ABG HCO3 20 mEq/L (21-27); ABG Oxygen Saturation 93 % (95-98); ABG PCO2 30 mmHg (35-45); ABG PH 7.45 pH Units (7.32-7.45); ABG PO2 62 mmHg (85-104); ABG TCO2 21 mEq/L (20-26)
[2017-10-07 22:18] LABS: Hematocrit 31.9 % (37.5-50.1); Mean Corpuscular Volume 90.4 fL (83.0-100.0); Mean Platelet Volume 9.8 fL (9.4-12.4); Platelet Count 182 K/mcL (140-400); Red Blood Count 3.53 M/mcL (4.19-5.50); Red Cell Distribution Width 16.5 % (11.5-14.5)
[2017-10-07 22:19] LABS: Hemoglobin 9.9 g/dL (12.9-16.9)
[2017-10-07 22:26] LABS: INR 1.5; Prothrombin Time 16.3 Seconds (9.4-12.1)
[2017-10-07 22:28] LABS: Activated Partial Thrombo Time 28.2 Seconds (26.0-36.0)
[2017-10-07] MEDS ORDERED: Vancomycin 1,250 MG in D5% in Water 250 ML IVPB SCH (23:15)
[2017-10-08] MEDS ORDERED: 0.9 % Sodium Chloride 1,000 ML IVC SCH (00:30)
--- NOTE | 2017-10-08 00:34 | Event Note ---
Date of Encounter: 10/08/17 Time of Encounter: 00:31 Patient became increasingly unstable with BP dropping to 70/30's. Patient moved to ICU for sepsis and respiratory failure. Once stabilized, he will go to CT for CTA chest to rule out PE. Meanwhile, we will treat with Heparin gtt along with IVF, antibiotics, pressors, and intubation if necessary.
[2017-10-08] MEDS: Hydrocortisone Sodium Succ 100 MG/2 ML VIAL IVP SCH ×5 (00:35→23:48)
[2017-10-08] MEDS: Levofloxacin 500 MG/100 ML 500 MG/100 ML BAG IVPB SCH ×2 (00:37→08:17)
--- NOTE | 2017-10-08 00:39 | Procedure Note ---
Date of procedure: 10/08/17 Pre-op diagnosis: sepsis Post-op diagnosis: same Procedure: Right Femoral CVC placement After obtaining informed consent (verbal) and witnessed by ICU nurse (Caron), we perfomed timeout procdure priro to proceeding. Patient right groin was prepped and draped in sterile fashion. Using Seldinger technique, I successfully aspirated and canulated the right femoral vein on first attempt after local anesthesia (1% Lidocaine). I threaded the guidewire through the needle and removed needle. I then threaded the CVC over the guidewire and removed guidewire intact. All three ports were successfully aspirated of venous blood and flushed with NS. CVC was then secured with 2-0 silk suture. Patient tolerated procedure well. Anesthesia: local Surgeon: Tone Walker Was there an dental chairside assistant present: Yes Vegetable Picker: Cristopher Barrera Estimated blood loss (cc): 10 Specimen: none Pathology: none sent Condition: critical Disposition: ICU
[2017-10-08] MEDS: Piperacillin/Tazobactam 3.375 GM/200 ML BAG IVPB SCH ×4 (00:58→23:48)
[2017-10-08 01:29] LABS: ABG Base Excess -4 mEq/L (-2 to 3); ABG HCO3 21 mEq/L (21-27); ABG Oxygen Saturation 98 % (95-98); ABG PCO2 36 mmHg (35-45); ABG PH 7.38 pH Units (7.32-7.45); ABG PO2 98 mmHg (85-104); ABG TCO2 22 mEq/L (20-26)
[2017-10-08] MEDS: Ipratropium/Albuterol Neb 3 ML IH SCH ×3 (02:52→15:35)
[2017-10-08] MEDS: *HR* Heparin 5,000 UNIT/ML VIAL SQ SCH ×2 (06:30→17:05)
[2017-10-08] MEDS: Norepinephrine 4 MG in D5% in Water 250 ML IVC SCH (06:52)
--- NOTE | 2017-10-08 07:42 | Pulmonology Consult Note ---
<Avtar Reyes - Last Filed: 10/08/17 11:02> Date of Encounter: 10/08/17 Time of Encounter: 07:45 Assessment and Plan (1) Pneumonia Current Visit: Yes Status: Acute CTA demonstrated a following: -No pulmonary embolism. -Extensive chronic lung disease as detailed previously with emphysematous and bronchiectatic changes in the upper left and right lobes respectively. -Progressive consolidation in the RML. -Progressive interstitial opacity in the RLL. -This may reflect developing pneumonia/ pneumonitis. Plan -Levaquin 500 mg IV daily -Vancomycin IV every 24 hours -Zosyn 3.375 g IV every 8 hours -Infectious disease will be consulted for optimal antibiotic regimen. Qualifiers: Qualified Code(s): J18.9 - Pneumonia, unspecified organism (2) Acute and chronic respiratory failure Current Visit: No Status: Acute Patient has a known history of COPD. -Had an increase work of breathing low O2 saturation on 10/07/17. -Heparin drip was started for possible PE due to patient's elevated d-dimer. -Patient has been on BiPAP with 100% O2 saturation. -This morning, patient appears to have an improvement in his symptoms. -Not currently on BiPAP. Qualifiers: Respiratory failure complication: hypoxia Qualified Code(s): J96.21 - Acute and chronic respiratory failure with hypoxia (3) C. difficile diarrhea Current Visit: Yes Status: Acute Patient initially presented with a chief complaint of diarrhea for 2-3 weeks. Elevated white count at 11.8. Plan: -IV fluids; GI panel -ER started PO vancomycin and IV Flagyl; PO vancomycin was discontinued. -Monitor electrolytes closely. (4) COPD (chronic obstructive pulmonary disease) Current Visit: No Status: Chronic Qualifiers: COPD type: unspecified COPD Qualified Code(s): J44.9 - Chronic obstructive pulmonary disease, unspecified (5) Elevated d-dimer Current Visit: Yes Status: Acute Laboratory examination demonstrated an elevated d-dimer at 2413. Heparin drip was started when patient became short of breath due to the possibility of a PE. Patient went for CTA scan; showed no evidence of pulmonary embolism. History of Present Illness Consult date: 10/08/17 Reason for consult: abnormal CXR/CT Chief complaint: Diarrhea History of present illness: Mr. Jaimes is a 68-year-old male with a past medical history of COPD, CHF, hypertension, CAD status post CABG, abdominal aortic aneurysm status post repair in surgery who presented to the emergency department with chief complaint of diarrhea that have been going on for the last 2-3 weeks. Patient reported having 5-6 watery bowel movements per day which she described as copious, loose, yellow in color, and strong in odor. He reported nausea without vomiting. He denied having any abdominal pain. He also reports a chronic cough. In the emergency department, patient was suspected to have C. difficile, and was empirically started on vancomycin by mouth and IV Flagyl. C. difficile test was ordered. Patient's vital signs on presentation resolved: Heart rate 106, and a blood pressure of 85/58. All other vital signs were within normal limits. Chest x-ray demonstrated new patchy left basilar airspace disease, possibly representing pneumonia which is superimposed on severe emphysema. Also revealed parenchymal scarring and bronchiectasis particularly in the right upper lung. CT of the abdomen and pelvis was unremarkable for acute abdominal pathology. Patient's critical picture was consistent with dehydration; IV fluids were given in the ER. His blood pressure subsequently improved. Patient was admitted for further management. On 10/07/17, patient developed respiratory distress and hypotension. Patient had increased work of breathing and was in moderate respiratory distress. His blood pressure was 86/60. IV fluid bolus, antibiotics, and heparin drip were started. Concern for possible PE due to patient's elevated d-dimer. Patient became increasingly unstable with his blood pressure dropping into the 70s over 30s. He was moved to the ICU for sepsis and respiratory failure. Right femoral CVC was placed. I heparin drip was started due to the concern of pulmonary embolism, given patient's elevated d-dimer. CTA ruled out pulmonary embolism. Patient is on O2 via nasal cannula. Patient seen and examined at bedside this morning. Reports that he is feeling somewhat better than he did when he first arrived. States that he feels short of breath when he talks too much. Denies having a bowel movement for the last 24 hours. Denies having any nausea, abdominal pain, shortness of breath, cough , fever, or chills. Past Med Surg Social Fam HX - Past Medical History Medical history: aortic aneurysm, cancer, COPD, coronary artery disease, GERD, hyperlipidemia, hypertension, myocardial infarction, thyroid disease, other Psychiatric history: anxiety, depression - Past Surgical History Surgical History: cancer surgery, coronary bypass (CABG), vasectomy - Social History Smoking Status: Former smoker Smokeless Tobacco Status: No Alcohol use: none Drug use: none - Family History Mother History Unknown: Yes Medications and Allergies Albuterol Sulfate [Ventolin Hfa] 2 puff IH Q4H PRN 10/15/16 [History] Amiodarone [Cordarone] 200 mg PO DAILY 10/15/16 [History] Aspirin 81 mg PO DAILY 10/15/16 [History] Furosemide [Lasix] 20 mg PO DAILY 10/15/16 [History] Ipratropium/Albuterol Neb [Duoneb] 3 ml IH TID PRN 10/15/16 [History] Isosorbide MONOnitrate (24 HR) [Imdur] 30 mg PO DAILY 10/15/16 [History] Levothyroxine [Synthroid] 75 mcg PO DAILY 10/15/16 [History] Topiramate [Topamax] 50 mg PO HS 10/15/16 [History] Quetiapine Fumarate [Seroquel] 25 mg PO HS 05/12/17 [History] clonazePAM [Klonopin] 1 mg PO BID 05/12/17 [History] Docusate [Colace] 100 mg PO BID #30 cap 05/19/17 [Rx] Ferrous Sulfate 325 mg PO DAILY #30 tablet. 05/19/17 [Rx] Oxybutynin [Ditropan] 5 mg PO BID 06/02/17 [History] Umeclidinium Brm/Vilanterol Tr [Anoro Ellipta 62.5-25 Mcg INH] 1 each IH DAILY 06/02/17 [History] Fluticasone Propionate Nasal [Flonase] 100 mcg NS DAILY bottle 06/04/17 [Rx] Bisacodyl [Dulcolax] 5 mg PO DAILY PRN 08/23/17 [History] Megestrol Acetate [Megace] 200 mg PO BID 08/23/17 [History] Multivitamin [One Daily Multivitamin] 1 each PO DAILY 08/23/17 [History] Nitroglycerin [Nitrostat] 0.4 mg SL Q5M PRN 08/23/17 [History] Tamsulosin [Flomax] 0.4 mg PO DAILY 08/23/17 [History] Atorvastatin [Lipitor] 40 mg PO HS #30 tablet 08/27/17 [Rx] Sertraline [Zoloft] 100 mg PO DAILY #30 tablet 08/27/17 [Rx] Ticagrelor [Brilinta] 90 mg PO BID #60 tablet 08/27/17 [Rx] GuaiFENesin/Dextromethorphan [Robitussin/Dm] 10 ml PO Q6HR PRN #1 bottle [Rx] HYDROcodone/Acet 5/325 mg [[place] 5-325 mg] 1 tab PO Q6HR PRN #24 tablet [Rx] Melatonin 3 mg PO HS PRN #30 tablet 09/14/17 [Rx] PredniSONE [Deltasone] 20 mg PO DAILY #7 tablet 09/14/17 [Rx] Diphenoxylate/Atropine [Lomotil 2.5 mg/0.025 mg] 1 each PO QID PRN 10/06/17 [ History] Hydroguard Cream 1 appl TP DAILY 10/06/17 [History] Loperamide HCl [Imodium A-D] 2 mg PO QID PRN 10/06/17 [History] Na Phos,M-B/Na Phos,Di-Ba [Fleet Enema Extra] 230 ml RC DAILY PRN 10/06/17 [ History] Ondansetron HCl [Zofran] 4 mg PO Q8H PRN 10/06/17 [History] 3 Allergy/AdvReac Type Severity Reaction Status Date / Time No Known Allergies Allergy Verified 05/15/17 09:36 All Systems: A 10-system review of systems was performed and is negative for pertinent findings except as documented above in the HPI. - Constitutional Constitutional: no chills, no excessive sweating, no fatigue - Cardiovascular Cardiovascular: no chest pain at rest, no chest pain with activity, no diaphoresis, no irregular heart rhythm, no radiating jaw, neck or arm pain - Respiratory Respiratory: dyspnea, no cough, no wheezing Physical Examination Vital Signs: Vital Signs, Last 4 Hours Temp Pulse Resp BP Pulse Ox 10/08/17 07:17 100 10/08/17 07:00 100 20 94/55 100 10/08/17 06:00 103 19 69/46 98 10/08/17 05:00 105 20 89/55 99 10/08/17 04:00 98.8 F 101 17 93/61 99 10/08/17 03:44 101 General appearance: no acute distress, asleep Eyes: nonicteric ENT: oropharynx dry Neck: supple Effort: mildly labored Auscultation: bilateral: rales, rhonchi Cardiovascular: other (Tachycardic at 102 bpm.) Integumentary: normal Extremities: no cyanosis Musculoskeletal: no deformities normal mental status mood appropriate, affect normal Results - Laboratory Findings CBC and BMP: 10/07/17 22:12 10/07/17 05:01 ABG ABG pH 7.38 pH Units (7.32-7.45) 10/08/17 01:25 ABG pCO2 36 mmHg (35-45) 10/08/17 01:25 ABG pO2 98 mmHg (85-104) 10/08/17 01:25 ABG O2 Saturation 98 % (95-98) 10/08/17 01:25 PT/INR, D-dimer PT 16.3 Seconds (9.4-12.1) H 10/07/17 22:12 D-Dimer 2413 ng/mLFEU (0-500) H 10/06/17 20:41 Abnormal lab findings: Abnormal lab results WBC 11.8 K/mcL (4.3-11.1) H 10/07/17 22:12 RBC 3.53 M/mcL (4.19-5.50) L 10/07/17 22:12 Hgb 9.9 g/dL (12.9-16.9) L D 10/07/17 22:12 Hct 31.9 % (37.5-50.1) L 10/07/17 22:12 MCHC 31.0 g/dL (31.6-35.5) L 10/07/17 22:12 RDW 16.5 % (11.5-14.5) H 10/07/17 22:12 Lymphocytes # 0.4 K/mcL (0.6-4.6) L 10/07/17 05:01 PT 16.3 Seconds (9.4-12.1) H 10/07/17 22:12 D-Dimer 2413 ng/mLFEU (0-500) H 10/06/17 20:41 ABG Base Excess -4 mEq/L (-2 to 3) L 10/08/17 01:25 Sodium 135 mEq/L (136-145) L 10/07/17 05:01 Glucose 112 mg/dL (70-105) H 10/07/17 05:01 POC Glucose 161 (58-89) H 10/07/17 23:59 Calcium 8.0 mg/dL (8.6-10.3) L 10/07/17 05:01 Iron 18 mcg/dL (65-175) L 10/07/17 05:01 % Saturation 13 % (20-55) L 10/07/17 05:01 Transferrin 97 mg/dL (203-362) L 10/07/17 05:01 Troponin I 0.13 ng/mL (< 0.04) H* 10/07/17 05:01 B-Natriuretic Peptide 2626 pg/mL (Less than 100) H 10/08/17 03:39 Serum Total Protein 4.9 g/dL (6.4-8.9) L 10/06/17 17:10 Albumin 2.3 g/dL (3.5-5.7) L 10/06/17 17:10 Albumin/Globulin Ratio 0.9 (1.1-2.2) L 10/06/17 17:10 Vitamin B12 229 pg/mL (250-1100) L 10/07/17 05:01 - Microbiology Findings Microbiology Findings: Microbiology, Last 48 Hours 10/07/17 14:42 Legionella Antigen - Final Urine,Clean Catch Streptococcus pneumoniae Antigen (M - Final - Clinical Findings Intake & Output: Intake & Output 10/07/17 10/07/17 10/08/17 15:59 23:59 07:59 Intake Total 1700 / 1700 1601 / 1601 Output Total 250 / 250 650 / 650 150 / 150 Balance 1450 / 1450 -650 / -650 1451 / 1451 Weight 62.4 kg Consult Discharge Plan - Plan Referrals: Ulices Mcgovern Jr, MD [Primary Care Provider] - <Radha Saavedra - Last Filed: 10/08/17 15:55> Date of Encounter: 10/08/17 All Systems: A 10-system review of systems was performed and is negative for pertinent findings except as documented above in the HPI. Physical Examination Vital Signs: Vital Signs, Last 4 Hours Pulse 10/08/17 15:48 99 Results - Laboratory Findings CBC and BMP: 10/08/17 11:25 10/08/17 11:25 ABG ABG pH 7.38 pH Units (7.32-7.45) 10/08/17 01:25 ABG pCO2 36 mmHg (35-45) 10/08/17 01:25 ABG pO2 98 mmHg (85-104) 10/08/17 01:25 ABG O2 Saturation 98 % (95-98) 10/08/17 01:25 PT/INR, D-dimer PT 16.3 Seconds (9.4-12.1) H 10/07/17 22:12 D-Dimer 2413 ng/mLFEU (0-500) H 10/06/17 20:41 Abnormal lab findings: Abnormal lab results RBC 2.97 M/mcL (4.19-5.50) L 10/08/17 11:25 Hgb 8.4 g/dL (12.9-16.9) L D 10/08/17 11:25 Hct 26.7 % (37.5-50.1) L 10/08/17 11:25 MCHC 31.5 g/dL (31.6-35.5) L 10/08/17 11:25 RDW 17.0 % (11.5-14.5) H 10/08/17 11:25 Neutrophils # 9.0 K/mcL (1.6-8.9) H 10/08/17 11:25 Lymphocytes # 0.2 K/mcL (0.6-4.6) L 10/08/17 11:25 PT 16.3 Seconds (9.4-12.1) H 10/07/17 22:12 D-Dimer 2413 ng/mLFEU (0-500) H 10/06/17 20:41 ABG Base Excess -4 mEq/L (-2 to 3) L 10/08/17 01:25 Sodium 134 mEq/L (136-145) L 10/08/17 11:25 Carbon Dioxide 21 mEq/L (23-29) L 10/08/17 11:25 Glucose 163 mg/dL (70-105) H 10/08/17 11:25 POC Glucose 161 (58-89) H 10/07/17 23:59 Calcium 7.8 mg/dL (8.6-10.3) L 10/08/17 11:25 Iron 18 mcg/dL (65-175) L 10/07/17 05:01 % Saturation 13 % (20-55) L 10/07/17 05:01 Transferrin 97 mg/dL (203-362) L 10/07/17 05:01 Troponin I 0.13 ng/mL (< 0.04) H* 10/07/17 05:01 B-Natriuretic Peptide 2626 pg/mL (Less than 100) H 10/08/17 03:39 Serum Total Protein 4.9 g/dL (6.4-8.9) L 10/06/17 17:10 Albumin 2.3 g/dL (3.5-5.7) L 10/06/17 17:10 Albumin/Globulin Ratio 0.9 (1.1-2.2) L 10/06/17 17:10 Vitamin B12 229 pg/mL (250-1100) L 10/07/17 05:01 - Attending Attestation I examined this patient and my medical decision-making was reviewed with the Resident Physician. I agree with the documented findings, disposition and treatment plan as described except to the extent set forth below. Patient seen and examined. Labs, radiology, chart personally reviewed. Agree with resident's history and physical, assessment, plan with following comments: DIRECTOR LEARNING AND DEVELOPMENT: Patient follows commands, Pulmonary: Acceptable oxygenation and ventilation and patient has advanced lung disease with poor prognosis and palliative care is consulted. This could be a source of his sepsis/septic shock and patient has seen infectious disease in the past which will consult infectious disease. Cardiovascular: Patient received fluid resuscitation and requiring vasopressors or sepsis. GI: Nutrition per dietary and GI prophylaxis per routine Heme: DVT prophylaxis per routine ID: Continue antibiotics and plan to de-escalation Renal; urine out put and renal funtion reviewed Endorcine: blood glucose is monitored Lines: all lines checked and no evidence of infections Skin: skin care to prevent pressure ulcers per nursing routine care
[2017-10-08] MEDS ORDERED: Aminoglycoside Consult 1 EACH MC ONE (08:33)
[2017-10-08] MEDS: Megestrol Acetate 400 MG/10 ML UDC PO SCH ×2 (08:39→20:19)
[2017-10-08] MEDS: Multivit/Ca/Min/Fe/FA 1 TAB TABLET PO SCH (08:39)
[2017-10-08] MEDS: clonazePAM 1 MG TABLET PO SCH ×2 (08:40→20:20)
[2017-10-08] MEDS: Isosorbide MONOnitrate (24 HR) 30 MG TAB.ER.24H PO SCH (08:40)
[2017-10-08] MEDS: *HR* Ticagrelor 90 MG TABLET PO SCH ×2 (08:40→20:19)
[2017-10-08] MEDS: Aspirin 81 MG TAB.CHEW PO SCH (08:40)
[2017-10-08] MEDS: *HR* Amiodarone 200 MG TABLET PO SCH (08:40)
[2017-10-08] MEDS: Fluticasone Propionate Nasal 50 MCG/SPRAY BOTTLE NS SCH (09:08)
[2017-10-08 11:31] LABS: Basophils % 0.1 %; Hematocrit 26.7 % (37.5-50.1); Hemoglobin 8.4 g/dL (12.9-16.9); Immature Granulocytes % 0.4 % (0-4); Lymphocytes # 0.2 K/mcL (0.6-4.6); Lymphocytes % 2.1 %; Mean Corpuscular HGB Conc 31.5 g/dL (31.6-35.5); Mean Corpuscular Hemoglobin 28.3 pg (28.0-33.3); Mean Corpuscular Volume 89.9 fL (83.0-100.0); Mean Platelet Volume 9.6 fL (9.4-12.4); Monocytes # 0.2 K/mcL (0.0-1.3); Monocytes % 1.9 %; Platelet Count 166 K/mcL (140-400); Red Blood Count 2.97 M/mcL (4.19-5.50); Segmented Neutrophils % 95.5 %
[2017-10-08 11:45] LABS: BUN/Creatinine Ratio 18 (6-26); Blood Urea Nitrogen 17 mg/dL (8-23); Calcium 7.8 mg/dL (8.6-10.3); Carbon Dioxide 21 mEq/L (23-29); Chloride 107 mEq/L (98-107); Glucose 163 mg/dL (70-105); Osmolality,Calculated 283 (280-300); Potassium 3.9 mEq/L (3.5-5.1); Sodium 134 mEq/L (136-145); eGFR For African Americans > 60 (> 60); eGFR For Non-African Americans > 60 (> 60)
[2017-10-08] MEDS: Pantoprazole 40 MG VIAL IVP SCH (12:19)
[2017-10-08] MEDS: *HR* LORazepam 0.5 MG TABLET PO PRN ×3 (12:19→23:49)
--- NOTE | 2017-10-08 12:19 | Infectious Disease Consult ---
Date of Encounter: 10/08/17 Time of Encounter: 12:17 Assessment and Plan (1) Severe sepsis Status: Acute Assessment and plan: The patient had two SIRS criteria plus hypotension on admission. Likely secondary to pneumonia. The patient continues to have tachypnea and tachycardia, but hypotension resolved with fluid resuscitation. Lactic acid normal on admission, but re-checked this morning is mildly elevated at 2.9. Blood cultures drawn 10/06/17 are NGTD x 2 sets. (2) Pneumonia Status: Acute Assessment and plan: Location: Right middle and Right lower lobes. Causative organism: unclear. Previous sputum cultures were positive for VRE ( sensitive only to linezolid) back in August and it does not appear that the patient was ever treated. Prior to that, sputum cultures grew Pseudomonas aeruginosa, Pseudomonas fluorescens, and MAC. S. pneumo and Legionella UAT negative. The patient has not been able to give a sputum specimen yet. CT chest showed findings consistent with RML and RLL PNA. Patient was previously treated for his MAC infection and treatment was stopped back in 2015. The patient is at risk for MDR organisms as he has been in an ECF and has been on antibiotics in the last 90 days. Send sputum for culture if the patient is able to provide an adequate specimen. Continue Zosyn 3.375 grams IV Q8H. Discontinue Levaquin. Discontinue Vancomycin. Start linezolid 600mg IV BID. We may need to stop the patient's zoloft while on the linezolid to decrease the incidence of serotonin syndrome. Unfortunately, we cannot use Dapto as it does not penetrate the lungs. Duration of treatment depends on the clinical picture. Monitor renal function and for drug toxicities. Qualifiers: Qualified Code(s): J18.9 - Pneumonia, unspecified organism (3) Dehydration Status: Acute Assessment and plan: Likely secondary to GI loss. Fluid resuscitation per the primary team. (4) Diarrhea Status: Acute Assessment and plan: Etiology unclear. The patient reports 6-8 loose, watery, foul-smelling stools per day for two weeks prior to admission. He has not had any stools since being here. Abdominal exam benign. Clinically does not appear to be C. diff since the patient is no longer having stools. If diarrhea re-starts and he has 4 or more diarrhea stools in a 24 hour period, start C. diff precautions and stool for testing. Qualifiers: Diarrhea type: presumed infectious Qualified Code(s): R19.7 - Diarrhea, unspecified (5) History of MAC infection Status: Chronic Assessment and plan: Previously treated with treatment stopped in 2015. Sputum culture back in 04/2017 showed possible reactivation of MAC, but sputum culture in August was negative for AFB. (6) Ischemic cardiomyopathy Status: Chronic Assessment and plan: Status post remote history of AICD placement. (7) Systolic CHF Status: Acute Qualifiers: Congestive heart failure chronicity: chronic Qualified Code(s): I50.22 - Chronic systolic (congestive) heart failure (8) CAD (coronary artery disease) Status: Chronic Qualifiers: Coronary Disease-Associated Artery/Lesion type: bypass graft Tribe vs. transplanted heart: koi heart Associated angina: angina presence unspecified Qualified Code(s): I25.810 - Atherosclerosis of coronary artery bypass graft(s) without angina pectoris (9) COPD (chronic obstructive pulmonary disease) with emphysema Status: Acute Qualifiers: Emphysema type: panlobular Qualified Code(s): J43.1 - Panlobular emphysema Infectious Disease HPI - Data of Consult Patient: known to practice within the last 3 years Consult date: 10/08/17 Requesting Physician: Katie Fink Primary Care Provider: Ulices Mcgovern Jr, MD - Consult Narrative Reason for consult: PNA History of present illness: Mr. Jaimes is a 72 year old male past medical history of COPD, recurrent pneumonia , CAD, hyperlipidemia, hypertension, hypothyroidism, mycobacterial avium complex , and anxiety/depression. The patient was admitted to the hospital 2 . for hypotension and diarrhea. We are consulted October 08 for antibiotic recommendations regarding pneumonia. Briefly, the patient 72-year-old male with past medical history as stated above. The patient is well-known to the infectious disease service as we've been following this patient for several years. He was previously treated for the mycobacterial avium complex until 2015 when the treatment was discontinued. Apparently, the patient has had loose watery stools multiple times a day for the past 2 weeks. He was noted to be hypotensive at the [facility] and he was transferred to our emergency department for evaluation. Upon arrival, the patient was afebrile, patient was tachycardic and tachypneic. He was also noted to be hypotensive. Laboratory studies revealed a normal white blood cell count with a normal lactic acid. He had a CT the abdomen and pelvis that showed patchy opacities to the lung bases bilaterally with the left greater than the right as well as mild biliary ductal dilatation. He had a chest x-ray that showed new patchy left airspace disease. He was started empirically on oral vancomycin and IV Flagyl as his diarrheal illness did mimic that of C. difficile. He had blood cultures 2 sets and he was admitted to the hospital for further evaluation. The patient became markedly hypotensive, dyspneic, and hypoxic and had a low- grade fever with a MAXIMUM TEMPERATURE of 100.1 last night and a rapid response was called. There was concern about a possible pulmonary embolism and the patient was transferred to the intensive care unit. He did have a repeat chest x -ray that showed left basilar airspace opacities consistent with atelectasis versus pneumonia. Because there was concern about a possible PE, he did undergo a CTA of the chest that was negative for PE, but did show extensive chronic lung disease as well as a progressing consolidation in the right middle lobe and progressive interstitial opacity in the right lower lobe concerning for pneumonia/pneumonitis. PCR swab was negative. Repeat lactic acid last night was 2.9 and was 1.4 this morning. Pneumococcal and legionella urinary antigens were negative. Currently, patient is on IV vancomycin, IV Zosyn, and IV Levaquin. We' ve been asked to evaluate and make further recommendations. During my exam today, the patient endorses a history as stated above. He denied any fevers or chills or rigors. He denied any headache or neck pain. He did state that he had a skin cancer removed from the top of his head about a week ago. He denies any night sweats or weight loss. He states that his breathing seemed to be at baseline prior to admission, but suddenly got worse last night. He states that he does have a cough that is worse when he lays flat that is productive of thin sputum, but progressively worsened until he is able to cough up a large amount of dark sputum. He states this is chronic for him and seems to be at baseline as well. He denies any nausea or vomiting. He does report 68 loose watery foul-smelling stools per day that started about 2 weeks ago. He denies any abdominal pain at this time, but does associate some increased gas pains and cramping when he has to have diarrhea. He denies any back or extremity pain at this time. He denies any oral thrush or new skin lesions. CC: Katie Fink Past Med Surg Social Fam HX - Past Medical History Attestation: Yes The following information was validated with the patient. Source: patient, old records reviewed, nursing notes reviewed Medical history: aortic aneurysm, cancer (skin cancer removed 2017), COPD, coronary artery disease, GERD, hyperlipidemia, hypertension, myocardial infarction, thyroid disease, other (MAC) Psychiatric history: anxiety, depression - Past Surgical History Surgical History: cancer surgery, coronary bypass (CABG), vasectomy - Social History Smoking Status: Former smoker Smokeless Tobacco Status: No Alcohol use: none Drug use: none Occupational status: retired Current living situation: [facility] Activity Level: Uses cane/walker Recent Out of Country Travel Within the Last 8 Weeks: No Exposure or Possible Exposure to Illness During Travel: No - Family History Mother History Unknown: Yes Infectious Disease-CN:Meds Albuterol Sulfate [Ventolin Hfa] 2 puff IH Q4H PRN 10/15/16 [History] Amiodarone [Cordarone] 200 mg PO DAILY 10/15/16 [History] Aspirin 81 mg PO DAILY 10/15/16 [History] Furosemide [Lasix] 20 mg PO DAILY 10/15/16 [History] Ipratropium/Albuterol Neb [Duoneb] 3 ml IH TID PRN 10/15/16 [History] Isosorbide MONOnitrate (24 HR) [Imdur] 30 mg PO DAILY 10/15/16 [History] Levothyroxine [Synthroid] 75 mcg PO DAILY 10/15/16 [History] Topiramate [Topamax] 50 mg PO HS 10/15/16 [History] Quetiapine Fumarate [Seroquel] 25 mg PO HS 05/12/17 [History] clonazePAM [Klonopin] 1 mg PO BID 05/12/17 [History] Docusate [Colace] 100 mg PO BID #30 cap 05/19/17 [Rx] Ferrous Sulfate 325 mg PO DAILY #30 tablet. 05/19/17 [Rx] Oxybutynin [Ditropan] 5 mg PO BID 06/02/17 [History] Umeclidinium Brm/Vilanterol Tr [Anoro Ellipta 62.5-25 Mcg INH] 1 each IH DAILY 06/02/17 [History] Fluticasone Propionate Nasal [Flonase] 100 mcg NS DAILY bottle 06/04/17 [Rx] Bisacodyl [Dulcolax] 5 mg PO DAILY PRN 08/23/17 [History] Megestrol Acetate [Megace] 200 mg PO BID 08/23/17 [History] Multivitamin [One Daily Multivitamin] 1 each PO DAILY 08/23/17 [History] Nitroglycerin [Nitrostat] 0.4 mg SL Q5M PRN 08/23/17 [History] Tamsulosin [Flomax] 0.4 mg PO DAILY 08/23/17 [History] Atorvastatin [Lipitor] 40 mg PO HS #30 tablet 08/27/17 [Rx] Sertraline [Zoloft] 100 mg PO DAILY #30 tablet 08/27/17 [Rx] Ticagrelor [Brilinta] 90 mg PO BID #60 tablet 08/27/17 [Rx] GuaiFENesin/Dextromethorphan [Robitussin/Dm] 10 ml PO Q6HR PRN #1 bottle [Rx] HYDROcodone/Acet 5/325 mg [[place] 5-325 mg] 1 tab PO Q6HR PRN #24 tablet [Rx] Melatonin 3 mg PO HS PRN #30 tablet 09/14/17 [Rx] PredniSONE [Deltasone] 20 mg PO DAILY #7 tablet 09/14/17 [Rx] Diphenoxylate/Atropine [Lomotil 2.5 mg/0.025 mg] 1 each PO QID PRN 10/06/17 [ History] Hydroguard Cream 1 appl TP DAILY 10/06/17 [History] Loperamide HCl [Imodium A-D] 2 mg PO QID PRN 10/06/17 [History] Na Phos,M-B/Na Phos,Di-Ba [Fleet Enema Extra] 230 ml RC DAILY PRN 10/06/17 [ History] Ondansetron HCl [Zofran] 4 mg PO Q8H PRN 10/06/17 [History] 3 Allergy/AdvReac Type Severity Reaction Status Date / Time No Known Allergies Allergy Verified 05/15/17 09:36 All systems: reviewed and no additional remarkable complaints except as stated Exam - Constitutional Vitals: Temp Pulse Resp BP Pulse Ox 97.8 F 102 22 102/76 97 10/08/17 11:25 10/08/17 11:25 10/08/17 11:25 10/08/17 11:25 10/08/17 11:25 General appearance: average body habitus, cooperative, mild distress - Head Head exam: Present: atraumatic, normal inspection, normocephalic Additional comments: Dressing noted to the top of the scalp C/D/I. - Eye Eye exam: Present: EOMI, normal appearance, PERRL Pupils: Present: normal accommodation - ENT ENT exam: Present: mucous membranes moist - Neck Neck exam: Present: normal inspection - Respiratory Respiratory exam: Present: CTAB, respiratory distress (mild), tachypnea. Absent : rales, rhonchi, wheezes - Cardiovascular Cardiovascular exam: Present: +S1, +S2, tachycardia. Absent: irregular rhythm, RRR - GI/Abdominal GI/Abdominal exam: Present: normal bowel sounds, soft. Absent: distended, tenderness - Extremities Exam Extremities exam: Present: normal inspection. Absent: joint swelling, pedal edema, tenderness Additional comments: CVC noted to the right groin with transparent dressing C/D/I. - Neurological Exam Neurological exam: Present: alert, oriented X3, no focal deficits - Psychiatric Psychiatric exam: Present: normal affect, normal mood - Skin Skin exam: Present: dry, intact, normal color, warm Infectious Disease CN: Results - Labs CBC & Chem 7: 10/08/17 11:25 10/08/17 11:25 Cultures: Cultures 10/07/17 14:42 Legionella Antigen - Final Urine,Clean Catch Streptococcus pneumoniae Antigen (M - Final Serology: Serology 10/07/17 Range/Units 13:22 Influ A (H1N1/09) PCR NOT DETECTED (Not Detect) Influenza Type A (PCR) Negative (Negative) Influenza Type B (PCR) Negative (Negative) Consult Discharge Plan - Plan Referrals: Ulices Mcgovern Jr, MD [Primary Care Provider] -
[2017-10-08] MEDS: 0.9 % Sodium Chloride 1,000 ML IVC SCH (12:56)
--- NOTE | 2017-10-08 13:33 | Palliative - Consult Note ---
Date of Encounter: 10/08/17 Time of Encounter: 16:00 - Assessment and Plan (1) Dyspnea Current Visit: No Status: Acute Assessment and plan: Continues with antibiotic therapy - ID following. Receiving supportive oxygen, bronchodilators, steroids. Monitor Qualifiers: Qualified Code(s): R06.00 - Dyspnea, unspecified (2) Anxiety Current Visit: Yes Status: Acute Assessment and plan: He remains on his home regimen of Seroquel and Clonazepam. Has low dose Lorazepam that has been started here and has been helpful for him. Requires a great deal emotional support r/t his fear and anxiety. (3) Counseling regarding advanced care planning and goals of care Current Visit: Yes Status: Acute Assessment and plan: Long discussion regarding goals of care with pt and daughter, however, pt was unable to stay awake during conversation. Did discuss with daughter pt earlier statement to me regarding his anxiety and fear of the process of passing. Discussed current clinical status. Daughter very knowledgable regarding pt treatment plan and is very involved in his care. His advanced directives are in place and she is medical power of personal injury attorney. Previous code status in August was DNRCC-Arrest, ok with short term intubation, and she desires to continue this at this time. Code status changed from FuLL to DNRCCA. We discussed with his end stage lung disease, multiple pulmonary infections, may be very difficult to successfully wean off the ventilator once intubated. She wants to continue to discuss with her father, and desires to meet with Dr. Saavedra as well. Chintan Benedict PUBLIC WORKS INSPECTOR also present and discussed d/c plan and financial issues. Discuss hospice briefly, as he is eligible for Respiratory disease - she does not feel her father would be accepting of this as this point. D/W Dr. Saavedra who will hopefully be able to meet with daughter tomorrow am. Will continue to follow. (4) Acute and chronic respiratory failure Current Visit: No Status: Acute Qualifiers: Respiratory failure complication: hypoxia Qualified Code(s): J96.21 - Acute and chronic respiratory failure with hypoxia (5) Acute exacerbation of chronic obstructive airways disease Current Visit: No Status: Acute Palliative-CN HPI - Data of Consult Consult date: 10/08/17 Requesting Physician: Katie Fink Primary Care Provider: Ulices Mcgovern Jr, MD - Consult Narrative History of present illness: Mr. Jaimes is a 72 year old male with a past medical history of COPD, CHF, hypertension, CAD status post CABG, abdominal aortic aneurysm status post repair in surgery who presented to the emergency department with chief complaint of diarrhea that have been going on for the last 2-3 weeks. He has been at [facility] over the past several weeks for rehabilitation. In the emergency department, patient was suspected to have C. difficile, and was empirically started on vancomycin by mouth and IV Flagyl. C. difficile test was ordered, but this was negative. Chest x-ray demonstrated new patchy left basilar airspace disease, possibly representing pneumonia which is superimposed on severe emphysema. Also revealed parenchymal scarring and bronchiectasis particularly in the right upper lung. CT of the abdomen and pelvis was unremarkable for acute abdominal pathology. Yesterday, pt developed respiratory distress and hypotension, and was transferred to the ICU. PE was ruled out. Blood pressure is stable today. He continues to be in mild respiratory distress. He states he is very anxious and fearful, and knows that his health is deteriorating. Awaiting daughter to come in this afternoon to meet. Palliative has seen pt briefly during a previous admission in August - at that time, pt had transitioned to DNR-Arrest and was ok with short term intubation. CC: Katie Fink Past Med Surg Social Fam HX - Past Medical History Medical history: aortic aneurysm, cancer (skin cancer removed 2018), COPD, coronary artery disease, GERD, hyperlipidemia, hypertension, myocardial infarction, thyroid disease, other (MAC) Psychiatric history: anxiety, depression - Past Surgical History Surgical History: cancer surgery, coronary bypass (CABG), vasectomy, AICD - Social History Smoking Status: Former smoker Smokeless Tobacco Status: No Alcohol use: none Drug use: none - Family History Mother History Unknown: Yes Medications and Allergies Albuterol Sulfate [Ventolin Hfa] 2 puff IH Q4H PRN 10/15/16 [History] Amiodarone [Cordarone] 200 mg PO DAILY 10/15/16 [History] Aspirin 81 mg PO DAILY 10/15/16 [History] Furosemide [Lasix] 20 mg PO DAILY 10/15/16 [History] Ipratropium/Albuterol Neb [Duoneb] 3 ml IH TID PRN 10/15/16 [History] Isosorbide MONOnitrate (24 HR) [Imdur] 30 mg PO DAILY 10/15/16 [History] Levothyroxine [Synthroid] 75 mcg PO DAILY 10/15/16 [History] Topiramate [Topamax] 50 mg PO HS 10/15/16 [History] Quetiapine Fumarate [Seroquel] 25 mg PO HS 05/12/17 [History] clonazePAM [Klonopin] 1 mg PO BID 05/12/17 [History] Docusate [Colace] 100 mg PO BID #30 cap 05/19/17 [Rx] Ferrous Sulfate 325 mg PO DAILY #30 tablet. 05/19/17 [Rx] Oxybutynin [Ditropan] 5 mg PO BID 06/02/17 [History] Umeclidinium Brm/Vilanterol Tr [Anoro Ellipta 62.5-25 Mcg INH] 1 each IH DAILY 06/02/17 [History] Fluticasone Propionate Nasal [Flonase] 100 mcg NS DAILY bottle 06/04/17 [Rx] Bisacodyl [Dulcolax] 5 mg PO DAILY PRN 08/23/17 [History] Megestrol Acetate [Megace] 200 mg PO BID 08/23/17 [History] Multivitamin [One Daily Multivitamin] 1 each PO DAILY 08/23/17 [History] Nitroglycerin [Nitrostat] 0.4 mg SL Q5M PRN 08/23/17 [History] Tamsulosin [Flomax] 0.4 mg PO DAILY 08/23/17 [History] Atorvastatin [Lipitor] 40 mg PO HS #30 tablet 08/27/17 [Rx] Sertraline [Zoloft] 100 mg PO DAILY #30 tablet 08/27/17 [Rx] Ticagrelor [Brilinta] 90 mg PO BID #60 tablet 08/27/17 [Rx] GuaiFENesin/Dextromethorphan [Robitussin/Dm] 10 ml PO Q6HR PRN #1 bottle [Rx] HYDROcodone/Acet 5/325 mg [[place] 5-325 mg] 1 tab PO Q6HR PRN #24 tablet [Rx] Melatonin 3 mg PO HS PRN #30 tablet 09/14/17 [Rx] PredniSONE [Deltasone] 20 mg PO DAILY #7 tablet 09/14/17 [Rx] Diphenoxylate/Atropine [Lomotil 2.5 mg/0.025 mg] 1 each PO QID PRN 10/06/17 [ History] Hydroguard Cream 1 appl TP DAILY 10/06/17 [History] Loperamide HCl [Imodium A-D] 2 mg PO QID PRN 10/06/17 [History] Na Phos,M-B/Na Phos,Di-Ba [Fleet Enema Extra] 230 ml RC DAILY PRN 10/06/17 [ History] Ondansetron HCl [Zofran] 4 mg PO Q8H PRN 10/06/17 [History] 3 Allergy/AdvReac Type Severity Reaction Status Date / Time No Known Allergies Allergy Verified 05/15/17 09:36 All systems: reviewed and no additional remarkable complaints except as stated ( severe anxiety, dyspnea even at rest, weakness) Palliative Care-Exam - Constitutional Vitals: Temp Pulse Resp BP Pulse Ox 97.8 F 102 22 102/76 97 10/08/17 11:25 10/08/17 11:25 10/08/17 11:25 10/08/17 11:25 10/08/17 11:25 General appearance: Present: average body habitus, cooperative, mild distress - Head Head Exam: Present: normal inspection, normocephalic - Respiratory Respiratory exam: Present: decreased breath sounds, CTAB - Cardiovascular Cardiovascular exam: Present: +S1, +S2 - GI/Abdominal Exam GI/Abdominal exam: Present: normal bowel sounds, soft - Extremities Exam Extremities exam: Present: normal capillary refill, normal inspection - Neurological Exam Neurological exam: Present: alert, oriented X3, strengths equal and symetr throughout - Skin Skin exam: Present: dry, pallor, warm Internal Medicine - CN: Reslt - Labs CBC & Chem 7: 10/08/17 11:25 10/08/17 11:25 Labs: Short CBC 10/07/17 10/08/17 Range/Units 22:12 11:25 WBC 11.8 H 9.5 (4.3-11.1) K/mcL Hgb 9.9 L D 8.4 L D (12.9-16.9) g/dL Hct 31.9 L 26.7 L (37.5-50.1) % Plt Count 182 166 (140-400) K/mcL Neutrophils # 9.0 H (1.6-8.9) K/mcL BMP 10/08/17 11:25 Sodium 134 L Potassium 3.9 Chloride 107 Carbon Dioxide 21 L BUN 17 Creatinine 0.95 Glucose 163 H Calcium 7.8 L - ABG Interpretation ABG results: ABG ABG pH 7.38 pH Units (7.32-7.45) 10/08/17 01:25 ABG pCO2 36 mmHg (35-45) 10/08/17 01:25 ABG pO2 98 mmHg (85-104) 10/08/17 01:25 ABG O2 Saturation 98 % (95-98) 10/08/17 01:25 PT/INR, D-dimer PT 16.3 Seconds (9.4-12.1) H 10/07/17 22:12 D-Dimer 2413 ng/mLFEU (0-500) H 10/06/17 20:41 - Impressions Impressions Chest X-Ray 10/07/17 21:09 IMPRESSION: Stable exam with mild left basilar airspace opacities compatible with atelectasis versus pneumonia. Chronic volume loss and scarring in the right lung. D/ / Xavi Gallo MD / Xavi Gallo MD Interpreting Provider: Xavi Gallo MD Chest CTA 10/08/17 21:47 IMPRESSION: No pulmonary embolism. Extensive chronic lung disease as detailed previously with emphysematous and bronchiectatic changes in the upper left and right lobes respectively. Progressive consolidation in the right middle lobe. Progressive interstitial opacity in the right lower lobe. This may reflect developing pneumonia/ pneumonitis. D/ / Chance Robertson MD / Chance Robertson MD Interpreting Provider: Chance Robertson MD Consult Discharge Plan - Plan Referrals: Ulices Mcgovern Jr, MD [Primary Care Provider] - Palliative Quality Palliative Quality: Screen for Code Status: Yes, Screen for Goals of Care: Yes, Screen for Pain: Yes, If Pain Regimen Started, Initiate Bowel Regimen: NA, Screen for Nausea/Vomitting: Yes Code Status: 10/06/17 23:00 Resuscitation Status: Active [RES] Routine Comment: Resuscitation Status: Full Code
[2017-10-08] MEDS: *HR* HYDROcodone/Acet 5/325 mg TABLET PO PRN ×2 (20:17→23:48)
[2017-10-08] MEDS: Topiramate 25 MG TABLET PO SCH (20:20)
[2017-10-09] MEDS: 0.9 % Sodium Chloride 1,000 ML IVC SCH ×2 (02:15→16:53)
[2017-10-09] MEDS: Ipratropium/Albuterol Neb 3 ML IH SCH ×3 (03:00→16:27)
[2017-10-09] MEDS: Norepinephrine 4 MG in D5% in Water 250 ML IVC SCH (03:33)
[2017-10-09] MEDS: *HR* HYDROcodone/Acet 5/325 mg TABLET PO PRN (03:46)
[2017-10-09] MEDS: *HR* LORazepam 0.5 MG TABLET PO PRN ×5 (03:46→21:20)
[2017-10-09] MEDS: *HR* Heparin 5,000 UNIT/ML VIAL SQ SCH ×2 (05:50→16:54)
--- NOTE | 2017-10-09 06:40 | Electrocardiograph Report ---
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
--- NOTE | 2017-10-09 07:26 | Pulmonology Progress Note ---
<MaryannRadha townsend M - Last Filed: 10/09/17 09:46> Date of Encounter: 10/09/17 Objective PUL Vital signs: Last Vital Signs Temp 97.4 F L 10/09/17 08:48 Pulse 84 10/09/17 09:00 Resp 20 10/09/17 09:00 BP 101/61 10/09/17 09:00 Pulse Ox 95 10/09/17 09:00 Results - Laboratory Findings CBC and BMP: 10/08/17 11:25 10/08/17 11:25 ABG ABG pH 7.38 pH Units (7.32-7.45) 10/08/17 01:25 ABG pCO2 36 mmHg (35-45) 10/08/17 01:25 ABG pO2 98 mmHg (85-104) 10/08/17 01:25 ABG O2 Saturation 98 % (95-98) 10/08/17 01:25 PT/INR, D-dimer PT 16.3 Seconds (9.4-12.1) H 10/07/17 22:12 D-Dimer 2413 ng/mLFEU (0-500) H 10/06/17 20:41 Abnormal lab findings: Abnormal lab results RBC 2.97 M/mcL (4.19-5.50) L 10/08/17 11:25 Hgb 8.4 g/dL (12.9-16.9) L D 10/08/17 11:25 Hct 26.7 % (37.5-50.1) L 10/08/17 11:25 MCHC 31.5 g/dL (31.6-35.5) L 10/08/17 11:25 RDW 17.0 % (11.5-14.5) H 10/08/17 11:25 Neutrophils # 9.0 K/mcL (1.6-8.9) H 10/08/17 11:25 Lymphocytes # 0.2 K/mcL (0.6-4.6) L 10/08/17 11:25 PT 16.3 Seconds (9.4-12.1) H 10/07/17 22:12 D-Dimer 2413 ng/mLFEU (0-500) H 10/06/17 20:41 ABG Base Excess -4 mEq/L (-2 to 3) L 10/08/17 01:25 Sodium 134 mEq/L (136-145) L 10/08/17 11:25 Carbon Dioxide 21 mEq/L (23-29) L 10/08/17 11:25 Glucose 163 mg/dL (70-105) H 10/08/17 11:25 POC Glucose 161 (58-89) H 10/07/17 23:59 Calcium 7.8 mg/dL (8.6-10.3) L 10/08/17 11:25 Iron 18 mcg/dL (65-175) L 10/07/17 05:01 % Saturation 13 % (20-55) L 10/07/17 05:01 Transferrin 97 mg/dL (203-362) L 10/07/17 05:01 Troponin I 0.13 ng/mL (< 0.04) H* 10/07/17 05:01 B-Natriuretic Peptide 2626 pg/mL (Less than 100) H 10/08/17 03:39 Serum Total Protein 4.9 g/dL (6.4-8.9) L 10/06/17 17:10 Albumin 2.3 g/dL (3.5-5.7) L 10/06/17 17:10 Albumin/Globulin Ratio 0.9 (1.1-2.2) L 10/06/17 17:10 Vitamin B12 229 pg/mL (250-1100) L 10/07/17 05:01 - Clinical Findings Intake & Output: Intake & Output 10/08/17 10/09/17 10/09/17 23:59 07:59 15:59 Intake Total 736 / 736 1854 / 1854 Output Total 100 / 100 Balance 636 / 636 1854 / 1854 Weight 64.9 kg 64.8 kg Consult Discharge Plan - Plan Referrals: Ulices Mcgovern Jr, MD [Primary Care Provider] - - Attending Attestation I examined this patient and my medical decision-making was reviewed with the Resident Physician. I agree with the documented findings, disposition and treatment plan as described except to the extent set forth below. Patient seen and examined. Labs, radiology, chart personally reviewed. 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 Discussed with the patient in the presence of his daughter and patient would be DNR comfort and DNI. Appreciate infectious disease input regarding treatment of the pneumonia. Cardiovascular: stable . Patient has a defibrillator and the daughter will talk to him regarding deactivation. GI: Nutrition per dietary and GI prophylaxis per routine Heme: DVT prophylaxis per routine ID: Continue antibiotics and plan to de-escalation Renal; urine out put and renal funtion reviewed Endorcine: blood glucose is monitored Lines: all lines checked and no evidence of infections area patient has a right femoral line which has been losing we will consult vascular access team to have PICC line and then they can remove catheter. Skin: skin care to prevent pressure ulcers per nursing routine care Poor prognosis and transfer patient to floor. <Avtar Reyes - Last Filed: 10/09/17 10:07> Date of Encounter: 10/09/17 Time of Encounter: 07:00 Assessment and Plan (1) Pneumonia Current Visit: Yes Status: Acute Chest CT demonstrated findings consistent with RML and RLL PNA. -Strep pneumo and legionella UAT are negative. -Patient has been unable to provide adequate sputum sample. -August sputum CX were positive for VRE (sensitive only to linezolid). -Prior sputum CX have grown Pseudomonas a., Pseudomonas fluorescens, and MAC. -Patient at risk for MDR organisms; has been in an ECF, has been on antibiotics in the last 90 days. -Per the recommendations of ID, vancomycin and Levaquin were both d/c; start linezolid and continue Zosyn. Plan -Zosyn 3.375 g IV Q8 -Linezolid 600 mg IV Q12 -Send sputum for CX if patient can provide adequate specimen. Qualifiers: Qualified Code(s): J18.9 - Pneumonia, unspecified organism (2) Severe sepsis Current Visit: Yes Status: Acute 2 SIRS criteria plus hypotension on admission. -Initially had tachypnea and tachycardia; these of both resolved. -Likely secondary to PNA. -Blood cultures drawn 10/06/17 are NGTD x 2 sets. -Lactic acid has decreased from 2.9-1.4. -Blood CX from 10/06/17 are negative x2 Plan: -Linezolid 600 mg IV BID -Zosyn 3.375 g IV Q8 (3) Acute and chronic respiratory failure Current Visit: No Status: Acute Patient has a known history of COPD. -Had an increase work of breathing low O2 saturation on 10/07/17. -This morning, patient appears to have an improvement in his symptoms. -Not currently on BiPAP. Qualifiers: Respiratory failure complication: hypoxia Qualified Code(s): J96.21 - Acute and chronic respiratory failure with hypoxia (4) COPD (chronic obstructive pulmonary disease) Current Visit: No Status: Chronic Patient has a known history of COPD. Plan: -O2 via NC -DuoNeb's 3 mL IH TID -Flonase 100 mcg NS daily -Robitussin-DM 10 mL PO Q6 -Albuterol sulfate 2 puffs IH Q4 PRN Qualifiers: COPD type: unspecified COPD Qualified Code(s): J44.9 - Chronic obstructive pulmonary disease, unspecified (5) DVT prophylaxis Current Visit: No Status: Acute Heparin 5000 SQ Q12 (6) Diarrhea Current Visit: Yes Status: Acute Patient reported 6-8 loose, watery, foul-smelling stools per day 2-3 weeks prior to admission -Patient denies having any bowel movements since arrival to the hospital. -Initially, C. difficile was suspected. Plan: -Per the recommendation of ID: If diarrhea re-starts and pt. has 4 or more diarrhea stools in a 24h period, start C. diff precautions and stool for testing Qualifiers: Diarrhea type: presumed infectious Qualified Code(s): R19.7 - Diarrhea, unspecified (7) Elevated d-dimer Current Visit: Yes Status: Acute Laboratory examination demonstrated an elevated d-dimer at 2413. Heparin drip was started when patient became short of breath due to the possibility of a PE. Patient went for CTA scan; showed no evidence of pulmonary embolism. Subjective Interval history: Patient was seen and examined at bedside this morning. Reports an improvement in his respiratory symptoms. Denies having any bowel movements. Denies fever, chills, abdominal pain, or nausea. Accompanied by daughter at bedside. CODE STATUS was discussed with patient; agreed on DNR CCA DNI. Palliative care is on board. Possible transfer out of the unit today. Objective PUL Vital signs: Last Vital Signs Temp 96.9 F L 10/09/17 03:07 Pulse 78 10/09/17 06:01 Resp 20 10/09/17 06:01 BP 103/66 10/09/17 06:01 Pulse Ox 96 10/09/17 06:01 General appearance: no acute distress Eyes: nonicteric ENT: oropharynx dry Effort: mildly labored Auscultation: bilateral: rales, rhonchi Cardiovascular: regular rate and rhythm normal mental status mood appropriate, affect normal Results - Laboratory Findings CBC and BMP: 10/08/17 11:25 10/08/17 11:25 ABG ABG pH 7.38 pH Units (7.32-7.45) 10/08/17 01:25 ABG pCO2 36 mmHg (35-45) 10/08/17 01:25 ABG pO2 98 mmHg (85-104) 10/08/17 01:25 ABG O2 Saturation 98 % (95-98) 10/08/17 01:25 PT/INR, D-dimer PT 16.3 Seconds (9.4-12.1) H 10/07/17 22:12 D-Dimer 2413 ng/mLFEU (0-500) H 10/06/17 20:41 Abnormal lab findings: Abnormal lab results RBC 2.97 M/mcL (4.19-5.50) L 10/08/17 11:25 Hgb 8.4 g/dL (12.9-16.9) L D 10/08/17 11:25 Hct 26.7 % (37.5-50.1) L 10/08/17 11:25 MCHC 31.5 g/dL (31.6-35.5) L 10/08/17 11:25 RDW 17.0 % (11.5-14.5) H 10/08/17 11:25 Neutrophils # 9.0 K/mcL (1.6-8.9) H 10/08/17 11:25 Lymphocytes # 0.2 K/mcL (0.6-4.6) L 10/08/17 11:25 PT 16.3 Seconds (9.4-12.1) H 10/07/17 22:12 D-Dimer 2413 ng/mLFEU (0-500) H 10/06/17 20:41 ABG Base Excess -4 mEq/L (-2 to 3) L 10/08/17 01:25 Sodium 134 mEq/L (136-145) L 10/08/17 11:25 Carbon Dioxide 21 mEq/L (23-29) L 10/08/17 11:25 Glucose 163 mg/dL (70-105) H 10/08/17 11:25 POC Glucose 161 (58-89) H 10/07/17 23:59 Calcium 7.8 mg/dL (8.6-10.3) L 10/08/17 11:25 Iron 18 mcg/dL (65-175) L 10/07/17 05:01 % Saturation 13 % (20-55) L 10/07/17 05:01 Transferrin 97 mg/dL (203-362) L 10/07/17 05:01 Troponin I 0.13 ng/mL (< 0.04) H* 10/07/17 05:01 B-Natriuretic Peptide 2626 pg/mL (Less than 100) H 10/08/17 03:39 Serum Total Protein 4.9 g/dL (6.4-8.9) L 10/06/17 17:10 Albumin 2.3 g/dL (3.5-5.7) L 10/06/17 17:10 Albumin/Globulin Ratio 0.9 (1.1-2.2) L 10/06/17 17:10 Vitamin B12 229 pg/mL (250-1100) L 10/07/17 05:01 - Clinical Findings Intake & Output: Intake & Output 10/08/17 10/08/17 10/09/17 15:59 23:59 07:59 Intake Total 736 / 736 1554 / 1554 Output Total 100 / 100 Balance 636 / 636 1554 / 1554 Weight 64.9 kg
--- NOTE | 2017-10-09 07:49 | Palliative Progress Note ---
Date of Encounter: 10/09/17 Time of Encounter: 07:25 - Assessment and plan (1) Anxiety Current Visit: Yes Status: Acute Assessment and plan: Current medications appear to be effective, however the patient continues to require a great deal of emotional support. This per the nursing staff. Continue current therapy (2) Dyspnea Current Visit: No Status: Acute Assessment and plan: currently on nasal cannula and tolerating well. Chidi present therapy as per hospitalist and ICU team Qualifiers: Qualified Code(s): R06.00 - Dyspnea, unspecified (3) Goals of care, counseling/discussion Current Visit: No Status: Acute Assessment and plan: DNR CCA, I am told that discussion will take place today between the patient's family and Dr. Saavedra the patient may be able to transfer out of the unit today and as per [facility] team. Palliative we will continue to follow. - Time Spent With Patient Total time spent is greater than 50% in coordination of care (as documented) at patient's floor/unit and/or counseling patient: - Subjective Interval history: Patient is sleeping at this time. Events noted overnight, however the patient does get very anxious when awakened, per nursing staff. - Constitutional Vitals: Abnormal lab results RBC 2.97 M/mcL (4.19-5.50) L 10/08/17 11:25 Hgb 8.4 g/dL (12.9-16.9) L D 10/08/17 11:25 Hct 26.7 % (37.5-50.1) L 10/08/17 11:25 MCHC 31.5 g/dL (31.6-35.5) L 10/08/17 11:25 RDW 17.0 % (11.5-14.5) H 10/08/17 11:25 Neutrophils # 9.0 K/mcL (1.6-8.9) H 10/08/17 11:25 Lymphocytes # 0.2 K/mcL (0.6-4.6) L 10/08/17 11:25 PT 16.3 Seconds (9.4-12.1) H 10/07/17 22:12 D-Dimer 2413 ng/mLFEU (0-500) H 10/06/17 20:41 ABG Base Excess -4 mEq/L (-2 to 3) L 10/08/17 01:25 Sodium 134 mEq/L (136-145) L 10/08/17 11:25 Carbon Dioxide 21 mEq/L (23-29) L 10/08/17 11:25 Glucose 163 mg/dL (70-105) H 10/08/17 11:25 POC Glucose 161 (58-89) H 10/07/17 23:59 Calcium 7.8 mg/dL (8.6-10.3) L 10/08/17 11:25 Iron 18 mcg/dL (65-175) L 10/07/17 05:01 % Saturation 13 % (20-55) L 10/07/17 05:01 Transferrin 97 mg/dL (203-362) L 10/07/17 05:01 Troponin I 0.13 ng/mL (< 0.04) H* 10/07/17 05:01 B-Natriuretic Peptide 2626 pg/mL (Less than 100) H 10/08/17 03:39 Serum Total Protein 4.9 g/dL (6.4-8.9) L 10/06/17 17:10 Albumin 2.3 g/dL (3.5-5.7) L 10/06/17 17:10 Albumin/Globulin Ratio 0.9 (1.1-2.2) L 10/06/17 17:10 Vitamin B12 229 pg/mL (250-1100) L 10/07/17 05:01 General appearance: Present: no acute distress - Head Head exam: Present: atraumatic, normal inspection - Eye Eye exam: Present: normal appearance - Neck Neck exam: Present: normal inspection - Respiratory Respiratory exam: Present: decreased breath sounds - Cardiovascular Cardiovascular exam: Present: RRR - GI/Abdominal GI/Abdominal exam: Present: normal bowel sounds, soft. Absent: tenderness - Extremities Exam Extremities exam: Absent: tenderness - Neurological Exam Neurological exam: Present: alert (Sleeping at this time per nursing report patient awakens easily. I did not awaken him personally.) - Psychiatric Psychiatric exam: Present: anxious (Has been having periods of anxiety per nursing staff however patient is asleep at this time). Absent: agitated - Skin Skin exam: Present: dry, warm Palliative Quality Palliative Quality: Screen for Code Status: Yes, Screen for Goals of Care: Yes, Screen for Pain: Yes, If Pain Regimen Started, Initiate Bowel Regimen: NA, Screen for Nausea/Vomitting: Yes Code Status: 10/08/17 17:28 CODE [Resuscitation Status: Active] [RES] Routine Comment: Patient want that Resuscitation Status: DNR-Comfort Care-Arrest - Labs CBC & Chem 7: 10/08/17 11:25 10/08/17 11:25 - ABG Interpretation ABG results: ABG ABG pH 7.38 pH Units (7.32-7.45) 10/08/17 01:25 ABG pCO2 36 mmHg (35-45) 10/08/17 01:25 ABG pO2 98 mmHg (85-104) 10/08/17 01:25 ABG O2 Saturation 98 % (95-98) 10/08/17 01:25 PT/INR, D-dimer PT 16.3 Seconds (9.4-12.1) H 10/07/17 22:12 D-Dimer 2413 ng/mLFEU (0-500) H 10/06/17 20:41 Consult Discharge Plan - Plan Referrals: Ulices Mcgovern Jr, MD [Primary Care Provider] -
[2017-10-09] MEDS: *HR* Amiodarone 200 MG TABLET PO SCH (08:04)
[2017-10-09] MEDS: Multivit/Ca/Min/Fe/FA 1 TAB TABLET PO SCH (08:04)
[2017-10-09] MEDS: Isosorbide MONOnitrate (24 HR) 30 MG TAB.ER.24H PO SCH (08:04)
[2017-10-09] MEDS: clonazePAM 1 MG TABLET PO SCH ×2 (08:05→21:21)
[2017-10-09] MEDS: Hydrocortisone Sodium Succ 100 MG/2 ML VIAL IVP SCH ×2 (08:05→16:54)
[2017-10-09] MEDS: Pantoprazole 40 MG VIAL IVP SCH (08:05)
[2017-10-09] MEDS: *HR* Ticagrelor 90 MG TABLET PO SCH ×2 (08:05→21:21)
[2017-10-09] MEDS: Aspirin 81 MG TAB.CHEW PO SCH (08:05)
[2017-10-09] MEDS: Megestrol Acetate 400 MG/10 ML UDC PO SCH ×2 (08:36→21:21)
[2017-10-09] MEDS: Fluticasone Propionate Nasal 50 MCG/SPRAY BOTTLE NS SCH (08:36)
[2017-10-09] MEDS: Piperacillin/Tazobactam 3.375 GM/200 ML BAG IVPB SCH ×2 (08:38→16:54)
--- NOTE | 2017-10-09 10:01 | Electrocardiograph Report ---
[address] [address] Test Date: 2017-10-07 Pat Name: Justen Jaimes Department: 112 Room: 11 Gender: M Applications Coordinator: : 1945 Requested By: Katie Fink Order Number: [id number] Reading MD: Xavi Oscar DO Measurements Intervals [place] Rate: 133 P: 53 IN: 151 QRS: 76 QRSD: 113 T: 0 QT: 284 QTc: 362 Interpretive Statements BASELINE ARTIFCT RHYTHM APPEARS TO BE SINUS TACHYCARDIA MODERATE INTRAVENTRICULAR CONDUCTION DELAY NONSPECIFIC ST-T CHANGES RECOMMEND REPEAT ECG Electronically Signed On 10-09-2017 9:59:53 EST by Xavi Oscar DO
[2017-10-09] MEDS ORDERED: Ondansetron 4 MG/2 ML VIAL IVP PRN (11:08)
[2017-10-09] MEDS ORDERED: Nitroglycerin 0.4 MG TAB.SUBL SL PRN (11:08)
[2017-10-09] MEDS ORDERED: Norepinephrine 4 MG in D5% in Water 250 ML IVC SCH (11:08)
[2017-10-09] MEDS ORDERED: Naloxone 0.4 MG/ML INJ IVP PRN (11:08)
[2017-10-09] MEDS: Topiramate 25 MG TABLET PO SCH (21:20)
[2017-10-10] MEDS: Ipratropium/Albuterol Neb 3 ML IH SCH ×4 (00:23→23:34)
[2017-10-10] MEDS: Piperacillin/Tazobactam 3.375 GM/200 ML BAG IVPB SCH ×3 (01:24→17:03)
[2017-10-10] MEDS: Hydrocortisone Sodium Succ 100 MG/2 ML VIAL IVP SCH ×3 (01:25→17:02)
[2017-10-10] MEDS: *HR* LORazepam 0.5 MG TABLET PO PRN ×6 (01:25→22:43)
[2017-10-10] MEDS: 0.9 % Sodium Chloride 1,000 ML IVC SCH (01:26)
[2017-10-10] MEDS: *HR* Heparin 5,000 UNIT/ML VIAL SQ SCH ×2 (05:38→17:11)
[2017-10-10] MEDS: Saline Nasal Spray 44 ML BOTTLE NS PRN ×2 (05:39→17:10)
[2017-10-10] MEDS ORDERED: Pantoprazole 40 MG VIAL IVP SCH (09:00)
[2017-10-10] MEDS: *HR* Ticagrelor 90 MG TABLET PO SCH (09:09)
[2017-10-10] MEDS: Multivit/Ca/Min/Fe/FA 1 TAB TABLET PO SCH (09:09)
[2017-10-10] MEDS: *HR* Amiodarone 200 MG TABLET PO SCH (09:09)
[2017-10-10] MEDS: Megestrol Acetate 400 MG/10 ML UDC PO SCH ×2 (09:10→21:40)
[2017-10-10] MEDS: Isosorbide MONOnitrate (24 HR) 30 MG TAB.ER.24H PO SCH (09:15)
[2017-10-10] MEDS: Aspirin 81 MG TAB.CHEW PO SCH (09:15)
[2017-10-10] MEDS: clonazePAM 1 MG TABLET PO SCH ×2 (09:16→21:39)
[2017-10-10] MEDS: Fluticasone Propionate Nasal 50 MCG/SPRAY BOTTLE NS SCH (09:41)
--- NOTE | 2017-10-10 09:53 | Internal Med Progress Note ---
Date of Encounter: 10/10/17 Time of Encounter: 09:51 - Assessment and plan (1) Pneumonia Current Visit: Yes Status: Acute Assessment and plan: Continue with linezolid and Zosyn per ID. Follow up on cultures. Positive VRE in the past. Taper down Solu-Cortef to 50 every 8 hours Qualifiers: Pneumonia type: due to unspecified organism Laterality: bilateral Lung location: unspecified part of lung Qualified Code(s): J18.9 - Pneumonia, unspecified organism (2) Septic shock Current Visit: Yes Status: Acute Assessment and plan: Off pressors. Likely secondary to pneumonia. Plan as above. Start weaning Solu-Cortef to 50 every 8 today. (3) Acute and chronic respiratory failure Current Visit: Yes Status: Acute Assessment and plan: Continue with O2 support. This is likely secondary to the pneumonia. We will treat pneumonia as below. Wean down oxygen as tolerated. She is oxygen dependent chronically. continue with nebs. Repeat chest x-ray Qualifiers: Respiratory failure complication: hypoxia Qualified Code(s): J96.21 - Acute and chronic respiratory failure with hypoxia (4) Diarrhea Current Visit: Yes Status: Acute Assessment and plan: Seems to have resolved. Qualifiers: Diarrhea type: presumed infectious Qualified Code(s): R19.7 - Diarrhea, unspecified (5) Systolic CHF Current Visit: Yes Status: Acute Assessment and plan: Does not seem to be in exacerbation. Pressure stable now. Continue with Imdur. Spoke to the daughter told me that he is not on a beta benja and lisinopril I think I will restart the patient's home dose of Lasix. Takes 20 mg oral daily. Stop IV fluids. Repeat chest x-ray. Qualifiers: Congestive heart failure chronicity: chronic Qualified Code(s): I50.22 - Chronic systolic (congestive) heart failure (6) CAD (coronary artery disease) Current Visit: No Status: Chronic Assessment and plan: Continue home meds. Patient is status post 1 vessel CABG as well as drug- eluting stent placed last month. Patient is on aspirin brilinta statin Imdur. Daughter tells me that he is actually on Plavix and not take in [place]. I will make the switch. Not on a beta benja secondary to hypotension. Qualifiers: Coronary Disease-Associated Artery/Lesion type: bypass graft [place] vs. transplanted heart: [place] heart Associated angina: angina presence unspecified Qualified Code(s): I25.810 - Atherosclerosis of coronary artery bypass graft(s) without angina pectoris (7) Hypothyroidism Current Visit: No Status: Chronic Assessment and plan: Continue levothyroxine Qualifiers: Hypothyroidism type: acquired Qualified Code(s): E03.9 - Hypothyroidism, unspecified (8) Elevated troponin Current Visit: No Status: Acute Assessment and plan: Chronically elevated. No chest pain. No EKG changes. 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 Continue with inhalers. Continue with O2 support. On chronic prednisone. Qualifiers: Emphysema type: panlobular Qualified Code(s): J43.1 - Panlobular emphysema (10) Elevated d-dimer Current Visit: Yes Status: Acute Assessment and plan: Negative PE study as well as negative lower extremity for DVT (11) DVT prophylaxis Current Visit: No Status: Acute Assessment and plan: Heparin subcutaneous - Subjective Interval history: Was seen and examined. He was initially admitted with diarrhea. His hospital stay was complicated by acute respiratory failure and was found to have septic shock secondary to pneumonia. He was transferred to the ICU and needed pressors and was put on high doses of IV steroids. He has been out of the ICU now. Palliative/infectious disease consulted. Patient has been afebrile. Still requiring about 4 L to 5 L of nasal cannula oxygen. He does have a cough. He is feeling better however. Recently was hospitalized the last month multiple times once for an exacerbation of COPD and the other for a cardiac drug-eluting stent. He is chronically O2 dependent. About 4 L. Daughter is at bedside she tells me that his brittle and toes actually stopped secondary to respiratory distress. She did tell me that he is not taking a beta benja and lisinopril has caused him hypotension past. - Constitutional Vitals: Temp Pulse Resp BP Pulse Ox 97.5 F L 99 18 121/75 91 10/10/17 08:53 10/10/17 08:53 10/10/17 08:53 10/10/17 08:53 10/10/17 08:53 General appearance: Present: A&O X 3, no acute distress, answers questions appropriately Exam: GEN: Positional dyspnea CVS: RRR. S1, S2, No m/r/g RESP: Rhonchi at the bases. Labored ABD: Soft, NT, ND, +BS EXT: No edema. 2+ DP. No rashes NEURO: Nonfocal Internal Medicine: Result - Labs CBC & Chem 7: 10/08/17 11:25 10/08/17 11:25 - ABG Interpretation ABG results: ABG ABG pH 7.38 pH Units (7.32-7.45) 10/08/17 01:25 ABG pCO2 36 mmHg (35-45) 10/08/17 01:25 ABG pO2 98 mmHg (85-104) 10/08/17 01:25 ABG O2 Saturation 98 % (95-98) 10/08/17 01:25 PT/INR, D-dimer PT 16.3 Seconds (9.4-12.1) H 10/07/17 22:12 D-Dimer 2413 ng/mLFEU (0-500) H 10/06/17 20:41 Consult Discharge Plan - Plan Referrals: Ulices Mcgovern Jr, MD [Primary Care Provider] -
[2017-10-10] MEDS: Furosemide 20 MG TABLET PO SCH (11:30)
[2017-10-10] MEDS: Acetaminophen 325 MG TABLET PO PRN (14:51)
[2017-10-10] MEDS: Topiramate 25 MG TABLET PO SCH (21:40)
[2017-10-11] MEDS: Hydrocortisone Sodium Succ 100 MG/2 ML VIAL IVP SCH ×3 (00:45→17:25)
[2017-10-11] MEDS: Piperacillin/Tazobactam 3.375 GM/200 ML BAG IVPB SCH ×4 (00:46→23:49)
[2017-10-11] MEDS: Saline Nasal Spray 44 ML BOTTLE NS PRN (02:25)
[2017-10-11] MEDS: *HR* LORazepam 0.5 MG TABLET PO PRN ×6 (02:25→21:40)
[2017-10-11] MEDS: *HR* Heparin 5,000 UNIT/ML VIAL SQ SCH ×2 (06:28→17:26)
[2017-10-11] MEDS: Furosemide 20 MG TABLET PO SCH (08:44)
[2017-10-11] MEDS: Aspirin 81 MG TAB.CHEW PO SCH (08:44)
[2017-10-11] MEDS: clonazePAM 1 MG TABLET PO SCH ×2 (08:44→20:03)
[2017-10-11] MEDS: Isosorbide MONOnitrate (24 HR) 30 MG TAB.ER.24H PO SCH (08:45)
[2017-10-11] MEDS: Multivit/Ca/Min/Fe/FA 1 TAB TABLET PO SCH (08:45)
[2017-10-11] MEDS: *HR* Amiodarone 200 MG TABLET PO SCH (08:45)
[2017-10-11] MEDS: Megestrol Acetate 400 MG/10 ML UDC PO SCH ×2 (08:45→20:04)
[2017-10-11] MEDS: Fluticasone Propionate Nasal 50 MCG/SPRAY BOTTLE NS SCH (09:00)
--- NOTE | 2017-10-11 09:07 | Palliative Progress Note ---
Date of Encounter: 10/11/17 Time of Encounter: 09:00 - Assessment and plan (1) Dyspnea Current Visit: No Status: Acute Qualifiers: Qualified Code(s): R06.00 - Dyspnea, unspecified (2) Anxiety Current Visit: Yes Status: Acute Assessment and plan: Continues with PRN Lorazepam. Utilized x5 last 24 hours. MOnitor (3) Counseling regarding advanced care planning and goals of care Current Visit: Yes Status: Acute Assessment and plan: Code status now DNR/DNI. Patient's daughter requesting different ECF upon discharge. They do not desire hospice services as of yet, daughter well informed of these services when they are ready to transition. She will eventually take family leave and plan on caring for him with hospice at home when it is closer to end of life for him. D/W Dr. Fink (4) Acute and chronic respiratory failure Current Visit: No Status: Acute Qualifiers: Respiratory failure complication: hypoxia Qualified Code(s): J96.21 - Acute and chronic respiratory failure with hypoxia (5) Acute exacerbation of chronic obstructive airways disease Current Visit: No Status: Acute - Time Spent With Patient Total time spent is greater than 50% in coordination of care (as documented) at patient's floor/unit and/or counseling patient: 25 - 35 minutes - Subjective Interval history: Patient awake and alert - finishing breakfast. Remains anxious - asking for Ativan. Becomes dyspneic with conversation. O2 at 4LPM at present. States still having diarrhea but "not as foul as odor". No family present - Constitutional Vitals: Abnormal lab results RBC 2.97 M/mcL (4.19-5.50) L 10/08/17 11:25 Hgb 8.4 g/dL (12.9-16.9) L D 10/08/17 11:25 Hct 26.7 % (37.5-50.1) L 10/08/17 11:25 MCHC 31.5 g/dL (31.6-35.5) L 10/08/17 11:25 RDW 17.0 % (11.5-14.5) H 10/08/17 11:25 Neutrophils # 9.0 K/mcL (1.6-8.9) H 10/08/17 11:25 Lymphocytes # 0.2 K/mcL (0.6-4.6) L 10/08/17 11:25 PT 16.3 Seconds (9.4-12.1) H 10/07/17 22:12 D-Dimer 2413 ng/mLFEU (0-500) H 10/06/17 20:41 ABG Base Excess -4 mEq/L (-2 to 3) L 10/08/17 01:25 Sodium 134 mEq/L (136-145) L 10/08/17 11:25 Carbon Dioxide 21 mEq/L (23-29) L 10/08/17 11:25 Glucose 163 mg/dL (70-105) H 10/08/17 11:25 POC Glucose 161 (58-89) H 10/07/17 23:59 Calcium 7.8 mg/dL (8.6-10.3) L 10/08/17 11:25 Iron 18 mcg/dL (65-175) L 10/07/17 05:01 % Saturation 13 % (20-55) L 10/07/17 05:01 Transferrin 97 mg/dL (203-362) L 10/07/17 05:01 Troponin I 0.13 ng/mL (< 0.04) H* 10/07/17 05:01 B-Natriuretic Peptide 2626 pg/mL (Less than 100) H 10/08/17 03:39 Serum Total Protein 4.9 g/dL (6.4-8.9) L 10/06/17 17:10 Albumin 2.3 g/dL (3.5-5.7) L 10/06/17 17:10 Albumin/Globulin Ratio 0.9 (1.1-2.2) L 10/06/17 17:10 Vitamin B12 229 pg/mL (250-1100) L 10/07/17 05:01 General appearance: Present: mild distress - Respiratory Respiratory exam: Present: decreased breath sounds, CTAB - Cardiovascular Cardiovascular exam: Present: +S1, +S2 - GI/Abdominal GI/Abdominal exam: Present: normal bowel sounds, soft - Extremities Exam Additional comments: Ecchymotic areas to bilateral arms - Neurological Exam Neurological exam: Present: alert, oriented X3, strengths equal and symetr throughout - Skin Skin exam: Present: dry, pallor, warm Palliative Quality Palliative Quality: Screen for Code Status: Yes, Screen for Goals of Care: Yes, Screen for Pain: Yes, If Pain Regimen Started, Initiate Bowel Regimen: NA, Screen for Nausea/Vomitting: Yes Code Status: 10/08/17 17:28 CODE [Resuscitation Status: Active] [RES] Routine Comment: Patient want that Resuscitation Status: DNR-Comfort Care-Arrest 10/09/17 08:54 CODE [Resuscitation Status: Active] [RES] Routine Comment: Resuscitation Status: [id number] - Labs CBC & Chem 7: 10/08/17 11:25 10/08/17 11:25 - Impressions Impressions Chest X-Ray 10/10/17 10:12 IMPRESSION: Stable chest, with extensive bilateral scarring and chronic parenchymal disease, superimposed on emphysema. No obvious change compared to 10/06/2017. D/ / 10/10/2017 10:48:33 Luisito Del Angel MD / Queenie Sears Interpreting Provider: Luisito Del Angel MD - ABG Interpretation ABG results: ABG ABG pH 7.38 pH Units (7.32-7.45) 10/08/17 01:25 ABG pCO2 36 mmHg (35-45) 10/08/17 01:25 ABG pO2 98 mmHg (85-104) 10/08/17 01:25 ABG O2 Saturation 98 % (95-98) 10/08/17 01:25 PT/INR, D-dimer PT 16.3 Seconds (9.4-12.1) H 10/07/17 22:12 D-Dimer 2413 ng/mLFEU (0-500) H 10/06/17 20:41 Consult Discharge Plan - Plan Referrals: Ulices Mcgovern Jr, MD [Primary Care Provider] -
--- NOTE | 2017-10-11 10:03 | Infectious Disease Progress No ---
Date of Encounter: 10/11/17 Time of Encounter: 10:01 - Assessment and Plan (1) Severe sepsis Current Visit: No Status: Acute The patient had two SIRS criteria plus hypotension on admission. Likely secondary to pneumonia. The patient continues to have tachypnea and tachycardia, but hypotension resolved with fluid resuscitation. Blood cultures drawn 10/06/17 are NGTD x 2 sets. (2) Pneumonia Current Visit: Yes Status: Acute Location: Right middle and Right lower lobes. Causative organism: unclear. Previous sputum cultures were positive for VRE ( sensitive only to linezolid) back in August and it does not appear that the patient was ever treated. Prior to that, sputum cultures grew Pseudomonas aeruginosa, Pseudomonas fluorescens, and MAC. S. pneumo and Legionella UAT negative. The patient has not been able to give a sputum specimen as he does not have a productive cough. CT chest showed findings consistent with RML and RLL PNA. Patient was previously treated for his MAC infection and treatment was stopped back in 2015. The patient is at risk for MDR organisms as he has been in an ECF and has been on antibiotics in the last 90 days. Send sputum for culture if the patient is able to provide an adequate specimen. Continue Zosyn 3.375 grams IV Q8H. Continue linezolid 600mg IV BID. Zoloft currently on hold. Duration of treatment depends on the clinical picture. Monitor renal function and for drug toxicities. Qualifiers: Pneumonia type: due to unspecified organism Laterality: bilateral Lung location: unspecified part of lung Qualified Code(s): J18.9 - Pneumonia, unspecified organism (3) Dehydration Current Visit: Yes Status: Acute Likely secondary to GI loss. Appears improved. Fluid resuscitation per the primary team. (4) Diarrhea Current Visit: Yes Status: Acute Etiology unclear. The patient reports 6-8 loose, watery, foul-smelling stools per day for two weeks prior to admission. Patient reports started having loose stools again yesterday and reports one overnight with two this morning. Abdominal exam benign. If diarrhea persists, place in C. diff precautions, start metronidazole empirically, and send stool for testing. Qualifiers: Diarrhea type: presumed infectious Qualified Code(s): R19.7 - Diarrhea, unspecified (5) History of MAC infection Current Visit: No Status: Chronic Previously treated with treatment stopped in 2015. Sputum culture back in 04/2017 showed possible reactivation of MAC, but sputum culture in August was negative for AFB. (6) Ischemic cardiomyopathy Current Visit: No Status: Chronic Status post remote history of AICD placement. (7) Systolic CHF Current Visit: Yes Status: Acute Qualifiers: Congestive heart failure chronicity: chronic Qualified Code(s): I50.22 - Chronic systolic (congestive) heart failure (8) CAD (coronary artery disease) Current Visit: No Status: Chronic Qualifiers: Coronary Disease-Associated Artery/Lesion type: bypass graft [place] vs. transplanted heart: 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 - Subjective Interval history: Patient seen and examined. Weekend notes reviewed. No acute events noted. Patient states he feels a little better. Denies fevers, chills, or rigors. Denies chest pain or cough and states his dyspnea is better. Denies nausea, vomiting, or constipation. States he started having diarrhea again yesterday. Reports he had one stool through the night and another one this morning and he is currently incontinent of brown liquid [id number] stool at this time. Reports his appetite is okay, but not as good as usual. Denies new skin lesions. Complains of oral pain. Infect Dis PN-Objective Data - Labs CBC & Chem 7: 10/11/17 09:35 10/11/17 09:35 - Impressions Impressions Chest X-Ray 10/10/17 10:12 IMPRESSION: Stable chest, with extensive bilateral scarring and chronic parenchymal disease, superimposed on emphysema. No obvious change compared to 10/06/2017. D/ / 10/10/2017 10:48:33 Luisito Del Angel MD / Queenie Sears Interpreting Provider: Luisito Del Angel MD Exam - Constitutional Vitals: Temp Pulse Resp BP Pulse Ox 97.6 F 103 18 128/69 94 10/11/17 05:38 10/11/17 05:38 10/11/17 05:38 10/11/17 05:38 10/11/17 05:38 General appearance: average body habitus, cooperative, no acute distress - Head Head exam: Present: atraumatic, normal inspection, normocephalic Additional comments: Allevyn dressing noted to the top of the head C/D/I. - Eye Eye exam: Present: EOMI, normal appearance, PERRL Pupils: Present: normal accommodation - ENT ENT exam: Present: mucous membranes moist Additional comments: Dry, white lesions noted to the bilateral sides of the tongue. - Neck Neck exam: Present: normal inspection - Respiratory Respiratory exam: Present: decreased breath sounds (Throughout), tachypnea. Absent: rales, respiratory distress, rhonchi, wheezes - Cardiovascular Cardiovascular exam: Present: RRR, +S1, +S2 - GI/Abdominal GI/Abdominal exam: Present: normal bowel sounds, soft. Absent: distended, tenderness - Extremities Exam Extremities exam: Present: normal inspection. Absent: joint swelling, pedal edema, tenderness - Neurological Exam Neurological exam: Present: alert, oriented X3, no focal deficits - Psychiatric Psychiatric exam: Present: normal affect, normal mood - Skin Skin exam: Present: dry, intact, normal color, warm Consult Discharge Plan - Plan Referrals: Ulices Mcgovern Jr, MD [Primary Care Provider] - (patient is going to [facility]) - Attending Attestation I examined this patient and my medical decision-making was reviewed with the Resident Physician. I agree with the documented findings, disposition and treatment plan as described except to the extent set forth below.
[2017-10-11 10:04] LABS: Basophils % 0.1 %; Hematocrit 25.8 % (37.5-50.1); Hemoglobin 8.2 g/dL (12.9-16.9); Immature Granulocytes % 0.9 % (0-4); Lymphocytes # 0.3 K/mcL (0.6-4.6); Lymphocytes % 2.9 %; Mean Corpuscular HGB Conc 31.8 g/dL (31.6-35.5); Mean Corpuscular Hemoglobin 28.2 pg (28.0-33.3); Mean Corpuscular Volume 88.7 fL (83.0-100.0); Mean Platelet Volume 9.9 fL (9.4-12.4); Monocytes # 0.2 K/mcL (0.0-1.3); Monocytes % 1.8 %; Platelet Count 185 K/mcL (140-400); Red Blood Count 2.91 M/mcL (4.19-5.50); Red Cell Distribution Width 16.7 % (11.5-14.5); Segmented Neutrophils % 94.3 %
[2017-10-11] MEDS: Ipratropium/Albuterol Neb 3 ML IH SCH ×2 (10:05→16:46)
[2017-10-11 10:15] LABS: BUN/Creatinine Ratio 17 (6-26); Blood Urea Nitrogen 16 mg/dL (8-23); Calcium 7.9 mg/dL (8.6-10.3); Carbon Dioxide 23 mEq/L (23-29); Chloride 104 mEq/L (98-107); Glucose 123 mg/dL (70-105); Osmolality,Calculated 285 (280-300); Potassium 2.9 mEq/L (3.5-5.1); Sodium 136 mEq/L (136-145); eGFR For African Americans > 60 (> 60); eGFR For Non-African Americans > 60 (> 60)
[2017-10-11] MEDS: Magic Mouthwash 10 ML UD Cup PO SCH ×2 (11:24→16:23)
--- NOTE | 2017-10-11 13:35 | Internal Med Progress Note ---
Date of Encounter: 10/11/17 Time of Encounter: 10:00 - Assessment and plan (1) Pneumonia Current Visit: Yes Status: Acute Assessment and plan: Continue with linezolid and Zosyn per ID. cultures negative to date. Follow up on cultures. Positive VRE in the past. Taper down Solu-Cortef to 50 every 12 hours Qualifiers: Pneumonia type: due to unspecified organism Laterality: bilateral Lung location: unspecified part of lung Qualified Code(s): J18.9 - Pneumonia, unspecified organism (2) Septic shock Current Visit: Yes Status: Acute Assessment and plan: Off pressors. Likely secondary to pneumonia. Plan as above. Wean Solu-Cortef to 50 every 12 hours today. (3) Acute and chronic respiratory failure Current Visit: Yes Status: Acute Assessment and plan: Continue with O2 support. He is on about 4-5 L chronically. Seems to be at baseline now. This is likely secondary to the pneumonia. We will treat pneumonia as below. Wean down oxygen as tolerated. continue with nebs. Qualifiers: Respiratory failure complication: hypoxia Qualified Code(s): J96.21 - Acute and chronic respiratory failure with hypoxia (4) Diarrhea Current Visit: Yes Status: Acute Assessment and plan: Seems to have resolved. Qualifiers: Diarrhea type: presumed infectious Qualified Code(s): R19.7 - Diarrhea, unspecified (5) Systolic CHF Current Visit: Yes Status: Acute Assessment and plan: Does not seem to be in exacerbation. Pressure stable now. Continue with Imdur. Spoke to the daughter told me that he is not on a beta benja and lisinopril I think I will restart the patient's home dose of Lasix. Takes 20 mg oral daily. Stop IV fluids. Repeat chest x-ray. Qualifiers: Congestive heart failure chronicity: chronic Qualified Code(s): I50.22 - Chronic systolic (congestive) heart failure (6) CAD (coronary artery disease) Current Visit: No Status: Chronic Assessment and plan: Continue home meds. Patient is status post 1 vessel CABG as well as drug- eluting stent placed last month. Patient is on aspirin brilinta statin Imdur. Daughter tells me that he is actually on Plavix and not take in Brillinta. Has been switched. Not on a beta benja secondary to hypotension. Qualifiers: Coronary Disease-Associated Artery/Lesion type: bypass graft [place] vs. transplanted heart: [place] heart Associated angina: angina presence unspecified Qualified Code(s): I25.810 - Atherosclerosis of coronary artery bypass graft(s) without angina pectoris (7) Hypothyroidism Current Visit: No Status: Chronic Assessment and plan: Continue levothyroxine Qualifiers: Hypothyroidism type: acquired Qualified Code(s): E03.9 - Hypothyroidism, unspecified (8) Elevated troponin Current Visit: No Status: Acute Assessment and plan: Chronically elevated. No chest pain. No EKG changes. 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 Continue with inhalers. Continue with O2 support. On chronic prednisone. Qualifiers: Emphysema type: panlobular Qualified Code(s): J43.1 - Panlobular emphysema (10) Elevated d-dimer Current Visit: Yes Status: Acute Assessment and plan: Negative PE study as well as negative lower extremity for DVT (11) Protein-calorie malnutrition, moderate Current Visit: Yes Status: Acute Assessment and plan: dietary following (12) DVT prophylaxis Current Visit: No Status: Acute Assessment and plan: Heparin subcutaneous (13) Goals of care, counseling/discussion Current Visit: No Status: Acute Assessment and plan: I think the patient is ready for discharge hopefully by tomorrow. We are working on placement. Palliative is following as well. Appreciate their help. - Subjective Interval history: Was seen and examined. No acute events. The patient continues to feel better. He has been afebrile. He was initially admitted with diarrhea. His hospital stay was complicated by acute respiratory failure and was found to have septic shock secondary to pneumonia. He was transferred to the ICU and needed pressors and was put on high doses of IV steroids. He has been out of the ICU now. Palliative/infectious disease consulted. Still requiring about 4 L to 5 L of nasal cannula oxygen which is chronic for him. Recently was hospitalized the last month multiple times once for an exacerbation of COPD and the other for a cardiac drug-eluting stent. - Constitutional Vitals: Temp Pulse Resp BP Pulse Ox 97.8 F 89 26 112/76 95 10/11/17 12:52 10/11/17 12:52 10/11/17 12:52 10/11/17 12:52 10/11/17 12:52 General appearance: Present: A&O X 3, no acute distress, answers questions appropriately Exam: GEN: Conversational dyspnea CVS: RRR. S1, S2, No m/r/g RESP: Rhonchi at the bases. Labored ABD: Soft, NT, ND, +BS EXT: No edema. 2+ DP. No rashes NEURO: Nonfocal Internal Medicine: Result - Labs CBC & Chem 7: 10/11/17 09:35 10/11/17 09:35 Labs: Short CBC 10/11/17 Range/Units 09:35 WBC 9.6 (4.3-11.1) K/mcL Hgb 8.2 L (12.9-16.9) g/dL Hct 25.8 L (37.5-50.1) % Plt Count 185 (140-400) K/mcL Neutrophils # 9.0 H (1.6-8.9) K/mcL BMP 10/11/17 09:35 Sodium 136 Potassium 2.9 L Chloride 104 Carbon Dioxide 23 BUN 16 Creatinine 0.95 Glucose 123 H Calcium 7.9 L - ABG Interpretation ABG results: ABG ABG pH 7.38 pH Units (7.32-7.45) 10/08/17 01:25 ABG pCO2 36 mmHg (35-45) 10/08/17 01:25 ABG pO2 98 mmHg (85-104) 10/08/17 01:25 ABG O2 Saturation 98 % (95-98) 10/08/17 01:25 PT/INR, D-dimer PT 16.3 Seconds (9.4-12.1) H 10/07/17 22:12 D-Dimer 2413 ng/mLFEU (0-500) H 10/06/17 20:41 Consult Discharge Plan - Plan Referrals: Ulices Mcgovern Jr, MD [Primary Care Provider] - (patient is going to [facility])
[2017-10-11] MEDS ORDERED: Potassium Chloride 40 MEQ, Lidocaine 1% 2 ML in D5% in Water 500 ML IVPB ONE (13:38)
[2017-10-11] MEDS: Topiramate 25 MG TABLET PO SCH (20:02)
[2017-10-11] MEDS: *HR* HYDROcodone/Acet 5/325 mg TABLET PO PRN (20:03)
[2017-10-12] MEDS: Ipratropium/Albuterol Neb 3 ML IH SCH ×3 (01:12→16:57)
[2017-10-12] MEDS: *HR* LORazepam 0.5 MG TABLET PO PRN ×5 (02:19→23:48)
[2017-10-12] MEDS: *HR* Heparin 5,000 UNIT/ML VIAL SQ SCH ×2 (06:04→17:13)
[2017-10-12] MEDS: Hydrocortisone Sodium Succ 100 MG/2 ML VIAL IVP SCH ×2 (06:05→16:30)
[2017-10-12] MEDS: Megestrol Acetate 400 MG/10 ML UDC PO SCH ×2 (08:46→19:38)
[2017-10-12] MEDS: *HR* Amiodarone 200 MG TABLET PO SCH (08:47)
[2017-10-12] MEDS: Isosorbide MONOnitrate (24 HR) 30 MG TAB.ER.24H PO SCH (08:47)
[2017-10-12] MEDS: Multivit/Ca/Min/Fe/FA 1 TAB TABLET PO SCH (08:47)
[2017-10-12] MEDS: clonazePAM 1 MG TABLET PO SCH ×2 (08:48→19:37)
[2017-10-12] MEDS: Aspirin 81 MG TAB.CHEW PO SCH (08:48)
[2017-10-12] MEDS: Furosemide 20 MG TABLET PO SCH (08:48)
[2017-10-12] MEDS: Magic Mouthwash 10 ML UD Cup PO SCH ×3 (08:49→16:30)
[2017-10-12] MEDS: Piperacillin/Tazobactam 3.375 GM/200 ML BAG IVPB SCH ×2 (08:55→16:30)
[2017-10-12] MEDS: Fluticasone Propionate Nasal 50 MCG/SPRAY BOTTLE NS SCH (08:57)
--- NOTE | 2017-10-12 09:28 | Infectious Disease Progress No ---
Date of Encounter: 10/12/17 Time of Encounter: 09:26 - Assessment and Plan (1) Severe sepsis Current Visit: No Status: Acute The patient had two SIRS criteria plus hypotension on admission. Likely secondary to pneumonia. The patient continues to have tachypnea and tachycardia, but hypotension resolved with fluid resuscitation. Blood cultures drawn 10/06/17 are negative x 2 sets. (2) Pneumonia Current Visit: Yes Status: Acute Location: Right middle and Right lower lobes. Causative organism: unclear. Previous sputum cultures were positive for VRE ( sensitive only to linezolid) back in August and it does not appear that the patient was ever treated. Prior to that, sputum cultures grew Pseudomonas aeruginosa, Pseudomonas fluorescens, and MAC. S. pneumo and Legionella UAT negative. The patient has not been able to give a sputum specimen as he does not have a productive cough. CT chest showed findings consistent with RML and RLL PNA. Patient was previously treated for his MAC infection and treatment was stopped back in 2015. The patient is at risk for MDR organisms as he has been in an ECF and has been on antibiotics in the last 90 days. Send sputum for culture if the patient is able to provide an adequate specimen. Continue Zosyn 3.375 grams IV Q8H (Day 7). Continue linezolid 600mg BID, but can switch to PO (day 5). Zoloft currently on hold. Duration of treatment depends on the clinical picture, but would recommend 7 days of linezolid and 10 days of Zosyn. Monitor renal function and for drug toxicities. Depending on discharge plan, may need to consider VAT consult for EPIV placement prior to discharge. Qualifiers: Pneumonia type: due to unspecified organism Laterality: bilateral Lung location: unspecified part of lung Qualified Code(s): J18.9 - Pneumonia, unspecified organism (3) Dehydration Current Visit: Yes Status: Acute Likely secondary to GI loss. Appears improved. Fluid resuscitation per the primary team. (4) Diarrhea Current Visit: Yes Status: Acute Etiology unclear. The patient reports 6-8 loose, watery, foul-smelling stools per day for two weeks prior to admission. Patient reports started having loose stools again that started two days ago. Abdominal exam benign. Clinically, the stool does not appear to be consistent with C. diff, but given that the diarrhea has been persistent and the patient is at risk as he has been in an ECF and had antibiotic exposure, will go ahead and test for C. diff, place in C. diff precautions and start Flagyl 500mg PO TID empirically. If C. diff testing negative, discontinue C. diff precautions and Flagyl. Start probiotic. Qualifiers: Diarrhea type: presumed infectious Qualified Code(s): R19.7 - Diarrhea, unspecified (5) History of MAC infection Current Visit: No Status: Chronic Previously treated with treatment stopped in 2015. Sputum culture back in 04/2017 showed possible reactivation of MAC, but sputum culture in August was negative for AFB. (6) Ischemic cardiomyopathy Current Visit: No Status: Chronic Status post remote history of AICD placement. (7) Systolic CHF Current Visit: Yes Status: Acute Qualifiers: Congestive heart failure chronicity: chronic Qualified Code(s): I50.22 - Chronic systolic (congestive) heart failure (8) CAD (coronary artery disease) Current Visit: No Status: Chronic Qualifiers: Coronary Disease-Associated Artery/Lesion type: bypass graft [place] vs. 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 Continue Magic Mouthwas TID. - Subjective Interval history: Patient seen and examined. No acute events noted. Patient states he feels a little better and that his breathing seems to be at baseline. Denies fevers, chills, or rigors. Denies chest pain or cough.. Denies nausea, vomiting, or constipation. Three diarrhea stools documented yesterday and the patient states he has had one this morning and is incontinent of stool at this time. Reports his appetite is okay, but not as good as usual. Denies new skin lesions. States oral pain is better. Infect Dis PN-Objective Data - Labs CBC & Chem 7: 10/11/17 09:35 10/11/17 09:35 Labs: Laboratory Results - last 24 hr 10/11/17 10/11/17 09:35 09:35 WBC 9.6 RBC 2.91 L Hgb 8.2 L Hct 25.8 L MCV 88.7 MCH 28.2 MCHC 31.8 RDW 16.7 H Plt Count 185 MPV 9.9 Immature Gran % 0.9 Seg Neutrophils % 94.3 Lymphocytes % 2.9 Monocytes % 1.8 Eosinophils % 0.0 Basophils % 0.1 Neutrophils # 9.0 H Lymphocytes # 0.3 L Monocytes # 0.2 Eosinophils # 0.0 Basophils # 0.0 Sodium 136 Potassium 2.9 L Chloride 104 Carbon Dioxide 23 BUN 16 Creatinine 0.95 Est GFR ( Amer) > 60 Est GFR (Non-Af Amer) > 60 BUN/Creatinine Ratio 17 Glucose 123 H Calculated Osmolality 285 Calcium 7.9 L - Impressions Impressions Chest X-Ray 10/10/17 10:12 IMPRESSION: Stable chest, with extensive bilateral scarring and chronic parenchymal disease, superimposed on emphysema. No obvious change compared to 10/06/2017. D/ / 10/10/2017 10:48:33 Luisito Del Angel MD / Queenie Sears Interpreting Provider: Luisito Del Angel MD Exam - Constitutional Vitals: Temp Pulse Resp BP Pulse Ox 98.2 F 103 17 111/70 92 10/12/17 08:22 10/12/17 08:22 10/12/17 08:22 10/12/17 08:22 10/12/17 08:22 General appearance: average body habitus, cooperative, no acute distress - Head Head exam: Present: atraumatic, normal inspection, normocephalic - Eye Eye exam: Present: EOMI, normal appearance, PERRL Pupils: Present: normal accommodation - ENT ENT exam: Present: mucous membranes moist Additional comments: Oral thrush improved. - Neck Neck exam: Present: normal inspection - Respiratory Respiratory exam: Present: CTAB. Absent: rales, respiratory distress, rhonchi, wheezes - Cardiovascular Cardiovascular exam: Present: +S1, +S2, tachycardia. Absent: irregular rhythm - GI/Abdominal GI/Abdominal exam: Present: normal bowel sounds, soft. Absent: distended, tenderness - Extremities Exam Extremities exam: Present: normal inspection, pedal edema (Trace BLE). Absent: joint swelling, tenderness - Neurological Exam Neurological exam: Present: alert, oriented X3, no focal deficits - Psychiatric Psychiatric exam: Present: normal affect, normal mood - Skin Skin exam: Present: dry, intact, normal color, warm - Additional findings Additional findings: Right femoral triple lumen CVC noted with dressing C/D/I. No erythema, warmth, or drainage noted. Consult Discharge Plan - Plan Referrals: Ulices Mcgovern Jr, MD [Primary Care Provider] - ([facility] is going to [facility])
--- NOTE | 2017-10-12 09:35 | Internal Med Progress Note ---
Date of Encounter: 10/12/17 Time of Encounter: 09:33 - Assessment and plan (1) Pneumonia Current Visit: Yes Status: Acute Assessment and plan: Continue with linezolid and Zosyn per ID. spoke 3 times a day to try to switch him to oral regimen for possible discharge over the next couple days. cultures negative to date. Follow up on cultures. Positive VRE in the past. Continue with Solu-Cortef to 50 every 12 hours today given marginal blood pressure. Qualifiers: Qualified Code(s): J18.9 - Pneumonia, unspecified organism (2) Septic shock Current Visit: Yes Status: Acute Assessment and plan: Off pressors. Likely secondary to pneumonia. Plan as above. Continue Solu- Cortef to 50 every 12 hours today. (3) Acute and chronic respiratory failure Current Visit: Yes Status: Acute Assessment and plan: Continue with O2 support. He is on about 4-5 L chronically. Seems to be at baseline now. This is likely secondary to the pneumonia. We will treat pneumonia as below. Wean down oxygen as tolerated. continue with nebs. Qualifiers: Qualified Code(s): J96.21 - Acute and chronic respiratory failure with hypoxia (4) Diarrhea Current Visit: Yes Status: Acute Assessment and plan: He was admitted with loose stools initially. This resolved for some time but is back overnight and this morning. We will check C. difficile.. Qualifiers: Qualified Code(s): R19.7 - Diarrhea, unspecified (5) Systolic CHF Current Visit: Yes Status: Acute Assessment and plan: Does not seem to be in exacerbation. Pressure stable now. Continue with Imdur. Spoke to the daughter told me that he is not on a beta benja and lisinopril I think I will restart the patient's home dose of Lasix. Takes 20 mg oral daily. Stop IV fluids. Repeat chest x-ray. Qualifiers: Qualified Code(s): I50.22 - Chronic systolic (congestive) heart failure (6) CAD (coronary artery disease) Current Visit: No Status: Chronic Assessment and plan: Continue home meds. Patient is status post 1 vessel CABG as well as drug- eluting stent placed last month. Patient is on aspirin brilinta statin Imdur. Daughter tells me that he is actually on Plavix and not take in Brillinta. Has been switched. Not on a beta benja secondary to hypotension. Qualifiers: Qualified Code(s): I25.810 - Atherosclerosis of coronary artery bypass graft( s) without angina pectoris (7) Hypothyroidism Current Visit: No Status: Chronic Assessment and plan: Continue levothyroxine Qualifiers: Qualified Code(s): E03.9 - Hypothyroidism, unspecified (8) Elevated troponin Current Visit: No Status: Acute Assessment and plan: Chronically elevated. No chest pain. No EKG changes. 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 Continue with inhalers. Continue with O2 support. On chronic prednisone. Qualifiers: Qualified Code(s): J43.1 - Panlobular emphysema (10) Elevated d-dimer Current Visit: Yes Status: Acute Assessment and plan: Negative PE study as well as negative lower extremity for DVT (11) Protein-calorie malnutrition, moderate Current Visit: Yes Status: Acute Assessment and plan: dietary following (12) DVT prophylaxis Current Visit: No Status: Acute Assessment and plan: Heparin subcutaneous (13) Goals of care, counseling/discussion Current Visit: No Status: Acute - Subjective Interval history: Was seen and examined. He is having loose stools this morning. His blood pressure is on the lower side compared to the last day. He continues to have conversational dyspnea. I was going to discharge the patient possibly today however given the loose stools this is on hold now. He was initially admitted with diarrhea. His hospital stay was complicated by acute respiratory failure and was found to have septic shock secondary to pneumonia. He was transferred to the ICU and needed pressors and was put on high doses of IV steroids. He has been out of the ICU now. Palliative/infectious disease consulted. Still requiring about 4 L to 5 L of nasal cannula oxygen which is chronic for him. Recently was hospitalized the last month multiple times once for an exacerbation of COPD and the other for a cardiac drug-eluting stent. - Constitutional Vitals: Temp Pulse Resp BP Pulse Ox 98.2 F 103 17 111/70 92 10/12/17 08:22 10/12/17 08:22 10/12/17 08:22 10/12/17 08:22 10/12/17 08:22 General appearance: Present: A&O X 3, no acute distress, answers questions appropriately Exam: GEN: Conversational dyspnea CVS: RRR. S1, S2, No m/r/g RESP: Rhonchi at the bases. Labored ABD: Soft, NT, ND, +BS EXT: No edema. 2+ DP. No rashes NEURO: Nonfocal Internal Medicine: Result - Labs CBC & Chem 7: 10/11/17 09:35 10/11/17 09:35 Labs: Short CBC 10/11/17 Range/Units 09:35 WBC 9.6 (4.3-11.1) K/mcL Hgb 8.2 L (12.9-16.9) g/dL Hct 25.8 L (37.5-50.1) % Plt Count 185 (140-400) K/mcL Neutrophils # 9.0 H (1.6-8.9) K/mcL BMP 10/11/17 09:35 Sodium 136 Potassium 2.9 L Chloride 104 Carbon Dioxide 23 BUN 16 Creatinine 0.95 Glucose 123 H Calcium 7.9 L - ABG Interpretation ABG results: ABG ABG pH 7.38 pH Units (7.32-7.45) 10/08/17 01:25 ABG pCO2 36 mmHg (35-45) 10/08/17 01:25 ABG pO2 98 mmHg (85-104) 10/08/17 01:25 ABG O2 Saturation 98 % (95-98) 10/08/17 01:25 PT/INR, D-dimer PT 16.3 Seconds (9.4-12.1) H 10/07/17 22:12 D-Dimer 2413 ng/mLFEU (0-500) H 10/06/17 20:41 - Impressions Impressions Chest X-Ray 10/10/17 10:12 IMPRESSION: Stable chest, with extensive bilateral scarring and chronic parenchymal disease, superimposed on emphysema. No obvious change compared to 10/06/2017. D/ / 10/10/2017 10:48:33 Luisito Del Angel MD / Queenie Sears Interpreting Provider: Luisito Del Angel MD Consult Discharge Plan - Plan Referrals: Ulices Mcgovern Jr, MD [Primary Care Provider] - (patient is going to [facility])
[2017-10-12] MEDS: Lactobacillus 1 EACH CAP.SPRINK PO SCH (11:42)
[2017-10-12] MEDS: metroNIDAZOLE 500 MG TABLET PO SCH ×3 (11:43→19:37)
[2017-10-12 14:28] LABS: BUN/Creatinine Ratio 16 (6-26); Blood Urea Nitrogen 16 mg/dL (8-23); Calcium 7.7 mg/dL (8.6-10.3); Carbon Dioxide 22 mEq/L (23-29); Chloride 104 mEq/L (98-107); Glucose 113 mg/dL (70-105); Osmolality,Calculated 284 (280-300); Potassium 2.9 mEq/L (3.5-5.1); Sodium 136 mEq/L (136-145); eGFR For African Americans > 60 (> 60); eGFR For Non-African Americans > 60 (> 60)
[2017-10-12 14:29] LABS: Basophils % 0.1 %; Hematocrit 28.1 % (37.5-50.1); Immature Granulocytes % 0.7 % (0-4); Lymphocytes # 0.3 K/mcL (0.6-4.6); Lymphocytes % 2.1 %; Mean Corpuscular Hemoglobin 28.2 pg (28.0-33.3); Mean Corpuscular Volume 88.1 fL (83.0-100.0); Mean Platelet Volume 10.1 fL (9.4-12.4); Monocytes # 0.2 K/mcL (0.0-1.3); Neutrophils # 11.2 K/mcL (1.6-8.9); Nucleated Red Blood Cells 0.2 /100 WBC (0); Platelet Count 192 K/mcL (140-400); Red Blood Count 3.19 M/mcL (4.19-5.50); Red Cell Distribution Width 16.7 % (11.5-14.5); Segmented Neutrophils % 95.1 %
--- NOTE | 2017-10-12 15:55 | Event Note ---
Date of Encounter: 10/12/17 Time of Encounter: 15:50 PICC team in room for other IV access to get femoral line out. Daughter Kay at bedside. Patient has decided he would like to deactivate AICD, and wants to do this as soon as possible. Code status is DNR/DNI. Cardiology consult ordered and spoke with Ulices Hsu NP. If the office unable to deactivate - they will contact company.
--- NOTE | 2017-10-12 16:26 | Event Note ---
Date of Encounter: 10/12/17 Time of Encounter: 16:20 - Cardiology Event Note Discussed with palliative care team. Seen with patient and family at bedside and confirmed DNR/DNI/Comfort Care arrest status. They verbally confirm desire to deactivate ICD. Pacer registered dietetic technician notified and will be out of the office. Order on chart for company ([email or web address]) to deactivate AICD this evening or tomorrow. All questions answered.
[2017-10-12] MEDS: Linezolid 600 MG TABLET PO SCH (19:37)
[2017-10-12] MEDS: Topiramate 25 MG TABLET PO SCH (19:37)
[2017-10-12] MEDS: Melatonin 3 MG TABLET PO PRN (19:38)
[2017-10-12] MEDS: Saline Nasal Spray 44 ML BOTTLE NS PRN (19:40)
[2017-10-13] MEDS: Piperacillin/Tazobactam 3.375 GM/200 ML BAG IVPB SCH ×3 (00:54→18:05)
[2017-10-13] MEDS: Saline Nasal Spray 44 ML BOTTLE NS PRN ×3 (00:54→19:43)
[2017-10-13] MEDS: Ipratropium/Albuterol Neb 3 ML IH SCH ×4 (01:26→23:12)
[2017-10-13] MEDS: *HR* LORazepam 0.5 MG TABLET PO PRN ×5 (03:53→22:55)
[2017-10-13 05:04] LABS: Basophils % 0.1 %; Hematocrit 26.9 % (37.5-50.1); Hemoglobin 8.5 g/dL (12.9-16.9); Immature Granulocytes % 0.9 % (0-4); Lymphocytes # 0.3 K/mcL (0.6-4.6); Lymphocytes % 3.1 %; Mean Corpuscular HGB Conc 31.6 g/dL (31.6-35.5); Mean Corpuscular Hemoglobin 28.2 pg (28.0-33.3); Mean Corpuscular Volume 89.4 fL (83.0-100.0); Mean Platelet Volume 9.9 fL (9.4-12.4); Monocytes # 0.3 K/mcL (0.0-1.3); Monocytes % 3.4 %; Neutrophils # 9.1 K/mcL (1.6-8.9); Nucleated Red Blood Cells 0.2 /100 WBC (0); Platelet Count 163 K/mcL (140-400); Red Blood Count 3.01 M/mcL (4.19-5.50); Red Cell Distribution Width 16.5 % (11.5-14.5); Segmented Neutrophils % 92.5 %
[2017-10-13 05:37] LABS: BUN/Creatinine Ratio 16 (6-26); Blood Urea Nitrogen 16 mg/dL (8-23); Carbon Dioxide 27 mEq/L (23-29); Chloride 104 mEq/L (98-107); Glucose 107 mg/dL (70-105); Potassium 2.5 mEq/L (3.5-5.1); Sodium 138 mEq/L (136-145); eGFR For African Americans > 60 (> 60); eGFR For Non-African Americans > 60 (> 60)
[2017-10-13 05:38] LABS: Calcium 7.5 mg/dL (8.6-10.3); Osmolality,Calculated 288 (280-300)
[2017-10-13] MEDS: *HR* Heparin 5,000 UNIT/ML VIAL SQ SCH ×2 (06:08→18:05)
[2017-10-13] MEDS: Hydrocortisone Sodium Succ 100 MG/2 ML VIAL IVP SCH (06:08)
[2017-10-13] MEDS: Lactobacillus 1 EACH CAP.SPRINK PO SCH (09:06)
[2017-10-13] MEDS: *HR* Amiodarone 200 MG TABLET PO SCH (09:07)
[2017-10-13] MEDS: Furosemide 20 MG TABLET PO SCH (09:07)
[2017-10-13] MEDS: clonazePAM 1 MG TABLET PO SCH ×2 (09:07→19:41)
--- NOTE | 2017-10-13 09:08 | Infectious Disease Progress No ---
Date of Encounter: 10/13/17 Time of Encounter: 09:06 - Assessment and Plan (1) Severe sepsis Current Visit: No Status: Acute The patient had two SIRS criteria plus hypotension on admission. Likely secondary to pneumonia. The patient continues to have tachypnea and tachycardia, but hypotension resolved with fluid resuscitation. Tachycardia most likely secondary to anxiety. Blood cultures drawn 10/06/17 are negative x 2 sets. (2) Pneumonia Current Visit: Yes Status: Acute Location: Right middle and Right lower lobes. Causative organism: unclear. Previous sputum cultures were positive for VRE ( sensitive only to linezolid) back in August and it does not appear that the patient was ever treated. Prior to that, sputum cultures grew Pseudomonas aeruginosa, Pseudomonas fluorescens, and MAC. S. pneumo and Legionella UAT negative. The patient has not been able to give a sputum specimen as he does not have a productive cough. CT chest showed findings consistent with RML and RLL PNA. Patient was previously treated for his MAC infection and treatment was stopped back in 2015. The patient is at risk for MDR organisms as he has been in an ECF and has been on antibiotics in the last 90 days. Send sputum for culture if the patient is able to provide an adequate specimen. Continue Zosyn 3.375 grams IV Q8H (Day 8). Continue linezolid 600mg BID, but can switch to PO (day 6). Zoloft currently on hold. Duration of treatment depends on the clinical picture, but would recommend 7 days of linezolid and 10 days of Zosyn. Monitor renal function and for drug toxicities. Depending on discharge plan, may need to consider VAT consult for EPIV placement prior to discharge. Qualifiers: Pneumonia type: due to unspecified organism Laterality: bilateral Lung location: unspecified part of lung Qualified Code(s): J18.9 - Pneumonia, unspecified organism (3) Dehydration Current Visit: Yes Status: Acute Likely secondary to GI loss. Appears improved. Fluid resuscitation per the primary team. (4) Diarrhea Current Visit: Yes Status: Acute Etiology unclear. The patient reports 6-8 loose, watery, foul-smelling stools per day for two weeks prior to admission. Patient reports started having loose stools again that started two days ago. Abdominal exam benign. Clinically, the stool does not appear to be consistent with C. diff, but given that the diarrhea has been persistent and the patient is at risk as he has been in an ECF and had antibiotic exposure, will go ahead and test for C. diff, place in C. diff precautions and start Flagyl 500mg PO TID empirically. If C. diff testing negative, discontinue C. diff precautions and Flagyl. C. diff testing ordered yesterday, but not collected. Discussed with nursing staff. Cotninue probiotic. Recommend GI to evaluate. Qualifiers: Diarrhea type: presumed infectious Qualified Code(s): R19.7 - Diarrhea, unspecified (5) History of MAC infection Current Visit: No Status: Chronic Previously treated with treatment stopped in 2015. Sputum culture back in 04/2017 showed possible reactivation of MAC, but sputum culture in August was negative for AFB. (6) Ischemic cardiomyopathy Current Visit: No Status: Chronic Status post remote history of AICD placement. (7) Systolic CHF Current Visit: Yes Status: Acute Qualifiers: Congestive heart failure chronicity: chronic Qualified Code(s): I50.22 - Chronic systolic (congestive) heart failure (8) CAD (coronary artery disease) Current Visit: No Status: Chronic Qualifiers: Coronary Disease-Associated Artery/Lesion type: bypass graft [place] vs. 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 Continue Magic Mouthwas TID. - Subjective Interval history: Patient seen and examined. No acute events noted overnight. Patient states he feels a little worse today, but his breathing seems to be at baseline. Denies fevers, chills, or rigors. Denies chest pain or cough. Denies nausea, vomiting, or constipation. He reports three diarrhea stools yesterday, two this morning. States he is very anxious today and wants his Ativan. Reports his appetite is okay, but not as good as usual. Denies new skin lesions. States oral pain is better. Infect Dis PN-Objective Data - Labs CBC & Chem 7: 10/13/17 04:54 10/13/17 14:50 Labs: Laboratory Results - last 24 hr 10/12/17 10/12/17 10/13/17 13:50 13:50 04:54 WBC 11.7 H 9.9 RBC 3.19 L 3.01 L Hgb 9.0 L 8.5 L Hct 28.1 L 26.9 L MCV 88.1 89.4 MCH 28.2 28.2 MCHC 32.0 31.6 RDW 16.7 H 16.5 H Plt Count 192 163 MPV 10.1 9.9 Immature Gran % 0.7 0.9 Seg Neutrophils % 95.1 92.5 Lymphocytes % 2.1 3.1 Monocytes % 2.0 3.4 Eosinophils % 0.0 0.0 Basophils % 0.1 0.1 Neutrophils # 11.2 H 9.1 H Lymphocytes # 0.3 L 0.3 L Monocytes # 0.2 0.3 Eosinophils # 0.0 0.0 Basophils # 0.0 0.0 Nucleated RBCs/100 WBC 0.2 H 0.2 H Sodium 136 Potassium 2.9 L Chloride 104 Carbon Dioxide 22 L BUN 16 Creatinine 1.00 Est GFR ( Amer) > 60 Est GFR (Non-Af Amer) > 60 BUN/Creatinine Ratio 16 Glucose 113 H Calculated Osmolality 284 Calcium 7.7 L 10/13/17 04:54 WBC RBC Hgb Hct MCV MCH MCHC RDW Plt Count MPV Immature Gran % Seg Neutrophils % Lymphocytes % Monocytes % Eosinophils % Basophils % Neutrophils # Lymphocytes # Monocytes # Eosinophils # Basophils # Nucleated RBCs/100 WBC Sodium 138 Potassium 2.5 L* Chloride 104 Carbon Dioxide 27 BUN 16 Creatinine 0.99 Est GFR ( Amer) > 60 Est GFR (Non-Af Amer) > 60 BUN/Creatinine Ratio 16 Glucose 107 H Calculated Osmolality 288 Calcium 7.5 L Exam - Constitutional Vitals: Temp Pulse Resp BP Pulse Ox 97.4 F L 81 16 125/82 99 10/13/17 07:08 10/13/17 07:08 10/13/17 07:08 10/13/17 07:08 10/13/17 07:08 General appearance: average body habitus, cooperative, no acute distress - Head Head exam: Present: atraumatic, normal inspection, normocephalic - Eye Eye exam: Present: EOMI, normal appearance, PERRL Pupils: Present: normal accommodation - ENT ENT exam: Present: mucous membranes moist Additional comments: No oral thrush lesions noted. - Neck Neck exam: Present: normal inspection - Respiratory Respiratory exam: Present: CTAB, tachypnea. Absent: rales, respiratory distress , rhonchi, wheezes - Cardiovascular Cardiovascular exam: Present: RRR, +S1, +S2 - GI/Abdominal GI/Abdominal exam: Present: normal bowel sounds, soft. Absent: distended, tenderness - Extremities Exam Extremities exam: Present: normal inspection. Absent: joint swelling, pedal edema, tenderness - Neurological Exam Neurological exam: Present: alert, oriented X3, no focal deficits - Psychiatric Psychiatric exam: Present: normal affect, normal mood - Skin Skin exam: Present: dry, intact, normal color, warm Consult Discharge Plan - Plan Referrals: Ulices Mcgovern Jr, MD [Primary Care Provider] - ([facility] is going to [facility]) - Attending Attestation I examined this patient and my medical decision-making was reviewed with the Resident Physician. I agree with the documented findings, disposition and treatment plan as described except to the extent set forth below.
[2017-10-13] MEDS: Isosorbide MONOnitrate (24 HR) 30 MG TAB.ER.24H PO SCH (09:09)
[2017-10-13] MEDS: Multivit/Ca/Min/Fe/FA 1 TAB TABLET PO SCH (09:09)
[2017-10-13] MEDS: Megestrol Acetate 400 MG/10 ML UDC PO SCH ×2 (09:09→19:41)
[2017-10-13] MEDS: Linezolid 600 MG TABLET PO SCH ×2 (09:09→19:41)
[2017-10-13] MEDS: metroNIDAZOLE 500 MG TABLET PO SCH (09:09)
[2017-10-13] MEDS: Aspirin 81 MG TAB.CHEW PO SCH (09:09)
[2017-10-13] MEDS: Fluticasone Propionate Nasal 50 MCG/SPRAY BOTTLE NS SCH (09:10)
[2017-10-13] MEDS: Magic Mouthwash 10 ML UD Cup PO SCH ×3 (09:10→18:04)
--- NOTE | 2017-10-13 10:29 | Palliative Progress Note ---
Date of Encounter: 10/13/17 Time of Encounter: 08:45 - Assessment and plan (1) Dyspnea Current Visit: No Status: Acute Assessment and plan: Overall improved - pt states close to baseline. Still becomes dyspneic with conversation. Qualifiers: Qualified Code(s): R06.00 - Dyspnea, unspecified (2) Anxiety Current Visit: Yes Status: Acute Assessment and plan: Continues with low dose lorazepam. He is quite dependent on this for his anxiety. Monitor (3) Counseling regarding advanced care planning and goals of care Current Visit: Yes Status: Acute Assessment and plan: Desired AICD off - company of device has been contacted and will sent rep here to hospital to de-activate. DNR/DNI. For ECF placement upon discharge under skilled level of care. Daughter/pt have been well informed regarding hospice care - however, they do not want hospice care at this time. Palliative will follow clinical course at a distance. (4) Acute and chronic respiratory failure Current Visit: No Status: Acute Qualifiers: Respiratory failure complication: hypoxia Qualified Code(s): J96.21 - Acute and chronic respiratory failure with hypoxia (5) Acute exacerbation of chronic obstructive airways disease Current Visit: No Status: Acute - Time Spent With Patient Total time spent is greater than 50% in coordination of care (as documented) at patient's floor/unit and/or counseling patient: - Subjective Interval history: Patient awake and alert - finishing breakfast. Remains anxious - asking for Ativan. O2 at 4LPM at present. Does not appear stool has been sent for C- diff yet. K+ 2.5 this am - replaced already with po. Desired AICD turned off - magnet in place. Carley from cardiology that does interrogations on vacation, so company for device will be coming here to deactivate sometime today. No family present - Constitutional Vitals: Abnormal lab results RBC 3.01 M/mcL (4.19-5.50) L 10/13/17 04:54 Hgb 8.5 g/dL (12.9-16.9) L 10/13/17 04:54 Hct 26.9 % (37.5-50.1) L 10/13/17 04:54 RDW 16.5 % (11.5-14.5) H 10/13/17 04:54 Neutrophils # 9.1 K/mcL (1.6-8.9) H 10/13/17 04:54 Lymphocytes # 0.3 K/mcL (0.6-4.6) L 10/13/17 04:54 Nucleated RBCs/100 WBC 0.2 /100 WBC (0) H 10/13/17 04:54 PT 16.3 Seconds (9.4-12.1) H 10/07/17 22:12 D-Dimer 2413 ng/mLFEU (0-500) H 10/06/17 20:41 ABG Base Excess -4 mEq/L (-2 to 3) L 10/08/17 01:25 Potassium 2.5 mEq/L (3.5-5.1) L* 10/13/17 04:54 Glucose 107 mg/dL (70-105) H 10/13/17 04:54 POC Glucose 161 (58-89) H 10/07/17 23:59 Calcium 7.5 mg/dL (8.6-10.3) L 10/13/17 04:54 Iron 18 mcg/dL (65-175) L 10/07/17 05:01 % Saturation 13 % (20-55) L 10/07/17 05:01 Transferrin 97 mg/dL (203-362) L 10/07/17 05:01 Troponin I 0.13 ng/mL (< 0.04) H* 10/07/17 05:01 B-Natriuretic Peptide 2626 pg/mL (Less than 100) H 10/08/17 03:39 Serum Total Protein 4.9 g/dL (6.4-8.9) L 10/06/17 17:10 Albumin 2.3 g/dL (3.5-5.7) L 10/06/17 17:10 Albumin/Globulin Ratio 0.9 (1.1-2.2) L 10/06/17 17:10 Vitamin B12 229 pg/mL (250-1100) L 10/07/17 05:01 General appearance: Present: no acute distress - Respiratory Respiratory exam: Present: decreased breath sounds, CTAB Additional comments: Faint exp wheezes - Cardiovascular Cardiovascular exam: Present: +S1, +S2 - GI/Abdominal GI/Abdominal exam: Present: normal bowel sounds, soft - Extremities Exam Extremities exam: Present: normal capillary refill, normal inspection - Neurological Exam Neurological exam: Present: alert, oriented X3, strengths equal and symetr throughout - Psychiatric Psychiatric exam: Present: anxious - Skin Skin exam: Present: dry, pallor, warm Palliative Quality Palliative Quality: Screen for Code Status: Yes, Screen for Goals of Care: Yes, Screen for Pain: Yes, If Pain Regimen Started, Initiate Bowel Regimen: NA, Screen for Nausea/Vomitting: Yes Code Status: 10/08/17 17:28 CODE [Resuscitation Status: Active] [RES] Routine Comment: Patient want that Resuscitation Status: DNR-Comfort Care-Arrest 10/09/17 08:54 CODE [Resuscitation Status: Active] [RES] Routine Comment: Resuscitation Status: [id number] - Labs CBC & Chem 7: 10/13/17 04:54 10/13/17 04:54 Labs: Laboratory Results - last 24 hr 10/12/17 10/12/17 10/13/17 13:50 13:50 04:54 WBC 11.7 H 9.9 RBC 3.19 L 3.01 L Hgb 9.0 L 8.5 L Hct 28.1 L 26.9 L MCV 88.1 89.4 MCH 28.2 28.2 MCHC 32.0 31.6 RDW 16.7 H 16.5 H Plt Count 192 163 MPV 10.1 9.9 Immature Gran % 0.7 0.9 Seg Neutrophils % 95.1 92.5 Lymphocytes % 2.1 3.1 Monocytes % 2.0 3.4 Eosinophils % 0.0 0.0 Basophils % 0.1 0.1 Neutrophils # 11.2 H 9.1 H Lymphocytes # 0.3 L 0.3 L Monocytes # 0.2 0.3 Eosinophils # 0.0 0.0 Basophils # 0.0 0.0 Nucleated RBCs/100 WBC 0.2 H 0.2 H Sodium 136 Potassium 2.9 L Chloride 104 Carbon Dioxide 22 L BUN 16 Creatinine 1.00 Est GFR ( Amer) > 60 Est GFR (Non-Af Amer) > 60 BUN/Creatinine Ratio 16 Glucose 113 H Calculated Osmolality 284 Calcium 7.7 L 10/13/17 04:54 WBC RBC Hgb Hct MCV MCH MCHC RDW Plt Count MPV Immature Gran % Seg Neutrophils % Lymphocytes % Monocytes % Eosinophils % Basophils % Neutrophils # Lymphocytes # Monocytes # Eosinophils # Basophils # Nucleated RBCs/100 WBC Sodium 138 Potassium 2.5 L* Chloride 104 Carbon Dioxide 27 BUN 16 Creatinine 0.99 Est GFR ( Amer) > 60 Est GFR (Non-Af Amer) > 60 BUN/Creatinine Ratio 16 Glucose 107 H Calculated Osmolality 288 Calcium 7.5 L - ABG Interpretation ABG results: ABG ABG pH 7.38 pH Units (7.32-7.45) 10/08/17 01:25 ABG pCO2 36 mmHg (35-45) 10/08/17 01:25 ABG pO2 98 mmHg (85-104) 10/08/17 01:25 ABG O2 Saturation 98 % (95-98) 10/08/17 01:25 PT/INR, D-dimer PT 16.3 Seconds (9.4-12.1) H 10/07/17 22:12 D-Dimer 2413 ng/mLFEU (0-500) H 10/06/17 20:41 Consult Discharge Plan - Plan Referrals: Ulices Mcgovern Jr, MD [Primary Care Provider] - ([facility] is going to [facility])
[2017-10-13 15:20] LABS: Calcium 7.5 mg/dL (8.6-10.3); Carbon Dioxide 28 mEq/L (23-29); Chloride 104 mEq/L (98-107); Sodium 136 mEq/L (136-145)
[2017-10-13 15:25] LABS: BUN/Creatinine Ratio 17 (6-26); Blood Urea Nitrogen 15 mg/dL (8-23); Glucose 118 mg/dL (70-105); Osmolality,Calculated 284 (280-300); eGFR For African Americans > 60 (> 60); eGFR For Non-African Americans > 60 (> 60)
--- NOTE | 2017-10-13 16:23 | Internal Med Progress Note ---
Date of Encounter: 10/13/17 Time of Encounter: 09:15 - Assessment and plan (1) Diarrhea Current Visit: Yes Status: Acute Assessment and plan: Uncertain etiology. Patient reports that he has been having this problem for the last few months, however it is difficult to communicate with him due to hearing loss. We will discuss with patient's daughter. Stool for C. difficile toxin is negative. Will check stool lactoferrin, fecal fat, stool culture. Supportive care. Qualifiers: Diarrhea type: unspecified type Qualified Code(s): R19.7 - Diarrhea, unspecified (2) Pneumonia Current Visit: Yes Status: Acute Assessment and plan: CT angiogram of chest shows chronic changes in bilateral upper lobes, new opacity concerning for pneumonia and right middle and lower lobes. Patient has previous history of MAC infection, VRE and Pseudomonas as reflected in previous sputum cultures. ID has been on board- recommend to complete 10 days of Zosyn and 7 days of Zyvox. Continue IV Zosyn-day 6 and by mouth Zyvox-day 6. Supportive care and supplemental oxygen. Qualifiers: Pneumonia type: due to unspecified organism Laterality: right Lung location: lower lobe of lung Qualified Code(s): J18.1 - Lobar pneumonia, unspecified organism (3) Septic shock Current Visit: Yes Status: Resolved Assessment and plan: Off pressors. Blood pressure currently well controlled. Will change IV steroids to by mouth prednisone 40 mg daily, to be tapered. (4) HTN (hypertension) Current Visit: Yes Status: Chronic Qualifiers: Hypertension type: essential hypertension Qualified Code(s): I10 - Essential (primary) hypertension (5) HLD (hyperlipidemia) Current Visit: Yes Status: Chronic Qualifiers: Hyperlipidemia type: unspecified Qualified Code(s): E78.5 - Hyperlipidemia , unspecified (6) CAD (coronary artery disease) Current Visit: Yes Status: Chronic Assessment and plan: Continue aspirin, Plavix, statin. Qualifiers: Coronary Disease-Associated Artery/Lesion type: bypass graft [place] vs. transplanted heart: [place] heart Associated angina: angina presence unspecified Qualified Code(s): I25.810 - Atherosclerosis of coronary artery bypass graft(s) without angina pectoris (7) Ischemic cardiomyopathy Current Visit: Yes Status: Chronic (8) Hypothyroidism Current Visit: Yes Status: Chronic Assessment and plan: Continue levothyroxine. Qualifiers: Hypothyroidism type: unspecified Qualified Code(s): E03.9 - Hypothyroidism , unspecified (9) COPD (chronic obstructive pulmonary disease) Current Visit: Yes Status: Chronic Assessment and plan: Not in acute exacerbation. Continue bronchodilators, supplemental oxygen as needed. Noted to be requiring 3 L/m oxygen via nasal cannula. Qualifiers: COPD type: unspecified COPD Qualified Code(s): J44.9 - Chronic obstructive pulmonary disease, unspecified (10) History of MAC infection Current Visit: Yes Status: Chronic (11) Goals of care, counseling/discussion Current Visit: Yes Status: Acute Assessment and plan: Palliative care team on board. CODE STATUS is noted to be DNR comfort care arrest/DNI. Patient and his daughter are well aware of hospice/palliative care , however not ready at this time. Disposition: Transfer to [facility], patient does not wish to go back to [facility]. resident services coordinator working on the same. (12) Protein-calorie malnutrition, moderate Current Visit: Yes Status: Acute Assessment and plan: dietary following. - Subjective Interval history: Reports significant loose stools. No chest pain, shortness of breath, fever, chills. Has a magnet placed over ICD as he wants ICD to be deactivated in line with his CODE STATUS DNR comfort care arrest/DNI. - Constitutional Vitals: Temp Pulse Resp BP Pulse Ox 98.9 F 73 16 131/86 98 10/13/17 15:47 10/13/17 15:47 10/13/17 15:47 10/13/17 15:47 10/13/17 15:47 General appearance: Present: A&O X 3 (Very hard of hearing), answers questions appropriately - Respiratory Respiratory exam: Present: CTAB (Coarse breath sounds bilaterally). Absent: accessory muscle use, rales, rhonchi, wheezes - Cardiovascular Cardiovascular exam: Present: RRR, +S1, +S2. Absent: diastolic murmur, gallop, rubs, systolic murmur - GI/Abdominal GI/Abdominal exam: Present: normal bowel sounds, soft, no peritoneal signs. Absent: distended, tenderness - Extremities Exam Extremities exam: Present: full ROM, pedal edema, warm, radial pulses palpable and symmetrical. Absent: calf tenderness, cyanotic - Neurological Exam Neurological exam: Present: CN II-XII intact, oriented X3, no focal deficits. Absent: pronater drift, facial droop, speech deficit Internal Medicine: Result - Labs CBC & Chem 7: 10/13/17 04:54 10/13/17 14:50 Labs: Short CBC 10/13/17 Range/Units 04:54 WBC 9.9 (4.3-11.1) K/mcL Hgb 8.5 L (12.9-16.9) g/dL Hct 26.9 L (37.5-50.1) % Plt Count 163 (140-400) K/mcL Neutrophils # 9.1 H (1.6-8.9) K/mcL BMP 10/13/17 10/13/17 04:54 14:50 Sodium 138 136 Potassium 2.5 L* 3.0 L Chloride 104 104 Carbon Dioxide 27 28 BUN 16 15 Creatinine 0.99 0.88 Glucose 107 H 118 H Calcium 7.5 L 7.5 L - ABG Interpretation ABG results: ABG ABG pH 7.38 pH Units (7.32-7.45) 10/08/17 01:25 ABG pCO2 36 mmHg (35-45) 10/08/17 01:25 ABG pO2 98 mmHg (85-104) 10/08/17 01:25 ABG O2 Saturation 98 % (95-98) 10/08/17 01:25 PT/INR, D-dimer PT 16.3 Seconds (9.4-12.1) H 10/07/17 22:12 D-Dimer 2413 ng/mLFEU (0-500) H 10/06/17 20:41 Consult Discharge Plan - Plan Referrals: Ulices Mcgovern Jr, MD [Primary Care Provider] - (patient is going to [facility])
[2017-10-13 17:13] LABS: C.difficile Toxin A/B by PCR Not detected (Not detect); Campylobacter by PCR Not detected (Not detect); Enteroaggregative E.coli(EAEC) Not detected (Not detect); Enteropathogenic E.coli(EPEC) Not detected (Not detect); Enterotoxigenic E.coli (ETEC) Not detected (Not detect); Plesiomonas shigelloides PCR Not detected (Not detect); Salmonella PCR Not detected (Not detect); Shigalike tox-prod E coli STEC Not detected (Not detect); Vibrio PCR Not detected (Not detect); Vibrio cholerae PCR Not detected (Not detect); Yersinia enterocolitica PCR Not detected (Not detect)
[2017-10-13 17:14] LABS: Adenovirus F 40/41 PCR Not detected (Not detect); Astrovirus PCR Not detected (Not detect); Cryptosporidium by PCR Not detected (Not detect); Cyclospora cayetanensis PCR Not detected (Not detect); E. coli O157 by PCR Not detected (Not detect); Entamoeba histolytica PCR Not detected (Not detect); Giardia lamblia PCR Not detected (Not detect); Norovirus GI/GII PCR Not detected (Not detect); Rotavirus A PCR Not detected (Not detect); Sapovirus PCR Not detected (Not detect); Shig/EnteroinvasiveE coli EIEC Not detected (Not detect)
[2017-10-13] MEDS: predniSONE 20 MG TABLET PO SCH (18:04)
[2017-10-13] MEDS: Topiramate 25 MG TABLET PO SCH (19:41)
[2017-10-13] MEDS: Melatonin 3 MG TABLET PO PRN (19:41)
[2017-10-13] MEDS: *HR* HYDROcodone/Acet 5/325 mg TABLET PO PRN (22:55)
[2017-10-14] MEDS: Piperacillin/Tazobactam 3.375 GM/200 ML BAG IVPB SCH ×4 (00:30→23:53)
[2017-10-14] MEDS: Fluticasone Propionate Nasal 50 MCG/SPRAY BOTTLE NS SCH ×2 (00:30→10:27)
[2017-10-14] MEDS: *HR* Heparin 5,000 UNIT/ML VIAL SQ SCH ×2 (05:27→18:23)
--- NOTE | 2017-10-14 09:05 | Palliative Progress Note ---
Date of Encounter: 10/14/17 Time of Encounter: 08:50 - Assessment and plan (1) Dyspnea Current Visit: No Status: Acute Assessment and plan: Improved. Monitor Qualifiers: Qualified Code(s): R06.00 - Dyspnea, unspecified (2) Anxiety Current Visit: Yes Status: Acute Assessment and plan: Continues with Lorazepam PRN. Utilized x4 yest. (3) Counseling regarding advanced care planning and goals of care Current Visit: Yes Status: Acute Assessment and plan: Patient states [employer] has not been here to deactivate AICD. Magnet remains in place on chest. Will contact cardiology and see if they can reach out to them, or give me contact number and I will call. PT to see this am. D/C to ECF when stable. (4) Acute and chronic respiratory failure Current Visit: No Status: Acute Qualifiers: Respiratory failure complication: hypoxia Qualified Code(s): J96.21 - Acute and chronic respiratory failure with hypoxia (5) Acute exacerbation of chronic obstructive airways disease Current Visit: No Status: Acute - Time Spent With Patient Total time spent is greater than 50% in coordination of care (as documented) at patient's floor/unit and/or counseling patient: 25 - 35 minutes - Subjective Interval history: Patient awake and alert, currently being cleaned up. C-diff neg yesterday. Patient states diarrhea has slowed down. Denies pain. Remains anxious asking for morning Lorazepam. - Constitutional Vitals: Abnormal lab results RBC 3.01 M/mcL (4.19-5.50) L 10/13/17 04:54 Hgb 8.5 g/dL (12.9-16.9) L 10/13/17 04:54 Hct 26.9 % (37.5-50.1) L 10/13/17 04:54 RDW 16.5 % (11.5-14.5) H 10/13/17 04:54 Neutrophils # 9.1 K/mcL (1.6-8.9) H 10/13/17 04:54 Lymphocytes # 0.3 K/mcL (0.6-4.6) L 10/13/17 04:54 Nucleated RBCs/100 WBC 0.2 /100 WBC (0) H 10/13/17 04:54 PT 16.3 Seconds (9.4-12.1) H 10/07/17 22:12 D-Dimer 2413 ng/mLFEU (0-500) H 10/06/17 20:41 ABG Base Excess -4 mEq/L (-2 to 3) L 10/08/17 01:25 Potassium 3.0 mEq/L (3.5-5.1) L 10/13/17 14:50 Glucose 118 mg/dL (70-105) H 10/13/17 14:50 POC Glucose 161 (58-89) H 10/07/17 23:59 Calcium 7.5 mg/dL (8.6-10.3) L 10/13/17 14:50 Iron 18 mcg/dL (65-175) L 10/07/17 05:01 % Saturation 13 % (20-55) L 10/07/17 05:01 Transferrin 97 mg/dL (203-362) L 10/07/17 05:01 Troponin I 0.13 ng/mL (< 0.04) H* 10/07/17 05:01 B-Natriuretic Peptide 2626 pg/mL (Less than 100) H 10/08/17 03:39 Serum Total Protein 4.9 g/dL (6.4-8.9) L 10/06/17 17:10 Albumin 2.3 g/dL (3.5-5.7) L 10/06/17 17:10 Albumin/Globulin Ratio 0.9 (1.1-2.2) L 10/06/17 17:10 Vitamin B12 229 pg/mL (250-1100) L 10/07/17 05:01 General appearance: Present: no acute distress - Respiratory Respiratory exam: Present: decreased breath sounds, CTAB - Cardiovascular Cardiovascular exam: Present: +S1, +S2 - GI/Abdominal GI/Abdominal exam: Present: normal bowel sounds, soft - Additional comments: Voids per urinal - Extremities Exam Extremities exam: Present: normal capillary refill, normal inspection - Neurological Exam Neurological exam: Present: alert, oriented X3, strengths equal and symetr throughout - Skin Skin exam: Present: dry, pallor Palliative Quality Palliative Quality: Screen for Code Status: Yes, Screen for Goals of Care: Yes, Screen for Pain: Yes, If Pain Regimen Started, Initiate Bowel Regimen: NA, Screen for Nausea/Vomitting: Yes Code Status: 10/08/17 17:28 CODE [Resuscitation Status: Active] [RES] Routine Comment: Patient want that Resuscitation Status: DNR-Comfort Care-Arrest 10/09/17 08:54 CODE [Resuscitation Status: Active] [RES] Routine Comment: Resuscitation Status: [id number] - Labs CBC & Chem 7: 10/13/17 04:54 10/13/17 14:50 Labs: Laboratory Results - last 24 hr 10/13/17 10/13/17 10/13/17 11:31 11:31 14:50 Sodium 136 Potassium 3.0 L Chloride 104 Carbon Dioxide 28 BUN 15 Creatinine 0.88 Est GFR ( Amer) > 60 Est GFR (Non-Af Amer) > 60 BUN/Creatinine Ratio 17 Glucose 118 H Calculated Osmolality 284 Calcium 7.5 L Magnesium Stl C. cayetanensis PCR Not detected Stool Rotavirus A PCR Not detected Stl Adenov F 40/41 PCR Not detected Stool Astrovirus (PCR) Not detected Stool Campylobacter PCR Not detected Stl C. diff Tox B Gene Negative Stl C. diff Tox A/B PCR Not detected Stool Cryptosporidium PCR Not detected Stl Sh Tox Pr E STEC PCR Not detected Stool E coli O157 PCR Not detected Stl Enterotoxigenic E PCR Not detected Stool EPEC (PCR) Not detected Stool EAEC (PCR) Not detected Stl E. histolytica PCR Not detected Stool Giardia Lamblia PCR Not detected Stool Salmonella PCR Not detected Stool Sapovirus (PCR) Not detected Stl P. shigelloides PCR Not detected Stl Shigella/EIEC PCR Not detected St Y.enterocolitica PCR Not detected Stool Vibrio (PCR) Not detected Stl Vibrio cholerae PCR Not detected Stl Norovirus GI/GII PCR Not detected Stl GI Panel (PCR) Com See below 10/14/17 03:05 Sodium Potassium Chloride Carbon Dioxide BUN Creatinine Est GFR ( Amer) Est GFR (Non-Af Amer) BUN/Creatinine Ratio Glucose Calculated Osmolality Calcium Magnesium 1.7 Stl C. cayetanensis PCR Stool Rotavirus A PCR Stl Adenov F 40/41 PCR Stool Astrovirus (PCR) Stool Campylobacter PCR Stl C. diff Tox B Gene Stl C. diff Tox A/B PCR Stool Cryptosporidium PCR Stl Sh Tox Pr E STEC PCR Stool E coli O157 PCR Stl Enterotoxigenic E PCR Stool EPEC (PCR) Stool EAEC (PCR) Stl E. histolytica PCR Stool Giardia Lamblia PCR Stool Salmonella PCR Stool Sapovirus (PCR) Stl P. shigelloides PCR Stl Shigella/EIEC PCR St Y.enterocolitica PCR Stool Vibrio (PCR) Stl Vibrio cholerae PCR Stl Norovirus GI/GII PCR Stl GI Panel (PCR) Com - ABG Interpretation ABG results: ABG ABG pH 7.38 pH Units (7.32-7.45) 10/08/17 01:25 ABG pCO2 36 mmHg (35-45) 10/08/17 01:25 ABG pO2 98 mmHg (85-104) 10/08/17 01:25 ABG O2 Saturation 98 % (95-98) 10/08/17 01:25 PT/INR, D-dimer PT 16.3 Seconds (9.4-12.1) H 10/07/17 22:12 D-Dimer 2413 ng/mLFEU (0-500) H 10/06/17 20:41 Consult Discharge Plan - Plan Referrals: Ulices Mcgovern Jr, MD [Primary Care Provider] - (Patient will follow up with ECF PCP)
[2017-10-14] MEDS: Ipratropium/Albuterol Neb 3 ML IH SCH ×3 (10:26→23:59)
--- NOTE | 2017-10-14 10:27 | Infectious Disease Progress No ---
Date of Encounter: 10/14/17 Time of Encounter: 10:23 - Assessment and Plan (1) Severe sepsis Current Visit: No Status: Acute The patient had two SIRS criteria plus hypotension on admission. Likely secondary to pneumonia. The patient continues to have tachypnea and tachycardia, but hypotension resolved with fluid resuscitation. Tachycardia most likely secondary to anxiety. Blood cultures drawn 10/06/17 are negative x 2 sets. (2) Pneumonia Current Visit: Yes Status: Acute Location: Right middle and Right lower lobes. Causative organism: unclear. Previous sputum cultures were positive for VRE ( sensitive only to linezolid) back in August and it does not appear that the patient was ever treated. Prior to that, sputum cultures grew Pseudomonas aeruginosa, Pseudomonas fluorescens, and MAC. S. pneumo and Legionella UAT negative. The patient has not been able to give a sputum specimen as he does not have a productive cough. CT chest showed findings consistent with RML and RLL PNA. Patient was previously treated for his MAC infection and treatment was stopped back in 2015. The patient is at risk for MDR organisms as he has been in an ECF and has been on antibiotics in the last 90 days. Send sputum for culture if the patient is able to provide an adequate specimen. Continue Zosyn 3.375 grams IV Q8H (Day 9). Continue linezolid 600mg BID, but can switch to PO (day 7). Discontinue after last dose today. Zoloft currently on hold. Okay to re-start tomorrow. Duration of treatment depends on the clinical picture, but would recommend 7 days of linezolid and 10 days of Zosyn. Monitor renal function and for drug toxicities. Depending on discharge plan, may need to consider VAT consult for EPIV placement prior to discharge. Qualifiers: Pneumonia type: due to unspecified organism Laterality: bilateral Lung location: unspecified part of lung Qualified Code(s): J18.9 - Pneumonia, unspecified organism (3) Dehydration Current Visit: Yes Status: Acute Likely secondary to GI loss. Appears improved. Fluid resuscitation per the primary team. (4) Diarrhea Current Visit: Yes Status: Acute Etiology unclear. The patient reports 6-8 loose, watery, foul-smelling stools per day for two weeks prior to admission. Patient reports started having loose stools again that started two days ago. Abdominal exam benign. C. diff and stool panel negative. Stool lactoferritin positive. Cotninue probiotic. Recommend GI to evaluate. Qualifiers: Diarrhea type: unspecified type Qualified Code(s): R19.7 - Diarrhea, unspecified (5) History of MAC infection Current Visit: Yes Status: Chronic Previously treated with treatment stopped in 2015. Sputum culture back in 04/2017 showed possible reactivation of MAC, but sputum culture in August was negative for AFB. (6) Ischemic cardiomyopathy Current Visit: Yes Status: Chronic Status post remote history of AICD placement. (7) Systolic CHF Current Visit: Yes Status: Acute Qualifiers: Congestive heart failure chronicity: chronic Qualified Code(s): I50.22 - Chronic systolic (congestive) heart failure (8) CAD (coronary artery disease) Current Visit: Yes Status: Chronic Qualifiers: Coronary Disease-Associated Artery/Lesion type: bypass graft [place] vs. 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 Continue Magic Mouthwas TID. - Subjective Interval history: Patient seen and examined. No acute events noted overnight. Patient states he feels a little better today and his breathing seems to be at baseline. Denies fevers, chills, or rigors. Denies chest pain or cough. Denies nausea, vomiting, or constipation. He reports three diarrhea stools yesterday, one this morning. Reports his appetite is okay, but not as good as usual. Denies new skin lesions. States oral pain is better. Infect Dis PN-Objective Data - Labs CBC & Chem 7: 10/13/17 04:54 10/14/17 15:04 Labs: Laboratory Results - last 24 hr 10/13/17 10/13/17 10/13/17 11:31 11:31 14:50 Sodium 136 Potassium 3.0 L Chloride 104 Carbon Dioxide 28 BUN 15 Creatinine 0.88 Est GFR ( Amer) > 60 Est GFR (Non-Af Amer) > 60 BUN/Creatinine Ratio 17 Glucose 118 H Calculated Osmolality 284 Calcium 7.5 L Magnesium Stl C. cayetanensis PCR Not detected Stool Rotavirus A PCR Not detected Stl Adenov F 40/ PCR Not detected Stool Astrovirus (PCR) Not detected Stool Campylobacter PCR Not detected Stl C. diff Tox B Gene Negative Stl C. diff Tox A/B PCR Not detected Stool Cryptosporidium PCR Not detected Stl Sh Tox Pr E STEC PCR Not detected Stool E coli O157 PCR Not detected Stl Enterotoxigenic E PCR Not detected Stool EPEC (PCR) Not detected Stool EAEC (PCR) Not detected Stl E. histolytica PCR Not detected Stool Giardia Lamblia PCR Not detected Stool Salmonella PCR Not detected Stool Sapovirus (PCR) Not detected Stl P. shigelloides PCR Not detected Stl Shigella/EIEC PCR Not detected St Y.enterocolitica PCR Not detected Stool Vibrio (PCR) Not detected Stl Vibrio cholerae PCR Not detected Stl Norovirus GI/GII PCR Not detected Stl GI Panel (PCR) Com See below 10/14/17 03:05 Sodium Potassium Chloride Carbon Dioxide BUN Creatinine Est GFR ( Amer) Est GFR (Non-Af Amer) BUN/Creatinine Ratio Glucose Calculated Osmolality Calcium Magnesium 1.7 Stl C. cayetanensis PCR Stool Rotavirus A PCR Stl Adenov F PCR Stool Astrovirus (PCR) Stool Campylobacter PCR Stl C. diff Tox B Gene Stl C. diff Tox A/B PCR Stool Cryptosporidium PCR Stl Sh Tox Pr E STEC PCR Stool E coli O157 PCR Stl Enterotoxigenic E PCR Stool EPEC (PCR) Stool EAEC (PCR) Stl E. histolytica PCR Stool Giardia Lamblia PCR Stool Salmonella PCR Stool Sapovirus (PCR) Stl P. shigelloides PCR Stl Shigella/EIEC PCR St Y.enterocolitica PCR Stool Vibrio (PCR) Stl Vibrio cholerae PCR Stl Norovirus GI/GII PCR Stl GI Panel (PCR) Com Cultures: Cultures 10/13/17 11:31 Leukocyte Esterase (DK) - Final Stool Serology 10/13/17 10/13/17 Range/Units 11:31 11:31 Stl C. cayetanensis PCR Not detected (Not detect) Stool Rotavirus A PCR Not detected (Not detect) Stl Adenov F / PCR Not detected (Not detect) Stool Astrovirus (PCR) Not detected (Not detect) Stool Campylobacter PCR Not detected (Not detect) Stl C. diff Tox B Gene Negative (Negative) Stl C. diff Tox A/B PCR Not detected (Not detect) Stool Cryptosporidium PCR Not detected (Not detect) Stl Sh Tox Pr E STEC PCR Not detected (Not detect) Stool E coli O157 PCR Not detected (Not detect) Stl Enterotoxigenic E PCR Not detected (Not detect) Stool EPEC (PCR) Not detected (Not detect) Stool EAEC (PCR) Not detected (Not detect) Stl E. histolytica PCR Not detected (Not detect) Stool Giardia Lamblia PCR Not detected (Not detect) Stool Salmonella PCR Not detected (Not detect) Stool Sapovirus (PCR) Not detected (Not detect) Stl P. shigelloides PCR Not detected (Not detect) Stl Shigella/EIEC PCR Not detected (Not detect) St Y.enterocolitica PCR Not detected (Not detect) Stool Vibrio (PCR) Not detected (Not detect) Stl Vibrio cholerae PCR Not detected (Not detect) Stl Norovirus GI/GII PCR Not detected (Not detect) Stl GI Panel (PCR) Com See below Exam - Constitutional Vitals: Temp Pulse Resp BP Pulse Ox 97.9 F 97 18 111/74 95 10/14/17 06:17 10/14/17 06:17 10/14/17 06:17 10/14/17 06:17 10/14/17 06:17 General appearance: average body habitus, cooperative, no acute distress - Head Head exam: Present: atraumatic, normal inspection, normocephalic - Eye Eye exam: Present: EOMI, normal appearance, PERRL Pupils: Present: normal accommodation - ENT ENT exam: Present: mucous membranes moist Additional comments: No oral thrush noted. - Neck Neck exam: Present: normal inspection - Respiratory Respiratory exam: Present: CTAB. Absent: rales, respiratory distress, rhonchi, wheezes - Cardiovascular Cardiovascular exam: Present: RRR, +S1, +S2 - GI/Abdominal GI/Abdominal exam: Present: normal bowel sounds, soft. Absent: distended, tenderness - Extremities Exam Extremities exam: Present: normal inspection, pedal edema (trace BLE). Absent: joint swelling, tenderness - Neurological Exam Neurological exam: Present: alert, oriented X3, no focal deficits - Psychiatric Psychiatric exam: Present: normal affect, normal mood - Skin Skin exam: Present: dry, intact, normal color, warm Consult Discharge Plan - Plan Referrals: Ulices Mcgovern Jr, MD [Primary Care Provider] - (Patient will follow up with [facility] PCP) - Attending Attestation I examined this patient and my medical decision-making was reviewed with the Resident Physician. I agree with the documented findings, disposition and treatment plan as described except to the extent set forth below.
[2017-10-14] MEDS: *HR* Amiodarone 200 MG TABLET PO SCH (10:28)
[2017-10-14] MEDS: Aspirin 81 MG TAB.CHEW PO SCH (10:28)
[2017-10-14] MEDS: Isosorbide MONOnitrate (24 HR) 30 MG TAB.ER.24H PO SCH (10:28)
[2017-10-14] MEDS: predniSONE 20 MG TABLET PO SCH (10:28)
[2017-10-14] MEDS: Lactobacillus 1 EACH CAP.SPRINK PO SCH (10:28)
[2017-10-14] MEDS: Megestrol Acetate 400 MG/10 ML UDC PO SCH ×2 (10:29→19:26)
[2017-10-14] MEDS: Furosemide 20 MG TABLET PO SCH (10:29)
[2017-10-14] MEDS: clonazePAM 1 MG TABLET PO SCH ×2 (10:29→19:26)
[2017-10-14] MEDS: Linezolid 600 MG TABLET PO SCH ×2 (10:29→19:26)
[2017-10-14] MEDS: Multivit/Ca/Min/Fe/FA 1 TAB TABLET PO SCH (10:29)
[2017-10-14] MEDS: *HR* LORazepam 0.5 MG TABLET PO PRN ×4 (10:29→23:53)
[2017-10-14] MEDS: Magic Mouthwash 10 ML UD Cup PO SCH ×3 (10:29→15:52)
--- NOTE | 2017-10-14 11:35 | Gastroenterology Consult Note ---
<Chance Salcido - Last Filed: 10/14/17 11:32> Date of Encounter: 10/14/17 Time of Encounter: 10:00 - Assessment and plan (1) Diarrhea Current Visit: Yes Status: Acute Assessment and plan: GI panel negative. Continue probiotic. Plan for colonoscopy tomorrow to rule out microscopic colitis. Clear liquid diet today, no red or purple. NPO at midnight. If not clear by 6 AM, give 2 tap water enemas. Qualifiers: Diarrhea type: unspecified type Qualified Code(s): R19.7 - Diarrhea, unspecified (2) Severe sepsis Current Visit: Yes Status: Acute (3) Pneumonia Current Visit: Yes Status: Acute Qualifiers: Pneumonia type: due to unspecified organism Laterality: right Lung location: lower lobe of lung Qualified Code(s): J18.1 - Lobar pneumonia, unspecified organism (4) COPD (chronic obstructive pulmonary disease) Current Visit: Yes Status: Chronic Qualifiers: COPD type: unspecified COPD Qualified Code(s): J44.9 - Chronic obstructive pulmonary disease, unspecified - Time Spent With Patient Total time spent is greater than 50% in coordination of care (as documented) at patient's floor/unit and/or counseling patient: GI History of Present Illness - Data of Consult Patient: new to practice Consult date: 10/14/17 Requesting Physician: Yaima Mehta MD - Consult Narrative Reason for consult: Diarrhea History of present illness: Mr. Jaimes is a 72 year old male with PMHx of COPD, CHF, HTN, CAD s/p CABG, AAA s/ p repair who presented to the ED with diarrhea for 2-3 weeks. He was having 5-6 watery BMs daily, with no melena or hematochezia. He reported nausea but denied vomiting. He denied any abdominal pain. In the ED he was started on PO Vancomycin and IV Flagyl. C diff was negative, and Vanco was DC'd. The patient became hypotensive, dyspneic, and hypoxic. There was concern for PE and CTA chest was negative for PE. He was transferred to the ICU and needed pressors and was started on IV steroids. He is out of the ICU and has changed his code status to DNR CCA/DNI, AICD to be deactivated per patient wishes. We have been consulted to evaluate his diarrhea. GI panel was negative on 10/13. Procedure: Colonoscopy 10/15/2016 Dr. Mcgovern: Diverticulosis, patent end-to-end colo-colonic anastomosis, 3mm tubular adenoma. NSAIDs: ASA Anticoagulation: Brilinta Past Med Surg Social Fam HX - Past Medical History Medical history: aortic aneurysm, cancer (skin cancer removed 2017), COPD, coronary artery disease, GERD, hyperlipidemia, hypertension, myocardial infarction, thyroid disease, other (MAC) Psychiatric history: anxiety, depression - Past Surgical History Surgical History: cancer surgery, coronary bypass (CABG), vasectomy, AICD - Social History Smoking Status: Former smoker Smokeless Tobacco Status: No Alcohol use: none Drug use: none - Family History Mother History Unknown: Yes - Gastrointestinal Gastrointestinal: Present: as per HPI - Constitutional Constitutional: as per HPI - EENT Eyes: as per HPI Ears: Present: as per HPI Nose, mouth and throat: Present: as per HPI - Cardiovascular Cardiovascular ROS: Present: as per HPI - Respiratory Respiratory IM: Present: as per HPI - Genitourinary Genitourinary: Absent: change in color, Urinary frequency - Neurological ROS Neurological GI: Present: as per HPI - Hematologic/Lymphatic Hematologic/Lymphatic pediatric: Present: as per HPI - Musculoskeletal Musculoskeletal ROS GI: Present: as per HPI - Integumentary Integumentary GI: Present: as per HPI - Psychiatric ROS Psychiatric GI: Present: as per HPI - Endocrine Endocrine IM: Present: as per HPI - Constitutional Vitals: Temp Pulse Resp BP Pulse Ox 97.9 F 97 18 111/74 95 10/14/17 06:17 10/14/17 06:17 10/14/17 06:17 10/14/17 06:17 10/14/17 06:17 General appearance: Present: cooperative, A&O X 3, no acute distress, answers questions appropriately Exam: Hard of hearing - Head Head exam: Present: atraumatic, normocephalic - Eye Eye exam: Present: normal appearance, sclera anicteric - ENT ENT exam: Present: mucous membranes dry - Neck Neck exam general surgery: Present: normal inspection, trachea midline - Respiratory Respiratory exam: Present: decreased breath sounds, CTAB - Cardiovascular Cardiovascular exam: Present: RRR, +S1, +S2 - GI/Abdominal GI/Abdominal exam: Present: soft, no peritoneal signs. Absent: distended, firm , guarding, tenderness - Rectal Rectal exam: Present: deferred - Extremities Exam Extremities exam: Present: warm Additional comments: ecchymosis on bilateral arms - Neurological Exam Neurological exam: Present: no focal deficits - Psychiatric Psychiatric exam: Present: normal affect, normal mood - Skin Skin exam: Present: dry, intact, normal color, warm Results - Labs CBC & Chem 7: 10/13/17 04:54 10/13/17 14:50 Labs: Last Result Calcium 7.5 mg/dL (8.6-10.3) L 10/13/17 14:50 Iron 18 mcg/dL (65-175) L 10/07/17 05:01 % Saturation 13 % (20-55) L 10/07/17 05:01 Transferrin 97 mg/dL (203-362) L 10/07/17 05:01 Ferritin 222 ng/ml (20-250) 10/07/17 05:01 Troponin I 0.13 ng/mL (< 0.04) H* 10/07/17 05:01 Vitamin B12 229 pg/mL (250-1100) L 10/07/17 05:01 Folate 7.7 ng/mL (3.0-16.0) 10/07/17 05:01 Entire Visit Hgb 8.5 g/dL (12.9-16.9) L 10/13/17 04:54 Hct 26.9 % (37.5-50.1) L 10/13/17 04:54 PT 16.3 Seconds (9.4-12.1) H 10/07/17 22:12 Ferritin 222 ng/ml (20-250) 10/07/17 05:01 Total Bilirubin 0.5 mg/dL (0.3-1.0) 10/06/17 17:10 AST 13 Units/L (13-39) 10/06/17 17:10 ALT 18 Units/L (7-52) 10/06/17 17:10 Lipase 13 Units/L (11-82) 10/06/17 17:10 Folate 7.7 ng/mL (3.0-16.0) 10/07/17 05:01 - ABG ABG results: ABG ABG pH 7.38 pH Units (7.32-7.45) 10/08/17 01:25 ABG pCO2 36 mmHg (35-45) 10/08/17 01:25 ABG pO2 98 mmHg (85-104) 10/08/17 01:25 ABG O2 Saturation 98 % (95-98) 10/08/17 01:25 PT/INR, D-dimer PT 16.3 Seconds (9.4-12.1) H 10/07/17 22:12 D-Dimer 2413 ng/mLFEU (0-500) H 10/06/17 20:41 Consult Discharge Plan - Plan Referrals: Ulices Mcgovern Jr, MD [Primary Care Provider] - (Patient will follow up with [facility] PCP) <Parveen Bautista - Last Filed: 10/14/17 14:45> Date of Encounter: 10/14/17 Time of Encounter: 12:00 - Time Spent With Patient Total time spent is greater than 50% in coordination of care (as documented) at patient's floor/unit and/or counseling patient: GI History of Present Illness - Data of Consult Requesting Physician: Yaima Mehta MD - Consult Narrative History of present illness: Mr. Jaimes is a 72 year old male - Constitutional Vitals: Temp Pulse Resp BP Pulse Ox 97.9 F 97 18 111/74 95 10/14/17 06:17 10/14/17 06:17 10/14/17 10:26 10/14/17 06:17 10/14/17 10:26 Results - Labs CBC & Chem 7: 10/13/17 04:54 10/13/17 14:50 Labs: Last Result Calcium 7.5 mg/dL (8.6-10.3) L 10/13/17 14:50 Iron 18 mcg/dL (65-175) L 10/07/17 05:01 % Saturation 13 % (20-55) L 10/07/17 05:01 Transferrin 97 mg/dL (203-362) L 10/07/17 05:01 Ferritin 222 ng/ml (20-250) 10/07/17 05:01 Troponin I 0.13 ng/mL (< 0.04) H* 10/07/17 05:01 Vitamin B12 229 pg/mL (250-1100) L 10/07/17 05:01 Folate 7.7 ng/mL (3.0-16.0) 10/07/17 05:01 Entire Visit Hgb 8.5 g/dL (12.9-16.9) L 10/13/17 04:54 Hct 26.9 % (37.5-50.1) L 10/13/17 04:54 PT 16.3 Seconds (9.4-12.1) H 10/07/17 22:12 Ferritin 222 ng/ml (20-250) 10/07/17 05:01 Total Bilirubin 0.5 mg/dL (0.3-1.0) 10/06/17 17:10 AST 13 Units/L (13-39) 10/06/17 17:10 ALT 18 Units/L (7-52) 10/06/17 17:10 Lipase 13 Units/L (11-82) 10/06/17 17:10 Folate 7.7 ng/mL (3.0-16.0) 10/07/17 05:01 - ABG ABG results: ABG ABG pH 7.38 pH Units (7.32-7.45) 10/08/17 01:25 ABG pCO2 36 mmHg (35-45) 10/08/17 01:25 ABG pO2 98 mmHg (85-104) 10/08/17 01:25 ABG O2 Saturation 98 % (95-98) 10/08/17 01:25 PT/INR, D-dimer PT 16.3 Seconds (9.4-12.1) H 10/07/17 22:12 D-Dimer 2413 ng/mLFEU (0-500) H 10/06/17 20:41 - Attending Attestation I examined this patient and my medical decision-making was reviewed with CERTIFIED ENDOSCOPY TECHNICIAN. I agree with the documented findings, disposition and treatment plan as described except to the extent set forth below. 72-year-old white male with multiple comorbidities was been in the hospital for few weeks and now has ongoing chronic diarrhea for the last 4 weeks. Workup including C. difficile and stool for infectious etiologies has been negative Rule out microscopic colitis whether versus other form of colitis. Recommendation: Colonoscopy with biopsy.
[2017-10-14] MEDS ORDERED: Polyethylene Glycol 3350 255 GM POWDER PO ONE (15:00)
[2017-10-14 15:29] LABS: BUN/Creatinine Ratio 17 (6-26); Blood Urea Nitrogen 15 mg/dL (8-23); Calcium 7.8 mg/dL (8.6-10.3); Carbon Dioxide 28 mEq/L (23-29); Chloride 103 mEq/L (98-107); Glucose 144 mg/dL (70-105); Osmolality,Calculated 287 (280-300); Potassium 3.3 mEq/L (3.5-5.1); Sodium 137 mEq/L (136-145); eGFR For African Americans > 60 (> 60); eGFR For Non-African Americans > 60 (> 60)
[2017-10-14] MEDS ORDERED: Potassium Chloride Elixir 20 MEQ/15 ML UDC PO ONE (16:42)
[2017-10-14] MEDS: Acetaminophen 325 MG TABLET PO PRN (18:22)
--- NOTE | 2017-10-14 18:34 | Internal Med Progress Note ---
Date of Encounter: 10/14/17 Time of Encounter: 16:00 - Assessment and plan (1) Diarrhea Status: Acute Assessment and plan: Uncertain etiology, likely functional. Stool for C. difficile toxin is negative. Stool GI panel negative, less likely infectious. Stool WBC positive. Will check stool fecal fat- pending, stool culture pending. PRN Loperamide and continue probiotics. Supportive care. GI consulted for this issue, plan for colonoscopy in am to r/o microscopic colitis. Qualifiers: Diarrhea type: functional diarrhea Qualified Code(s): K59.1 - Functional diarrhea (2) Pneumonia Status: Acute Assessment and plan: CT angiogram of chest shows chronic changes in bilateral upper lobes, new opacity concerning for pneumonia and right middle and lower lobes. 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 ID has been on board- recommend to complete 10 days of Zosyn and 7 days of Zyvox. Continue IV Zosyn- day 7 and by mouth Zyvox-day 7. Supportive care and supplemental oxygen. Qualifiers: Pneumonia type: due to unspecified organism Laterality: right Lung location: lower lobe of lung Qualified Code(s): J18.1 - Lobar pneumonia, unspecified organism (3) Septic shock Status: Resolved (4) HTN (hypertension) Status: Chronic Qualifiers: Hypertension type: essential hypertension Qualified Code(s): I10 - Essential (primary) hypertension (5) HLD (hyperlipidemia) Status: Chronic Qualifiers: Hyperlipidemia type: unspecified Qualified Code(s): E78.5 - Hyperlipidemia , unspecified (6) CAD (coronary artery disease) Status: Chronic Assessment and plan: Continue aspirin, Plavix, statin. Qualifiers: Coronary Disease-Associated Artery/Lesion type: bypass graft [place] vs. transplanted heart: [place] heart Associated angina: angina presence unspecified Qualified Code(s): I25.810 - Atherosclerosis of coronary artery bypass graft(s) without angina pectoris (7) Ischemic cardiomyopathy Status: Chronic (8) Hypothyroidism Status: Chronic Qualifiers: Hypothyroidism type: unspecified Qualified Code(s): E03.9 - Hypothyroidism , unspecified (9) COPD (chronic obstructive pulmonary disease) Status: Chronic Assessment and plan: Not in acute exacerbation. Continue bronchodilators, supplemental oxygen as needed. Noted to be requiring 3 L/m oxygen via nasal cannula. Qualifiers: COPD type: unspecified COPD Qualified Code(s): J44.9 - Chronic obstructive pulmonary disease, unspecified (10) History of MAC infection Status: Chronic (11) Goals of care, counseling/discussion Status: Acute Assessment and plan: Palliative care team on board. CODE STATUS is noted to be DNR comfort care arrest/DNI. Patient and his daughter are well aware of hospice/palliative care , however not ready at this time. [facility]; clinical services specialist working on the same. (12) Protein-calorie malnutrition, moderate Status: Chronic - Subjective Interval history: Continues to have diarrhea; plan of care d/w daughter at bedside; no fever/ chills, dyspnea, cough; plan to be discharged back to [facility] when stable ; plan for colonoscopy in am; - Constitutional Vitals: Temp Pulse Resp BP Pulse Ox 97.4 F L 105 17 116/68 100 10/14/17 16:36 10/14/17 16:36 10/14/17 16:36 10/14/17 16:36 10/14/17 16:36 General appearance: Present: A&O X 3 (Very hard of hearing), answers questions appropriately - Cardiovascular Cardiovascular exam: Present: RRR, +S1, +S2. Absent: diastolic murmur, gallop, rubs, systolic murmur - GI/Abdominal GI/Abdominal exam: Present: normal bowel sounds, soft, no peritoneal signs. Absent: distended, tenderness Internal Medicine: Result - Labs CBC & Chem 7: 10/13/17 04:54 10/15/17 04:35 Labs: BMP 10/14/17 15:04 Sodium 137 Potassium 3.3 L Chloride 103 Carbon Dioxide 28 BUN 15 Creatinine 0.90 Glucose 144 H Calcium 7.8 L - ABG Interpretation ABG results: ABG ABG pH 7.38 pH Units (7.32-7.45) 10/08/17 01:25 ABG pCO2 36 mmHg (35-45) 10/08/17 01:25 ABG pO2 98 mmHg (85-104) 10/08/17 01:25 ABG O2 Saturation 98 % (95-98) 10/08/17 01:25 PT/INR, D-dimer PT 16.3 Seconds (9.4-12.1) H 10/07/17 22:12 D-Dimer 2413 ng/mLFEU (0-500) H 10/06/17 20:41 Consult Discharge Plan - Plan Instructions: Piperacillin/Tazobactam (Injection), Pneumonia (DC) Additional Instructions: F/up with PCP in 1-2 weeks Referrals: Ulices Mcgovern Jr, MD [Primary Care Provider] - (Patient will follow up with F PCP) Prescriptions: Piperacillin/Tazobactam [Zosyn] 3.375 gm IVPB Q8HR #8 vial
[2017-10-14] MEDS: Melatonin 3 MG TABLET PO PRN (19:26)
[2017-10-14] MEDS: Topiramate 25 MG TABLET PO SCH (19:26)
[2017-10-15] MEDS: Miconazole w/zinc oxide&karaya 92 APPL/92 GM TUBE TP SCH ×2 (00:30→13:30)
[2017-10-15 05:34] LABS: BUN/Creatinine Ratio 13 (6-26); Blood Urea Nitrogen 12 mg/dL (8-23); Calcium 7.7 mg/dL (8.6-10.3); Carbon Dioxide 30 mEq/L (23-29); Chloride 104 mEq/L (98-107); Glucose 117 mg/dL (70-105); Magnesium 1.7 mg/dL (1.6-2.6); Osmolality,Calculated 283 (280-300); Potassium 3.6 mEq/L (3.5-5.1); Sodium 136 mEq/L (136-145); eGFR For African Americans > 60 (> 60); eGFR For Non-African Americans > 60 (> 60)
[2017-10-15] MEDS: *HR* Heparin 5,000 UNIT/ML VIAL SQ SCH (06:23)
[2017-10-15] MEDS: Saline Nasal Spray 44 ML BOTTLE NS PRN (06:24)
[2017-10-15] MEDS: Fluticasone Propionate Nasal 50 MCG/SPRAY BOTTLE NS SCH (07:34)
[2017-10-15] MEDS: Magic Mouthwash 10 ML UD Cup PO SCH ×2 (07:35→11:34)
[2017-10-15] MEDS ORDERED: *HR* Propofol 200 MG/20 ML VIAL IVP ONE (07:54)
--- NOTE | 2017-10-15 07:58 | Anesthesia Evaluation PreOp ---
Date of Encounter: 10/15/17 Time of Encounter: 07:56 - Past History Planned Operation: Colonoscopy Cardiac History: [place], CHF, HTN, Hyperlipidemia, Cardiac Surgery (CABG), Cardiac Stent, Pacemaker/ICD (pacemaker/AICD---AICD turned off yesterday), Other ( ischemic cardiomyopathy EF 40%, AAA repair) Pulmonary History: Smoker (quit 3 months ago, smoked for 55 years), COPD (on home O2) MACHINE GREASER History: Denies Any Significant HX Other Medical History: Renal (CRI), Thyroid, GERD, Other (H/O colon CA S/P chemo /XRT, anxiety/depression) Anesthesia History: No Prior Anesthetic Complications, Past Anesthesia (cabg, cholecyst, aicd, AAA, bilat iliac stent) Alcohol Use: none Drug use: none Medications and Allergies Albuterol Sulfate [Ventolin Hfa] 2 puff IH Q4H PRN 10/15/16 [History] Amiodarone [Cordarone] 200 mg PO DAILY 10/15/16 [History] Aspirin 81 mg PO DAILY 10/15/16 [History] Furosemide [Lasix] 20 mg PO DAILY 10/15/16 [History] Ipratropium/Albuterol Neb [Duoneb] 3 ml IH TID PRN 10/15/16 [History] Isosorbide MONOnitrate (24 HR) [Imdur] 30 mg PO DAILY 10/15/16 [History] Levothyroxine [Synthroid] 75 mcg PO DAILY 10/15/16 [History] Topiramate [Topamax] 50 mg PO HS 10/15/16 [History] Quetiapine Fumarate [Seroquel] 25 mg PO HS 05/12/17 [History] clonazePAM [Klonopin] 1 mg PO BID 05/12/17 [History] Docusate [Colace] 100 mg PO BID #30 cap 05/19/17 [Rx] Ferrous Sulfate 325 mg PO DAILY #30 tablet. 05/19/17 [Rx] Oxybutynin [Ditropan] 5 mg PO BID 06/02/17 [History] Umeclidinium Brm/Vilanterol Tr [Anoro Ellipta 62.5-25 Mcg INH] 1 each IH DAILY 06/02/17 [History] Fluticasone Propionate Nasal [Flonase] 100 mcg NS DAILY bottle 06/04/17 [Rx] Bisacodyl [Dulcolax] 5 mg PO DAILY PRN 08/23/17 [History] Megestrol Acetate [Megace] 200 mg PO BID 08/23/17 [History] Multivitamin [One Daily Multivitamin] 1 each PO DAILY 08/23/17 [History] Nitroglycerin [Nitrostat] 0.4 mg SL Q5M PRN 08/23/17 [History] Tamsulosin [Flomax] 0.4 mg PO DAILY 08/23/17 [History] Atorvastatin [Lipitor] 40 mg PO HS #30 tablet 08/27/17 [Rx] Sertraline [Zoloft] 100 mg PO DAILY #30 tablet 08/27/17 [Rx] Ticagrelor [Brilinta] 90 mg PO BID #60 tablet 08/27/17 [Rx] GuaiFENesin/Dextromethorphan [Robitussin/Dm] 10 ml PO Q6HR PRN #1 bottle [Rx] HYDROcodone/Acet 5/325 mg [[place] 5-325 mg] 1 tab PO Q6HR PRN #24 tablet [Rx] Melatonin 3 mg PO HS PRN #30 tablet 09/14/17 [Rx] PredniSONE [Deltasone] 20 mg PO DAILY #7 tablet 09/14/17 [Rx] Diphenoxylate/Atropine [Lomotil 2.5 mg/0.025 mg] 1 each PO QID PRN 10/06/17 [ History] Hydroguard Cream 1 appl TP DAILY 10/06/17 [History] Loperamide HCl [Imodium A-D] 2 mg PO QID PRN 10/06/17 [History] Na Phos,M-B/Na Phos,Di-Ba [Fleet Enema Extra] 230 ml RC DAILY PRN 10/06/17 [ History] Ondansetron HCl [Zofran] 4 mg PO Q8H PRN 10/06/17 [History] 3 Allergy/AdvReac Type Severity Reaction Status Date / Time No Known Allergies Allergy Verified 05/15/17 09:36 - Meds/Allergy Pre-op Review Medications Reviewed: Yes Allergies Reviewed: Yes Beta Blockers on Current Med List: No Anesthesia Results - Labs 10/13/17 04:54 10/15/17 04:35 Laboratory Tests 10/07/17 22:12 PT 16.3 H INR 1.5 APTT 28.2 - Imaging EKG: report reviewed (10/07/2017 BASELINE ARTIFCT RHYTHM APPEARS TO BE SINUS TACHYCARDIA MODERATE INTRAVENTRICULAR CONDUCTION DELAY NONSPECIFIC ST-T CHANGES RECOMMEND REPEAT ECG) Additional studies: 08/25/2017 LEFT HEART CATH W/ GRAFTS Stent Single Major Vessel Indications: Unstable Angina, Non-Stemi Impressions: Severe atherosclerotic coronary artery disease. The left ventricle EF 40% Patient had successful Drug-Eluting Stent placement in the distal LMCA/proximal Circ. S/P CABG 1 of 1 patent bypass grafts. Recommendations: Optimal medical therapy of patient's disease. Aggressive risk factor modification. 08/24/2017 Limited Echo Impressions: LVEF 40%. LV function appears stable compared to prior TTE from 05/16/2017. 05/16/2017 Echo Impressions: LVEF 40%. Normal LV chamber size. Segmental left ventricular systolic dysfunction. Atypical septal motion consistent with post-operative status. Mild left ventricular diastolic dysfunction. Right ventricle was not well visualized. Grossly, it appears mildly dilated with normal function. Borderline mild pulmonary hypertension. Estimated RVSP is 35 mmHg. A device lead was visualized in the right atrium and right ventricle. Anesthesia Exam Vital Signs/O2 Sat/Glucose, Most Recent Temp Pulse Resp BP Pulse Ox 97.4 F L 90 14 116/71 90 10/15/17 07:03 10/15/17 07:03 10/15/17 07:03 10/15/17 07:03 10/15/17 07:03 Blood Glucose* 161 Height: 5'10"/1.78 m Weight: 146 lbs/66.4 kg NPO (# of Hours): 8 Pain Scale: 0 Pain Scale Used: Numeric (1 - 10) - HEENT Pupil (Motor): EOMI Mallampati: II Teeth: Edentulous Oral Opening: Greater than 3 - MACHINE GREASER LOC: Oriented MACHINE GREASER Motor: Normal RUE, Normal LUE, Normal RLE, Normal LLE, Normal Face MACHINE GREASER Sensory: Normal: RUE, LUE, RLE, LLE, Face - Cardiac Rhythm: Regular Murmur: None - Pulmonary Breath Sounds: bilateral Clear Respiratory Effort: Symmetrical Anesthesia Assess/Plan ASA Score: 4 Modified [place] Scale for Level of Consciousness: Cooperative, oriented, and tranquil Anesthetic Plan: MAC Monitoring Plan: Standard Monitors
--- NOTE | 2017-10-15 09:17 | Anesthesia Evaluation Post Op ---
Date of Encounter: 10/15/17 Time of Encounter: 09:04 - Vital Signs Vital Signs: 3 Vital Signs Time 903 BP 115/74 Pulse 91 Resp 18 O2 Sat 92 - Lungs Lungs: Clear Ascult./Percussion - Airway Airway: Non-obstructed - Cardiovascular Irregular Rate, Baseline Rhythm - Mental Status Mental Status: Alert & Oriented, Answers Appropriately - Nausea Vomiting Nausea Vomiting: Not Present - Hydration Hydration: NPO, Has not voided - Discharge PostOp Status: Transfer Patient to floor
[2017-10-15] MEDS: Megestrol Acetate 400 MG/10 ML UDC PO SCH (09:56)
[2017-10-15] MEDS: Isosorbide MONOnitrate (24 HR) 30 MG TAB.ER.24H PO SCH (09:57)
[2017-10-15] MEDS: *HR* LORazepam 0.5 MG TABLET PO PRN ×2 (09:57→13:32)
[2017-10-15] MEDS: *HR* Amiodarone 200 MG TABLET PO SCH (09:57)
[2017-10-15] MEDS: Lactobacillus 1 EACH CAP.SPRINK PO SCH (09:59)
[2017-10-15] MEDS: predniSONE 20 MG TABLET PO SCH (10:00)
[2017-10-15] MEDS: Multivit/Ca/Min/Fe/FA 1 TAB TABLET PO SCH (10:01)
[2017-10-15] MEDS: Linezolid 600 MG TABLET PO SCH (10:02)
[2017-10-15] MEDS: Furosemide 20 MG TABLET PO SCH (10:04)
[2017-10-15] MEDS: clonazePAM 1 MG TABLET PO SCH (10:04)
[2017-10-15] MEDS: Aspirin 81 MG TAB.CHEW PO SCH (10:04)
[2017-10-15] MEDS: Piperacillin/Tazobactam 3.375 GM/200 ML BAG IVPB SCH (10:06)
[2017-10-15] MEDS: Ipratropium/Albuterol Neb 3 ML IH SCH (10:40)
[2017-10-15 11:25] VITALS: BP 105/54
--- NOTE | 2017-10-15 12:25 | Discharge Summary ---
Date of Encounter: 10/15/17 Time of Encounter: 10:10 - Discharge Diagnosis (1) Diarrhea Priority: Primary Status: Acute Qualifiers: Diarrhea type: functional diarrhea Qualified Code(s): K59.1 - Functional diarrhea (2) Pneumonia Priority: Primary Status: Acute Qualifiers: Pneumonia type: due to unspecified organism Laterality: right Lung location: lower lobe of lung Qualified Code(s): J18.1 - Lobar pneumonia, unspecified organism (3) Septic shock Priority: Primary Status: Resolved (4) HTN (hypertension) Priority: Secondary Status: Chronic Qualifiers: Hypertension type: essential hypertension Qualified Code(s): I10 - Essential (primary) hypertension (5) HLD (hyperlipidemia) Priority: Secondary Status: Chronic Qualifiers: Hyperlipidemia type: unspecified Qualified Code(s): E78.5 - Hyperlipidemia , unspecified (6) CAD (coronary artery disease) Priority: Secondary Status: Chronic Qualifiers: Coronary Disease-Associated Artery/Lesion type: bypass graft [place] vs. transplanted heart: [place] heart Associated angina: angina presence unspecified Qualified Code(s): I25.810 - Atherosclerosis of coronary artery bypass graft(s) without angina pectoris (7) Ischemic cardiomyopathy Priority: Secondary Status: Chronic (8) Hypothyroidism Priority: Secondary Status: Chronic Qualifiers: Hypothyroidism type: unspecified Qualified Code(s): E03.9 - Hypothyroidism , unspecified (9) COPD (chronic obstructive pulmonary disease) Priority: Secondary Status: Chronic Qualifiers: COPD type: unspecified COPD Qualified Code(s): J44.9 - Chronic obstructive pulmonary disease, unspecified (10) History of MAC infection Priority: Secondary Status: Chronic (11) Goals of care, counseling/discussion Priority: Primary Status: Acute (12) Protein-calorie malnutrition, moderate Priority: Primary Status: Chronic - Discharge Medications Prescriptions: Piperacillin/Tazobactam [Zosyn] 3.375 gm IVPB Q8HR #8 vial Home Medications: Albuterol Sulfate [Ventolin Hfa] 2 puff IH Q4H PRN 10/15/16 [History] Amiodarone [Cordarone] 200 mg PO DAILY 10/15/16 [History] Aspirin 81 mg PO DAILY 10/15/16 [History] Furosemide [Lasix] 20 mg PO DAILY 10/15/16 [History] Ipratropium/Albuterol Neb [Duoneb] 3 ml IH TID PRN 10/15/16 [History] Isosorbide MONOnitrate (24 HR) [Imdur] 30 mg PO DAILY 10/15/16 [History] Levothyroxine [Synthroid] 75 mcg PO DAILY 10/15/16 [History] Topiramate [Topamax] 50 mg PO HS 10/15/16 [History] Quetiapine Fumarate [Seroquel] 25 mg PO HS 05/12/17 [History] Ferrous Sulfate 325 mg PO DAILY #30 tablet. 05/19/17 [Rx] Oxybutynin [Ditropan] 5 mg PO BID 06/02/17 [History] Umeclidinium Brm/Vilanterol Tr [Anoro Ellipta 62.5-25 Mcg INH] 1 each IH DAILY 06/02/17 [History] Fluticasone Propionate Nasal [Flonase] 100 mcg NS DAILY bottle 06/04/17 [Rx] Megestrol Acetate [Megace] 200 mg PO BID 08/23/17 [History] Multivitamin [One Daily Multivitamin] 1 each PO DAILY 08/23/17 [History] Nitroglycerin [Nitrostat] 0.4 mg SL Q5M PRN 08/23/17 [History] Tamsulosin [Flomax] 0.4 mg PO DAILY 08/23/17 [History] Atorvastatin [Lipitor] 40 mg PO HS #30 tablet 08/27/17 [Rx] Sertraline [Zoloft] 100 mg PO DAILY #30 tablet 08/27/17 [Rx] Ticagrelor [Brilinta] 90 mg PO BID #60 tablet 08/27/17 [Rx] GuaiFENesin/Dextromethorphan [Robitussin/Dm] 10 ml PO Q6HR PRN #1 bottle [Rx] Melatonin 3 mg PO HS PRN #30 tablet 09/14/17 [Rx] PredniSONE [Deltasone] 20 mg PO DAILY #7 tablet 09/14/17 [Rx] Diphenoxylate/Atropine [Lomotil 2.5 mg/0.025 mg] 1 each PO QID PRN 10/06/17 [ History] Hydroguard Cream 1 appl TP DAILY 10/06/17 [History] Na Phos,M-B/Na Phos,Di-Ba [Fleet Enema Extra] 230 ml RC DAILY PRN 10/06/17 [ History] Ondansetron HCl [Zofran] 4 mg PO Q8H PRN 10/06/17 [History] Lactobacillus [Culturelle] 2 each PO DAILY cap.sprink 10/15/17 [Rx] Miconazole w/zinc oxide&karaya [Antifungal Extra Thick] 1 appl TP BID tube [Rx] Piperacillin/Tazobactam [Zosyn] 3.375 gm IVPB Q8HR #8 vial 10/15/17 [Rx] Potassium Chloride 10 meq PO BIDWM tab.er.prt 10/15/17 [Rx] Saline Nasal [place] [[place] Nasal [place]] 2 spray NS Q2H PRN bottle 10/15/17 [Rx] clonazePAM [Klonopin] 1 mg PO BID #10 10/15/17 [Rx] Allergies/Adverse Reactions: 3 Allergy/AdvReac Type Severity Reaction Status Date / Time No Known Allergies Allergy Verified 05/15/17 09:36 Date of admission: 10/08/17 15:16 Primary care physician: Ulices Mcgovern Jr, MD Consults: 10/12/17 14:07 Consult to Occupational Therapy [CONS] Routine Comment: Evaluate, develop and implement POC Reason for Consult: therapy/placement needs Consult to Physical Therapy [CONS] Routine Comment: Evaluate, develop and implement POC Reason for Consult: PT eval 10/12/17 16:12 Consult to Invasive Line Access Team [CONS] Routine Reason for Consult: To facilitate removal of Femoral CVC line and for potential outpatient straight line press setter antibiotics. Line Type: EPIV 10/13/17 16:30 Consult to Gastroenterology [CONS] Routine Consulting Provider: Gastroenterology Thao Reason for Consult: Persistent diarrhea Call Completed: No Discharging clinician: Yaima Mehta Anticipated date of discharge: 10/15/17 - Patient Status Disposition: Transfer SNF Condition: Fair Functional capacity at discharge: uses cane/walker Overall status at discharge: patient is progressing back to baseline - Discharge Instructions Instructions: Piperacillin/Tazobactam (Injection), Pneumonia (DC) Follow Up With: Ulices Mcgovern Jr, MD [Primary Care Provider] - (Patient will follow up with [facility] PCP) Additional Instructions: F/up with PCP in 1-2 weeks - Diet and Activity Activity: as per physical therapy, wear oxygen at all times Diet: advance to your usual diet (lactose-free trial), low fat, low cholesterol , low salt diet Hospital course: Mr. Jaimes is a 72 year old male with the above medical problems, who was admitted from [facility] with complaints of diarrhea. Patient was also noted to have pneumonia and was started on broad-spectrum IV antibiotics. Blood cultures remained negative. Urine legionella and strep pneumonia antigen and remained negative. 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 Infectious diseases was consulted and patient was recommended 10 days of IV Zosyn and 7 days of Zyvox. He completed his course of Zyvox and is being discharged on 3 more days of IV Zosyn. Stool studies came back negative for Clostridium difficile toxin, stool culture grew yeast, stool WBC positive, stool GI panel negative. His daughter was explained about noninfectious etiology, patient will be on a lactose-free diet at the [facility] and continued on when necessary loperamide. GI was consulted for chronic diarrhea and patient underwent colonoscopy, which showed nonbleeding internal hemorrhoids, diverticulosis, 5 mm polyp in sigmoid colon, no biopsies were sent. Patient's plan of care and hospitalization were discussed with his daughter, who is his power of general ophthalmologist multiple times and he is currently medically stable for discharge back to [facility], with outpatient follow-up. - Time Spent with Patient Total time spent providing and/or coordinating discharge services: Greater than 30 minutes (45 min) - Constitutional Vitals: Temp Pulse Resp BP Pulse Ox 97.5 F L 106 18 105/54 97 10/15/17 11:23 10/15/17 11:23 10/15/17 11:23 10/15/17 11:23 10/15/17 11:23 General appearance: Present: A&O X 3 (Very hard of hearing), answers questions appropriately - Respiratory Respiratory exam: Present: CTAB. Absent: accessory muscle use, rales, rhonchi, wheezes
--- NOTE | 2017-10-15 12:30 | Physician Discharge Referral ---
ExtendedCare Referral Info Transfer To: [facility] Provider in Charge: Yaima Mehta Provider in Charge after Transfer: PCP Institutional Level of Care: Skilled - Diagnosis (1) Diarrhea Priority: Primary Status: Acute (2) Pneumonia Priority: Primary Status: Acute (3) Septic shock Priority: Primary Status: Resolved (4) HTN (hypertension) Priority: Secondary Status: Chronic (5) HLD (hyperlipidemia) Priority: Secondary Status: Chronic (6) CAD (coronary artery disease) Priority: Secondary Status: Chronic (7) Ischemic cardiomyopathy Priority: Secondary Status: Chronic (8) Hypothyroidism Priority: Secondary Status: Chronic (9) COPD (chronic obstructive pulmonary disease) Priority: Secondary Status: Chronic (10) History of MAC infection Priority: Secondary Status: Chronic (11) Goals of care, counseling/discussion Priority: Primary Status: Acute (12) Protein-calorie malnutrition, moderate Priority: Primary Status: Chronic Expected Duration of Placement: 3 weeks Prognosis: Fair Aware of Diagnosis: Patient, Family Aware of Prognosis: Patient, Family - Transfer Medications Prescriptions: Piperacillin/Tazobactam [Zosyn] 3.375 gm IVPB Q8HR #8 vial Home Medications: Albuterol Sulfate [Ventolin Hfa] 2 puff IH Q4H PRN 10/15/16 [History] Amiodarone [Cordarone] 200 mg PO DAILY 10/15/16 [History] Aspirin 81 mg PO DAILY 10/15/16 [History] Furosemide [Lasix] 20 mg PO DAILY 10/15/16 [History] Ipratropium/Albuterol Neb [Duoneb] 3 ml IH TID PRN 10/15/16 [History] Isosorbide MONOnitrate (24 HR) [Imdur] 30 mg PO DAILY 10/15/16 [History] Levothyroxine [Synthroid] 75 mcg PO DAILY 10/15/16 [History] Topiramate [Topamax] 50 mg PO HS 10/15/16 [History] Quetiapine Fumarate [Seroquel] 25 mg PO HS 05/12/17 [History] Ferrous Sulfate 325 mg PO DAILY #30 tablet. 05/19/17 [Rx] Oxybutynin [Ditropan] 5 mg PO BID 06/02/17 [History] Umeclidinium Brm/Vilanterol Tr [Anoro Ellipta 62.5-25 Mcg INH] 1 each IH DAILY 06/02/17 [History] Fluticasone Propionate Nasal [Flonase] 100 mcg NS DAILY bottle 06/04/17 [Rx] Megestrol Acetate [Megace] 200 mg PO BID 08/23/17 [History] Multivitamin [One Daily Multivitamin] 1 each PO DAILY 08/23/17 [History] Nitroglycerin [Nitrostat] 0.4 mg SL Q5M PRN 08/23/17 [History] Tamsulosin [Flomax] 0.4 mg PO DAILY 08/23/17 [History] Atorvastatin [Lipitor] 40 mg PO HS #30 tablet 08/27/17 [Rx] Sertraline [Zoloft] 100 mg PO DAILY #30 tablet 08/27/17 [Rx] Ticagrelor [Brilinta] 90 mg PO BID #60 tablet 08/27/17 [Rx] GuaiFENesin/Dextromethorphan [Robitussin/Dm] 10 ml PO Q6HR PRN #1 bottle [Rx] Melatonin 3 mg PO HS PRN #30 tablet 09/14/17 [Rx] PredniSONE [Deltasone] 20 mg PO DAILY #7 tablet 09/14/17 [Rx] Diphenoxylate/Atropine [Lomotil 2.5 mg/0.025 mg] 1 each PO QID PRN 10/06/17 [ History] Hydroguard Cream 1 appl TP DAILY 10/06/17 [History] Na Phos,M-B/Na Phos,Di-Ba [Fleet Enema Extra] 230 ml RC DAILY PRN 10/06/17 [ History] Ondansetron HCl [Zofran] 4 mg PO Q8H PRN 10/06/17 [History] Lactobacillus [Culturelle] 2 each PO DAILY cap.sprink 10/15/17 [Rx] Miconazole w/zinc oxide&karaya [Antifungal Extra Thick] 1 appl TP BID tube [Rx] Piperacillin/Tazobactam [Zosyn] 3.375 gm IVPB Q8HR #8 vial 10/15/17 [Rx] Potassium Chloride 10 meq PO BIDWM tab.er.prt 10/15/17 [Rx] Saline Nasal [place] [[place] Nasal [place]] 2 spray NS Q2H PRN bottle 10/15/17 [Rx] clonazePAM [Klonopin] 1 mg PO BID #10 10/15/17 [Rx] Allergies/Adverse Reactions: 3 Allergy/AdvReac Type Severity Reaction Status Date / Time No Known Allergies Allergy Verified 05/15/17 09:36 - Respiratory Orders Oxygen / L per min (3-3.5L/min via NC) Smoking Cessation: Smoking cessation has been advised. For more information, call the [place] Tobacco Quit Line at 5-447-QPXW-NOW. - Ancillary Orders May use pressure relief devices daily prn - Advance Directives Power of After School Teacher: Yes (Daughter, Kay) Code Status: DNR-Arrest/Don't Intubate - Rehabiliation Orders Rehab Potential: Fair Rehab Orders: ROM Exercises, Evaluation for Physical Therapy, Evaluation for Occupational Therapy - Diet Orders Cardiac (lactose-free) CERTIFICATION: I certify that the transfer of the above named patient to an Extended Care Facility is necessary for the continuing treatment of the diagnosis listed. The above information is true and accurate reflection of patient's current condition. Confidential - Redisclosure prohibited without a patient's written consent.
--- NOTE | 2017-10-15 13:00 | Infectious Disease Progress No ---
Date of Encounter: 10/15/17 Time of Encounter: 12:57 - Assessment and Plan (1) Severe sepsis Status: Acute The patient had two SIRS criteria plus hypotension on admission. Likely secondary to pneumonia. The patient continues to have tachycardia, but hypotension resolved with fluid resuscitation. Tachycardia most likely secondary to anxiety. Blood cultures drawn 10/06/17 are negative x 2 sets. (2) Pneumonia Status: Acute Location: Right middle and Right lower lobes. Causative organism: unclear. Previous sputum cultures were positive for VRE ( sensitive only to linezolid) back in August and it does not appear that the patient was ever treated. Prior to that, sputum cultures grew Pseudomonas aeruginosa, Pseudomonas fluorescens, and MAC. S. pneumo and Legionella UAT negative. The patient has not been able to give a sputum specimen as he does not have a productive cough. CT chest showed findings consistent with RML and RLL PNA. Patient was previously treated for his MAC infection and treatment was stopped back in 2015. The patient is at risk for MDR organisms as he has been in an ECF and has been on antibiotics in the last 90 days. Send sputum for culture if the patient is able to provide an adequate specimen. Continue Zosyn 3.375 grams IV Q8H (Day 10). Finished a seven day course of Linezolid. Zoloft currently on hold. Okay to re-start today. The patient will complete 10 days of Zosyn today and completed 7 days of linezolid yesterday. Monitor renal function and for drug toxicities. Qualifiers: Pneumonia type: due to unspecified organism Laterality: bilateral Lung location: unspecified part of lung Qualified Code(s): J18.9 - Pneumonia, unspecified organism (3) Dehydration Status: Resolved Likely secondary to GI loss. Appears improved. Fluid resuscitation per the primary team. (4) Diarrhea Status: Acute Etiology unclear, but per GI could be secondary to hypoalbubinemia. The patient reports 6-8 loose, watery, foul-smelling stools per day for two weeks prior to admission. Abdominal exam benign. C. diff and stool panel negative. Stool lactoferritin positive. Cotninue probiotic. GI evaluation noted. Status post colonoscopy today that was negative. Qualifiers: Diarrhea type: functional diarrhea Qualified Code(s): K59.1 - Functional diarrhea (5) History of MAC infection Status: Chronic Previously treated with treatment stopped in 2015. Sputum culture back in 04/2017 showed possible reactivation of MAC, but sputum culture in August was negative for AFB. (6) Ischemic cardiomyopathy Status: Chronic Status post remote history of AICD placement. (7) Systolic CHF Status: Acute Qualifiers: Congestive heart failure chronicity: chronic Qualified Code(s): I50.22 - Chronic systolic (congestive) heart failure (8) CAD (coronary artery disease) Status: Chronic Qualifiers: Coronary Disease-Associated Artery/Lesion type: bypass graft [place] vs. 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 Continue Magic Mouthwas TID. - Subjective Interval history: Patient seen and examined. No acute events noted overnight. Patient states he feels a little better today and his breathing seems to be at baseline. Denies fevers, chills, or rigors. Denies chest pain or cough. Denies nausea, vomiting, or constipation. Had bowel prep overnight so had many stools. None since coming back from colonoscopy. Denies new skin lesions. States oral pain is better. Infect Dis PN-Objective Data - Labs CBC & Chem 7: 10/13/17 04:54 10/15/17 04:35 Labs: Laboratory Results - last 24 hr 10/14/17 10/15/17 15:04 04:35 Sodium 137 136 Potassium 3.3 L 3.6 Chloride 103 104 Carbon Dioxide 28 30 H BUN 15 12 Creatinine 0.90 0.95 Est GFR ( Amer) > 60 > 60 Est GFR (Non-Af Amer) > 60 > 60 BUN/Creatinine Ratio 17 13 Glucose 144 H 117 H Calculated Osmolality 287 283 Calcium 7.8 L 7.7 L Magnesium 1.7 Cultures: Cultures 10/13/17 11:31 Stool Culture - Final Stool Leukocyte Esterase (DK) - Final Serology 10/13/17 10/13/17 Range/Units 11:31 11:31 Stl C. cayetanensis PCR Not detected (Not detect) Stool Rotavirus A PCR Not detected (Not detect) Stl Adenov F 40/41 PCR Not detected (Not detect) Stool Astrovirus (PCR) Not detected (Not detect) Stool Campylobacter PCR Not detected (Not detect) Stl C. diff Tox B Gene Negative (Negative) Stl C. diff Tox A/B PCR Not detected (Not detect) Stool Cryptosporidium PCR Not detected (Not detect) Stl Sh Tox Pr E STEC PCR Not detected (Not detect) Stool E coli O157 PCR Not detected (Not detect) Stl Enterotoxigenic E PCR Not detected (Not detect) Stool EPEC (PCR) Not detected (Not detect) Stool EAEC (PCR) Not detected (Not detect) Stl E. histolytica PCR Not detected (Not detect) Stool Giardia Lamblia PCR Not detected (Not detect) Stool Salmonella PCR Not detected (Not detect) Stool Sapovirus (PCR) Not detected (Not detect) Stl P. shigelloides PCR Not detected (Not detect) Stl Shigella/EIEC PCR Not detected (Not detect) St Y.enterocolitica PCR Not detected (Not detect) Stool Vibrio (PCR) Not detected (Not detect) Stl Vibrio cholerae PCR Not detected (Not detect) Stl Norovirus GI/GII PCR Not detected (Not detect) Stl GI Panel (PCR) Com See below Exam - Constitutional Vitals: Temp Pulse Resp BP Pulse Ox 97.5 F L 106 18 105/54 97 10/15/17 11:23 10/15/17 11:23 10/15/17 11:23 10/15/17 11:23 10/15/17 11:23 General appearance: average body habitus, cooperative, no acute distress - Head Head exam: Present: atraumatic, normal inspection, normocephalic - Eye Eye exam: Present: EOMI, normal appearance, PERRL Pupils: Present: normal accommodation - ENT ENT exam: Present: mucous membranes moist - Neck Neck exam: Present: normal inspection - Respiratory Respiratory exam: Present: CTAB. Absent: rales, respiratory distress, rhonchi, wheezes - Cardiovascular Cardiovascular exam: Present: RRR, +S1, +S2 - GI/Abdominal GI/Abdominal exam: Present: normal bowel sounds, soft. Absent: distended, tenderness - Extremities Exam Extremities exam: Present: normal inspection. Absent: joint swelling, pedal edema, tenderness - Neurological Exam Neurological exam: Present: alert, oriented X3, no focal deficits - Psychiatric Psychiatric exam: Present: normal affect, normal mood - Skin Skin exam: Present: dry, intact, normal color, warm Consult Discharge Plan - Plan Instructions: Piperacillin/Tazobactam (Injection), Pneumonia (DC) Additional Instructions: F/up with PCP in 1-2 weeks Referrals: Ulices Mcgovern Jr, MD [Primary Care Provider] - (Patient will follow up with [facility] PCP) Prescriptions: Piperacillin/Tazobactam [Zosyn] 3.375 gm IVPB Q8HR #8 vial - Attending Attestation I examined this patient and my medical decision-making was reviewed with the Resident Physician. I agree with the documented findings, disposition and treatment plan as described except to the extent set forth below.
[2017-10-18 08:42] LABS: Ova & Parasite Stain NEGATIVE (Negative)
== END 2017-10-15 13:53 | DRG 871 ==
LOC: EMEROO 14:16 → 2ANU 14:16 → ICNU 10-08 00:06 → SUATTDRO 10-08 15:16 → 2ANU 10-09 12:19
PROVIDERS: ADMIT Pediatrics; ATTEND Internal Medicine

== ENCOUNTER 2017-11-06 14:30 | Inpatient (IN) ==
[2017-11-06] MEDS ORDERED: Ipratropium/Albuterol Neb 3 ML IH ONE ×2 (14:48→19:13)
--- NOTE | 2017-11-06 14:54 | Emergency Department Note ---
Disposition Clinical Impression: Hospital acquired PNA Disposition: Admitted As Inpatient Condition: Fair Time of Disposition: 23:12 SOB HPI - General Chief Complaint: ED Shortness of Breath/Dyspnea Stated Complaint: CODP exacerbations Source: patient, EMS Mode of arrival: EMS Limitations: no limitations Nursing Notes Reviewed: Yes Vital Signs Reviewed: Yes - History of Present Illness 72 past medical history of COPD presents to emergency room via EMS with chief complaint of shortness of breath at [facility]. He was recently admitted to this facility and discharged on 10/08/2017 for severe sepsis secondary to pneumonia. He did complete his course of Zosyn at that time. He states that he did feel better after discharge but now has been having worsening symptoms for multiple weeks. He does have a productive cough with thick yellow sputum. He does wear 5 L of home oxygen and states that his breathing treatments of albuterol and ipratropium have been helping. He denies symptoms of fevers, chills, pain at this time. ROS is limited due to patient's shortness of breath Pt Subjective Complaint: shortness of breath Onset (ago): week(s) Context: recent illness Consistency/Duration: constant Improves with: oxygen, bronchodilators Worsens with: exertion Known history of: COPD Associated symptoms: Reports: cough, sputum production. Denies: chest pain, fever, wheezing, palpitations, hemoptysis, diaphoresis, nausea/vomiting, syncope Treatment prior to arrival: bronchodilator Cough present: Yes Cough Description: Productive Sputum production: Yes Sputum Amount: Moderate Sputum Color: Yellow - Related Data Home oxygen amount: other (5 liters) Home Medications Medication Instructions Recorded Confirmed Albuterol Sulfate [Ventolin Hfa] 2 puff IH Q4H PRN 10/15/16 10/06/17 Amiodarone [Cordarone] 200 mg PO DAILY 10/15/16 10/06/17 Aspirin 81 mg PO DAILY 10/15/16 10/06/17 Furosemide [Lasix] 20 mg PO DAILY 10/15/16 10/06/17 Ipratropium/Albuterol Neb [Duoneb] 3 ml IH TID PRN 10/15/16 10/06/17 Isosorbide MONOnitrate (24 HR) 30 mg PO DAILY 10/15/16 10/06/17 [Imdur] Levothyroxine [Synthroid] 75 mcg PO DAILY 10/15/16 10/06/17 Topiramate [Topamax] 50 mg PO HS 10/15/16 10/06/17 Quetiapine Fumarate [Seroquel] 25 mg PO HS 05/12/17 10/06/17 Oxybutynin [Ditropan] 5 mg PO BID 06/02/17 10/06/17 Umeclidinium Brm/Vilanterol Tr 1 each IH DAILY 06/02/17 10/06/17 [Anoro Ellipta 62.5-25 Mcg INH] Megestrol Acetate [Megace] 200 mg PO BID 08/23/17 10/06/17 Multivitamin [One Daily 1 each PO DAILY 08/23/17 10/06/17 Multivitamin] Nitroglycerin [Nitrostat] 0.4 mg SL Q5M PRN 08/23/17 10/06/17 Tamsulosin [Flomax] 0.4 mg PO DAILY 08/23/17 10/06/17 Diphenoxylate/Atropine [Lomotil 1 each PO QID PRN 10/06/17 10/06/17 2.5 mg/0.025 mg] Hydroguard Cream 1 appl TP DAILY 10/06/17 10/06/17 Na Phos,M-B/Na Phos,Di-Ba [Fleet 230 ml RC DAILY PRN 10/06/17 10/06/17 Enema Extra] Ondansetron HCl [Zofran] 4 mg PO Q8H PRN 10/06/17 10/06/17 Previous Rx's Medication Instructions Recorded Ferrous Sulfate 325 mg PO DAILY #30 tablet. 05/19/17 Fluticasone Propionate Nasal 100 mcg NS DAILY bottle 06/04/17 [Flonase] Atorvastatin [Lipitor] 40 mg PO HS #30 tablet 08/27/17 Sertraline [Zoloft] 100 mg PO DAILY #30 tablet 08/27/17 Ticagrelor [Brilinta] 90 mg PO BID #60 tablet 08/27/17 GuaiFENesin/Dextromethorphan 10 ml PO Q6HR PRN #1 bottle 09/14/17 [Robitussin/Dm] Melatonin 3 mg PO HS PRN #30 tablet 09/14/17 PredniSONE [Deltasone] 20 mg PO DAILY #7 tablet 09/14/17 Lactobacillus [Culturelle] 2 each PO DAILY cap.sprink 10/15/17 Miconazole w/zinc oxide&karaya 1 appl TP BID tube 10/15/17 [Antifungal Extra Thick] Piperacillin/Tazobactam [Zosyn] 3.375 gm IVPB Q8HR #8 vial 10/15/17 Potassium Chloride 10 meq PO BIDWM tab.er.prt 10/15/17 Saline Nasal [place] [[place] Nasal 2 spray NS Q2H PRN bottle 10/15/17 [place]] clonazePAM [Klonopin] 1 mg PO BID #10 10/15/17 Allergies Allergy/AdvReac Type Severity Reaction Status Date / Time No Known Allergies Allergy Verified 05/15/17 09:36 All systems ED: reviewed and negative except as stated. Review of Systems: As Per HPI Past Medical History - Past Medical History Medical history: Reports: aortic aneurysm, cancer, COPD, coronary artery disease , GERD, hyperlipidemia, hypertension, myocardial infarction, thyroid disease, other Surgical history: Reports: cancer surgery, coronary bypass (CABG), vasectomy, AICD Psychiatric history: Reports: anxiety, depression - Social History Smoking Status: Unknown if ever smoked Smokeless Tobacco Status: No Alcohol use: Reports: none Drug use: Reports: none Physical Exam - General Limitations: no limitations General appearance: alert, in no apparent distress - Head Head exam: atraumatic, normocephalic, normal inspection - Chest Chest inspection: Present: normal inspection, symmetric chest wall rise - Respiratory Respiratory exam: Present: respiratory distress (Mild), stridor, other (Rhonchi on right side) - Cardiovascular Cardiovascular exam: Present: normal rhythm, tachycardia, normal heart sounds - Extremities Exam Extremities exam: Present: normal inspection, full ROM. Absent: tenderness, pedal edema Course Course Narrative: 72 year old male presenting to ED with a complaint of SOB. Will obtain CBC, BMP , CXR, VBG, BNP, troponin. Vital Signs Temperature 97.7 F 11/06/17 14:31 Pulse Rate 115 11/06/17 14:31 Respiratory Rate 24 11/06/17 14:31 Blood Pressure 93/54 11/06/17 14:31 O2 Sat by Pulse Oximetry 93 11/06/17 14:31 Temperature 97.7 F 11/06/17 14:31 Pulse Rate 95 11/06/17 22:10 Respiratory Rate 22 11/06/17 22:10 Blood Pressure 108/74 11/06/17 22:10 O2 Sat by Pulse Oximetry 95 11/06/17 22:10 Oxygen Delivery Oxygen Delivery Bipap Shortness of Breath/Dyspnea - [facility] Narrative Medical decision making narrative: 72 year old male presenting with SOB and purulent sputum production. Vitals have been significant for tachycardia and tachypnea. He has been maintaining O2 saturation in mid 90s on 4L but is still complaining that he cannot get enough air. Labs show mild WBC at 11.7, troponin of 0.07, BNP 800. CXR shows bilateral opacities which were present on his previous admission, possibly mildly worsened. He did complete his course of Zosyn at [facility]. He was started on 1L fluids, duonebs, mucomyst, acapella, vanc, zosyn, levaquin. We discussed admission with hospitalist for HAP, agrees to admission to . - Lab Data Result diagrams: 11/06/17 16:15 11/06/17 16:15 Lab Results 11/06/17 11/06/17 11/06/17 Range/Units 16:15 16:15 16:15 WBC 11.7 H (4.3-11.1) K/mcL RBC 3.46 L (4.19-5.50) M/mcL Hgb 10.0 L (12.9-16.9) g/dL Hct 32.3 L (37.5-50.1) % MCV 93.4 (83.0-100.0) fL MCH 28.9 (28.0-33.3) pg MCHC 31.0 L (31.6-35.5) g/dL RDW 21.3 H (11.5-14.5) % Plt Count 221 (140-400) K/mcL MPV 9.7 (9.4-12.4) fL Immature Gran % 0.5 (0-4) % Seg Neutrophils % 93.6 % Lymphocytes % 3.3 % Monocytes % 2.1 % Eosinophils % 0.4 % Basophils % 0.1 % Neutrophils # 10.9 H (1.6-8.9) K/mcL Lymphocytes # 0.4 L (0.6-4.6) K/mcL Monocytes # 0.2 (0.0-1.3) K/mcL Eosinophils # 0.1 (0.0-0.6) K/mcL Basophils # 0.0 (0.0-0.2) K/mcL Immature Plt Fraction 1.8 (1.1-6.1) % VBG pH (7.32-7.42) pH Units VBG pCO2 (41-51) mmHg VBG pO2 (25-50) mmHg VBG HCO3 (21-27) mEq/L Sodium 137 (136-145) mEq/L Potassium 3.3 L (3.5-5.1) mEq/L Chloride 103 (98-107) mEq/L Carbon Dioxide 27 (23-29) mEq/L BUN 18 (8-23) mg/dL Creatinine 0.87 (0.70-1.30) mg/dL Est GFR ( Amer) > 60 (> 60) Est GFR (Non-Af Amer) > 60 (> 60) BUN/Creatinine Ratio 21 (6-26) Glucose 90 (70-105) mg/dL Calculated Osmolality 285 (280-300) Lactic Acid 2.0 (0.5-2.2) mmol/L Calcium 8.9 (8.6-10.3) mg/dL Troponin I (< 0.04) ng/mL B-Natriuretic Peptide (Less than 100) pg/mL 11/06/17 11/06/17 11/06/17 Range/Units 16:15 16:15 16:29 WBC (4.3-11.1) K/mcL RBC (4.19-5.50) M/mcL Hgb (12.9-16.9) g/dL Hct (37.5-50.1) % MCV (83.0-100.0) fL MCH (28.0-33.3) pg MCHC (31.6-35.5) g/dL RDW (11.5-14.5) % Plt Count (140-400) K/mcL MPV (9.4-12.4) fL Immature Gran % (0-4) % Seg Neutrophils % % Lymphocytes % % Monocytes % % Eosinophils % % Basophils % % Neutrophils # (1.6-8.9) K/mcL Lymphocytes # (0.6-4.6) K/mcL Monocytes # (0.0-1.3) K/mcL Eosinophils # (0.0-0.6) K/mcL Basophils # (0.0-0.2) K/mcL Immature Plt Fraction (1.1-6.1) % VBG pH 7.32 (7.32-7.42) pH Units VBG pCO2 55 H (41-51) mmHg VBG pO2 40 (25-50) mmHg VBG HCO3 28 H (21-27) mEq/L Sodium (136-145) mEq/L Potassium (3.5-5.1) mEq/L Chloride (98-107) mEq/L Carbon Dioxide (23-29) mEq/L BUN (8-23) mg/dL Creatinine (0.70-1.30) mg/dL Est GFR ( Amer) (> 60) Est GFR (Non-Af Amer) (> 60) BUN/Creatinine Ratio (6-26) Glucose (70-105) mg/dL Calculated Osmolality (280-300) Lactic Acid (0.5-2.2) mmol/L Calcium (8.6-10.3) mg/dL Troponin I 0.07 H* (< 0.04) ng/mL B-Natriuretic Peptide 870 H (Less than 100) pg/mL - EKG Data EKG shows normal: Reports: sinus rhythm Rate: Reports: tachycardia Rhythm: Reports: NSR, PVC's, PAC's [place]/QRS: Reports: normal When compared to previous EKG there are: no significant changes Interpretation: Reports: no acute changes Attestation Statement - Attestation Attestation: I examined this patient and my medical decision-making was reviewed with the Resident Physician. I agree with the documented findings, disposition and treatment plan as described except to the extent set forth below. Recent admission for pneumonia and sepsis D/C back to [facility] on zosyn improved for a week, now with increased dyspnea and cough with purulent sputum. Tachypnea and hypoxia on arrival Bilateral infiltrates, elevated troponin Coarse rhonchi and bilateral wheezing. HCAP coverage, Hypoxia worsened despte DuoNeb, mucomyst and acupella Started BiPAP and admit The high probability of a clinically significant, sudden or life threatening deterioration of the [cardiopulmonary] system(s) required my full and direct attention, intervention and personal management. The aggregate critical care time was [32] minutes. This time is in addition to time spent performing reported procedures but includes the following: [x] Data Review and interpretation [x] Patient assessment and monitoring of vital signs [x] Documentation [x] Medication orders and management
[2017-11-06] MEDS ORDERED: 0.9 % Sodium Chloride 1,000 ML IVC ONE (14:57)
[2017-11-06] MEDS ORDERED: traMADol 50 MG TABLET PO STA (15:52)
[2017-11-06] MEDS ORDERED: predniSONE 20 MG TABLET PO ONE (16:01)
[2017-11-06] MEDS ORDERED: Levofloxacin 750 MG/150 ML 750 MG/150 ML BAG IVPB ONE (16:16)
[2017-11-06] MEDS ORDERED: Piperacillin/Tazobactam 3.375 GM in 0.9 % Sodium Chloride Mini Bag 100 ML IVPB ONE (16:16)
[2017-11-06 16:26] LABS: Basophils % 0.1 %; Eosinophils # 0.1 K/mcL (0.0-0.6); Eosinophils % 0.4 %; Hematocrit 32.3 % (37.5-50.1); Immature Granulocytes % 0.5 % (0-4); Immature Platelets 1.8 % (1.1-6.1); Lymphocytes # 0.4 K/mcL (0.6-4.6); Lymphocytes % 3.3 %; Mean Corpuscular Hemoglobin 28.9 pg (28.0-33.3); Mean Corpuscular Volume 93.4 fL (83.0-100.0); Mean Platelet Volume 9.7 fL (9.4-12.4); Monocytes # 0.2 K/mcL (0.0-1.3); Monocytes % 2.1 %; Neutrophils # 10.9 K/mcL (1.6-8.9); Platelet Count 221 K/mcL (140-400); Red Blood Count 3.46 M/mcL (4.19-5.50); Red Cell Distribution Width 21.3 % (11.5-14.5); Segmented Neutrophils % 93.6 %
[2017-11-06 16:33] LABS: VBG HCO3 28 mEq/L (21-27); VBG PCO2 55 mmHg (41-51); VBG PH 7.32 pH Units (7.32-7.42); VBG PO2 40 mmHg (25-50)
[2017-11-06 16:42] LABS: BUN/Creatinine Ratio 21 (6-26); Blood Urea Nitrogen 18 mg/dL (8-23); Calcium 8.9 mg/dL (8.6-10.3); Carbon Dioxide 27 mEq/L (23-29); Chloride 103 mEq/L (98-107); Glucose 90 mg/dL (70-105); Osmolality,Calculated 285 (280-300); Potassium 3.3 mEq/L (3.5-5.1); Sodium 137 mEq/L (136-145); eGFR For African Americans > 60 (> 60); eGFR For Non-African Americans > 60 (> 60)
[2017-11-06] MEDS: Acetylcysteine 10% 2 ML INHSOL IH SCH ×2 (19:31→19:32)
[2017-11-06] MEDS ORDERED: traMADol 50 MG TABLET PO ONE (22:43)
--- NOTE | 2017-11-06 22:58 | Internal Med History&Physical ---
<Prince Chiang - Last Filed: 11/07/17 01:05> Date of Encounter: 11/07/17 Time of Encounter: 22:54 Assessment and Plan (1) Acute and chronic respiratory failure Current visit: Yes Status: Acute Acute and chronic respiratory failure in the setting of CHF, COPD, recurrent pneumonia. Continue BiPap, Duonebs. NPO while on BiPap. mIVF and protonix while NPO. Hold steroids at this time; patient not wheezing on exam. Though BNP is elevated, no crackles on exam, no worsening of pedal edema, and no pulmonary edema on CXR. Exacerbation of COPD unlikely. Qualifiers: Respiratory failure complication: hypoxia Qualified Code(s): J96.21 - Acute and chronic respiratory failure with hypoxia (2) Elevated d-dimer Current visit: Yes Status: Acute In the setting of respiratory distress. Clinically suspect demand ischemia. Intake Troponin 0.07. This is his lowest measurement in the last three months. No chest pain. EKG showed no acute changes compared to previous. Will monitor. (3) CAD (coronary artery disease) Current visit: No Status: Chronic Continue home medications. Aspirin, brilinta Amiodarone, lipitor, imdur Cardiac risk factors: HTN, PR w/stent, hx CABG, 60pk-yr hx smoking, Pacer/ICD implanted, PAD, AAA (3.9cm 07/20/2017) Cardiac cath 08/25/17: LVEF 40%. MAIRA in distal LMCA Echo 08/24/17: LVEF 40%. Global LV systolic dysfunction. Qualifiers: Coronary Disease-Associated Artery/Lesion type: bypass graft [place] vs. transplanted heart: [place] heart Associated angina: angina presence unspecified Qualified Code(s): I25.810 - Atherosclerosis of coronary artery bypass graft(s) without angina pectoris (4) Systolic CHF Current visit: Yes Status: Chronic Intake BNP 870. No clinical evidence of exacerbation. CXR not concerning for pulmonary edema. (5) Iron deficiency anemia Current visit: Yes Status: Chronic Intakt Hgb 10.0. Baseline in the 9-range. Continue home iron supplements. Qualifiers: Iron deficiency anemia type: other iron deficiency Qualified Code(s): D50.8 - Other iron deficiency anemias Internal Medicine - H&P: HPI Chief complaint: Dyspnea Admitted From: Long-term Nursing Facility History of present illness: Mr. Jaimes is a 72 year old male, presents from [facility] via EMS for evaluation of dyspnea. Onset progressive over the past week. Discharged from this facility to [facility] on 10/08 for severe sepsis secondary to pneumonia. He has completed a course of zosyn. He initially felt better after discharge but now is progressively worsening with productive cough (thick yellow sputum). Hx chronic respiratory failure on baseline 5L O2 nasal cannulae with albuterol and ipratoroprium. His breathing treatments have been helping. He also complains of chronic pain from his sacral decubitus ulcers; no acute changes. No fever, chills, chest pain, palpitations, diaphoresis, weakness, abdominal pain. CODE STATUS: DNR-CCA, DNI Past Med Surg Social Fam HX - Past Medical History Medical history: aortic aneurysm, cancer, COPD, coronary artery disease, GERD, hyperlipidemia, hypertension, myocardial infarction, thyroid disease, other Psychiatric history: anxiety, depression - Past Surgical History Surgical History: cancer surgery, coronary bypass (CABG), vasectomy, AICD - Social History Smoking Status: Unknown if ever smoked Smokeless Tobacco Status: No Alcohol use: none Drug use: none Internal Medicine - H&P: Meds Albuterol Sulfate [Ventolin Hfa] 2 puff IH Q4H PRN 10/15/16 [History] Amiodarone [Cordarone] 200 mg PO DAILY 10/15/16 [History] Aspirin 81 mg PO DAILY 10/15/16 [History] Furosemide [Lasix] 20 mg PO DAILY 10/15/16 [History] Ipratropium/Albuterol Neb [Duoneb] 3 ml IH TID PRN 10/15/16 [History] Isosorbide MONOnitrate (24 HR) [Imdur] 30 mg PO DAILY 10/15/16 [History] Levothyroxine [Synthroid] 75 mcg PO DAILY 10/15/16 [History] Topiramate [Topamax] 50 mg PO HS 10/15/16 [History] Quetiapine Fumarate [Seroquel] 25 mg PO HS 05/12/17 [History] Ferrous Sulfate 325 mg PO DAILY #30 tablet. 05/19/17 [Rx] Oxybutynin [Ditropan] 5 mg PO BID 06/02/17 [History] Umeclidinium Brm/Vilanterol Tr [Anoro Ellipta 62.5-25 Mcg INH] 1 each IH DAILY 06/02/17 [History] Fluticasone Propionate Nasal [Flonase] 100 mcg NS DAILY bottle 06/04/17 [Rx] Megestrol Acetate [Megace] 200 mg PO BID 08/23/17 [History] Multivitamin [One Daily Multivitamin] 1 each PO DAILY 08/23/17 [History] Nitroglycerin [Nitrostat] 0.4 mg SL Q5M PRN 08/23/17 [History] Tamsulosin [Flomax] 0.4 mg PO DAILY 08/23/17 [History] Atorvastatin [Lipitor] 40 mg PO HS #30 tablet 08/27/17 [Rx] Sertraline [Zoloft] 100 mg PO DAILY #30 tablet 08/27/17 [Rx] Ticagrelor [Brilinta] 90 mg PO BID #60 tablet 08/27/17 [Rx] GuaiFENesin/Dextromethorphan [Robitussin/Dm] 10 ml PO Q6HR PRN #1 bottle [Rx] Melatonin 3 mg PO HS PRN #30 tablet 09/14/17 [Rx] PredniSONE [Deltasone] 20 mg PO DAILY #7 tablet 09/14/17 [Rx] Diphenoxylate/Atropine [Lomotil 2.5 mg/0.025 mg] 1 each PO QID PRN 10/06/17 [ History] Hydroguard Cream 1 appl TP DAILY 10/06/17 [History] Na Phos,M-B/Na Phos,Di-Ba [Fleet Enema Extra] 230 ml RC DAILY PRN 10/06/17 [ History] Ondansetron HCl [Zofran] 4 mg PO Q8H PRN 10/06/17 [History] Lactobacillus [Culturelle] 2 each PO DAILY cap.sprink 10/15/17 [Rx] Miconazole w/zinc oxide&karaya [Antifungal Extra Thick] 1 appl TP BID tube [Rx] Piperacillin/Tazobactam [Zosyn] 3.375 gm IVPB Q8HR #8 vial 10/15/17 [Rx] Potassium Chloride 10 meq PO BIDWM tab.er.prt 10/15/17 [Rx] Saline Nasal [place] [[place] Nasal [place]] 2 spray NS Q2H PRN bottle 10/15/17 [Rx] clonazePAM [Klonopin] 1 mg PO BID #10 10/15/17 [Rx] 3 Allergy/AdvReac Type Severity Reaction Status Date / Time No Known Allergies Allergy Verified 05/15/17 09:36 All Systems PM: A 10-system review of systems was performed and is negative for pertinent findings except as documented above in the HPI. - Constitutional Constitutional: no chills, no fever(s), no falls, no weakness - EENT Eyes: no change in vision - Cardiovascular Cardiovascular ROS IM: no chest pain, no diaphoresis, no edema, no irregular heart rhythm, no lightheadedness - Respiratory Respiratory: cough, dyspnea, no hemoptysis, no pain with cough - Gastrointestinal Gastrointestinal: no abdominal pain, no constipation, no diarrhea, no dysphagia , no hematochezia, no melena - Genitourinary Genitourinary ROS male: no difficulty urinating, no dysuria - Integumentary Integumentary IM: skin ulcer, no erythema - Constitutional Vitals: Temp Pulse Resp BP Pulse Ox 97.7 F 95 22 108/74 95 11/06/17 14:31 11/06/17 22:10 11/06/17 22:10 11/06/17 22:10 11/06/17 22:10 General appearance: Present: cachectic, A&O X 3, pleasant, no acute distress, answers questions appropriately - Head Head exam: Present: atraumatic, normal inspection, normocephalic - Eye Eye exam: Present: EOMI, normal appearance, PERRL, sclera anicteric - ENT ENT exam: Present: normal exam, normal oropharynx - Neck Neck exam general surgery: Present: full ROM, normal inspection, supple - Respiratory Respiratory exam: Present: rales, rhonchi. Absent: chest wall tenderness, decreased breath sounds Additional comments: Examination while on BiPap. - Cardiovascular Cardiovascular exam: Present: RRR. Absent: clicks, diastolic murmur, gallop, rubs - GI/Abdominal GI/Abdominal exam: Present: normal bowel sounds. Absent: distended, firm, guarding, rebound, rigid, splenomegaly, tenderness Additional comments: Scaphoid - Extremities Exam Extremities exam: Present: full ROM, normal capillary refill, normal inspection , pedal edema (1+ bilaterally) - Neurological Exam Neurological exam: Present: alert, oriented X3, no focal deficits. Absent: motor sensory deficit, facial droop, speech deficit - Psychiatric Psychiatric exam: Present: normal affect, normal mood - Skin Skin exam: Present: dry Additional comments: Thin skin with minimal subcutanesous fat. Sporadic ecchymosis with no overlying evidence of trauma. Bilateral sacral decubitus ulcer, Stage 2 with no purulance or surrounding cellulitis. Internal Med - H&P Results - Labs CBC & Chem 7: 11/06/17 16:15 11/06/17 16:15 Labs: Short CBC 11/06/17 Range/Units 16:15 WBC 11.7 H (4.3-11.1) K/mcL Hgb 10.0 L (12.9-16.9) g/dL Hct 32.3 L (37.5-50.1) % Plt Count 221 (140-400) K/mcL Neutrophils # 10.9 H (1.6-8.9) K/mcL BMP 11/06/17 16:15 Sodium 137 Potassium 3.3 L Chloride 103 Carbon Dioxide 27 BUN 18 Creatinine 0.87 Glucose 90 Calcium 8.9 Cardiac Enzymes 11/06/17 Range/Units 16:15 Troponin I 0.07 H* (< 0.04) ng/mL - ABG Interpretation ABG results: 11/06/17 16:29 VBG pH 7.32 VBG pCO2 55 H VBG pO2 40 VBG HCO3 28 H - Impressions ITS Impressions Chest X-Ray 11/06/17 14:48 IMPRESSION: Stable chronic lung changes when compared to the radiograph dated 10/10/2017. Superimposed infection would be difficult to exclude. D/ / 11/06/2017 15:12:29 Kat Berger MD / earnold Interpreting Provider: Kat Berger MD <Tegan Mathis - Last Filed: 11/07/17 01:19> Date of Encounter: 11/07/17 Internal Medicine - H&P: HPI History of present illness: Mr. Jaimes is a 72 year old male All Systems PM: A 10-system review of systems was performed and is negative for pertinent findings except as documented above in the HPI. - Constitutional Vitals: Temp Pulse Resp BP Pulse Ox 97.6 F 86 22 119/76 97 11/06/17 23:50 11/06/17 23:50 11/07/17 00:09 11/06/17 23:50 11/07/17 00:11 Internal Med - H&P Results - Labs CBC & Chem 7: 11/06/17 16:15 11/06/17 16:15 - Attending Attestation I have seen and examined this pt independently. I have discussed with Resident physician Dr Chiang regarding the management plan. Agree with the documentation , except: (2) elevated D-Dimer should be elevated troponin (I believe that is a typing mistake)
[2017-11-06] MEDS ORDERED: Acetaminophen 325 MG TABLET PO PRN (23:45)
[2017-11-06] MEDS ORDERED: 0.9 % Sodium Chloride w KCl 20 MEQ/1,000 ML MLS IVC SCH (23:45)
[2017-11-06] MEDS ORDERED: Naloxone 0.4 MG/ML INJ IVP PRN (23:45)
[2017-11-07] MEDS: Acetylcysteine 10% 2 ML INHSOL IH SCH ×6 (00:27→20:12)
[2017-11-07] MEDS ORDERED: Ipratropium/Albuterol Neb 3 ML IH STA (00:28)
[2017-11-07] MEDS ORDERED: Potassium Chloride 20 MEQ, Lidocaine 1% 2 ML in D5% in Water 250 ML IVPB ONE (01:12)
[2017-11-07 06:49] LABS: BUN/Creatinine Ratio 20 (6-26); Blood Urea Nitrogen 16 mg/dL (8-23); Calcium 8.2 mg/dL (8.6-10.3); Carbon Dioxide 26 mEq/L (23-29); Chloride 106 mEq/L (98-107); Glucose 111 mg/dL (70-105); Magnesium 1.8 mg/dL (1.6-2.6); Osmolality,Calculated 284 (280-300); Potassium 3.9 mEq/L (3.5-5.1); Sodium 136 mEq/L (136-145); eGFR For African Americans > 60 (> 60); eGFR For Non-African Americans > 60 (> 60)
[2017-11-07 06:58] LABS: Hematocrit 28.6 % (37.5-50.1); Hemoglobin 8.7 g/dL (12.9-16.9); Mean Corpuscular HGB Conc 30.4 g/dL (31.6-35.5); Mean Corpuscular Hemoglobin 28.6 pg (28.0-33.3); Mean Corpuscular Volume 94.1 fL (83.0-100.0); Mean Platelet Volume 10.1 fL (9.4-12.4); Platelet Count 178 K/mcL (140-400); Red Blood Count 3.04 M/mcL (4.19-5.50)
[2017-11-07] MEDS: Ipratropium/Albuterol Neb 3 ML IH PRN ×3 (07:53→20:12)
[2017-11-07] MEDS: Furosemide 20 MG/2 ML VIAL IVP SCH (07:59)
[2017-11-07] MEDS: Aspirin 81 MG TAB.CHEW PO SCH (07:59)
[2017-11-07] MEDS: Pantoprazole 40 MG VIAL IVP SCH (07:59)
[2017-11-07] MEDS: Cefepime HCl 2,000 MG in Water for inj. (sterile) 20 ML 20 ML IVPB SCH ×2 (07:59→15:40)
[2017-11-07] MEDS: Levofloxacin 750 MG/150 ML 750 MG/150 ML BAG IVPB SCH (07:59)
[2017-11-07] MEDS: *HR* Heparin 5,000 UNIT/ML VIAL SQ SCH ×2 (07:59→21:11)
[2017-11-07] MEDS: Multivit/Ca/Min/Fe/FA 1 TAB TABLET PO SCH (08:00)
[2017-11-07] MEDS: *HR* Ticagrelor 90 MG TABLET PO SCH ×2 (08:00→21:10)
[2017-11-07] MEDS: *HR* Amiodarone 200 MG TABLET PO SCH (08:00)
[2017-11-07] MEDS: *HR* OxyCODONE Immed Rel 5 MG TABLET PO PRN ×2 (08:14→18:02)
[2017-11-07 09:03] LABS: Monocytes # 0.2 K/mcL (0.0-1.3); Neutrophils # 9.6 K/mcL (1.6-8.9); Platelet Estimate Normal (Normal)
[2017-11-07] MEDS: traMADol 50 MG TABLET PO PRN ×2 (11:46→21:14)
[2017-11-07 12:47] LABS: Adenovirus Not Detected (Not Detect); Bordetella Pertussis Not Detected (Not Detect); Chlamydophila pneumoniae Not Detected (Not Detect); Coronavirus 229E Not Detected (Not Detect); Coronavirus HKU1 Not Detected (Not Detect); Coronavirus NL63 Not Detected (Not Detect); Coronavirus OC43 Not Detected (Not Detect); Human Metapneumovirus Not Detected (Not Detect); Human Rhinovirus/Enterovirus ***DETECTED*** (Not Detect); Influenza A Subtype 2009 H1 Not Detected (Not Detect); Influenza A Untypeable Not Detected (Not Detect); Influenza B Not Detected (Not Detect); Mycoplasma pneumoniae Not Detected (Not Detect); Parainfluenza Virus 1 Not Detected (Not Detect); Parainfluenza Virus 2 Not Detected (Not Detect); Parainfluenza Virus 3 Not Detected (Not Detect); Parainfluenza Virus 4 Not Detected (Not Detect); Respiratory Syncytial Virus Not Detected (Not Detect)
--- NOTE | 2017-11-07 17:26 | Internal Med Progress Note ---
Date of Encounter: 11/07/17 Time of Encounter: 11:00 - Assessment and plan (1) Acute and chronic respiratory failure Current Visit: Yes Status: Acute Assessment and plan: -Resolved; patient currently on baseline O2 requirements Qualifiers: Respiratory failure complication: hypoxia Qualified Code(s): J96.21 - Acute and chronic respiratory failure with hypoxia (2) Hospital acquired PNA Current Visit: Yes Status: Acute Assessment and plan: -Will continue coverage with IV cefepime, vancomycin and Levaquin. -Pulmonology consulted and appreciate recommendations (3) History of MAC infection Current Visit: No Status: Chronic Assessment and plan: Patient has been noted in the past to have extensive chronic lung disease with emphysematous and bronchiectatic changes He has severe bilateral emphysematous bullous with bullous cavity in the apical regions has chronic scarring of the lungs Patient also has a history of MAC infection Appreciate pulmonology recommendations (4) COPD (chronic obstructive pulmonary disease) with emphysema Current Visit: No Status: Acute Assessment and plan: Patient has severe bilateral emphysematous bullous with bullous cavity in the apical regions has chronic scarring of the lungs Continue dual nebs Qualifiers: Emphysema type: panlobular Qualified Code(s): J43.1 - Panlobular emphysema (5) Ischemic cardiomyopathy Current Visit: No Status: Chronic Assessment and plan: Stable; continue Lasix and Brilinta in addition to statin and aspirin (6) Iron deficiency anemia Current Visit: Yes Status: Chronic Assessment and plan: Continue ferrous sulfate Qualifiers: Iron deficiency anemia type: other iron deficiency Qualified Code(s): D50.8 - Other iron deficiency anemias (7) Protein-calorie malnutrition, severe Current Visit: No Status: Acute Assessment and plan: Continue to monitor (8) Goals of care, counseling/discussion Current Visit: No Status: Acute Assessment and plan: Discussed with daughter at bedside about goals of care Decision has been made to consult palliative care who is known to patient (9) DVT prophylaxis Current Visit: No Status: Acute Assessment and plan: Heparin subcutaneous - Subjective Interval history: Patient presented with shortness of breath but currently on baseline O2 oxygen supplementation requirements Patient has been noted in the past to have extensive chronic lung disease with emphysematous and bronchiectatic changes He has severe bilateral emphysematous bullous with bullous cavity in the apical regions has chronic scarring of the lungs Patient also has a history of MAC infection Patient follows with infectious disease specialist in [place] and also known to pulmonology service due to chronic pneumonia/lung disease and have been consulted - Constitutional Vitals: Temp Pulse Resp BP Pulse Ox 98.1 F 92 18 118/72 97 11/07/17 16:00 11/07/17 16:00 11/07/17 16:06 11/07/17 16:00 11/07/17 16:06 General appearance: Present: cachectic, A&O X 3, pleasant, no acute distress, answers questions appropriately - Respiratory Respiratory exam: Present: CTAB. Absent: accessory muscle use, rales, rhonchi, wheezes - Cardiovascular Cardiovascular exam: Present: RRR, +S1, +S2. Absent: diastolic murmur, gallop, rubs, systolic murmur Internal Medicine: Result - Labs CBC & Chem 7: 11/07/17 05:59 11/07/17 05:59 Labs: Short CBC 11/07/17 Range/Units 05:59 WBC 9.8 (4.3-11.1) K/mcL Hgb 8.7 L (12.9-16.9) g/dL Hct 28.6 L (37.5-50.1) % Plt Count 178 (140-400) K/mcL Neutrophils # 9.6 H (1.6-8.9) K/mcL BMP 11/07/17 05:59 Sodium 136 Potassium 3.9 Chloride 106 Carbon Dioxide 26 BUN 16 Creatinine 0.82 Glucose 111 H Calcium 8.2 L Cardiac Enzymes 11/07/17 11/07/17 11/07/17 Range/Units 00:40 05:59 12:05 Troponin I 0.06 H* 0.07 H* 0.07 H* (< 0.04) ng/mL Consult Discharge Plan - Plan Additional Instructions: Admitted to hospital service. Referrals: Ulices Mcgovern Jr, MD [Primary Care Provider] -
[2017-11-08] MEDS: Cefepime HCl 2,000 MG in Water for inj. (sterile) 20 ML 20 ML IVPB SCH ×2 (00:02→07:54)
[2017-11-08] MEDS: Acetylcysteine 10% 2 ML INHSOL IH SCH ×6 (00:02→20:00)
[2017-11-08] MEDS: *HR* OxyCODONE Immed Rel 5 MG TABLET PO PRN ×4 (00:02→22:58)
[2017-11-08] MEDS: Ipratropium/Albuterol Neb 3 ML IH PRN ×4 (00:02→20:00)
[2017-11-08] MEDS: clonazePAM 1 MG TABLET PO PRN ×3 (00:19→20:37)
[2017-11-08] MEDS: Pantoprazole 40 MG VIAL IVP SCH (07:53)
[2017-11-08] MEDS: Multivit/Ca/Min/Fe/FA 1 TAB TABLET PO SCH (07:53)
[2017-11-08] MEDS: Aspirin 81 MG TAB.CHEW PO SCH (07:53)
[2017-11-08] MEDS: *HR* Amiodarone 200 MG TABLET PO SCH (07:53)
[2017-11-08] MEDS: *HR* Ticagrelor 90 MG TABLET PO SCH ×2 (07:53→20:11)
[2017-11-08] MEDS: Levofloxacin 750 MG/150 ML 750 MG/150 ML BAG IVPB SCH (07:54)
[2017-11-08] MEDS: Furosemide 20 MG/2 ML VIAL IVP SCH (07:54)
[2017-11-08] MEDS: *HR* Heparin 5,000 UNIT/ML VIAL SQ SCH ×2 (07:54→20:11)
[2017-11-08 08:55] LABS: Eosinophils % 0.2 %; Hematocrit 33.5 % (37.5-50.1); Hemoglobin 10.1 g/dL (12.9-16.9); Immature Granulocytes % 0.6 % (0-4); Lymphocytes % 7.8 %; Mean Corpuscular HGB Conc 30.1 g/dL (31.6-35.5); Mean Corpuscular Hemoglobin 28.8 pg (28.0-33.3); Mean Corpuscular Volume 95.4 fL (83.0-100.0); Mean Platelet Volume 10.1 fL (9.4-12.4); Monocytes % 2.5 %; Platelet Count 160 K/mcL (140-400); Red Blood Count 3.51 M/mcL (4.19-5.50); Red Cell Distribution Width 20.5 % (11.5-14.5); Segmented Neutrophils % 88.8 %
[2017-11-08 08:56] LABS: Basophils % 0.1 %; Lymphocytes # 0.9 K/mcL (0.6-4.6); Monocytes # 0.3 K/mcL (0.0-1.3); Neutrophils # 10.4 K/mcL (1.6-8.9)
[2017-11-08 09:10] LABS: BUN/Creatinine Ratio 19 (6-26); Blood Urea Nitrogen 15 mg/dL (8-23); Calcium 8.5 mg/dL (8.6-10.3); Carbon Dioxide 21 mEq/L (23-29); Chloride 105 mEq/L (98-107); Glucose 73 mg/dL (70-105); Osmolality,Calculated 279 (280-300); Potassium 3.4 mEq/L (3.5-5.1); Sodium 135 mEq/L (136-145); eGFR For African Americans > 60 (> 60); eGFR For Non-African Americans > 60 (> 60)
--- NOTE | 2017-11-08 09:12 | Pulmonology Consult Note ---
Date of Encounter: 11/08/17 Time of Encounter: 09:00 Assessment and Plan (1) Acute and chronic respiratory failure Current Visit: Yes Status: Acute Patient is presenting with acute on chronic respiratory failure with hypoxia and hypercapnia secondary to COPD exacerbation triggered by Rhinovirus infection now with superimposed gram negative infection with sputum growing gram negative rods . To continue BIPAP at Night if needed should be used during the day . Qualifiers: Respiratory failure complication: hypoxia and hypercapnia Qualified Code(s) : J96.21 - Acute and chronic respiratory failure with hypoxia; J96.22 - Acute and chronic respiratory failure with hypercapnia; J96.22 - Acute and chronic respiratory failure with hypercapnia; J96.22 - Acute and chronic respiratory failure with hypercapnia (2) Hospital acquired PNA Current Visit: Yes Status: Acute CT chest which was done today i personally compared with Last CTA done on 10/08 which showed some worsening consolidation of right middle lobe and lower lobe with viral pneumonia superimposed with gram negative pneumonia as sputum culture growing gram negative rods waiting for C/S there were some tracheal and bronchial secretions suspicious for aspiration. Will do speech consult . For now will change cefepime to Zosyn for anaerobic coverage once the C/S sensitivity is back will start descalating first the vancomycin then other antibiotics according to clinical response . (3) Acute exacerbation of chronic obstructive airways disease Current Visit: No Status: Acute Agree with bronchodilators and steroids will continue the non invasive ventilation in the night as patient is motivated to used to continue to use incentive spirometry , percussor therapy or flutter valve therapy . Counseled patient to cough as much as possible when he does the incentive spirometry and the flutter valve therapy . (4) History of MAC infection Current Visit: No Status: Chronic Patient has chronic MAC infection patient didnt pursue outpatient treatment as suggested (5) Goals of care, counseling/discussion Current Visit: Yes Status: Acute Because of the extensive pulmonary history patient has poor prognosis if he is put on invasive ventilation . Appreciate palliative care input patient remains to be DNRCCA -DNI . History of Present Illness Consult date: 11/08/17 Requesting physician: William Dunn Reason for consult: dyspnea, cough, COPD, abnormal CXR/CT, other (chronic MAC infection , bronchiectasis ) Chief complaint: Shortness of breadth History of present illness: 72 year old male with extensive complicated pulmonary history well know to Pulmonary and ICU service , patient has COPD , with Chronic MAC infection for which he didnt pursue outpatient treatment has bilateral upper lobe lung bronchiectasis changes has background of systolic heart failure was recently admitted in ICU for pneumonia and septic shock was discharged to [facility] home was transferred back on the 11/06 with increased shortness of breadth , with increased cough and sputum production the initial work up was positive for Rhinovirus is treated for Pneumonia with COPD exacerbation , denies any PND or any increasing pedal edema , denies any chest pain or tightness denies any GI or Neuro symptoms . Pulmonary was consulted for management for acute on chronic respiratory failure in the background of complicated pulmonary history . Past Med Surg Social Fam HX - Past Medical History Medical history: aortic aneurysm, cancer, COPD, coronary artery disease, GERD, hyperlipidemia, hypertension, myocardial infarction, thyroid disease, other Psychiatric history: anxiety, depression - Past Surgical History Surgical History: cancer surgery, coronary bypass (CABG), vasectomy, AICD - Social History Smoking Status: Unknown if ever smoked Smokeless Tobacco Status: No Alcohol use: none Drug use: none Medications and Allergies Albuterol Sulfate [Ventolin Hfa] 2 puff IH Q4H PRN 10/15/16 [History] Amiodarone [Cordarone] 200 mg PO DAILY 10/15/16 [History] Aspirin 81 mg PO DAILY 10/15/16 [History] Furosemide [Lasix] 20 mg PO DAILY 10/15/16 [History] Ipratropium/Albuterol Neb [Duoneb] 3 ml IH TID PRN 10/15/16 [History] Levothyroxine [Synthroid] 75 mcg PO DAILY 10/15/16 [History] Topiramate [Topamax] 50 mg PO HS 10/15/16 [History] Quetiapine Fumarate [Seroquel] 25 mg PO HS 05/12/17 [History] Ferrous Sulfate 325 mg PO DAILY #30 tablet. 05/19/17 [Rx] Oxybutynin [Ditropan] 5 mg PO BID 06/02/17 [History] Umeclidinium Brm/Vilanterol Tr [Anoro Ellipta 62.5-25 Mcg INH] 1 each IH DAILY 06/02/17 [History] Fluticasone Propionate Nasal [Flonase] 100 mcg NS DAILY bottle 06/04/17 [Rx] Megestrol Acetate [Megace] 200 mg PO BID 12/04/17 [History] Multivitamin [One Daily Multivitamin] 1 tab PO DAILY 08/23/17 [History] Nitroglycerin [Nitrostat] 0.4 mg SL Q5M PRN 08/23/17 [History] Tamsulosin [Flomax] 0.4 mg PO DAILY 08/23/17 [History] Atorvastatin [Lipitor] 40 mg PO HS #30 tablet 08/27/17 [Rx] Sertraline [Zoloft] 100 mg PO DAILY #30 tablet 08/27/17 [Rx] Ticagrelor [Brilinta] 90 mg PO BID #60 tablet 08/27/17 [Rx] GuaiFENesin/Dextromethorphan [Robitussin/Dm] 10 ml PO Q6HR PRN #1 bottle [Rx] Melatonin 3 mg PO HS PRN #30 tablet 09/14/17 [Rx] PredniSONE [Deltasone] 20 mg PO DAILY #7 tablet 09/14/17 [Rx] Diphenoxylate/Atropine [Lomotil 2.5 mg/0.025 mg] 1 each PO QID PRN 10/06/17 [ History] Na Phos,M-B/Na Phos,Di-Ba [Fleet Enema Extra] 230 ml RC DAILY PRN 10/06/17 [ History] Ondansetron HCl [Zofran] 4 mg PO Q8H PRN 10/06/17 [History] Lactobacillus [Culturelle] 2 each PO DAILY cap.sprink 10/15/17 [Rx] Potassium Chloride 10 meq PO BIDWM tab.er.prt 10/15/17 [Rx] Saline Nasal [place] [Tony Nasal [place]] 2 spray NS Q2H PRN bottle 10/15/17 [Rx] clonazePAM [Klonopin] 1 mg PO BID #10 10/15/17 [Rx] 3 Allergy/AdvReac Type Severity Reaction Status Date / Time No Known Allergies Allergy Verified 05/15/17 09:36 All Systems: All other review of systems were reviewed found to be negative except what is mentioned in HPI Physical Examination Vital Signs: Vital Signs, Last 4 Hours Temp Pulse Resp BP Pulse Ox 11/08/17 08:22 107 11/08/17 08:04 20 111/77 93 11/08/17 07:11 98.4 F 20 111/77 93 Auscultation: bilateral: wheezes, rales Extremities: no edema Results - Laboratory Findings CBC and BMP: 11/08/17 08:41 11/08/17 08:41 Abnormal lab findings: Abnormal lab results WBC 11.7 K/mcL (4.3-11.1) H 11/08/17 08:41 RBC 3.51 M/mcL (4.19-5.50) L 11/08/17 08:41 Hgb 10.1 g/dL (12.9-16.9) L 11/08/17 08:41 Hct 33.5 % (37.5-50.1) L 11/08/17 08:41 MCHC 30.1 g/dL (31.6-35.5) L 11/08/17 08:41 RDW 20.5 % (11.5-14.5) H 11/08/17 08:41 Neutrophils # 10.4 K/mcL (1.6-8.9) H 11/08/17 08:41 VBG pCO2 55 mmHg (41-51) H 11/06/17 16:29 VBG HCO3 28 mEq/L (21-27) H 11/06/17 16:29 Sodium 135 mEq/L (136-145) L 11/08/17 08:41 Potassium 3.4 mEq/L (3.5-5.1) L 11/08/17 08:41 Carbon Dioxide 21 mEq/L (23-29) L 11/08/17 08:41 Calculated Osmolality 279 (280-300) L 11/08/17 08:41 Calcium 8.5 mg/dL (8.6-10.3) L 11/08/17 08:41 Troponin I 0.07 ng/mL (< 0.04) H* 11/07/17 12:05 B-Natriuretic Peptide 1472 pg/mL (Less than 100) H 11/07/17 05:59 Entero/Rhino (PCR) DETECTED (Not Detect) A 11/07/17 05:55 - Microbiology Findings Microbiology Findings: Microbiology, Last 48 Hours 11/07/17 10:30 Sputum Culture - Preliminary Sputum - Clinical Findings Intake & Output: Intake & Output 11/07/17 11/08/17 11/08/17 23:59 07:59 15:59 Intake Total 1220 / 1220 270 / 270 120 / 120 Output Total 1100 / 1100 320 / 320 Balance 120 / 120 -50 / -50 120 / 120 Weight 58.6 kg Consult Discharge Plan - Plan Additional Instructions: Admitted to hospital service. Referrals: Ulices Mcgovern Jr, MD [Primary Care Provider] -
--- NOTE | 2017-11-08 09:24 | Palliative - Consult Note ---
Date of Encounter: 11/08/17 Time of Encounter: 09:20 - Assessment and Plan (1) Dyspnea Current Visit: No Status: Acute Assessment and plan: Remains on bronchodilators/mucomyst/IV atb/oxygen and PRN bipap. Monitor. If they would decide to proceed with hospice, SL Roxanol could be added for dyspnea and increased work of breathing. Qualifiers: Dyspnea type: unspecified Qualified Code(s): R06.00 - Dyspnea, unspecified (2) Anxiety Current Visit: No Status: Acute Assessment and plan: Remains on Clonazepam and Seroquel at hs per home dose. Last admission, he tolerated low dose Lorazepam well for increased anxiety, and is asking for this. Will order Lorazepam 0..5 po bid PRN and monitor. (3) Generalized pain Current Visit: Yes Status: Acute Assessment and plan: Currently has Tramadol for moderate pain and Oxycodone for severe pain. Monitor. He is currently comfortable. (4) Goals of care, counseling/discussion Current Visit: No Status: Acute Assessment and plan: Have met with pt daughter Kay multiple times in the past. Kay has been well informed in the past of pt condition and poor prognosis. Code status currently DNR/DNI, same as previous admission. During last admit, pt/daughter wanted to go for rehab, Chintan STEWARTW spoke with [facility] - they have been helping the daughter file a trust, and eventually getting Medicaid in place. Until this time, doubt hospice will come into play, as it would be private pay, and daughter cannot take him home and care for him. Patient's states that daughter is most likely working today. Will be getting in touch with her. (5) Acute exacerbation of chronic obstructive airways disease Current Visit: No Status: Acute (6) Ischemic cardiomyopathy Current Visit: No Status: Chronic Palliative-CN HPI - Data of Consult Consult date: 11/08/17 Requesting Physician: William Dunn Primary Care Provider: Ulices Mcgovern Jr, MD - Consult Narrative History of present illness: Mr. Jaimes is a 72 year old male well known to the palliative care team from previous visits, who was admitted with increasing shortness of breath. He was discharged on 10/08/17 and desired rehab stay at [facility]. He has previous medical history of aortic aneurysm, cancer, COPD, coronary artery disease, GERD , hyperlipidemia, hypertension, myocardial infarction, and thyroid disease. He is currently being treated with IV antibiotics/oxygen/nebs/bipap PRN. Upon my visit, he is awake and alert x3, but does not remember me from previous visits. Quite dyspneic even at rest, quite pronounced with conversation. Utilized bipap last night. He opens eyes when spoken to. Breathing labored with conversation. Currently off bipap. Did eat cereal/juice for breakfast. Asking for Lorazepam, states it helped anxiety last admission. Daughter Kay Perez is medical power of sister superior. CC: William Dunn Past Med Surg Social Fam HX - Past Medical History Medical history: aortic aneurysm, cancer, COPD, coronary artery disease, GERD, hyperlipidemia, hypertension, myocardial infarction, thyroid disease, other Psychiatric history: anxiety, depression - Past Surgical History Surgical History: cancer surgery, coronary bypass (CABG), vasectomy, AICD - Social History Smoking Status: Unknown if ever smoked Smokeless Tobacco Status: No Alcohol use: none Drug use: none Medications and Allergies Albuterol Sulfate [Ventolin Hfa] 2 puff IH Q4H PRN 10/15/16 [History] Amiodarone [Cordarone] 200 mg PO DAILY 10/15/16 [History] Aspirin 81 mg PO DAILY 10/15/16 [History] Furosemide [Lasix] 20 mg PO DAILY 10/15/16 [History] Ipratropium/Albuterol Neb [Duoneb] 3 ml IH TID PRN 10/15/16 [History] Isosorbide MONOnitrate (24 HR) [Imdur] 30 mg PO DAILY 10/15/16 [History] Levothyroxine [Synthroid] 75 mcg PO DAILY 10/15/16 [History] Topiramate [Topamax] 50 mg PO HS 10/15/16 [History] Quetiapine Fumarate [Seroquel] 25 mg PO HS 05/12/17 [History] Ferrous Sulfate 325 mg PO DAILY #30 tablet. 05/19/17 [Rx] Oxybutynin [Ditropan] 5 mg PO BID 06/02/17 [History] Umeclidinium Brm/Vilanterol Tr [Anoro Ellipta 62.5-25 Mcg INH] 1 each IH DAILY 06/02/17 [History] Fluticasone Propionate Nasal [Flonase] 100 mcg NS DAILY bottle 06/04/17 [Rx] Megestrol Acetate [Megace] 200 mg PO BID 08/23/17 [History] Multivitamin [One Daily Multivitamin] 1 each PO DAILY 08/23/17 [History] Nitroglycerin [Nitrostat] 0.4 mg SL Q5M PRN 08/23/17 [History] Tamsulosin [Flomax] 0.4 mg PO DAILY 08/23/17 [History] Atorvastatin [Lipitor] 40 mg PO HS #30 tablet 08/27/17 [Rx] Sertraline [Zoloft] 100 mg PO DAILY #30 tablet 08/27/17 [Rx] Ticagrelor [Brilinta] 90 mg PO BID #60 tablet 08/27/17 [Rx] GuaiFENesin/Dextromethorphan [Robitussin/Dm] 10 ml PO Q6HR PRN #1 bottle [Rx] Melatonin 3 mg PO HS PRN #30 tablet 09/14/17 [Rx] PredniSONE [Deltasone] 20 mg PO DAILY #7 tablet 09/14/17 [Rx] Diphenoxylate/Atropine [Lomotil 2.5 mg/0.025 mg] 1 each PO QID PRN 10/06/17 [ History] Hydroguard Cream 1 appl TP DAILY 10/06/17 [History] Na Phos,M-B/Na Phos,Di-Ba [Fleet Enema Extra] 230 ml RC DAILY PRN 10/06/17 [ History] Ondansetron HCl [Zofran] 4 mg PO Q8H PRN 10/06/17 [History] Lactobacillus [Culturelle] 2 each PO DAILY cap.sprink 10/15/17 [Rx] Miconazole w/zinc oxide&karaya [Antifungal Extra Thick] 1 appl TP BID tube [Rx] Piperacillin/Tazobactam [Zosyn] 3.375 gm IVPB Q8HR #8 vial 10/15/17 [Rx] Potassium Chloride 10 meq PO BIDWM tab.er.prt 10/15/17 [Rx] Saline Nasal [place] [[place] Nasal [place]] 2 spray NS Q2H PRN bottle 10/15/17 [Rx] clonazePAM [Klonopin] 1 mg PO BID #10 10/15/17 [Rx] 3 Allergy/AdvReac Type Severity Reaction Status Date / Time No Known Allergies Allergy Verified 05/15/17 09:36 All systems: reviewed and no additional remarkable complaints except as stated ( weakness, shortness of breath even at rest, anxiety, poor appetite) Palliative Care-Exam - Constitutional Vitals: Temp Pulse Resp BP Pulse Ox 98.4 F 107 20 111/77 93 11/08/17 07:11 11/08/17 08:22 11/08/17 08:04 11/08/17 08:04 11/08/17 08:04 General appearance: Present: mild distress - Head Head Exam: Present: normal inspection, normocephalic - Eye Eye exam: Present: normal appearance, PERRL - Respiratory Respiratory exam: Present: decreased breath sounds, CTAB - Cardiovascular Cardiovascular exam: Present: +S1, +S2 - GI/Abdominal Exam GI/Abdominal exam: Present: normal bowel sounds, soft - Extremities Exam Additional comments: 1+ edema bilateral lower extremities - Neurological Exam Neurological exam: Present: alert, oriented X3, strengths equal and symetr throughout - Psychiatric Psychiatric exam: Present: flat affect - Skin Skin exam: Present: dry, pallor, warm Internal Medicine - CN: Reslt - Labs CBC & Chem 7: 11/08/17 08:41 11/08/17 08:41 Labs: Short CBC 11/08/17 Range/Units 08:41 WBC 11.7 H (4.3-11.1) K/mcL Hgb 10.1 L (12.9-16.9) g/dL Hct 33.5 L (37.5-50.1) % Plt Count 160 (140-400) K/mcL Neutrophils # 10.4 H (1.6-8.9) K/mcL BMP 11/08/17 08:41 Sodium 135 L Potassium 3.4 L Chloride 105 Carbon Dioxide 21 L BUN 15 Creatinine 0.81 Glucose 73 Calcium 8.5 L Cardiac Enzymes 11/07/17 Range/Units 12:05 Troponin I 0.07 H* (< 0.04) ng/mL Consult Discharge Plan - Plan Additional Instructions: Admitted to hospital service. Referrals: Ulices Mcgovern Jr, MD [Primary Care Provider] - Palliative Quality Palliative Quality: Screen for Code Status: Yes, Screen for Goals of Care: Yes, Screen for Pain: Yes, If Pain Regimen Started, Initiate Bowel Regimen: Yes, Screen for Nausea/Vomitting: Yes
[2017-11-08] MEDS: *HR* LORazepam 0.5 MG TABLET PO PRN ×2 (10:11→22:58)
[2017-11-08] MEDS: traMADol 50 MG TABLET PO PRN ×2 (12:46→20:37)
[2017-11-08] MEDS ORDERED: Cefepime HCl 2,000 MG in Water for inj. (sterile) 20 ML 20 ML IVPB SCH (16:00)
--- NOTE | 2017-11-08 18:40 | Internal Med Progress Note ---
Date of Encounter: 11/08/17 Time of Encounter: 11:00 - Assessment and plan (1) Acute and chronic respiratory failure Current Visit: Yes Status: Acute Assessment and plan: -Patient with shortness of breath secondary to acute on chronic hypoxic/ hypercapnic respiratory failure -Suspect secondary to HAP and AECOPD -Management as below; pulmonology following and appreciate recommendations Qualifiers: Respiratory failure complication: hypoxia and hypercapnia Qualified Code(s) : J96.21 - Acute and chronic respiratory failure with hypoxia; J96.22 - Acute and chronic respiratory failure with hypercapnia; J96.22 - Acute and chronic respiratory failure with hypercapnia; J96.22 - Acute and chronic respiratory failure with hypercapnia (2) Hospital acquired PNA Current Visit: Yes Status: Acute Assessment and plan: -Will continue coverage with IV Zosyn, vancomycin and Levaquin. -Pulmonology consulted and appreciate recommendations (3) History of MAC infection Current Visit: No Status: Chronic Assessment and plan: Patient has been noted in the past to have extensive chronic lung disease with emphysematous and bronchiectatic changes He has severe bilateral emphysematous bullous with bullous cavity in the apical regions has chronic scarring of the lungs Patient also has a history of MAC infection Appreciate pulmonology recommendations (4) COPD (chronic obstructive pulmonary disease) with emphysema Current Visit: No Status: Acute Assessment and plan: Patient has severe bilateral emphysematous bullous with bullous cavity in the apical regions has chronic scarring of the lungs Continue dual nebs Qualifiers: Emphysema type: panlobular Qualified Code(s): J43.1 - Panlobular emphysema (5) Ischemic cardiomyopathy Current Visit: No Status: Chronic Assessment and plan: Stable; continue Lasix and Brilinta in addition to statin and aspirin (6) Iron deficiency anemia Current Visit: Yes Status: Chronic Assessment and plan: Continue ferrous sulfate Qualifiers: Iron deficiency anemia type: other iron deficiency Qualified Code(s): D50.8 - Other iron deficiency anemias (7) Protein-calorie malnutrition, severe Current Visit: No Status: Acute Assessment and plan: Continue to monitor (8) Goals of care, counseling/discussion Current Visit: No Status: Acute Assessment and plan: Discussed with daughter at bedside about goals of care Decision has been made to consult palliative care who is known to patient (9) DVT prophylaxis Current Visit: No Status: Acute Assessment and plan: Heparin subcutaneous - Subjective Interval history: Patient presented with shortness of breath secondary to acute on chronic hypoxic /hypercapnic respiratory failure secondary to HAP and AECOPD Patient without any improvement in respiratory status this morning - Constitutional Vitals: Temp Pulse Resp BP Pulse Ox 98.8 F 140 18 105/67 92 11/08/17 17:00 11/08/17 17:00 11/08/17 17:41 11/08/17 17:41 11/08/17 17:41 General appearance: Present: cachectic, A&O X 3, pleasant, no acute distress, answers questions appropriately - Respiratory Respiratory exam: Present: decreased breath sounds. Absent: respiratory distress, rhonchi, wheezes - Cardiovascular Cardiovascular exam: Present: RRR, +S1, +S2. Absent: diastolic murmur, gallop, rubs, systolic murmur Internal Medicine: Result - Labs CBC & Chem 7: 11/08/17 08:41 11/08/17 08:41 Labs: Short CBC 11/08/17 Range/Units 08:41 WBC 11.7 H (4.3-11.1) K/mcL Hgb 10.1 L (12.9-16.9) g/dL Hct 33.5 L (37.5-50.1) % Plt Count 160 (140-400) K/mcL Neutrophils # 10.4 H (1.6-8.9) K/mcL BMP 11/08/17 08:41 Sodium 135 L Potassium 3.4 L Chloride 105 Carbon Dioxide 21 L BUN 15 Creatinine 0.81 Glucose 73 Calcium 8.5 L - Impressions Impressions Chest CT 11/08/17 13:30 IMPRESSION: 1. Similar appearance of extensive cavitation involving the right upper lobe and to a lesser extent the right middle and right lower lobes. There is underlying fibrotic change with bronchiectasis. The findings are likely related to an aggressive atypical bacterial infection, fungal infection, or mycobacterial infection versus severe chronic aspiration. 2. New consolidative, groundglass, tree-in-bud opacities in the right lower lobe and to lesser extent the left upper and left lower lobes, potentially pneumonia or aspiration. 3. Moderate bronchial wall thickening in the lower lobes with minimal involvement elsewhere with patchy airway secretions, suggesting bronchitis. 4. Increased trace bilateral pleural effusions. 5. Severe centrilobular emphysema. D/ / Chance Pereira MD / Chance Pereira MD Interpreting Provider: Chance Pereira MD Consult Discharge Plan - Plan Additional Instructions: Admitted to hospital service. Referrals: Ulices Mcgovern Jr, MD [Primary Care Provider] -
[2017-11-08] MEDS: Melatonin 3 MG TABLET PO PRN (22:58)
[2017-11-09] MEDS: Ipratropium/Albuterol Neb 3 ML IH PRN ×5 (00:03→16:02)
[2017-11-09] MEDS: Acetylcysteine 10% 2 ML INHSOL IH SCH ×7 (00:03→23:42)
[2017-11-09] MEDS: traMADol 50 MG TABLET PO PRN ×2 (03:06→12:36)
[2017-11-09] MEDS: Leptospermum Honey Paste 1 APPL/5 ML MLS TP SCH ×3 (03:07→20:42)
[2017-11-09] MEDS: *HR* OxyCODONE Immed Rel 5 MG TABLET PO PRN (06:42)
[2017-11-09] MEDS ORDERED: 0.9 % Sodium Chloride 250 ML ONE (09:24)
[2017-11-09] MEDS: *HR* Ticagrelor 90 MG TABLET PO SCH ×2 (09:31→20:42)
[2017-11-09] MEDS: Aspirin 81 MG TAB.CHEW PO SCH (09:31)
[2017-11-09] MEDS: *HR* Amiodarone 200 MG TABLET PO SCH (09:31)
[2017-11-09] MEDS: Furosemide 20 MG TABLET PO SCH (09:31)
[2017-11-09] MEDS: Multivit/Ca/Min/Fe/FA 1 TAB TABLET PO SCH (09:31)
[2017-11-09] MEDS: *HR* Heparin 5,000 UNIT/ML VIAL SQ SCH ×2 (09:32→20:42)
[2017-11-09] MEDS: Pantoprazole 40 MG VIAL IVP SCH (09:32)
--- NOTE | 2017-11-09 10:19 | Palliative Progress Note ---
Date of Encounter: 11/09/17 Time of Encounter: 10:00 - Assessment and plan (1) Dyspnea Current Visit: No Status: Acute Qualifiers: Dyspnea type: unspecified Qualified Code(s): R06.00 - Dyspnea, unspecified (2) Anxiety Current Visit: No Status: Acute Assessment and plan: Continue home meds of Seroquel/Clonazepam. Has low dose Lorazepam BID PRN. (3) Generalized pain Current Visit: Yes Status: Acute Assessment and plan: Continue Oxycodone. Received x4 last 24 hours. (4) Goals of care, counseling/discussion Current Visit: No Status: Acute Assessment and plan: Discussed clinical status with daughter Kay. Informed of sputum culture, CT findings, MBS, hypotension. Discussed if he has continued decline, what things they want/do not want done. She will be coming to hospital this afternoon and she wants to try and discuss with pt. Will f/u later this afternoon. Did explain to her that if he desires no further aggressive care, and desire comfort care, that is reasonable. She is very informed re: hospice and what that can offer him. (5) Acute exacerbation of chronic obstructive airways disease Current Visit: No Status: Acute (6) Ischemic cardiomyopathy Current Visit: No Status: Chronic - Time Spent With Patient Total time spent is greater than 50% in coordination of care (as documented) at patient's floor/unit and/or counseling patient: - Subjective Interval history: I saw patient right [place] [facility] [place] He is very weak, only shook head yes/no to answers. Hypotension noted this am, and fever of 100. Sputum culture with acinetobacter sensitive to Zosyn. - Constitutional Vitals: Abnormal lab results WBC 11.7 K/mcL (4.3-11.1) H 11/08/17 08:41 RBC 3.51 M/mcL (4.19-5.50) L 11/08/17 08:41 Hgb 10.1 g/dL (12.9-16.9) L 11/08/17 08:41 Hct 33.5 % (37.5-50.1) L 11/08/17 08:41 MCHC 30.1 g/dL (31.6-35.5) L 11/08/17 08:41 RDW 20.5 % (11.5-14.5) H 11/08/17 08:41 Neutrophils # 10.4 K/mcL (1.6-8.9) H 11/08/17 08:41 VBG pCO2 55 mmHg (41-51) H 11/06/17 16:29 VBG HCO3 28 mEq/L (21-27) H 11/06/17 16:29 Sodium 135 mEq/L (136-145) L 11/08/17 08:41 Potassium 3.4 mEq/L (3.5-5.1) L 11/08/17 08:41 Carbon Dioxide 21 mEq/L (23-29) L 11/08/17 08:41 Calculated Osmolality 279 (280-300) L 11/08/17 08:41 Calcium 8.5 mg/dL (8.6-10.3) L 11/08/17 08:41 Troponin I 0.07 ng/mL (< 0.04) H* 11/07/17 12:05 B-Natriuretic Peptide 1472 pg/mL (Less than 100) H 11/07/17 05:59 Vancomycin Trough 29.3 mcg/mL (10-20) H* 11/08/17 16:50 Entero/Rhino (PCR) DETECTED (Not Detect) A 11/07/17 05:55 General appearance: Present: mild distress - Respiratory Respiratory exam: Present: decreased breath sounds, CTAB Additional comments: Occasional rhonchi noted - Cardiovascular Cardiovascular exam: Present: +S1, +S2 - GI/Abdominal GI/Abdominal exam: Present: normal bowel sounds, soft - Additional comments: Landis with clear yellow urine - Extremities Exam Extremities exam: Present: normal capillary refill, normal inspection - Neurological Exam Neurological exam: Present: alert Additional comments: Follows commands. Generalized weakness - Skin Skin exam: Present: dry, pallor, warm Palliative Quality Palliative Quality: Screen for Code Status: Yes, Screen for Goals of Care: Yes, Screen for Pain: Yes, If Pain Regimen Started, Initiate Bowel Regimen: Yes, Screen for Nausea/Vomitting: Yes - Labs CBC & Chem 7: 11/08/17 08:41 11/08/17 08:41 Labs: Laboratory Results - last 24 hr 11/08/17 16:50 Vancomycin Trough 29.3 H* - Impressions Impressions Chest CT 11/08/17 13:30 IMPRESSION: 1. Similar appearance of extensive cavitation involving the right upper lobe and to a lesser extent the right middle and right lower lobes. There is underlying fibrotic change with bronchiectasis. The findings are likely related to an aggressive atypical bacterial infection, fungal infection, or mycobacterial infection versus severe chronic aspiration. 2. New consolidative, groundglass, tree-in-bud opacities in the right lower lobe and to lesser extent the left upper and left lower lobes, potentially pneumonia or aspiration. 3. Moderate bronchial wall thickening in the lower lobes with minimal involvement elsewhere with patchy airway secretions, suggesting bronchitis. 4. Increased trace bilateral pleural effusions. 5. Severe centrilobular emphysema. D/ / Chance Pereira MD / Chance Pereira MD Interpreting Provider: Chance Pereira MD Videofluoroscopic Swallow 11/09/17 00:00 IMPRESSION: Swallowing mechanism grossly within normal limits without evidence of aspiration. Please see separate speech pathology report for full discussion of findings and recommendations. D/ / Albert Hawthorne MD / Albert Hawthorne MD Interpreting Provider: Albert Hawthorne MD Consult Discharge Plan - Plan Additional Instructions: Admitted to hospital service. Referrals: Ulices Mcgovern Jr, MD [Primary Care Provider] - 11/22/17 11:00 am
[2017-11-09] MEDS ORDERED: 0.9 % Sodium Chloride 250 ML IVC ONE (11:24)
--- NOTE | 2017-11-09 12:44 | Pulmonology Progress Note ---
Date of Encounter: 11/09/17 Time of Encounter: 11:00 Assessment and Plan (1) Acute and chronic respiratory failure Current Visit: Yes Status: Acute Triggered Rhinovirus which tipped him to COPD exacerbation to use BIPAP at night that will help will lethargy in the morning if more lethargic in the morning will ABG to see if there is uncompensated hypercarbic respiratory failure . Qualifiers: Respiratory failure complication: hypoxia and hypercapnia Qualified Code(s) : J96.21 - Acute and chronic respiratory failure with hypoxia; J96.22 - Acute and chronic respiratory failure with hypercapnia; J96.22 - Acute and chronic respiratory failure with hypercapnia; J96.22 - Acute and chronic respiratory failure with hypercapnia (2) Hospital acquired PNA Current Visit: Yes Status: Acute Patient sputum is growing MDRO Acinetobacter Baumanni sens to Zosyn to continue Zosyn for total 7 days . (3) Acute exacerbation of chronic obstructive airways disease Current Visit: No Status: Acute To continue bronchodilators and steroids . To send him on prolong steroid taper (4) History of MAC infection Current Visit: No Status: Chronic Patient didnt pursue outpatient treatment his chronic bronchiectatic changes has worsened , patient has poor prognosis of his chronic lung condition . Conveyed about the poor prognosis of his chronic lung condition to her daughter Kay . (5) Goals of care, counseling/discussion Current Visit: Yes Status: Acute Palliative care is helping family about goals of care discussion . Subjective Principal diagnosis: COPD exacerbation with pneumonia Interval history: Patient is lying in bed more lethargic but was able to wake up engage in meaningful conversation said he used the BIPAP overnight doesnt have any active complaints now and he went back to sleep . Objective PUL Vital signs: Last Vital Signs Temp 98.3 F 11/09/17 11:29 Pulse 102 11/09/17 11:29 Resp 20 11/09/17 11:29 BP 91/60 11/09/17 11:29 Pulse Ox 100 11/09/17 11:29 Auscultation: bilateral: rales (scattered rales ) other (Patient is little bit lethargic no obvious focal deficit ) Results - Laboratory Findings CBC and BMP: 11/08/17 08:41 11/08/17 08:41 Abnormal lab findings: Abnormal lab results WBC 11.7 K/mcL (4.3-11.1) H 11/08/17 08:41 RBC 3.51 M/mcL (4.19-5.50) L 11/08/17 08:41 Hgb 10.1 g/dL (12.9-16.9) L 11/08/17 08:41 Hct 33.5 % (37.5-50.1) L 11/08/17 08:41 MCHC 30.1 g/dL (31.6-35.5) L 11/08/17 08:41 RDW 20.5 % (11.5-14.5) H 11/08/17 08:41 Neutrophils # 10.4 K/mcL (1.6-8.9) H 11/08/17 08:41 VBG pCO2 55 mmHg (41-51) H 11/06/17 16:29 VBG HCO3 28 mEq/L (21-27) H 11/06/17 16:29 Sodium 135 mEq/L (136-145) L 11/08/17 08:41 Potassium 3.4 mEq/L (3.5-5.1) L 11/08/17 08:41 Carbon Dioxide 21 mEq/L (23-29) L 11/08/17 08:41 Calculated Osmolality 279 (280-300) L 11/08/17 08:41 Calcium 8.5 mg/dL (8.6-10.3) L 11/08/17 08:41 Troponin I 0.07 ng/mL (< 0.04) H* 11/07/17 12:05 B-Natriuretic Peptide 1472 pg/mL (Less than 100) H 11/07/17 05:59 Vancomycin Trough 29.3 mcg/mL (10-20) H* 11/08/17 16:50 Entero/Rhino (PCR) DETECTED (Not Detect) A 11/07/17 05:55 - Microbiology Findings Microbiology Findings: Microbiology, Last 48 Hours 11/07/17 10:30 Sputum Culture - Preliminary Sputum Acinetobacter baumannii MDRO - Clinical Findings Intake & Output: Intake & Output 11/08/17 11/09/17 11/09/17 23:59 07:59 15:59 Intake Total 100 / 100 100 / 100 Output Total 850 / 850 600 / 600 Balance -750 / -750 -500 / -500 Weight 58.8 kg - VTE Documentation of Mechanical Device: Intermittent pneumatic compression device Consult Discharge Plan - Plan Additional Instructions: Admitted to hospital service. Referrals: Ulices Mcgovern Jr, MD [Primary Care Provider] - 11/22/17 11:00 am
--- NOTE | 2017-11-09 13:07 | Internal Med Progress Note ---
<Anthony Pabon Beckie - Last Filed: 11/09/17 17:14> Date of Encounter: 11/09/17 - Constitutional Vitals: Temp Pulse Resp BP Pulse Ox 98.3 F 96 20 85/58 96 11/09/17 11:29 11/09/17 16:33 11/09/17 16:33 11/09/17 16:33 11/09/17 16:33 Internal Medicine: Result - Labs CBC & Chem 7: 11/08/17 08:41 11/08/17 08:41 - Impressions Impressions Videofluoroscopic Swallow 11/09/17 00:00 IMPRESSION: Swallowing mechanism grossly within normal limits without evidence of aspiration. Please see separate speech pathology report for full discussion of findings and recommendations. D/ / Albert Hawthorne MD / Albert Hawthorne MD Interpreting Provider: Albert Hawthorne MD Consult Discharge Plan - Plan Additional Instructions: Admitted to hospital service. Referrals: Ulices Mcgovern Jr, MD [Primary Care Provider] - 11/22/17 11:00 am - Attending Attestation I personally interviewed and examined this patient. I agree with the findings, assessment, and plan of Dr. Gamez, internal medicine international trade compliance manager. Agree with change of antibiotics to Unasyn and vancomycin based on sputum culture. We are still awaiting to rule out MRSA. Patient continues to be dyspneic and required BiPAP intermittently only very medicine input is greatly appreciated. Kidney with aggressive pulmonary toilet. He continues on oral Lasix but may need to change this to IV Lasix if his respiratory status worsens. Patient otherwise does state his breathing has improved somewhat. All else as outlined above. <Maureen Gamez - Last Filed: 11/09/17 18:55> Date of Encounter: 11/09/17 Time of Encounter: 13:30 - Assessment and plan (1) Hospital acquired PNA Current Visit: Yes Status: Acute Assessment and plan: Sputum culture is grew MRSA and acinetobacter baumannii MDRO sensitive to Unasyn , Gentamicin, Zosyn, Bactrim Plan: -begin Unasyn and Vanco .- d/c zosyn - Mucinex 600mg BID (2) Acute and chronic respiratory failure Current Visit: Yes Status: Acute Assessment and plan: Patient is presenting with acute on chronic respiratory failure with hypoxia and hypercapnia secondary to COPD exacerbation triggered by Rhinovirus infection now with superimposed gram negative infection with sputum growing gram negative rods. Currently on BIPAP, intermittent tachycardia. Plan: -Patient with shortness of breath secondary to acute on chronic hypoxic/ hypercapnic respiratory failure -Suspect secondary to HAP and AECOPD -Management as below; pulmonology following and appreciate recommendations -BIPAP as needed Qualifiers: Respiratory failure complication: hypoxia and hypercapnia Qualified Code(s) : J96.21 - Acute and chronic respiratory failure with hypoxia; J96.22 - Acute and chronic respiratory failure with hypercapnia; J96.22 - Acute and chronic respiratory failure with hypercapnia; J96.22 - Acute and chronic respiratory failure with hypercapnia (3) Acute exacerbation of chronic obstructive airways disease Current Visit: No Status: Acute Assessment and plan: CT shows severe bilateral emphysematous bullous cavity. Plan: - continue DuoNebs q4hrs prrn (4) Ischemic cardiomyopathy Current Visit: No Status: Chronic Assessment and plan: Stable; continue Lasix and Brilinta in addition to statin and aspirin (5) Protein-calorie malnutrition, severe Current Visit: No Status: Acute Assessment and plan: Plan: - barium swallow study was wnl without aspiration - swallow study recommends advanced soft think linquids -diet: Ensure pluse BID - Continue to monitor (6) DVT prophylaxis Current Visit: No Status: Acute Assessment and plan: Heparin subcutaneous (7) History of MAC infection Current Visit: No Status: Chronic Assessment and plan: Patient has been noted in the past to have extensive chronic lung disease with emphysematous and bronchiectatic changes He has severe bilateral emphysematous bullous with bullous cavity in the apical regions has chronic scarring of the lungs Patient also has a history of MAC infection Appreciate pulmonology recommendations (8) Iron deficiency anemia Current Visit: Yes Status: Chronic Assessment and plan: Continue ferrous sulfate. Chronic. Currently hemoglobin stable. Qualifiers: Iron deficiency anemia type: other iron deficiency Qualified Code(s): D50.8 - Other iron deficiency anemias (9) Goals of care, counseling/discussion Current Visit: No Status: Acute Assessment and plan: Palliative care is following and is talking to daughter (10) Elevated troponin Current Visit: No Status: Acute Assessment and plan: Troponin= 0.06,0.07,0.07. Stable. most likely from demand ischemia. (11) Hypokalemia Current Visit: No Status: Acute Assessment and plan: Will restart home med of potassium 10mg BID - Subjective Interval history: 72y/o M past medical history of COPD presents to emergency room via EMS with chief complaint of shortness of breath at [facility]. He was recently admitted to this facility and discharged on 10/08/2017 for severe sepsis secondary to pneumonia and was found to have resp failure 2/2 HAP pneumonia and COPD exacerbation. Today, patient states that he is not feeling much better and is still coughing a lot and sputum is hard to bring up. - Constitutional Vitals: Temp Pulse Resp BP Pulse Ox 98.3 F 102 20 91/60 100 11/09/17 11:29 11/09/17 11:29 11/09/17 11:29 11/09/17 11:29 11/09/17 11:29 General appearance: Present: cachectic, A&O X 3, pleasant, no acute distress, answers questions appropriately Exam: Constitutional: Alert, in no acute distress, undernurished Head: Normocephalic, atraumatic, Heart: Normal, regular rate and rhythm, no murmurs Lungs: on NC 9L using accessory muscles, + wheezes, +rales, + rhonchi Abdomen: Soft, nondistended, nontender, bowel sounds present and normal, no guarding or rigidity. Extremities: No clubbing, cyanosis, or edema, radial pulse +2/4, capillary refill <2sec. Skin: Skin warm and dry, no jaundice Neurologic: responding to most questions appropriately, 5/5 strength in all extremities Psych: Cooperative with exam, good eye contact, cognitive function intact, judgment good insight good, speech clear, thought process logical, and goal directed Internal Medicine: Result - Labs CBC & Chem 7: 11/08/17 08:41 11/08/17 08:41 - Impressions Impressions Chest CT 11/08/17 13:30 IMPRESSION: 1. Similar appearance of extensive cavitation involving the right upper lobe and to a lesser extent the right middle and right lower lobes. There is underlying fibrotic change with bronchiectasis. The findings are likely related to an aggressive atypical bacterial infection, fungal infection, or mycobacterial infection versus severe chronic aspiration. 2. New consolidative, groundglass, tree-in-bud opacities in the right lower lobe and to lesser extent the left upper and left lower lobes, potentially pneumonia or aspiration. 3. Moderate bronchial wall thickening in the lower lobes with minimal involvement elsewhere with patchy airway secretions, suggesting bronchitis. 4. Increased trace bilateral pleural effusions. 5. Severe centrilobular emphysema. D/ / Chance Pereira MD / Chance Pereira MD Interpreting Provider: Chance Pereira MD Videofluoroscopic Swallow 11/09/17 00:00 IMPRESSION: Swallowing mechanism grossly within normal limits without evidence of aspiration. Please see separate speech pathology report for full discussion of findings and recommendations. D/ / Albert Hawthorne MD / Albert Hawthorne MD Interpreting Provider: Albert Hawthorne MD - VTE Documentation of Mechanical Device: Intermittent pneumatic compression device
[2017-11-09] MEDS ORDERED: Vancomycin 1 EACH in EMPTY BAG 1 EACH IVPB SCH (16:00)
[2017-11-09] MEDS ORDERED: Albuterol 2.5 MG/3 ML NEBULIZER IH PRN (16:17)
[2017-11-09] MEDS ORDERED: Aminoglycoside Consult 1 EACH MC ONE (17:29)
[2017-11-09] MEDS: Ampicillin/Sulbactam 1,500 MG in 0.9 % Sodium Chloride Mini Bag 100 ML IVPB SCH (17:36)
[2017-11-09] MEDS: Ipratropium/Albuterol Neb 3 ML IH SCH ×2 (19:47→23:42)
[2017-11-09] MEDS ORDERED: *HR* LORazepam 2 MG/ML VIAL IVP PRN (23:16)
[2017-11-10] MEDS: Ampicillin/Sulbactam 1,500 MG in 0.9 % Sodium Chloride Mini Bag 100 ML IVPB SCH (00:16)
[2017-11-10] MEDS: clonazePAM 1 MG TABLET PO PRN (02:50)
[2017-11-10] MEDS: Melatonin 3 MG TABLET PO PRN (02:50)
[2017-11-10] MEDS: Ipratropium/Albuterol Neb 3 ML IH SCH ×3 (03:28→11:19)
[2017-11-10] MEDS: Acetylcysteine 10% 2 ML INHSOL IH SCH ×3 (03:28→11:19)
[2017-11-10] MEDS: OXYCODONE Oral CONC 10 MG/0.5 ML ORAL.SYG SL PRN ×2 (03:30→09:39)
[2017-11-10 06:23] LABS: Hematocrit 25.4 % (37.5-50.1); Mean Corpuscular HGB Conc 30.7 g/dL (31.6-35.5); Mean Corpuscular Hemoglobin 28.4 pg (28.0-33.3); Mean Corpuscular Volume 92.4 fL (83.0-100.0); Mean Platelet Volume 10.5 fL (9.4-12.4); Platelet Count 108 K/mcL (140-400); Red Blood Count 2.75 M/mcL (4.19-5.50); Red Cell Distribution Width 20.2 % (11.5-14.5)
[2017-11-10 06:31] LABS: Hemoglobin 7.8 g/dL (12.9-16.9)
--- NOTE | 2017-11-10 06:44 | Internal Med Progress Note ---
<Anthony Pabon Beckie - Last Filed: 11/10/17 15:16> Date of Encounter: 11/10/17 - Constitutional Vitals: Temp Pulse Resp BP Pulse Ox 98.3 F 113 24 80/57 88 11/10/17 07:19 11/10/17 11:50 11/10/17 14:29 11/10/17 11:15 11/10/17 11:15 Internal Medicine: Result - Labs CBC & Chem 7: 11/10/17 06:00 11/10/17 06:00 Labs: Short CBC 11/10/17 Range/Units 06:00 WBC 8.6 (4.3-11.1) K/mcL Hgb 7.8 L D (12.9-16.9) g/dL Hct 25.4 L (37.5-50.1) % Plt Count 108 L (140-400) K/mcL Neutrophils # 8.3 (1.6-8.9) K/mcL BMP 11/10/17 06:00 Sodium 139 Potassium 3.6 Chloride 106 Carbon Dioxide 26 BUN 19 Creatinine 0.95 Glucose 55 L Calcium 8.0 L Consult Discharge Plan - Plan Additional Instructions: Admitted to hospital service. Referrals: Ulices Mcgovern Jr, MD [Primary Care Provider] - 11/22/17 11:00 am - Attending Attestation I personally interviewed and examined this patient. I agree with the findings, assessment, and plan of Dr. Jennings, internal medicine resident. Palliative care input is also appreciated. Patient and family have agreed on comfort care measures and he is being transferred to the palliative care service. She has severe lung disease and a very poor prognosis. See discharge summary. <Gus Jennings - Last Filed: 11/10/17 16:09> Date of Encounter: 11/10/17 Time of Encounter: 08:00 - Assessment and plan (1) Hospital acquired PNA Current Visit: Yes Status: Acute Assessment and plan: Acute on chronic hypoxic respiratory failure multifactorial in nature secondary to influenza, COPD exacerbation. Chest CT showed sensitive cavitation involving the right lung with bronchiectasis. Her also new consolidated ground glass treatment but opacities in the right lower lobe possibly representing pneumonia in addition to moderate bronchial wall thickening and trace bilateral pleural effusions. Sputum culture is grew MRSA and acinetobacter baumannii MDRO Plan: patient has been BiPAP depended overnight appreciate palliative care input. At family meeting today, it was decided that patient's code [facility] would [facility] received 2 days of Zosyn continue unison day to, vancomycin day 5 (2) Acute and chronic respiratory failure Current Visit: Yes Status: Acute Assessment and plan: as above Qualifiers: Respiratory failure complication: hypoxia and hypercapnia Qualified Code(s) : J96.21 - Acute and chronic respiratory failure with hypoxia; J96.22 - Acute and chronic respiratory failure with hypercapnia; J96.22 - Acute and chronic respiratory failure with hypercapnia; J96.22 - Acute and chronic respiratory failure with hypercapnia (3) Acute exacerbation of chronic obstructive airways disease Current Visit: No Status: Acute Assessment and plan: as above (4) Ischemic cardiomyopathy Current Visit: No Status: Chronic Assessment and plan: Stable; continue Brilinta, statin, ASA will hold Lasix at this time due to hypotension (5) Protein-calorie malnutrition, severe Current Visit: No Status: Acute Assessment and plan: She did have barium swallow study that was within normal limits without evidence of aspiration. Per recommendations of speech therapy, continue advanced soft thin liquids with Ensure plus BID. (6) History of MAC infection Current Visit: No Status: Chronic Assessment and plan: Patient has been noted in the past to have extensive chronic lung disease with emphysematous and bronchiectatic changes Patient also has a history of MAC infection and did not pursue outpatient treatment as recommended. Appreciate pulmonology recommendations (7) Iron deficiency anemia Current Visit: Yes Status: Chronic Assessment and plan: Continue ferrous sulfate. Qualifiers: Iron deficiency anemia type: other iron deficiency Qualified Code(s): D50.8 - Other iron deficiency anemias (8) Elevated troponin Current Visit: No Status: Acute Assessment and plan: Likely secondary to demand ischemia in setting of acute respiratory failure. No further interventions at this time. (9) Hypokalemia Current Visit: No Status: Acute Assessment and plan: Will supplement as needed. (10) Goals of care, counseling/discussion Current Visit: Yes Status: Acute Assessment and plan: Currently code status as DNR CCA/DNI. Palliative care is on board. Patient has been depended on BiPAP all night. Plan: appreciate palliative care input family meeting today at 9 AM S goals of care, possible change in code status to DNR cc, possible hospice. (11) DVT prophylaxis Current Visit: No Status: Acute Assessment and plan: EPCD - Subjective Interval history: 72-year-old male evaluated at bedside. Patient is currently on BiPAP, he is asleep, appears to be in no acute distress. - Constitutional Vitals: Temp Pulse Resp BP Pulse Ox 99.9 F H 102 18 91/51 96 11/10/17 04:46 11/10/17 04:46 11/10/17 04:46 11/10/17 04:46 11/10/17 04:46 General appearance: Present: cachectic, pleasant, no acute distress, answers questions appropriately Exam: Sleeping - Head Head exam: Present: atraumatic, normocephalic - Neck Neck exam general surgery: Present: supple, trachea midline - Respiratory Respiratory exam: Present: rhonchi - Cardiovascular Cardiovascular exam: Present: tachycardia - GI/Abdominal GI/Abdominal exam: Present: normal bowel sounds, soft. Absent: distended, tenderness - Extremities Exam Extremities exam: Absent: cyanotic, pedal edema - Neurological Exam Neurological exam: Present: alert, oriented X3, no focal deficits - Psychiatric Psychiatric exam: Present: normal affect, normal mood - Skin Skin exam: Present: intact Additional comments: Thin-skinned with areas of ecchymosis present Internal Medicine: Result - Labs CBC & Chem 7: 11/10/17 06:00 11/10/17 06:00 Labs: Short CBC 11/10/17 Range/Units 06:00 WBC 8.6 (4.3-11.1) K/mcL Hgb 7.8 L D (12.9-16.9) g/dL Hct 25.4 L (37.5-50.1) % Plt Count 108 L (140-400) K/mcL - Impressions Impressions Videofluoroscopic Swallow 11/09/17 00:00 IMPRESSION: Swallowing mechanism grossly within normal limits without evidence of aspiration. Please see separate speech pathology report for full discussion of findings and recommendations. D/ / Albert Hawthorne MD / Albert Hawthorne MD Interpreting Provider: Albert Hawthorne MD - VTE Documentation of Mechanical Device: Intermittent pneumatic compression device
[2017-11-10 07:00] LABS: BUN/Creatinine Ratio 20 (6-26); Blood Urea Nitrogen 19 mg/dL (8-23); Carbon Dioxide 26 mEq/L (23-29); Chloride 106 mEq/L (98-107); Glucose 55 mg/dL (70-105); Osmolality,Calculated 288 (280-300); Potassium 3.6 mEq/L (3.5-5.1); Sodium 139 mEq/L (136-145); eGFR For African Americans > 60 (> 60); eGFR For Non-African Americans > 60 (> 60)
[2017-11-10 07:28] LABS: Lymphocytes # 0.1 K/mcL (0.6-4.6); Monocytes # 0.2 K/mcL (0.0-1.3); Neutrophils # 8.3 K/mcL (1.6-8.9); Platelet Estimate Slight Decrease (Normal)
[2017-11-10 07:29] LABS: Toxic Granulation Present (Not Present)
--- NOTE | 2017-11-10 09:16 | Palliative Progress Note ---
Date of Encounter: 11/10/17 Time of Encounter: 09:00 - Assessment and plan (1) Dyspnea Current Visit: No Status: Acute Assessment and plan: Can no longer tolerate PO Oxycodone and this had to be switched to subligual during the night. Monitor - after meeting with daughter, if pt transitions to comfort care, will increase frequency of dosing. Will speak with her as well regarding how long to continue bipap support. Qualifiers: Dyspnea type: unspecified Qualified Code(s): R06.00 - Dyspnea, unspecified (2) Anxiety Current Visit: No Status: Acute Assessment and plan: Unable to tolerate po anxiolytics. Lorazepam switched to IV during the night. When awake he is still extremely anxious and agitated. Will increase to 1mg and increase frequency to Q2H PRN. . (3) Generalized pain Current Visit: Yes Status: Acute Assessment and plan: Continue Oxycodone. Will increase to 15mg every hour PRN. Will begin Fentanyl drip. Monitor closely (4) Goals of care, counseling/discussion Current Visit: No Status: Acute Assessment and plan: Daughter at bedside - aware of his decline. Tearful - discussed clinical goals at this point, and she wants comfort care only. Discussed that he is not doing well off bipap - and this is becoming a life sustaining device for him. Kay desires him to be as comfortable as possible and the bipap to be discontinued and heh pass in peace. Will begin Continue Fentanyl infusion and bipap will be discontinued once comfortable. Code status changed to DNRCC. (5) Acute exacerbation of chronic obstructive airways disease Current Visit: No Status: Acute (6) Ischemic cardiomyopathy Current Visit: No Status: Chronic - Time Spent With Patient Total time spent is greater than 50% in coordination of care (as documented) at patient's floor/unit and/or counseling patient: - Subjective Interval history: Patient with deterioration overnight, hypoxic, confused and agitated. DId tolerate bipap after administration of oxycodone. Hypotensive. Currently remains on bipap - becomes restless with assessment. No verbal response, does not follow commands - Constitutional Vitals: Abnormal lab results RBC 2.75 M/mcL (4.19-5.50) L 11/10/17 06:00 Hgb 7.8 g/dL (12.9-16.9) L D 11/10/17 06:00 Hct 25.4 % (37.5-50.1) L 11/10/17 06:00 MCHC 30.7 g/dL (31.6-35.5) L 11/10/17 06:00 RDW 20.2 % (11.5-14.5) H 11/10/17 06:00 Plt Count 108 K/mcL (140-400) L 11/10/17 06:00 Band Neutrophils % 14.0 % (0-4) H 11/10/17 06:00 Lymphocytes # 0.1 K/mcL (0.6-4.6) L 11/10/17 06:00 Toxic Granulation Present (Not Present) A 11/10/17 06:00 Platelet Estimate Slight Decrease (Normal) L 11/10/17 06:00 VBG pCO2 55 mmHg (41-51) H 11/06/17 16:29 VBG HCO3 28 mEq/L (21-27) H 11/06/17 16:29 Glucose 55 mg/dL (70-105) L 11/10/17 06:00 POC Glucose 110 (58-89) H 11/09/17 20:55 Calcium 8.0 mg/dL (8.6-10.3) L 11/10/17 06:00 Troponin I 0.07 ng/mL (< 0.04) H* 11/07/17 12:05 B-Natriuretic Peptide 1472 pg/mL (Less than 100) H 11/07/17 05:59 Vancomycin Trough 29.3 mcg/mL (10-20) H* 11/08/17 16:50 Entero/Rhino (PCR) DETECTED (Not Detect) A 11/07/17 05:55 General appearance: Present: mild distress - Respiratory Additional comments: Rhonchi throughout. - Cardiovascular Cardiovascular exam: Present: irregular rhythm, tachycardia - GI/Abdominal GI/Abdominal exam: Present: normal bowel sounds, soft - Extremities Exam Extremities exam: Present: normal capillary refill, normal inspection - Neurological Exam Additional comments: Lethargic - restless when disturbed, appears confused. Did not follow commands for me. - Skin Skin exam: Present: dry, pallor, warm Palliative Quality Palliative Quality: Screen for Code Status: Yes, Screen for Goals of Care: Yes, Screen for Pain: Yes, If Pain Regimen Started, Initiate Bowel Regimen: Yes, Screen for Nausea/Vomitting: Yes - Labs CBC & Chem 7: 11/10/17 06:00 11/10/17 06:00 Labs: Laboratory Results - last 24 hr 11/09/17 11/10/17 11/10/17 20:55 06:00 06:00 WBC 8.6 RBC 2.75 L Hgb 7.8 L D Hct 25.4 L MCV 92.4 MCH 28.4 MCHC 30.7 L RDW 20.2 H Plt Count 108 L MPV 10.5 Seg Neutrophils % 83.0 Band Neutrophils % 14.0 H Lymphocytes % 1.0 Monocytes % 2.0 Neutrophils # 8.3 Lymphocytes # 0.1 L Monocytes # 0.2 Toxic Granulation Present A Platelet Estimate Slight Decrease L Sodium Potassium Chloride Carbon Dioxide BUN Creatinine Est GFR ( Amer) Est GFR (Non-Af Amer) BUN/Creatinine Ratio Glucose POC Glucose 110 H Calculated Osmolality Calcium Random Vancomycin 15.8 11/10/17 06:00 WBC RBC Hgb Hct MCV MCH MCHC RDW Plt Count MPV Seg Neutrophils % Band Neutrophils % Lymphocytes % Monocytes % Neutrophils # Lymphocytes # Monocytes # Toxic Granulation Platelet Estimate Sodium 139 Potassium 3.6 Chloride 106 Carbon Dioxide 26 BUN 19 Creatinine 0.95 Est GFR ( Amer) > 60 Est GFR (Non-Af Amer) > 60 BUN/Creatinine Ratio 20 Glucose 55 L POC Glucose Calculated Osmolality 288 Calcium 8.0 L Random Vancomycin Consult Discharge Plan - Plan Additional Instructions: Admitted to hospital service. Referrals: Ulices Mcgovern Jr, MD [Primary Care Provider] - 11/22/17 11:00 am
[2017-11-10] MEDS: *HR* Heparin 5,000 UNIT/ML VIAL SQ SCH (09:39)
[2017-11-10] MEDS: Pantoprazole 40 MG VIAL IVP SCH (09:39)
[2017-11-10] MEDS: Multivit/Ca/Min/Fe/FA 1 TAB TABLET PO SCH (09:43)
[2017-11-10] MEDS: *HR* Ticagrelor 90 MG TABLET PO SCH (09:43)
[2017-11-10] MEDS: Aspirin 81 MG TAB.CHEW PO SCH (09:43)
[2017-11-10] MEDS: Furosemide 20 MG TABLET PO SCH (09:43)
[2017-11-10] MEDS: *HR* Amiodarone 200 MG TABLET PO SCH (09:43)
[2017-11-10] MEDS: Leptospermum Honey Paste 1 APPL/5 ML MLS TP SCH (09:51)
[2017-11-10] MEDS ORDERED: Atropine Sulfate 1% 40 DROP/2 ML BOTTLE SL PRN (11:21)
[2017-11-10] MEDS ORDERED: OXYCODONE Oral CONC 10 MG/0.5 ML ORAL.SYG PO PRN (11:21)
[2017-11-10] MEDS ORDERED: *HR* LORazepam 2 MG/ML VIAL IVP PRN (11:22)
[2017-11-10] MEDS ORDERED: FentaNYL (PF) 1,000 MCG in 0.9 % Sodium Chloride 80 ML IVC SCH (11:45)
[2017-11-10] MEDS ORDERED: Ampicillin/Sulbactam 1,500 MG in 0.9 % Sodium Chloride Mini Bag 100 ML IVPB SCH (12:00)
[2017-11-10 12:03] VITALS: BP 80/57
[2017-11-10] MEDS ORDERED: 0.9 % Sodium Chloride 250 ML ONE (12:13)
[2017-11-10] MEDS ORDERED: *HR* FentaNYL (PF) 100 MCG/2 ML VIAL IVP PRN (14:00)
[2017-11-10] MEDS ORDERED: *HR* LORazepam 2 MG/ML VIAL IVP SCH (14:00)
[2017-11-10] MEDS ORDERED: Acetaminophen 650 MG RECTAL SUPP RC PRN (15:36)
--- NOTE | 2017-11-10 15:41 | Death Note ---
Discharge Sum: Summary - Date and Time Date of admission: 11/07/17 00:16 Date of : 11/10/17 Time of : 15:50 - Summary Details: at 1550 I was notified by the nurse that according to patient's family that he had likely past. Upon entering the room several family members were present at bedside. Patient was comfortably laying in bed with his eyes closed. Pupils were fixed and dilated. There was no pulse present, no respirations, and no heart sounds present. Time of : 1550 - Additional Data Confirmation of as documented by pronouncing clinician: no pulse, no respirations, no heart sounds, pupils fixed and dilated Family: at bedside Additional persons at bedside: other (2N nurses Christopher and Christina) Attending physician: Tamar Pabon Was code activated?: No cone examiner notified?: No Organ bank notified?: No Discharge Sum: Diag - PCOD Probable Cause of : Acute respiratory failure Discharge Sum: Prov - Provider Primary care physician: Ulices Mcgovern Jr, MD Admitting clinician: Tegan Mathis Attending physician on admission: Tegan Mathis Consults: 11/07/17 01:35 Consult to Wound Care [CONS] Routine Reason for Consult: coccyx wounds Call Completed: No 11/07/17 11:30 Consult to Pulmonology [CONS] Routine Consulting Provider: [facility] Reason for Consult: COPD Call Completed: Yes 11/07/17 11:33 Consult to Palliative Care [CONS] Routine Comment: Consulting Provider: Palliative Care [facility]ao Reason for Consult: end of life goals Call Completed: No 11/08/17 15:45 Consult to Speech Therapy [CONS] Routine Comment: Evaluate, develop and implement POC Reason for Consult: CT chest shows evidence of aspiration Call Completed: Yes Pronouncing clinician: Gus Jennings
--- NOTE | 2017-11-12 09:07 | Electrocardiograph Report ---
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
== END 2017-11-10 17:30 | disposition expired | DRG 189 ==
LOC: EMEROO 14:30 → 2NNU 14:30
PROVIDERS: ADMIT Internal Medicine; ATTEND Hospitalist